=== PATIENT | male | born 1965 | race Caucasian/White ===

== ENCOUNTER → 2017-07-16 08:50 | Outpatient (CLI) | payer OTHER, MEDICAID, SELFPAY ==
--- NOTE | 2017-07-16 08:52 | DI.RAD.S_ITS ---
PROCEDURE: XR ANKLE LT MIN 3V INDICATIONS: 51 year-old male with left ankle pain after twisting injury. TECHNIQUE: 3 views of the ankle were acquired. COMPARISON: None. FINDINGS: Bones: There is mildly displaced spiral fracture of the distal fibula at the level of the mildly widened syndesmosis. Ankle mortise is normally aligned. No suspicious bony lesions. Soft tissues: There is lateral malleolar soft tissue swelling. No tibiotalar joint effusion. Achilles tendon appears normal. IMPRESSION: Fracture findings consistent with stage II supination-external rotation mechanism of injury. Dictated by: Arsen Cueva M.D. on 07/16/2017 at 9:38 Approved by: Arsen Cueva M.D. on 07/16/2017 at 9:39
== END ==
PROVIDERS: PCP Physician Assistant; Visit Provider Physician Assistant
DX: S82.442A Displaced spiral fracture of shaft of left fibula, initial encounter for closed fracture (principal); M25.572 Pain in left ankle and joints of left foot
CPT/HCPCS: 73610

== ENCOUNTER 2017-07-21 12:33 | Day surgery (SDC) | payer OTHER, MEDICAID, SELFPAY ==
[2017-07-21] VITALS (8 sets, daily range): BP systolic 130–157; BP diastolic 78–89; PULSE 88–111; RESP 12–18; TEMP 36.4–36.9; O2SAT 97–100; BMI 22.9
--- NOTE | 2017-07-21 13:18 | PM.HP.1 ---
History of Present Illness Date Patient Seen: 07/21/17 Time Patient Seen: 13:19 Chief complaint: [id number] Narrative: 51-year-old male with a left ankle fracture. He twisted his ankle 5 days ago. The next day he came in to the urgent care and was found to have a widened ankle fracture and was referred to my office was felt that he would benefit from surgical reduction. At this point the ankle is sore and still pounds and throbs when he lets it hang down. He has been walking in a fracture boot. 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 Patient History Medical History History of ETOH abuse (Acute) History of sinusitis (Acute) Left shoulder pain (Acute) Left wrist pain (Acute) Rotator cuff tear, left (Acute) Surgical History Hx of right inguinal hernia repair (Acute) Family & Social History Family History: Reviewed 07/21/17 by Guy Ceballos MD Tobacco & Substance use: Tobacco type cigarettes,pipe,cigars,smokeless tobacco Smoking Status Current every day smoker Smoking packs per day 0.5 alcohol intake current Meds Home Medications Medication Instructions Recorded Confirmed Type No Known Home Medications 07/16/17 07/16/17 History Allergies Allergy/AdvReac Type Severity Reaction Status Date / Time codeine AdvReac Severe Gastrointestinal Verified 07/21/17 07:56 Upset Review of Systems Cardiovascular Cardiovascular: Denies chest pain Respiratory Respiratory: Denies cough Musculoskeletal Musculoskeletal: Reports as per HPI Exam Const Orientation: alert and oriented x3 Resp Auscultation: clear to auscultation bilaterally Cardio Rate: regular rate Rhythm: regular rhythm Extrem Other: Left ankle with swelling. Easily moves his toes up and down. Intact sensation throughout ankle. 2+ DP. Intact integument Objective Imaging Left ankle: My impression: Lateral malleolus fracture of the left ankle with widening of the mortise Assessment & Plan (1) Closed left ankle fracture: Current visit: Yes Status: Acute Plan: Assessment/Plan Narrative: Plan is for ORIF of the left lateral malleolus fracture. I have discussed his limited weight-bearing status for the next 6 weeks, which will be quite complicated with his job. Hopefully we can get him a scooter and he may be able to use that in the kitchen. Risks and benefits of surgery were discussed and appropriate consents obtained. These risks include but are not limited to medical risk with heart attack, stroke, , DVT, PE, infection, bleeding, scarring, nerve or blood vessel injury, nonunion, malunion, stiffness, laxity, arthritis, need for further surgery.
--- NOTE | 2017-07-21 13:24 | P.HP_ITS ---
History of Present Illness Date Patient Seen: 07/21/17 Time Patient Seen: 13:19 Chief complaint: [id number] Narrative: 51-year-old male with a left ankle fracture. He twisted his ankle 5 days ago. The next day he came in to the urgent care and was found to have a widened ankle fracture and was referred to my office was felt that he would benefit from surgical reduction. At this point the ankle is sore and still pounds and throbs when he lets it hang down. He has been walking in a fracture boot. 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 Patient History Medical History History of ETOH abuse (Acute) History of sinusitis (Acute) Left shoulder pain (Acute) Left wrist pain (Acute) Rotator cuff tear, left (Acute) Surgical History Hx of right inguinal hernia repair (Acute) Family & Social History Family History: Reviewed 07/21/17 by Guy Ceballos MD Tobacco & Substance use: Tobacco type cigarettes,pipe,cigars,smokeless tobacco Smoking Status Current every day smoker Smoking packs per day 0.5 alcohol intake current Meds Home Medications Medication Instructions Recorded Confirmed Type No Known Home Medications 07/16/17 07/16/17 History Allergies Allergy/AdvReac Type Severity Reaction Status Date / Time codeine AdvReac Severe Gastrointestinal Verified 07/21/17 07:56 Upset Review of Systems Cardiovascular Cardiovascular: Denies chest pain Respiratory Respiratory: Denies cough Musculoskeletal Musculoskeletal: Reports as per HPI Exam Const Orientation: alert and oriented x3 Resp Auscultation: clear to auscultation bilaterally Cardio Rate: regular rate Rhythm: regular rhythm Extrem Other: Left ankle with swelling. Easily moves his toes up and down. Intact sensation throughout ankle. 2+ DP. Intact integument Objective Imaging Left ankle: My impression: Lateral malleolus fracture of the left ankle with widening of the mortise Assessment & Plan (1) Closed left ankle fracture: Current visit: Yes Status: Acute Plan: Assessment/Plan Narrative: Plan is for ORIF of the left lateral malleolus fracture. I have discussed his limited weight-bearing status for the next 6 weeks, which will be quite complicated with his job. Hopefully we can get him a scooter and he may be able to use that in the kitchen. Risks and benefits of surgery were discussed and appropriate consents obtained. These risks include but are not limited to medical risk with heart attack, stroke, , DVT, PE, infection, bleeding, scarring, nerve or blood vessel injury, nonunion, malunion, stiffness, laxity, arthritis, need for further surgery.
[2017-07-21] MEDS: LACTATED RINGERS 1,000 ML 42 ML IV (13:34)
--- NOTE | 2017-07-21 14:00 | DI.RAD.S_ITS ---
PROCEDURE: XR ANKLE LT MIN 3V INDICATIONS: LEFT ANKLE FX REPAIR TECHNIQUE: 3 views of the ankle were acquired. COMPARISON: [facility], CR, XR ANKLE LT MIN 3V, 07/16/2017, 8:53. FINDINGS: Bones: No previously undiagnosed fractures or dislocations. Ankle mortise is normally aligned. No suspicious bony lesions. Soft tissues: No tibiotalar joint effusion. Achilles tendon appears normal. Virtual anatomic alignment is established after ORIF of a lateral malleolar fracture IMPRESSION: Normal alignment established. Dictated by: Clement Mendes M.D. on 07/21/2017 at 16:03 Approved by: Clement Mendes M.D. on 07/21/2017 at 16:05
--- NOTE | 2017-07-21 14:07 | SUR.PREOP ---
Pt.currently with tremers bilateral hands, pt. states he does drink vodka on a regular bases.
[2017-07-21] MEDS: MIDAZOLAM 2 MG/2 ML VIAL IV (14:17)
[2017-07-21] MEDS: CEFAZOLIN 2 GM/100 ML FROZ.PIGGY IV (14:18)
--- NOTE | 2017-07-21 14:36 | SUR.OPER ---
Supine on padded OR bed, head on pillow, arms secured on padded arm boards at <90 degrees abduction, left leg draped free, safety belt at thigh, tape over blanket over right lower leg.
[2017-07-21] MEDS: BUPIVACAINE 0.5% W/ EPI (PF) 30 ML VIAL INJ (14:49)
[2017-07-21] MEDS: SODIUM CHLORIDE 0.9% 1,000 ML, GENTAMICIN 80 MG IRR (14:52)
--- NOTE | 2017-07-21 15:33 | PM.OP.1 ---
Operative Date/Time/Diagnoses - Date of procedure: 07/21/17 Time of procedure: 15:34 Pre-op diagnosis: Left ankle closed lateral malleolus fracture Post-op diagnosis: same Procedure & Clinicians Procedure: ORIF of left lateral malleolus fracture Same procedure as scheduled: Yes Indications: 51-year-old male with a lateral malleolus fracture. It was widened on the mortise. It was felt he would benefit from surgical reduction and stabilization. Risks and benefits of surgery were discussed and appropriate consent obtained. Surgeon: Guy Ceballos Click Yes if Unassisted: Yes Anesthesia Type: General Operative Notes Findings: none Closure Type: primary Specimen(s): none sent Implants & Drains: Synthes small frag plate Estimated Blood Loss (mL): 1 Tourniquet time (min): 44 Procedure in detail: Patient was brought to the operating room and intubated on the table. Time-out was performed. Preoperative antibiotics were given. Attention was turned towards the well-marked left side. A well-padded tourniquet was placed. The leg was prepped and draped in standard sterile fashion. An Esmarch was used to exsanguinate the limb and the tourniquet was inflated to 250 mmHg. An 8 cm longitudinal incision was made over the lateral malleolus. We bluntly spread split down through the soft tissue to the bone. The fracture site was exposed. The fracture was cleaned up with a curette and irrigated. We then used a alligator clamp to reduce the fracture and checked it under x-ray. A lag screw was placed using standard technique. We then placed a 6 hole Synthes small frag plate and conformed it to the posterior fibula. Cortical screws were placed at each hole. Final x-rays were taken. The wound was then irrigated. The deep tissues closed. The soft tissue was closed. The skin was closed. Marcaine was used for postoperative pain relief. Sterile dressing was placed. They were then placed in a well-padded posterior ankle splint with stirrups. There were extubated and brought to the recovery room with no complications. Complications: none Condition: stable Disposition: PACU Plan for aftercare: 25% weight-bearing x6 weeks. Outpatient surgery.
[2017-07-21] MEDS: LORazepam 2 MG/ML SYRINGE 0.5 MG IV (15:37)
[2017-07-21] MEDS: fentaNYL 100 MCG/2 ML INJ 50 MCG IV ×2 (15:37→15:49)
[2017-07-21] MEDS: HYDROCODONE/ACET 5/325 TABLET 1 TAB PO (15:59)
== END 2017-07-21 16:20 | disposition home or self-care (01) ==
PROVIDERS: PCP Physician Assistant; Visit Provider Orthopaedic Surgery
PROC: (CPT 27792; principal; 2017-07-21 14:15)
DX: S82.62XA Displaced fracture of lateral malleolus of left fibula, initial encounter for closed fracture (principal); F17.210 Nicotine dependence, cigarettes, uncomplicated
CPT/HCPCS: 27792; 73610; 76001; J0690; J1100; J1170; J2060; J2250; J2405; J2704; J3010

== ENCOUNTER 2018-02-12 15:11 | Emergency (ER) | payer OTHER, MEDICAID, SELFPAY ==
[2018-02-12 15:15] VITALS: BP 157/93; PULSE 103; RESP 18; TEMP 37.1; O2SAT 100
--- NOTE | 2018-02-12 16:18 | ED.PSYCH ---
HPI - Psych <Chelsea Suarez DO - Last Filed: 02/13/18 07:18> General Chief Complaint: Psychiatric Symptoms Stated Complaint: WITHDRAWALS SUICIDE Time Seen by Provider: 02/12/18 15:49 Source: patient and family Mode of arrival: ambulatory Limitations: no limitations History of Present Illness HPI Narrative: This is a 52-year-old gentleman who comes to the emergency department with complaint of alcohol withdrawal and suicidal ideation. Patient states that his father last night. He stopped drinking last night around 10:00 p.m.. Patient states he drinks about a 0.5 gal every other day. Patient states that he occasionally smokes marijuana but denies any other illicit. He states that he has never gone through withdrawals because he has never really tried to stop drinking. He is feeling very shaky. He has also having suicidal thoughts. He states he does not wish to kill himself but does have a plan. He states that he would try to hang himself but does not have the objects needed to be successful. Patient has not been having any chest pain, no shortness of breath, no nausea or vomiting. He is having headaches. Related Data Previous Rx's Medication Instructions Recorded lorazepam [Ativan] 1 mg PO SEEINSTR #11 tab 02/12/18 Allergies Allergy/AdvReac Type Severity Reaction Status Date / Time codeine AdvReac Severe Gastrointestinal Verified 02/12/18 15:24 Upset Review of Systems <Chelsea Suarez DO - Last Filed: 02/13/18 07:18> Review of Systems All systems reviewed & are unremarkable except as noted in HPI and below Constitutional Reports headache(s) ENT Ears, Nose, Mouth, and Throat: Reports headache(s) Cardiovascular Denies chest pain, Denies leg edema, Denies lightheadedness, Denies dyspnea and Denies dyspnea on exertion Respiratory Denies chest congestion, Denies cough, Denies excessive phlegm production, Denies dyspnea and Denies dyspnea on exertion Gastrointestinal Gastrointestinal: Denies abdominal pain, Denies change in bowel habits, Denies diarrhea, Reports nausea and Denies vomiting Genitourinary Denies hematuria, Denies flank pain, Denies urinary incontinence and Denies urinary urgency Neurologic Reports headache(s) and Reports tremor(s) Psychiatric Reports as per HPI, Reports depression, Denies visual hallucinations, Denies hallucinations, Denies tactile hallucinations, Reports suicidal ideation (denies intent) and Reports other (alcohol use) Exam <Chelsea Suarez DO - Last Filed: 02/13/18 07:18> Narrative Exam Narrative: GEN: well nourished, well appearing male, alert and oriented x 3, patient appears to be in moderate distress. HEENT: Atraumatic, pupils are equal round reactive to light, extraocular movements are intact, nares are clear, TMs are clear with no fluid, there is no conjunctival pallor. Throat is clear without any exudates, erythema, tonsillar enlargement or uvular deviation, normal speech. HEART: Regular rate and rhythm without murmur, clicks, rubs. Pulses are equal in upper and lower extremities LUNGS:Lungs clear to auscultation, no wheezes, rales, crackles, chest moves symmetrically ABD:bowel sounds normal, soft, non-tender, no guarding, rebound, rigidity, no masses noted, no hepatosplenomegaly :No CVA tenderness MSCL: Non-tender, no muscle atrophy, muscles strength 5/5 upper and lower extremities, full range of motion, normal gait NEURO:CN 2-12 intact, sensation normal, reflexes 2/4 upper and lower extremities. tremor generalized. PSYCH: Suicidal ideation, denies any intent. Patient denies any homicidal ideation or intent. Denies any hallucinations., no paranoia. In brief, patient's father yesterday. Initial Vital Signs Initial Vital Signs: Vital Signs Temperature 98.8 F 02/12/18 15:15 Pulse Rate 103 H 02/12/18 15:15 Respiratory Rate 18 02/12/18 15:15 Blood Pressure 157/93 H 02/12/18 15:15 Pulse Oximetry 100 02/12/18 15:15 <Bridger Jones, DO - Last Filed: 02/13/18 01:40> Initial Vital Signs Initial Vital Signs: Vital Signs Temperature 98.8 F 02/12/18 15:15 Pulse Rate 103 H 02/12/18 15:15 Respiratory Rate 18 02/12/18 15:15 Blood Pressure 157/93 H 02/12/18 15:15 Pulse Oximetry 100 02/12/18 15:15 Course <Chelsea Suarez DO - Last Filed: 02/13/18 07:18> Orders Ordered: Discontinued Medications Magnesium Sulfate 2 gm/ Folic Acid 1 mg/ Thiamine HCl 100 mg / Multivitamins 10 ml/ Sodium Chloride 1,015.2 mls @ 125 mls/hr IV NOW ONE Stop: 02/13/18 00:20 Last Infusion: 02/12/18 20:40 Dose: 125 mls/hr Admin: 02/12/18 17:50 Dose: 125 mls/hr Sodium Chloride (Normal Saline 0.9%) 1,000 mls @ 1,000 mls/hr IV BOLUS ONE Stop: 02/12/18 17:12 Last Infusion: 02/12/18 17:35 Dose: 1,000 mls/hr Admin: 02/12/18 16:37 Dose: 1,000 mls/hr Lorazepam (Ativan) 2 mg IV NOW ONE Stop: 02/12/18 16:14 Last Admin: 02/12/18 16:36 Dose: 2 mg Lorazepam (Ativan) 1 mg PO NOW ONE Stop: 02/12/18 17:48 Last Admin: 02/12/18 20:40 Dose: 1 mg Lorazepam (Ativan) 2 mg IV NOW ONE Stop: 02/12/18 20:34 Last Admin: 02/12/18 20:39 Dose: 2 mg Morphine Sulfate (Morphine) 4 mg IV NOW ONE Stop: 02/12/18 16:14 Last Admin: 02/12/18 16:36 Dose: 4 mg Vital Signs - 8 hr 02/12/18 18:58 02/12/18 20:00 Pulse Rate 85 80 Respiratory Rate 14 14 Blood Pressure [Right Arm] 140/89 132/91 H Pulse Oximetry 99 <Bridger Jones DO - Last Filed: 02/13/18 01:40> Orders Ordered: Discontinued Medications Magnesium Sulfate 2 gm/ Folic Acid 1 mg/ Thiamine HCl 100 mg / Multivitamins 10 ml/ Sodium Chloride 1,015.2 mls @ 125 mls/hr IV NOW ONE Stop: 02/13/18 00:20 Last Infusion: 02/12/18 20:40 Dose: 125 mls/hr Admin: 02/12/18 17:50 Dose: 125 mls/hr Sodium Chloride (Normal Saline 0.9%) 1,000 mls @ 1,000 mls/hr IV BOLUS ONE Stop: 02/12/18 17:12 Last Infusion: 02/12/18 17:35 Dose: 1,000 mls/hr Admin: 02/12/18 16:37 Dose: 1,000 mls/hr Lorazepam (Ativan) 2 mg IV NOW ONE Stop: 02/12/18 16:14 Last Admin: 02/12/18 16:36 Dose: 2 mg Lorazepam (Ativan) 1 mg PO NOW ONE Stop: 02/12/18 17:48 Last Admin: 02/12/18 20:40 Dose: 1 mg Lorazepam (Ativan) 2 mg IV NOW ONE Stop: 02/12/18 20:34 Last Admin: 02/12/18 20:39 Dose: 2 mg Morphine Sulfate (Morphine) 4 mg IV NOW ONE Stop: 02/12/18 16:14 Last Admin: 02/12/18 16:36 Dose: 4 mg Reevaluation(s) Reevaluation #1: Patient received in sign out from Dr. Suarez. I've provided an independent history and physical and have no significant additions to the documentationsocial work has detailed notes of encounter, but patient does not meet criteria for transfer to crisis center. She has arranged for close follow up by phone. Patient well aware of scenario. Sister is happy to take him home. He is given one more dose of ativan by IV and then 2mg PO for use once home. Vital Signs - 8 hr 02/12/18 18:58 02/12/18 20:00 Pulse Rate 85 80 Respiratory Rate 14 14 Blood Pressure [Right Arm] 140/89 132/91 H Pulse Oximetry 99 MDM - Psych <Chelsea Suarez, - Last Filed: 02/13/18 07:18> Lab Data Attestation: I reviewed the patient's lab results. Result diagrams: 02/12/18 15:35 02/12/18 15:35 Lab Results 02/12/18 02/12/18 02/12/18 Range/Units 15:35 15:35 15:35 WBC 8.1 (4.5-11.0) X10^3/uL RBC 4.27 L (4.5-5.9) X10^6/uL Hgb 14.1 (13.5-17.5) g/dL Hct 41.3 (41-53) % MCV 96.7 (80-100) fL MCH 33.0 (26-34) PG MCHC 34.1 (30-36) % RDW 14.1 (11.6-14.8) % Plt Count 339 (150-400) X10^3/uL Neut % (Auto) 69.9 (50-75) % Lymph % (Auto) 20.4 L (25-40) % [place] % (Auto) 8.3 (3-14) % Eos % (Auto) 0.4 L (2-4) % Baso % (Auto) 1.0 (0-2) % Neut # (Auto) 5700 (9803-0297) /uL PT 10.7 (10.1-12.7) SECONDS INR 0.9 (0.9-1.3) Sodium 140 (137-145) mmol/L Potassium 3.5 (3.4-5.1) mmol/L Chloride 98 (98-107) mmol/L Carbon Dioxide 28 (22-32) mmol/L BUN 14 (9-20) mg/dL Creatinine 0.70 (0.66-1.25) mg/dL Estimated GFR > 60.0 (>60) mL/min BUN/Creatinine Ratio 20.0 (6-22) Glucose 97 (70-100) mg/dL Calcium 9.8 (8.4-10.2) mg/dL Magnesium 1.3 L (1.6-2.3) mg/dL Total Bilirubin 0.6 (0.2-1.3) mg/dL Conjugated Bilirubin 0.0 (0.0-0.3) md/dL Unconjugated Bilirubin 0.3 (0.0-1.1) mg/dL AST 94 H (17-59) IU/L ALT 125 H (21-72) IU/L Alkaline Phosphatase 67 (38-126) U/L Total Protein 8.0 (6.3-8.2) g/dL Albumin 4.9 (3.5-5.0) g/dL Globulin 3.1 (1.7-4.1) g/dL Albumin/Globulin Ratio 1.6 (1.0-2.8) Lipase 96 (23-300) U/L Urine Opiates Screen (Negative) Ur Oxycodone Screen (Negative) Urine Methadone Screen (Negative) Ur Barbiturates Screen (Negative) U Tricyclic Antidepress (Negative) Ur Phencyclidine Scrn (Negative) Ur Amphetamines Screen (Negative) U Methamphetamines Scrn (Negative) Ur MDMA Scrn (Ecstasy) (Negative) U Benzodiazepines Scrn (Negative) Urine Cocaine Screen (Negative) U Marijuana (THC) Screen (Negative) Ethyl Alcohol < 10 mg/dL 02/12/18 Range/Units 15:35 WBC (4.5-11.0) X10^3/uL RBC (4.5-5.9) X10^6/uL Hgb (13.5-17.5) g/dL Hct (41-53) % MCV (80-100) fL MCH (26-34) PG MCHC (30-36) % RDW (11.6-14.8) % Plt Count (150-400) X10^3/uL Neut % (Auto) (50-75) % Lymph % (Auto) (25-40) % [place] % (Auto) (3-14) % Eos % (Auto) (2-4) % Baso % (Auto) (0-2) % Neut # (Auto) (5673-5548) /uL PT (10.1-12.7) SECONDS INR (0.9-1.3) Sodium (137-145) mmol/L Potassium (3.4-5.1) mmol/L Chloride (98-107) mmol/L Carbon Dioxide (22-32) mmol/L BUN (9-20) mg/dL Creatinine (0.66-1.25) mg/dL Estimated GFR (>60) mL/min BUN/Creatinine Ratio (6-22) Glucose (70-100) mg/dL Calcium (8.4-10.2) mg/dL Magnesium (1.6-2.3) mg/dL Total Bilirubin (0.2-1.3) mg/dL Conjugated Bilirubin (0.0-0.3) md/dL Unconjugated Bilirubin (0.0-1.1) mg/dL AST (17-59) IU/L ALT (21-72) IU/L Alkaline Phosphatase (38-126) U/L Total Protein (6.3-8.2) g/dL Albumin (3.5-5.0) g/dL Globulin (1.7-4.1) g/dL Albumin/Globulin Ratio (1.0-2.8) Lipase (23-300) U/L Urine Opiates Screen Negative (Negative) Ur Oxycodone Screen Negative (Negative) Urine Methadone Screen Negative (Negative) Ur Barbiturates Screen Negative (Negative) U Tricyclic Antidepress Negative (Negative) Ur Phencyclidine Scrn Negative (Negative) Ur Amphetamines Screen Negative (Negative) U Methamphetamines Scrn Negative (Negative) Ur MDMA Scrn (Ecstasy) Negative (Negative) U Benzodiazepines Scrn Negative (Negative) Urine Cocaine Screen Negative (Negative) U Marijuana (THC) Screen Positive H (Negative) Ethyl Alcohol mg/dL Imaging Data CT scan - head: Radiologist's impression: [address] [address] [address] Scan Report Signed Patient: Sean Li MR#: [id number] : 1965 Acct:[id number] Age/Sex: 52 / M Date of Service: 02/12/18 Loc: ED Accession Number: [id number] Procedure: CT head/brain wo con Ordering Provider: Chelsea Suarez D.O. PROCEDURE: CT HEAD/BRAIN WO CON INDICATIONS: headaches, hx of bone disease thickening of bone TECHNIQUE: Noncontrast 4.5 mm thick angled axial sections acquired from the foramen magnum to the vertex, with coronal and sagittal reformats. For radiation dose reduction, the following was used: automated exposure control, adjustment of mA and/or kV according to patient size. COMPARISON: None. FINDINGS: Image quality: Excellent. CSF spaces: Basal cisterns are patent. No extra-axial fluid collections. The ventricles are symmetric in size and shape. Brain: No intracranial bleeds or masses. There is cerebral volume loss for age, with resultant ventricular and sulcal prominence. There are periventricular and deep white matter chronic small vessel ischemic changes. There is intracranial left internal carotid artery atherosclerosis. Skull and face: Calvarium and visualized facial bones appear intact, without suspicious lesions. No calvarial thickening. Sinuses: Visualized sinuses and mastoids are clear. IMPRESSION: No acute intracranial disease process. Dictated by: Tegan Suárez MD, PhD on 02/12/2018 at 16:33 Approved by: Tegan Suárez MD, PhD on 02/12/2018 at 16:35 [facility] Narrative Medical decision making narrative: Patient's tremor Um improved after Ativan. He is receiving a banana bag here in the emergency department as well. He received some morphine for headache on he feels much more comfortable. He states he is feeling a much better place with his withdrawal symptoms as well as his mental health he states he does not feel suicidal at this point. He states that he feels safe to return home but would prefer to go to an alcohol detox program. His main problem to be in inpatient program. Patient and I discussed possible options. Social Work is here and they are investigating options. We did discuss that if there is not a bed available tonight we could potentially give him a prescription for prevention of withdrawal and have him call for a bed in morning. Patient is open to this plan. Awaiting call back from crisis center after sending patient info. Signed out to Dr. Jones while awaiting bed vs discharge home. Patient has not had any other issues with withdrawl, no longer having any suicidal ideation. Signed out to Dr. Jones while awaiting bed. <Bridger Jones, DO - Last Filed: 02/13/18 01:40> Lab Data Lab Results 02/12/18 02/12/18 02/12/18 Range/Units 15:35 15:35 15:35 WBC 8.1 (4.5-11.0) X10^3/uL RBC 4.27 L (4.5-5.9) X10^6/uL Hgb 14.1 (13.5-17.5) g/dL Hct 41.3 (41-53) % MCV 96.7 (80-100) fL MCH 33.0 (26-34) PG MCHC 34.1 (30-36) % RDW 14.1 (11.6-14.8) % Plt Count 339 (150-400) X10^3/uL Neut % (Auto) 69.9 (50-75) % Lymph % (Auto) 20.4 L (25-40) % [place] % (Auto) 8.3 (3-14) % Eos % (Auto) 0.4 L (2-4) % Baso % (Auto) 1.0 (0-2) % Neut # (Auto) 5700 (4332-9902) /uL PT 10.7 (10.1-12.7) SECONDS INR 0.9 (0.9-1.3) Sodium 140 (137-145) mmol/L Potassium 3.5 (3.4-5.1) mmol/L Chloride 98 (98-107) mmol/L Carbon Dioxide 28 (22-32) mmol/L BUN 14 (9-20) mg/dL Creatinine 0.70 (0.66-1.25) mg/dL Estimated GFR > 60.0 (>60) mL/min BUN/Creatinine Ratio 20.0 (6-22) Glucose 97 (70-100) mg/dL Calcium 9.8 (8.4-10.2) mg/dL Magnesium 1.3 L (1.6-2.3) mg/dL Total Bilirubin 0.6 (0.2-1.3) mg/dL Conjugated Bilirubin 0.0 (0.0-0.3) md/dL Unconjugated Bilirubin 0.3 (0.0-1.1) mg/dL AST 94 H (17-59) IU/L ALT 125 H (21-72) IU/L Alkaline Phosphatase 67 (38-126) U/L Total Protein 8.0 (6.3-8.2) g/dL Albumin 4.9 (3.5-5.0) g/dL Globulin 3.1 (1.7-4.1) g/dL Albumin/Globulin Ratio 1.6 (1.0-2.8) Lipase 96 (23-300) U/L Urine Opiates Screen (Negative) Ur Oxycodone Screen (Negative) Urine Methadone Screen (Negative) Ur Barbiturates Screen (Negative) U Tricyclic Antidepress (Negative) Ur Phencyclidine Scrn (Negative) Ur Amphetamines Screen (Negative) U Methamphetamines Scrn (Negative) Ur MDMA Scrn (Ecstasy) (Negative) U Benzodiazepines Scrn (Negative) Urine Cocaine Screen (Negative) U Marijuana (THC) Screen (Negative) Ethyl Alcohol < 10 mg/dL 02/12/18 Range/Units 15:35 WBC (4.5-11.0) X10^3/uL RBC (4.5-5.9) X10^6/uL Hgb (13.5-17.5) g/dL Hct (41-53) % MCV (80-100) fL MCH (26-34) PG MCHC (30-36) % RDW (11.6-14.8) % Plt Count (150-400) X10^3/uL Neut % (Auto) (50-75) % Lymph % (Auto) (25-40) % [place] % (Auto) (3-14) % Eos % (Auto) (2-4) % Baso % (Auto) (0-2) % Neut # (Auto) (3399-1889) /uL PT (10.1-12.7) SECONDS INR (0.9-1.3) Sodium (137-145) mmol/L Potassium (3.4-5.1) mmol/L Chloride (98-107) mmol/L Carbon Dioxide (22-32) mmol/L BUN (9-20) mg/dL Creatinine (0.66-1.25) mg/dL Estimated GFR (>60) mL/min BUN/Creatinine Ratio (6-22) Glucose (70-100) mg/dL Calcium (8.4-10.2) mg/dL Magnesium (1.6-2.3) mg/dL Total Bilirubin (0.2-1.3) mg/dL Conjugated Bilirubin (0.0-0.3) md/dL Unconjugated Bilirubin (0.0-1.1) mg/dL AST (17-59) IU/L ALT (21-72) IU/L Alkaline Phosphatase (38-126) U/L Total Protein (6.3-8.2) g/dL Albumin (3.5-5.0) g/dL Globulin (1.7-4.1) g/dL Albumin/Globulin Ratio (1.0-2.8) Lipase (23-300) U/L Urine Opiates Screen Negative (Negative) Ur Oxycodone Screen Negative (Negative) Urine Methadone Screen Negative (Negative) Ur Barbiturates Screen Negative (Negative) U Tricyclic Antidepress Negative (Negative) Ur Phencyclidine Scrn Negative (Negative) Ur Amphetamines Screen Negative (Negative) U Methamphetamines Scrn Negative (Negative) Ur MDMA Scrn (Ecstasy) Negative (Negative) U Benzodiazepines Scrn Negative (Negative) Urine Cocaine Screen Negative (Negative) U Marijuana (THC) Screen Positive H (Negative) Ethyl Alcohol mg/dL Discharge Plan Departure Patient Disposition: Home Clinical Impression: Alcohol withdrawal Discharge Date/Time: 02/12/18 20:56 Interventions: ED Discharge Assessment Last Done: 02/12/18 20:53 Instructions: DI for Drug or Alcohol Withdrawal Activity Restrictions/Additional Instructions: You should expect a call from the Crisis Team tonight at about 11pm You have been given an extra Ativan 1mg (x2) to take later tonight when you begin to feel shakey If you feel you need to go to [facility] Crisis[facility]Detox [facility]. Call had of time ([phone]) to inquire about an available bed. If there are no beds called daily and 9 AM and 9 PM to check on bed availability. If you're feeling suicidal or having suicidal thoughts, contact the suicide hotline: . Go directly to the crisis/detox center. Take the prescribed medications for your symptoms. Medications will be dispensed by the staff there. If you leave the Center you CANNOT take the extra medication home with you. Prescriptions: New lorazepam [Ativan] 1 mg tablet 1 mg PO SEEINSTR Qty: 11 RF: 0 Referrals: Allison Chris PA-C [Primary Care Provider] -
--- NOTE | 2018-02-12 16:23 | ED_ITS ---
HPI - Psych <Chelsea Suarez DO - Last Filed: 02/13/18 07:18> General Chief Complaint: Psychiatric Symptoms Stated Complaint: WITHDRAWALS SUICIDE Time Seen by Provider: 02/12/18 15:49 Source: patient and family Mode of arrival: ambulatory Limitations: no limitations History of Present Illness HPI Narrative: This is a 52-year-old gentleman who comes to the emergency department with complaint of alcohol withdrawal and suicidal ideation. Patient states that his father last night. He stopped drinking last night around 10:00 p.m.. Patient states he drinks about a 0.5 gal every other day. Patient states that he occasionally smokes marijuana but denies any other illicit. He states that he has never gone through withdrawals because he has never really tried to stop drinking. He is feeling very shaky. He has also having suicidal thoughts. He states he does not wish to kill himself but does have a plan. He states that he would try to hang himself but does not have the objects needed to be successful. Patient has not been having any chest pain, no shortness of breath, no nausea or vomiting. He is having headaches. Related Data Previous Rx's Medication Instructions Recorded lorazepam [Ativan] 1 mg PO SEEINSTR #11 tab 02/12/18 Allergies Allergy/AdvReac Type Severity Reaction Status Date / Time codeine AdvReac Severe Gastrointestinal Verified 02/12/18 15:24 Upset Review of Systems <Chelsea Suarez DO - Last Filed: 02/13/18 07:18> Review of Systems All systems reviewed & are unremarkable except as noted in HPI and below Constitutional Reports headache(s) ENT Ears, Nose, Mouth, and Throat: Reports headache(s) Cardiovascular Denies chest pain, Denies leg edema, Denies lightheadedness, Denies dyspnea and Denies dyspnea on exertion Respiratory Denies chest congestion, Denies cough, Denies excessive phlegm production, Denies dyspnea and Denies dyspnea on exertion Gastrointestinal Gastrointestinal: Denies abdominal pain, Denies change in bowel habits, Denies diarrhea, Reports nausea and Denies vomiting Genitourinary Denies hematuria, Denies flank pain, Denies urinary incontinence and Denies urinary urgency Neurologic Reports headache(s) and Reports tremor(s) Psychiatric Reports as per HPI, Reports depression, Denies visual hallucinations, Denies hallucinations, Denies tactile hallucinations, Reports suicidal ideation ( denies intent) and Reports other (alcohol use) Exam <Chelsea Suarez DO - Last Filed: 02/13/18 07:18> Narrative Exam Narrative: GEN: well nourished, well appearing male, alert and oriented x 3 , patient appears to be in moderate distress. HEENT: Atraumatic, pupils are equal round reactive to light, extraocular movements are intact, nares are clear, TMs are clear with no fluid, there is no conjunctival pallor. Throat is clear without any exudates, erythema, tonsillar enlargement or uvular deviation, normal speech. HEART: Regular rate and rhythm without murmur, clicks, rubs. Pulses are equal in upper and lower extremities LUNGS:Lungs clear to auscultation, no wheezes, rales, crackles, chest moves symmetrically ABD:bowel sounds normal, soft, non-tender, no guarding, rebound, rigidity, no masses noted, no hepatosplenomegaly :No CVA tenderness MSCL: Non-tender, no muscle atrophy, muscles strength 5/5 upper and lower extremities, full range of motion, normal gait NEURO:CN 2-12 intact, sensation normal, reflexes 2/4 upper and lower extremities. tremor generalized. PSYCH: Suicidal ideation, denies any intent. Patient denies any homicidal ideation or intent. Denies any hallucinations., no paranoia. In brief, patient 's father yesterday. Initial Vital Signs Initial Vital Signs: Vital Signs Temperature 98.8 F 02/12/18 15:15 Pulse Rate 103 H 02/12/18 15:15 Respiratory Rate 18 02/12/18 15:15 Blood Pressure 157/93 H 02/12/18 15:15 Pulse Oximetry 100 02/12/18 15:15 <Bridger Jones, DO - Last Filed: 02/13/18 01:40> Initial Vital Signs Initial Vital Signs: Vital Signs Temperature 98.8 F 02/12/18 15:15 Pulse Rate 103 H 02/12/18 15:15 Respiratory Rate 18 02/12/18 15:15 Blood Pressure 157/93 H 02/12/18 15:15 Pulse Oximetry 100 02/12/18 15:15 Course <Chelsea Suarez DO - Last Filed: 02/13/18 07:18> Orders Ordered: Discontinued Medications Magnesium Sulfate 2 gm/ Folic Acid 1 mg/ Thiamine HCl 100 mg / Multivitamins 10 ml/ Sodium Chloride 1,015.2 mls @ 125 mls/hr IV NOW ONE Stop: 02/13/18 00:20 Last Infusion: 02/12/18 20:40 Dose: 125 mls/hr Admin: 02/12/18 17:50 Dose: 125 mls/hr Sodium Chloride (Normal Saline 0.9%) 1,000 mls @ 1,000 mls/hr IV BOLUS ONE Stop: 02/12/18 17:12 Last Infusion: 02/12/18 17:35 Dose: 1,000 mls/hr Admin: 02/12/18 16:37 Dose: 1,000 mls/hr Lorazepam (Ativan) 2 mg IV NOW ONE Stop: 02/12/18 16:14 Last Admin: 02/12/18 16:36 Dose: 2 mg Lorazepam (Ativan) 1 mg PO NOW ONE Stop: 02/12/18 17:48 Last Admin: 02/12/18 20:40 Dose: 1 mg Lorazepam (Ativan) 2 mg IV NOW ONE Stop: 02/12/18 20:34 Last Admin: 02/12/18 20:39 Dose: 2 mg Morphine Sulfate (Morphine) 4 mg IV NOW ONE Stop: 02/12/18 16:14 Last Admin: 02/12/18 16:36 Dose: 4 mg Vital Signs - 8 hr 02/12/18 18:58 02/12/18 20:00 Pulse Rate 85 80 Respiratory Rate 14 14 Blood Pressure [Right Arm] 140/89 132/91 H Pulse Oximetry 99 <Bridger Jones DO - Last Filed: 02/13/18 01:40> Orders Ordered: Discontinued Medications Magnesium Sulfate 2 gm/ Folic Acid 1 mg/ Thiamine HCl 100 mg / Multivitamins 10 ml/ Sodium Chloride 1,015.2 mls @ 125 mls/hr IV NOW ONE Stop: 02/13/18 00:20 Last Infusion: 02/12/18 20:40 Dose: 125 mls/hr Admin: 02/12/18 17:50 Dose: 125 mls/hr Sodium Chloride (Normal Saline 0.9%) 1,000 mls @ 1,000 mls/hr IV BOLUS ONE Stop: 02/12/18 17:12 Last Infusion: 02/12/18 17:35 Dose: 1,000 mls/hr Admin: 02/12/18 16:37 Dose: 1,000 mls/hr Lorazepam (Ativan) 2 mg IV NOW ONE Stop: 02/12/18 16:14 Last Admin: 02/12/18 16:36 Dose: 2 mg Lorazepam (Ativan) 1 mg PO NOW ONE Stop: 02/12/18 17:48 Last Admin: 02/12/18 20:40 Dose: 1 mg Lorazepam (Ativan) 2 mg IV NOW ONE Stop: 02/12/18 20:34 Last Admin: 02/12/18 20:39 Dose: 2 mg Morphine Sulfate (Morphine) 4 mg IV NOW ONE Stop: 02/12/18 16:14 Last Admin: 02/12/18 16:36 Dose: 4 mg Reevaluation(s) Reevaluation #1: Patient received in sign out from Dr. Suarez. I've provided an independent history and physical and have no significant additions to the documentationsocial work has detailed notes of encounter, but patient does not meet criteria for transfer to crisis center. She has arranged for close follow up by phone. Patient well aware of scenario. Sister is happy to take him home. He is given one more dose of ativan by IV and then 2mg PO for use once home. Vital Signs - 8 hr 02/12/18 18:58 02/12/18 20:00 Pulse Rate 85 80 Respiratory Rate 14 14 Blood Pressure [Right Arm] 140/89 132/91 H Pulse Oximetry 99 MDM - Psych <Chelsea Suarez, - Last Filed: 02/13/18 07:18> Lab Data Attestation: I reviewed the patient's lab results. Result diagrams: 02/12/18 15:35 02/12/18 15:35 Lab Results 02/12/18 02/12/18 02/12/18 Range/Units 15:35 15:35 15:35 WBC 8.1 (4.5-11.0) X10^3/uL RBC 4.27 L (4.5-5.9) X10^6/uL Hgb 14.1 (13.5-17.5) g/dL Hct 41.3 (41-53) % MCV 96.7 (80-100) fL MCH 33.0 (26-34) PG MCHC 34.1 (30-36) % RDW 14.1 (11.6-14.8) % Plt Count 339 (150-400) X10^3/uL Neut % (Auto) 69.9 (50-75) % Lymph % (Auto) 20.4 L (25-40) % Carson % (Auto) 8.3 (3-14) % Eos % (Auto) 0.4 L (2-4) % Baso % (Auto) 1.0 (0-2) % Neut # (Auto) 5700 (4505-6903) /uL PT 10.7 (10.1-12.7) SECONDS INR 0.9 (0.9-1.3) Sodium 140 (137-145) mmol/L Potassium 3.5 (3.4-5.1) mmol/L Chloride 98 (98-107) mmol/L Carbon Dioxide 28 (22-32) mmol/L BUN 14 (9-20) mg/dL Creatinine 0.70 (0.66-1.25) mg/dL Estimated GFR > 60.0 (>60) mL/min BUN/Creatinine Ratio 20.0 (6-22) Glucose 97 (70-100) mg/dL Calcium 9.8 (8.4-10.2) mg/dL Magnesium 1.3 L (1.6-2.3) mg/dL Total Bilirubin 0.6 (0.2-1.3) mg/dL Conjugated Bilirubin 0.0 (0.0-0.3) md/dL Unconjugated Bilirubin 0.3 (0.0-1.1) mg/dL AST 94 H (17-59) IU/L ALT 125 H (21-72) IU/L Alkaline Phosphatase 67 (38-126) U/L Total Protein 8.0 (6.3-8.2) g/dL Albumin 4.9 (3.5-5.0) g/dL Globulin 3.1 (1.7-4.1) g/dL Albumin/Globulin Ratio 1.6 (1.0-2.8) Lipase 96 (23-300) U/L Urine Opiates Screen (Negative) Ur Oxycodone Screen (Negative) Urine Methadone Screen (Negative) Ur Barbiturates Screen (Negative) U Tricyclic Antidepress (Negative) Ur Phencyclidine Scrn (Negative) Ur Amphetamines Screen (Negative) U Methamphetamines Scrn (Negative) Ur MDMA Scrn (Ecstasy) (Negative) U Benzodiazepines Scrn (Negative) Urine Cocaine Screen (Negative) U Marijuana (THC) Screen (Negative) Ethyl Alcohol < 10 mg/dL 02/12/18 Range/Units 15:35 WBC (4.5-11.0) X10^3/uL RBC (4.5-5.9) X10^6/uL Hgb (13.5-17.5) g/dL Hct (41-53) % MCV (80-100) fL MCH (26-34) PG MCHC (30-36) % RDW (11.6-14.8) % Plt Count (150-400) X10^3/uL Neut % (Auto) (50-75) % Lymph % (Auto) (25-40) % Carson % (Auto) (3-14) % Eos % (Auto) (2-4) % Baso % (Auto) (0-2) % Neut # (Auto) (3728-9328) /uL PT (10.1-12.7) SECONDS INR (0.9-1.3) Sodium (137-145) mmol/L Potassium (3.4-5.1) mmol/L Chloride (98-107) mmol/L Carbon Dioxide (22-32) mmol/L BUN (9-20) mg/dL Creatinine (0.66-1.25) mg/dL Estimated GFR (>60) mL/min BUN/Creatinine Ratio (6-22) Glucose (70-100) mg/dL Calcium (8.4-10.2) mg/dL Magnesium (1.6-2.3) mg/dL Total Bilirubin (0.2-1.3) mg/dL Conjugated Bilirubin (0.0-0.3) md/dL Unconjugated Bilirubin (0.0-1.1) mg/dL AST (17-59) IU/L ALT (21-72) IU/L Alkaline Phosphatase (38-126) U/L Total Protein (6.3-8.2) g/dL Albumin (3.5-5.0) g/dL Globulin (1.7-4.1) g/dL Albumin/Globulin Ratio (1.0-2.8) Lipase (23-300) U/L Urine Opiates Screen Negative (Negative) Ur Oxycodone Screen Negative (Negative) Urine Methadone Screen Negative (Negative) Ur Barbiturates Screen Negative (Negative) U Tricyclic Antidepress Negative (Negative) Ur Phencyclidine Scrn Negative (Negative) Ur Amphetamines Screen Negative (Negative) U Methamphetamines Scrn Negative (Negative) Ur MDMA Scrn (Ecstasy) Negative (Negative) U Benzodiazepines Scrn Negative (Negative) Urine Cocaine Screen Negative (Negative) U Marijuana (THC) Screen Positive H (Negative) Ethyl Alcohol mg/dL Imaging Data CT scan - head: Radiologist's impression: [address] [address] [address] Scan Report Signed Patient: Sean Li MR#: [id number] : 1965 Acct:[id number] Age/Sex: 52 / M Date of Service: 02/12/18 Loc: ED Accession Number: [id number] Procedure: CT head/brain wo con Ordering Provider: Chelsea Suarez D.O. PROCEDURE: CT HEAD/BRAIN WO CON INDICATIONS: headaches, hx of bone disease thickening of bone TECHNIQUE: Noncontrast 4.5 mm thick angled axial sections acquired from the foramen magnum to the vertex, with coronal and sagittal reformats. For radiation dose reduction, the following was used: automated exposure control, adjustment of mA and/or kV according to patient size. COMPARISON: None. FINDINGS: Image quality: Excellent. CSF spaces: Basal cisterns are patent. No extra-axial fluid collections. The ventricles are symmetric in size and shape. Brain: No intracranial bleeds or masses. There is cerebral volume loss for age , with resultant ventricular and sulcal prominence. There are periventricular and deep white matter chronic small vessel ischemic changes. There is intracranial left internal carotid artery atherosclerosis. Skull and face: Calvarium and visualized facial bones appear intact, without suspicious lesions. No calvarial thickening. Sinuses: Visualized sinuses and mastoids are clear. IMPRESSION: No acute intracranial disease process. Dictated by: Tegan Suárez MD, PhD on 02/12/2018 at 16:33 Approved by: Tegan Suárez MD, PhD on 02/12/2018 at 16:35 [facility] Narrative Medical decision making narrative: Patient's tremor Um improved after Ativan. He is receiving a banana bag here in the emergency department as well. He received some morphine for headache on he feels much more comfortable. He states he is feeling a much better place with his withdrawal symptoms as well as his mental health he states he does not feel suicidal at this point. He states that he feels safe to return home but would prefer to go to an alcohol detox program. His main problem to be in inpatient program. Patient and I discussed possible options. Social Work is here and they are investigating options. We did discuss that if there is not a bed available tonight we could potentially give him a prescription for prevention of withdrawal and have him call for a bed in morning. Patient is open to this plan. Awaiting call back from crisis center after sending patient info. Signed out to Dr. Jones while awaiting bed vs discharge home. Patient has not had any other issues with withdrawl, no longer having any suicidal ideation. Signed out to Dr. Jones while awaiting bed. <Bridger Jones, DO - Last Filed: 02/13/18 01:40> Lab Data Lab Results 02/12/18 02/12/18 02/12/18 Range/Units 15:35 15:35 15:35 WBC 8.1 (4.5-11.0) X10^3/uL RBC 4.27 L (4.5-5.9) X10^6/uL Hgb 14.1 (13.5-17.5) g/dL Hct 41.3 (41-53) % MCV 96.7 (80-100) fL MCH 33.0 (26-34) PG MCHC 34.1 (30-36) % RDW 14.1 (11.6-14.8) % Plt Count 339 (150-400) X10^3/uL Neut % (Auto) 69.9 (50-75) % Lymph % (Auto) 20.4 L (25-40) % Carson % (Auto) 8.3 (3-14) % Eos % (Auto) 0.4 L (2-4) % Baso % (Auto) 1.0 (0-2) % Neut # (Auto) 5700 (4288-7777) /uL PT 10.7 (10.1-12.7) SECONDS INR 0.9 (0.9-1.3) Sodium 140 (137-145) mmol/L Potassium 3.5 (3.4-5.1) mmol/L Chloride 98 (98-107) mmol/L Carbon Dioxide 28 (22-32) mmol/L BUN 14 (9-20) mg/dL Creatinine 0.70 (0.66-1.25) mg/dL Estimated GFR > 60.0 (>60) mL/min BUN/Creatinine Ratio 20.0 (6-22) Glucose 97 (70-100) mg/dL Calcium 9.8 (8.4-10.2) mg/dL Magnesium 1.3 L (1.6-2.3) mg/dL Total Bilirubin 0.6 (0.2-1.3) mg/dL Conjugated Bilirubin 0.0 (0.0-0.3) md/dL Unconjugated Bilirubin 0.3 (0.0-1.1) mg/dL AST 94 H (17-59) IU/L ALT 125 H (21-72) IU/L Alkaline Phosphatase 67 (38-126) U/L Total Protein 8.0 (6.3-8.2) g/dL Albumin 4.9 (3.5-5.0) g/dL Globulin 3.1 (1.7-4.1) g/dL Albumin/Globulin Ratio 1.6 (1.0-2.8) Lipase 96 (23-300) U/L Urine Opiates Screen (Negative) Ur Oxycodone Screen (Negative) Urine Methadone Screen (Negative) Ur Barbiturates Screen (Negative) U Tricyclic Antidepress (Negative) Ur Phencyclidine Scrn (Negative) Ur Amphetamines Screen (Negative) U Methamphetamines Scrn (Negative) Ur MDMA Scrn (Ecstasy) (Negative) U Benzodiazepines Scrn (Negative) Urine Cocaine Screen (Negative) U Marijuana (THC) Screen (Negative) Ethyl Alcohol < 10 mg/dL 02/12/18 Range/Units 15:35 WBC (4.5-11.0) X10^3/uL RBC (4.5-5.9) X10^6/uL Hgb (13.5-17.5) g/dL Hct (41-53) % MCV (80-100) fL MCH (26-34) PG MCHC (30-36) % RDW (11.6-14.8) % Plt Count (150-400) X10^3/uL Neut % (Auto) (50-75) % Lymph % (Auto) (25-40) % Carson % (Auto) (3-14) % Eos % (Auto) (2-4) % Baso % (Auto) (0-2) % Neut # (Auto) (6066-3874) /uL PT (10.1-12.7) SECONDS INR (0.9-1.3) Sodium (137-145) mmol/L Potassium (3.4-5.1) mmol/L Chloride (98-107) mmol/L Carbon Dioxide (22-32) mmol/L BUN (9-20) mg/dL Creatinine (0.66-1.25) mg/dL Estimated GFR (>60) mL/min BUN/Creatinine Ratio (6-22) Glucose (70-100) mg/dL Calcium (8.4-10.2) mg/dL Magnesium (1.6-2.3) mg/dL Total Bilirubin (0.2-1.3) mg/dL Conjugated Bilirubin (0.0-0.3) md/dL Unconjugated Bilirubin (0.0-1.1) mg/dL AST (17-59) IU/L ALT (21-72) IU/L Alkaline Phosphatase (38-126) U/L Total Protein (6.3-8.2) g/dL Albumin (3.5-5.0) g/dL Globulin (1.7-4.1) g/dL Albumin/Globulin Ratio (1.0-2.8) Lipase (23-300) U/L Urine Opiates Screen Negative (Negative) Ur Oxycodone Screen Negative (Negative) Urine Methadone Screen Negative (Negative) Ur Barbiturates Screen Negative (Negative) U Tricyclic Antidepress Negative (Negative) Ur Phencyclidine Scrn Negative (Negative) Ur Amphetamines Screen Negative (Negative) U Methamphetamines Scrn Negative (Negative) Ur MDMA Scrn (Ecstasy) Negative (Negative) U Benzodiazepines Scrn Negative (Negative) Urine Cocaine Screen Negative (Negative) U Marijuana (THC) Screen Positive H (Negative) Ethyl Alcohol mg/dL Discharge Plan Departure Patient Disposition: Home Clinical Impression: Alcohol withdrawal Discharge Date/Time: 02/12/18 20:56 Interventions: ED Discharge Assessment Last Done: 02/12/18 20:53 Instructions: DI for Drug or Alcohol Withdrawal Activity Restrictions/Additional Instructions: You should expect a call from the Crisis Team tonight at about 11pm You have been given an extra Ativan 1mg (x2) to take later tonight when you begin to feel shakey If you feel you need to go to [facility] Crisis[facility]Detox Center. Call had of time ([phone]) to inquire about an available bed. If there are no beds called daily and 9 AM and 9 PM to check on bed availability. If you're feeling suicidal or having suicidal thoughts, contact the suicide hotline: . Go directly to the crisis/detox center. Take the prescribed medications for your symptoms. Medications will be dispensed by the staff there. If you leave the Center you CANNOT take the extra medication home with you. Prescriptions: New lorazepam [Ativan] 1 mg tablet 1 mg PO SEEINSTR Qty: 11 RF: 0 Referrals: Allison Chris PA-C [Primary Care Provider] -
[2018-02-12 16:25] LABS: Add Manual Diff / Slide Review NO; Eosinophils Percent Auto 0.4 % (2-4); Hematocrit 41.3 % (41-53); Hemoglobin 14.1 g/dL (13.5-17.5); Lymphocytes Percent Auto 20.4 % (25-40); Mean Corpuscular HGB Conc 34.1 % (30-36); Mean Corpuscular Volume 96.7 fL (80-100); Monocytes Percent Auto 8.3 % (3-14); Neutrophils Absolute Auto 5700 /uL (1500-7000); Neutrophils Percent Auto 69.9 % (50-75); Platelet Count 339 X10^3/uL (150-400); Red Blood Cell Count 4.27 X10^6/uL (4.5-5.9); Red Cell Distribution Width 14.1 % (11.6-14.8); White Blood Cell Count 8.1 X10^3/uL (4.5-11.0)
[2018-02-12 16:26] VITALS: BP 138/78; PULSE 95; RESP 20; O2SAT 95
[2018-02-12 16:27] LABS: INR 0.9 (0.9-1.3); Prothrombin Time 10.7 SECONDS (10.1-12.7)
[2018-02-12 16:30] LABS: Urine Amphetamines Negative (Negative); Urine Barbiturates Negative (Negative); Urine Benzodiazepines Negative (Negative); Urine Cocaine Negative (Negative); Urine MDMA Negative (Negative); Urine Methadone Negative (Negative); Urine Methamphetamines Negative (Negative); Urine Morphine/Opi cutoff 2000 Negative (Negative); Urine Oxycodone Negative (Negative); Urine Phencyclidine Negative (Negative); Urine Tetrahydrocannabinol Positive (Negative); Urine Tricyclic Antidepressant Negative (Negative)
[2018-02-12 16:32] LABS: Alanine Aminotransferase 125 IU/L (21-72); Albumin 4.9 g/dL (3.5-5.0); Albumin Globulin Ratio 1.6 (1.0-2.8); Alkaline Phosphatase 67 U/L (38-126); Aspartate Aminotransferase 94 IU/L (17-59); Bilirubin Total 0.6 mg/dL (0.2-1.3); Bilirubin Unconjugated 0.3 mg/dL (0.0-1.1); Blood Urea Nitrogen 14 mg/dL (9-20); Calcium 9.8 mg/dL (8.4-10.2); Carbon Dioxide 28 mmol/L (22-32); Chloride 98 mmol/L (98-107); Estimated Glomerular Filt Rate > 60.0 mL/min (>60); Globulin 3.1 g/dL (1.7-4.1); Glucose 97 mg/dL (70-100); HEMOLYSIS < 15 (0-50); Lipase 96 U/L (23-300); Magnesium 1.3 mg/dL (1.6-2.3); Potassium 3.5 mmol/L (3.4-5.1); Sodium 140 mmol/L (137-145)
[2018-02-12] MEDS: LORazepam 2 MG/ML SYRINGE IV ×2 (16:36→20:39)
[2018-02-12] MEDS: MORPHINE 4 MG/ML INJ IV (16:36)
[2018-02-12] MEDS: SODIUM CHLORIDE 0.9% 1,000 ML 1000 ML IV (16:37)
[2018-02-12 16:45] LABS: Ethanol (ETOH) < 10 mg/dL
[2018-02-12 17:09] VITALS: BP 144/76; PULSE 98; RESP 19; O2SAT 100
[2018-02-12] MEDS: MAGNESIUM SULFATE 2 GM, FOLIC ACID 1 MG, THIAMINE 100 MG, MULTIVITAMIN 10 ML in SODIUM ... IV (17:50)
--- NOTE | 2018-02-12 18:10 | PC.NURSE ---
SW arrives to talk to patient. Will hold Ativan PO until after their discussion as pt. is calm and without distress at present and SONI wants pt. lucid for discussion..
--- NOTE | 2018-02-12 18:55 | CM.SWNOTE ---
Addendum entered by SUSAN Puckett 02/12/18 20:30: Patient was not accepted at the Crisis Center. [facility] arranged for pt to receive a call at 11 PM this evening from [facility]. Pt is also aware that he can call them at [phone]. Crisis center encouraged pt to call the Crisis Center again tomorrow. Original Note: ED HAND ROUNDER NOTE Presenting Problem: Pt is a 52 yo single male who looks approximately his stated age. He came to the emergency dept. accompanied by his sister. He has been drinking since he was a child, currently drinks a fifth daily, and reported suicidal ideation. His plan as stated to the ED provider was to hang himself, but he no longer g=feels suicidal. Current Stressors: Pt reported that his father last night. He evidently had an estranged relationship with his father. Pt gave conflicting comments regarding his employment. He told several staff that he lost his job, but told [facility] that he basically quit and told his employer that he needed to get help and was wanting to go into detox as he is an alcoholic. According to pt's sister, he tends to isolate, and has not been honest with his family. Family/Relationship issues: According to pt's sister, pt has had issues with anger and there was a period of 4 years when the family had a restraining order against him. They no longer have the restraining order, but pt had a coupke of felonies related to his anger and alcohol. Substance Abuse Treatment: Pt reported that he has been in inpatient facilities for alcohol on four different occasions. He was able to remain sober for one year, but this was due to living in a fci house and attending many meetings. Pt reported that he found mentors who had good sobriety; when asked what caused him to start drinking again, pt was unsure, but said he thinks it may be related to depression. 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 Pt denied any hx of DTs, but evidently had tremors when he came to the Emergency Dept. No drug use other than periodic marijuana use. Family Hx of substance abuse and mental health issues: According to pt's sister, there is a significant history of alcoholism on both their maternal and paternal sides. Pt's maternal grandmother had 2 siblings who committed suicide. They also have a cousin who has a dx of schizophrenia. Pt's sister reported that she is 38 years sober, having begun drinking as a teenager. Pt's sister and her children have diagnoses of ADD and ADHD and it is reported that their father also had a dx of ADHD, Employment/schooling: Pt graduated from High School, but did poorly academically. He said had it not been for sports, he would have quit HS. 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 Although not is special classes, it seems as though he may have had a learning disability. Mental Status: Pt is a 52 yo male who appears his stated age. Speech was normal for rate and rhythm and was goal directed and logical. mood appeared depressed. affect appropriate, but somewhat blunted. Pt is oriented x 4. Memory appears intact although no formal memory testing was completed. SI/HI. Pt denies any current SI, but did state his reason for coming to the ED was a desire to stop drinking and thoughts of wanting to hang himself. Protective factors: Pt has a sister who is concerned about pt. He also has some church connection as he stated that he did not have SI as Jeovany was guiding him now. Pt has no hx of SI or suicide attempts. Discharge Planning/Care Management ED Crisis Response Assessment Start: 02/12/18 18:45 Freq: Status: Active Protocol: Document 02/12/18 18:46 BG (Rec: 02/12/18 18:54 BG [id number]) ED Crisis Response Assessment HAND ROUNDER Assessment Type Risk of Suicide Substance Abuse Reason for HAND ROUNDER Referral Pt was brought to the Emergency Dept, accompanied by his sister. He stated that he was withdrawing from ETOH and had thoughts of wanting to kill himself by hanging. He told the provider Dr Suarez that he did not have the necessary equipment and now, no longer felt suicidal. Referred by Dr Chelsea Suarez Presenting Problem Pt is a 52 yo male who presents with recent SI and stated that he drinks a 1/2 gallon of vodka every 2 days. Pt stated that he would like to stop drinking. He is requesting a detox facility, but [facility] has also spoke with him about other options should there not be beds available. Pt's father yesterday and he stated that he also lost his job. Upon further discussion, he said that he told his employer, [employer] , that he needed help and was told to contact them once he recieved the help he needs. Mental health diagnosis Pt has never been formally diagnosed, but stated that he has had periods of depression. Suicidal thoughts Yes: Pt came to the ED with SI , but said he no longer has those thoughts. Past Suicidal thoughts No Current Suicidal thoughts No Prior Suicide attempts No Number of suicide attempts 0 Current plan for self harm No Access to guns and weapons No Thoughts of harm to others No Past thoughts of harm to others Yes Current thoughts of harming others No Prior attempts to harm others Yes: Pt has had a couple of felonies due to the combination of anger and alcohol Current plan to harm others No Current Risk factors Recent job loss Substance abuse Aggressive tendencies Crisis Plan [facility] is exploring detox possibilities. If this is ot an option, and pt is safe, will set up crisis phone appt and CP[facility]. Resources Provided Will provide pt with [facility] information and [facility]ic prior to discharge.
[2018-02-12 18:58] VITALS: BP 140/89; PULSE 85; RESP 14; O2SAT 99
--- NOTE | 2018-02-12 19:19 | PC.NURSE ---
Report to Diana. Pt. remains calm and cooperative. Sister still at BS, Pt. continues to denie SI since initial ativan administration. No seizure or DT activity since arrival.
[2018-02-12 20:00] VITALS: BP 132/91; PULSE 80; RESP 14
--- NOTE | 2018-02-12 20:29 | CM.SWNOTE ---
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 He stated that he was withdrawing from ETOH and had thoughts of wanting to kill himself by hanging. He told the provider Dr Suarez that he did not have the necessary equipment and now, no longer felt suicidal. Referred by Dr Chelsea Suarez Presenting Problem Pt is a 52 yo male who presents with recent SI and stated that he drinks a 1/2 gallon of vodka every 2 days. Pt stated that he would like to stop drinking. He is requesting a detox facility, but [facility] has also spoke with him about other options should there not be beds available. Pt's father yesterday and he stated that he also lost his job. Upon further discussion, he said that he told his employer, [employer] , that he needed help and was told to contact them once he recieved the help he needs. Mental health diagnosis Pt has never been formally diagnosed, but stated that he has had periods of depression. Suicidal thoughts Yes: Pt came to the ED with SI , but said he no longer has those thoughts. Past Suicidal thoughts No Current Suicidal thoughts No Prior Suicide attempts No Number of suicide attempts 0 Current plan for self harm No Access to guns and weapons No Thoughts of harm to others No Past thoughts of harm to others Yes Current thoughts of harming others No Prior attempts to harm others Yes: Pt has had a couple of felonies due to the combination of anger and alcohol Current plan to harm others No Current Risk factors Recent job loss Substance abuse Aggressive tendencies Crisis Plan [facility] is exploring detox possibilities. If this is ot an option, and pt is safe, will set up crisis phone appt and CPIT. Resources Provided Will provide pt with [facility] information and [facility] prior to discharge.
[2018-02-12] MEDS: LORazepam 0.5 MG TABLET 1 MG PO (20:40)
== END 2018-02-12 20:56 | disposition home or self-care (01) ==
PROVIDERS: Emergency Medicine; Emergency Provider Emergency Medicine; PCP Physician Assistant
DX: F10.239 Alcohol dependence with withdrawal, unspecified (principal)
CPT/HCPCS: 36591; 70450; 80053; 80076; 80305; 80320; 83690; 83735; 85025; 85610; 96361; 96365; 96366; 96375; 96376; 99284; J2060; J2270; J3475

== ENCOUNTER 2018-04-10 00:41 | Emergency (ER) | payer OTHER, MEDICAID, SELFPAY ==
[2018-04-10 00:57] VITALS: BP 135/82; PULSE 98; RESP 16; O2SAT 99; BMI 23.1
--- NOTE | 2018-04-10 01:06 | ED_ITS ---
HPI - General Adult General Chief complaint: Toxicology Problem Stated complaint: needs medication for bipolar needs detox Time Seen by Provider: 04/10/18 00:56 Source: patient and family Mode of arrival: ambulatory Limitations: no limitations History of Present Illness HPI narrative: Patient is a 52-year-old male was seen here back the beginning of February for suicidal ideation and alcohol intoxication. He was discharged from the emergency department. He stated that the next day he went to detox. He states that he has started drinking again. He is here tonight with his sister. Patient states he was also recently been diagnosed with bipolar disorder. He did have an appointment with his mental health provider however missed it. He is not currently on any medications. He is brought into the department by his sister for evaluation. Related Data Home Medications Medication Instructions Recorded Confirmed doxepin 100 mg capsule 100 mg PO BEDTIME 03/25/18 03/25/18 loratadine 10 mg tablet 10 mg PO DAILY 03/25/18 03/25/18 mirtazapine 15 mg tablet 15 mg PO DAILY 03/25/18 03/25/18 naltrexone 50 mg tablet 50 mg PO DAILY 03/25/18 03/25/18 sumatriptan 50 mg tablet See Rx Instructions PO .COMPLEX PRN 03/25/18 03/25/18 Previous Rx's Medication Instructions Recorded lorazepam [Ativan] 1 mg PO SEEINSTR #11 tab 02/12/18 triamcinolone acetonide 0.1 % 0.1 % TOP BID PRN #80 gram 03/25/18 topical cream Allergies Allergy/AdvReac Type Severity Reaction Status Date / Time codeine AdvReac Severe Gastrointestinal Verified 03/25/18 16:05 Upset Review of Systems Constitutional Denies fever(s) and Reports headache(s) ENT Ears, Nose, Mouth, and Throat: Reports headache(s) Cardiovascular Denies chest pain and Denies dyspnea Respiratory Denies dyspnea Gastrointestinal Gastrointestinal: Denies abdominal pain Integumentary/Breasts Denies rash Neurologic Reports headache(s) Psychiatric Reports anxiety and Reports depression Comments: Alcohol intoxication PFSH Surgical History Hx of right inguinal hernia repair (Acute) Social History household members: none Smoking Status: Current every day smoker alcohol intake: former (quit 02/12/17 recovering alcohol ) substance use type: does not use Social History household members: none Smoking Status: Current every day smoker alcohol intake: former (quit 02/12/17 recovering alcohol ) substance use type: does not use Exam Initial Vital Signs Initial Vital Signs: Vital Signs Pulse Rate 98 H 04/10/18 00:57 Respiratory Rate 16 04/10/18 00:57 Blood Pressure 135/82 04/10/18 00:57 Pulse Oximetry 99 04/10/18 00:57 Const General: cooperative, well groomed and No acute distress Orientation: alert, awake and oriented x3 HENMT Head: normal to inspection and normocephalic Resp Effort & Inspection: normal respiratory effort Cardio Rate: regular rate GI Inspection: non-distended Skin Rashes: no rashes Neuro General: alert and awake Cognition: normal cognition Speech: speech normal Gait: normal gait Motor: muscle tone normal throughout Extrem General: normal to inspection Psych Appearance: grossly normal and well kempt Speech and Movement: speech and movement normal and restless Mood: congruent mood Affect: anxious affect Attitude: cooperative Thought Content: normal Course Orders Ordered: Discontinued Medications Lorazepam (Ativan) 1 mg PO NOW ONE Stop: 04/10/18 01:33 Vital Signs - 8 hr 04/10/18 00:57 Pulse Rate 98 H Respiratory Rate 16 Blood Pressure 135/82 Pulse Oximetry 99 Medical Decision Making [facility] Narrative Medical decision making narrative: Patient not suicidal homicidal. He states that his last drink was 45 min prior to arrival here in the ER. He is asking for detox. We contacted the crisis Center and they state that they have beds available however would not be able to take him until after 0800 hr in the morning. I discussed this with the patient and his sister who was at bedside. They stated that they are comfortable going home and calling the crisis Center in the morning. He was given 1 Ativan here in the emergency department and another Ativan to take at home. He was informed he can return to the emergency department at any point if needed. Discharge Plan Departure Patient Disposition: Home Clinical Impression: Alcoholic intoxication Qualifiers: Complication of substance-induced condition: with unspecified complication Qualified Code(s): F10.929 - Alcohol use, unspecified with intoxication, unspecified Instructions: DI for Alcohol Abuse Activity Restrictions/Additional Instructions: No driving for the next 24 hr or in the future if you decide to partake in intoxicating substances. You can call the [facility] at [phone]. They state that they would have beds available at approximately 0800 hr in the morning. You were given 1 Ativan here in the emergency department. The 2nd Ativan as for you to take at home 2 hr after discharge if needed. You can return to the emergency department at any point for new or worsening symptoms Prescriptions: No Action sumatriptan succinate 50 mg tablet See Patient Comments PO .COMPLEX PRNRF: 0 mirtazapine 15 mg tablet 15 mg PO DAILY RF: 0 naltrexone 50 mg tablet 50 mg PO DAILY RF: 0 doxepin 100 mg capsule 100 mg PO BEDTIME RF: 0 loratadine 10 mg tablet 10 mg PO DAILY RF: 0 triamcinolone acetonide 0.1 % cream 0.1 % TOP BID PRN (Reason: pruritis and dry skin) Qty: 80 RF: 3 lorazepam [Ativan] 1 mg tablet 1 mg PO SEEINSTR Qty: 11 RF: 0 Referrals: Allison Chris PA-C [Primary Care Provider] -
[2018-04-10] MEDS: LORazepam 1 MG TABLET PO ×2 (01:42)
[2018-04-10 01:48] VITALS: BP 114/77; PULSE 86; RESP 16; O2SAT 99
== END 2018-04-10 01:50 | disposition home or self-care (01) ==
PROVIDERS: Emergency Provider Emergency Medicine; PCP Physician Assistant
DX: F10.929 Alcohol use, unspecified with intoxication, unspecified (principal)
CPT/HCPCS: 99282; 99283

== ENCOUNTER 2019-03-29 08:50 | Emergency (ER) | payer OTHER, MEDICAID, SELFPAY ==
[2019-03-29 09:14] VITALS: BP 106/66; RESP 12; TEMP 36.1; O2SAT 99
--- NOTE | 2019-03-29 09:31 | ED.EXTPRO ---
HPI - Extremity Problem General Chief complaint: Extremity Problem,Nontraumatic Stated complaint: 'need a cortizone shot in sciatic' Time Seen by Provider: 03/29/19 09:29 Source: patient Mode of arrival: Ambulatory Limitations: no limitations History of Present Illness HPI Narrative: patient is a 53-year-old male with a longstanding history of lower back pain. Does see the spine surgeons. Has had surgery in the past. Has had a steroid injection 1 time in the past. He is here because he was told to come here by the walk-in clinic for a steroid injection in his lower back. He states that the pain he is having is not new. He has have it initially for what he said was 6 months and then he again stated that was years. No bladder symptoms. No bowel symptoms. Has not contacted his spine surgeon Related Data Home Medications Medication Instructions Recorded Confirmed loratadine 10 mg tablet 10 mg PO DAILY 03/25/18 10/08/18 mirtazapine 15 mg tablet 15 mg PO DAILY 03/25/18 10/08/18 naltrexone 50 mg tablet 50 mg PO DAILY 03/25/18 10/08/18 sumatriptan succinate 50 mg tablet See Rx Instructions PO .COMPLEX PRN 03/25/18 10/08/18 Previous Rx's Medication Instructions Recorded lorazepam [Ativan] 1 mg PO SEEINSTR #11 tab 02/12/18 triamcinolone acetonide 0.1 % 0.1 % TOP BID PRN #80 gram 03/25/18 topical cream mupirocin 2 % topical ointment 1 applictn TOP TID #22 gram 04/14/18 doxepin 10 mg capsule 10 mg PO DAILY #30 cap 04/15/18 prednisone 40 mg PO DAILY 5 Days #10 tab 03/29/19 Allergies Allergy/AdvReac Type Severity Reaction Status Date / Time codeine AdvReac Severe Gastrointestinal Verified 10/08/18 08:38 Upset Review of Systems Constitutional Constitutional: Denies fever(s) Musculoskeletal Musculoskeletal: Reports back pain Integumentary/Breasts Skin/Breast: Denies rash Neurologic Neurologic: Denies behavioral changes Psychiatric Psychiatric: Denies behavioral changes Hematologic/Lymphatic Hematologic/Lymphatic: Denies easy bleeding and Denies easy bruising Patient History Medical History History of ETOH abuse (Acute) History of sinusitis (Acute) Left shoulder pain (Acute) Left wrist pain (Acute) Prostate cancer (Acute Unknown) Rotator cuff tear, left (Acute) Surgical History (Updated 04/23/18 @ 14:00 by Allison Chris PA-C) Hx of right inguinal hernia repair (Acute) Social History household members: none Smoking Status: Current every day smoker alcohol intake: former (quit 02/12/17 recovering alcohol ) substance use type: does not use Smoking Status: Current every day smoker alcohol intake frequency: 3 or more drinks per day Substance Use Type: marijuana Exam Initial Vital Signs Initial Vital Signs: Vital Signs Temperature 96.9 F L 03/29/19 09:14 Respiratory Rate 12 03/29/19 09:14 Blood Pressure 106/66 03/29/19 09:14 Pulse Oximetry 99 03/29/19 09:14 Const General: cooperative and comfortable Limitations: mental status not altered Resp Effort & Inspection: normal respiratory effort Cardio Rate: regular rate Skin Lesions: no lesions Rashes: no rashes Neuro General: alert and awake Cognition: normal cognition Speech: speech normal Extrem General: normal to inspection Psych Appearance: grossly normal and well kempt Course Vital Signs Vital signs: Vital Signs - 8 hr 03/29/19 09:14 Temperature 96.9 F L Respiratory Rate 12 Blood Pressure [Left Arm] 106/66 Pulse Oximetry 99 MDM - Extremity (Nontraumatic) MDM Narrative Medical decision making narrative: Informed the patient that unfortunately we do not do spinal steroid injections at in the emergency department. His symptoms that brought him today are not new. I have low suspicion for cauda equina. I did inform him that we could start him on a very short course of oral steroids. Informed him that he did need to contact his spine surgeon for further evaluation treatment. He expressed understanding and agreement. Discharge Plan Departure Patient Disposition: Home Clinical Impression: Chronic lower back pain Qualifiers: Back pain laterality: unspecified Sciatica presence: unspecified whether sciatica present Qualified Code(s): M54.5 - Low back pain Instructions: Low Back Pain (Alternative Therapy), Activity May Be Better then Rest for Low Back Pain Recovery, Exercise May Reduce Risk of Low Back Pain Activity Restrictions/Additional Instructions: I recommend that you contact your spine surgeon to discuss further evaluation and treatment. Take the medication as directed. The prescription was electronically transmitted to the [facility] here in [place] Prescriptions: New prednisone 20 mg tablet 40 mg PO DAILY 5 Days Qty: 10 RF: 0 No Action sumatriptan succinate 50 mg tablet See Rx Instructions PO .COMPLEX PRNRF: 0 mirtazapine 15 mg tablet 15 mg PO DAILY RF: 0 naltrexone 50 mg tablet 50 mg PO DAILY RF: 0 loratadine 10 mg tablet 10 mg PO DAILY RF: 0 triamcinolone acetonide 0.1 % cream 0.1 % TOP BID PRN (Reason: pruritis and dry skin) Qty: 80 RF: 3 mupirocin 2 % ointment 1 applictn TOP TID Qty: 22 RF: 0 doxepin 10 mg capsule 10 mg PO DAILY Qty: 30 RF: 3 lorazepam [Ativan] 1 mg tablet 1 mg PO SEEINSTR Qty: 11 RF: 0
--- NOTE | 2019-03-29 09:41 | PC.NURSE ---
Pt sent to ED from walk in clinic after being told that the ED does cortisol shot for back pain. This is not normal practice in the ED. Pt was upset but understanding. Refused full evaluation by this nurse. Walking w/ limp he states is related to pain. Moving all extremities equally well. Denies new symptoms. States this is similar in nature to previous back problems. Has a back surgeon he follows with.
== END 2019-03-29 09:46 | disposition home or self-care (01) ==
PROVIDERS: Emergency Provider Emergency Medicine
DX: M54.5 Low back pain (principal)
CPT/HCPCS: 99281; 99283

== ENCOUNTER 2021-03-27 12:27 | Emergency (ER) | payer OTHER, MEDICAID, SELFPAY ==
[2021-03-27 12:38] VITALS: BP 101/78; PULSE 104; RESP 18; TEMP 36.2; O2SAT 97; BMI 23.0
--- NOTE | 2021-03-27 12:44 | DI.RAD.S_ITS ---
PROCEDURE: XR FINGER RT MIN 2V INDICATIONS: fall TECHNIQUE: AP hand, 2 views of the 3rd finger(s) acquired. COMPARISON: None. FINDINGS: Bones: No fractures or dislocations. No suspicious bony lesions. Soft tissues: Mild soft tissue swelling involving distal portion of 3rd digit is seen. No suspicious soft tissue calcifications. IMPRESSION: No gross acute 3rd finger fracture or dislocation. Very mild distal 3rd digit soft tissue swelling. Dictated by: Fernando Schmitt M.D. on 03/27/2021 at 13:13 Approved by: Fernando Schmitt M.D. on 03/27/2021 at 13:13
--- NOTE | 2021-03-27 12:44 | DI.RAD.S_ITS ---
PROCEDURE: XR SHOULDER RT MIN 2V INDICATIONS: fall TECHNIQUE: 3 views of the shoulder were acquired. COMPARISON: [facility], , SHOULDER MINIMUM 2 VIEW LEFT, 06/02/2017, 16:10. FINDINGS: Bones: No fractures or dislocations. No suspicious bony lesions. Visualized ribs appear intact. Soft tissues: No suspicious soft tissue calcifications. IMPRESSION: No evidence acute bony abnormality of the right shoulder. If clinical suspicion and/or symptoms persist, further assessment with repeat plain films, or advanced imaging (e.g., CT, MRI, or bone scan) may be helpful for further assessment. Dictated by: Shyam Castillo M.D. on 03/27/2021 at 13:36 Approved by: Shyam Castillo M.D. on 03/27/2021 at 13:37
== END 2021-03-27 15:35 | disposition left against medical advice (07) ==
PROVIDERS: Emergency Provider Emergency Medicine
DX: S49.91XA Unspecified injury of right shoulder and upper arm, initial encounter (principal); S69.91XA Unspecified injury of right wrist, hand and finger(s), initial encounter; W19.XXXA Unspecified fall, initial encounter
CPT/HCPCS: 73030; 73140; 99283

== ENCOUNTER 2022-02-07 06:00 | Emergency (ER) | payer MEDICARE, MEDICAID, SELFPAY ==
--- NOTE | 2022-02-07 06:06 | DI.CT.S_ITS ---
PROCEDURE: CT CERVICAL SPINE WO CON INDICATIONS: fall with ETOH and neck pain TECHNIQUE: Noncontrast 3 mm thick sections acquired from the skull base to the T4 level. Sagittal and coronal reformats were then constructed. For radiation dose reduction, the following was used: automated exposure control, adjustment of mA and/or kV according to patient size. COMPARISON: None. FINDINGS: Image quality: Excellent. Bones: No fractures or dislocations. Visualized superior ribs are intact. Multilevel degenerative changes. A well-defined lucency at the left anterior base of the C6 vertebral body is likely a prominent nutrient canal. Multilevel facet hypertrophy. Soft tissues: Prevertebral soft tissues are normal in thickness. No paravertebral hematomas. No apical pneumothoraces. No epidural hematoma. IMPRESSION: 1. No acute abnormality of the cervical spine. 2. Multilevel degenerative changes. Comment: Final report is concordant with preliminary interpretation by [facility] Dictated by: Joshua Cortez M.D. on 02/07/2022 at 8:13 Approved by: Joshua Cortez M.D. on 02/07/2022 at 8:16
--- NOTE | 2022-02-07 06:06 | DI.CT.S_ITS ---
PROCEDURE: CT HEAD/BRAIN WO CON INDICATIONS: fall hit head TECHNIQUE: Noncontrast 4.5 mm thick angled axial sections acquired from the foramen magnum to the vertex, with coronal and sagittal reformats. For radiation dose reduction, the following was used: automated exposure control, adjustment of mA and/or kV according to patient size. COMPARISON: [facility], CT, CT HEAD/BRAIN WO CON, 02/12/2018, 16:13. FINDINGS: Image quality: Excellent. CSF spaces: Basal cisterns are patent. No extra-axial fluid collections. Ventricles are normal in size and shape. Brain: No midline shift. No intracranial masses or hemorrhage. Mont[place]ayor-white matter interface is normal. Skull and face: Soft tissue injury over the left forehead. Calvarium and visualized facial bones are intact, without suspicious lesions. Sinuses: Visualized sinuses and mastoids are clear. IMPRESSION: No acute intracranial abnormality. Comment: Final report is concordant with preliminary interpretation by [facility] Dictated by: Joshua Cortez M.D. on 02/07/2022 at 8:11 Approved by: Joshua Cortez M.D. on 02/07/2022 at 8:13
--- NOTE | 2022-02-07 06:07 | ED.GENADULT ---
HPI - General Adult General Chief complaint: Trauma Stated complaint: Fall- hit head. Time Seen by Provider: 02/07/22 06:06 Source: patient and EMS Mode of arrival: EMS Limitations: other (Alcohol intoxication) History of Present Illness HPI narrative: Patient is a 56-year-old male. Does have a history of cancer. Also has a history of seizure disorder and also alcohol abuse. Does admit to drinking alcohol last evening. Was brought in by EMS. Was ambulatory. He contacted EMS after he woke up on the floor. Has a obvious cut to his forehead that was covered with a bandage by EMS. He met the paramedics out of the road. He has been ambulatory. He initially did not want to be brought in for evaluation however was agreeable if he did not have to be on the stretcher so the paramedics allowed him to sit in the ambulance. No IV was administered. He does have pain throughout his body but he states that none of this is new. He is unsure of what medications that he takes. He does not think that he is on any anticoagulation. Has not think that he is on any antiseizure medicines. Does appear that he has seizures frequently. Related Data Home Medications Medication Instructions Recorded Confirmed loratadine 10 mg tablet 10 mg PO DAILY 03/25/18 10/08/18 mirtazapine 15 mg tablet 15 mg PO DAILY 03/25/18 10/08/18 naltrexone 50 mg tablet 50 mg PO DAILY 03/25/18 10/08/18 sumatriptan succinate 50 mg tablet See Rx Instructions PO .COMPLEX PRN 03/25/18 10/08/18 Previous Rx's Medication Instructions Recorded lorazepam 1 mg tablet (Ativan) 1 mg PO SEEINSTR #11 tabs 02/12/18 triamcinolone acetonide 0.1 % 0.1 % topical BID PRN pruritis and 03/25/18 topical cream dry skin #80 grams mupirocin 2 % topical ointment 1 applictn topical TID #22 grams 04/14/18 doxepin 10 mg capsule 10 mg PO DAILY #30 caps 04/15/18 Allergies Allergy/AdvReac Type Severity Reaction Status Date / Time codeine AdvReac Severe Gastrointestinal Verified 10/08/18 08:38 Upset Review of Systems Constitutional Constitutional: Reports system reviewed and no additional complaints, except as documented Cardiovascular Cardiovascular: Reports system reviewed and no additional complaints, except as documented Respiratory Respiratory: Reports system reviewed and no additional complaints, except as documented Musculoskeletal Musculoskeletal: Reports system reviewed and no additional complaints, except as documented Integumentary/Breasts Skin/Breast: Reports system reviewed and no additional complaints, except as documented Neurologic Neurologic: Reports system reviewed and no additional complaints, except as documented Hematologic/Lymphatic On Anticoagulants: No Patient History Medical History (Updated 02/07/22 @ 07:22 by Naresh Carroll DO) History of ETOH abuse History of sinusitis Left shoulder pain Left wrist pain Prostate cancer (Unknown) Rotator cuff tear, left Surgical History (Updated 03/15/20 @ 08:47 by [address]) Hx of right inguinal hernia repair Social History household members: none Smoking Status: Current some day smoker alcohol intake: former (quit 02/12/17 recovering alcohol ) substance use type: does not use Smoking Status: Current some day smoker alcohol intake frequency: 0-2 drinks per day Substance Use Type: does not use Exam Initial Vital Signs Initial Vital Signs: Vital Signs Temperature 97.6 F 02/07/22 06:11 Pulse Rate 70 02/07/22 06:11 Respiratory Rate 20 02/07/22 06:11 Blood Pressure 119/66 02/07/22 06:11 Pulse Oximetry 96 02/07/22 06:11 Oxygen Delivery Method 02/07/22 06:11 Const General: cooperative, comfortable and No ill appearing HENMT Head: laceration (Left forehead) Chest Chest: normal inspection of the chest Resp Effort & Inspection: normal respiratory effort Auscultation: clear to auscultation bilaterally Cardio Rate: regular rate Rhythm: regular rhythm GI Inspection: normal to inspection Back/Spine/Pelvis Cervical Spine: cervical spinal tenderness Skin Other: Patient with an irregular laceration to the left forehead. Neuro General: patient alert, patient awake and moves all extremities Extrem General: capillary refill normal and No edema Psych Appearance: grossly normal and well kempt Procedures Laceration Repair Laceration 1: Site: face (Forehead) Side (If applicable): left Size (cm): 3 Description: stellate Depth: simple, single layer Local Anesthetic: lidocaine 2% and with epi Amount of anesthesia used (mL): 5 Pre-repair: wound explored Skin layer closed with: nylon Skin layer suture size: 4-0 Number of sutures: 5 Technique: simple, interrupted Scores Nexus Score for C-Spine Focal Neurologic deficit present: No Midline spinal tenderness present: Yes Altered level of conciousness present: No Intoxication present: Yes Distracting Injury Present: No Nexus Criteria for C-spine: 2 Course Orders Ordered: ED Orders 02/07/22 06:06 CT cervical spine wo con Stat CT head/brain wo con Stat Vital Signs Vital signs: Vital Signs - 8 hr 02/07/22 06:11 Temperature 97.6 F Pulse Rate 70 Respiratory Rate 20 Blood Pressure 119/66 Pulse Oximetry 96 Oxygen Delivery Method Room Air Medical Decision Making Imaging Data CT scan - head: Radiologist's Impression: No acute intracranial infarct or hemorrhage CT - cervical spine: Radiologist's Impression: No fractures or dislocations. MDM Narrative Medical decision making narrative: Patient does have a history of seizures. Is not on antiseizure medication. Most likely had a seizure this evening. He also smells of alcohol. The forehead laceration was closed described above. CT scans of the head neck showed no acute fractures. The cervical collar was removed. He is no other injuries from the event. He was given care instructions and return precautions. He expressed understanding and agreement. Discharge Plan Departure Patient Disposition: Home Clinical Impression: Forehead laceration, Fall Instructions: DI for Laceration Repair Activity Restrictions/Additional Instructions: The stitches can be removed in the next 7-10 days. This can be done by your primary doctor or the walk-in clinic. You can put topical antibiotic ointment over the area. You can shower like normal. Return to the emergency department for any new or worsening symptoms. Prescriptions: No Action sumatriptan succinate 50 mg tablet See Rx Instructions PO .COMPLEX PRN Label Comments: Take 1 as needed 1 time as needed, may repeat in 1 hour for additional dose in 24 hours PO PRN; Rx Instructions: Take 1 as needed 1 time as needed, may repeat in 1 hour for additional dose in 24 hours PO PRN; mirtazapine 15 mg tablet 15 mg PO DAILY naltrexone 50 mg tablet 50 mg PO DAILY loratadine 10 mg tablet 10 mg PO DAILY triamcinolone acetonide 0.1 % cream 0.1 % TOP BID PRN (Reason: pruritis and dry skin) Qty: 80 3RF Rx Instructions: apply sparingly to back at least once or twice daily as needed for itching mupirocin 2 % ointment 1 applictn TOP TID Qty: 22 0RF Rx Instructions: Apply to affected area sparingly three times a day for 7-10 days doxepin 10 mg capsule 10 mg PO DAILY Qty: 30 3RF lorazepam [Ativan] 1 mg tablet 1 mg PO SEEINSTR Qty: 11 0RF Rx Instructions: Take 1 tablet every 6 hours x 24 hours, then 1 tablet every 8 hours x 24 hours, then 1 tablet every 12 hours x 24 hours, then 1 tablet Q HS x 2 days. Stand Alone Forms: Patient Portal/API
[2022-02-07 06:11] VITALS: BP 119/66; PULSE 70; RESP 20; TEMP 36.4; O2SAT 96; BMI 19.8
[2022-02-07 06:31] VITALS: PULSE 90; O2SAT 96
[2022-02-07 07:00] VITALS: BP 111/62; PULSE 92; O2SAT 96
== END 2022-02-07 07:40 | disposition home or self-care (01) ==
PROVIDERS: Emergency Provider Emergency Medicine
DX: S01.81XA Laceration without foreign body of other part of head, initial encounter (principal); G40.909 Epilepsy, unspecified, not intractable, without status epilepticus; W18.30XA Fall on same level, unspecified, initial encounter
CPT/HCPCS: 70450; 72125; 99284

== ENCOUNTER 2022-09-16 21:36 | Emergency (ER) | payer MEDICARE, OTHER, MEDICAID, SELFPAY ==
[2022-09-16 21:38] VITALS: BP 131/66; PULSE 89; RESP 18; TEMP 36.6; O2SAT 100
--- NOTE | 2022-09-16 21:57 | DI.CT.S_ITS ---
PROCEDURE: CT ABDOMEN PELVIS W CON INDICATIONS: vomiting hx of rectal cancer TECHNIQUE: After the administration of IV contrast, axial sections were acquired from the lung bases to the pubic symphysis. Coronal and sagittal reformats were performed. For radiation dose reduction, the following was used: automated exposure control, adjustment of mA and/or kV according to patient size. COMPARISON: [facility], CT, CT CHEST ABDOMEN PELVIS WITH CONTRAST, 08/24/2020, 14:09. [facility], CT, CT CHEST ABDOMEN PELVIS WITH CONTRAST, 09/13/2021, 14:33. [facility], CT, CT ABDOMEN HEPATIC/ADRENAL PROTOCOL, 10/23/2021, 8:02. [facility], CT, CT ABDOMEN HEPATIC/ADRENAL PROTOCOL, 01/15/2022, 8:32. [facility], MR, MR ABDOMEN LIVER PROTOCOL, 02/14/2022, 8:31. FINDINGS: Image quality: Excellent. Lung bases: Unremarkable. Heart: Heart is normal in size. ABDOMEN: Liver: There is diffuse hypoattenuation of the liver consistent with fatty infiltration. The previously described hypoattenuating lesions within hepatic segments 6 and 8 are not discretely visualized on the current study. Gallbladder: Within normal limits without calcified gallstones. Biliary ducts: No biliary ductal dilatation. Pancreas: Unremarkable. Spleen: Normal in size. Adrenal Glands: No adrenal nodules. Kidneys and Ureters: No hydronephrosis. Stomach and Bowel: Stomach and small bowel loops are normal in caliber and wall thickness. Postsurgical changes are redemonstrated within the rectum and distal small bowel in the right lower quadrant. There is suggestion of mild wall thickening in the cecum posteromedially. Peritoneum: No abnormal intraperitoneal fluid. No free air. Ventral Wall: No hernia. Abdominal Nodes: No retroperitoneal or mesenteric adenopathy by size criteria. Vessels: Aorta and inferior vena cava are normal in size. PELVIS: Pelvic Organs: Unremarkable. Bladder: Unremarkable. Pelvic Nodes: No enlarged lymph nodes. Miscellaneous: No inguinal hernias are seen. Bones: Visualized osseous structures demonstrate no suspicious focal lesions. IMPRESSION: 1. No evidence of bowel obstruction. 2. Small hiatal hernia. 3. Postsurgical changes in the rectum and distal small bowel in the right hemipelvis. 4. Mild wall thickening of the cecum and terminal ileum posteromedially. The findings are nonspecific and may reflect a mild infectious or inflammatory process but metastatic or residual disease are not excluded. Consider further evaluation with colonoscopy or short-term follow-up. 5. Previously described lesions in segment 6 in the of the right hepatic lobe are not discretely well visualized on the current study. This may represent response to therapy or differences in technique due to the phase of contrast enhancement. Consider follow-up liver protocol MRI for further evaluation. Dictated by: Dilip Talamantes M.D. on 09/17/2022 at 0:16 Approved by: Dilip Talamantes M.D. on 09/17/2022 at 0:42
--- NOTE | 2022-09-16 21:57 | ED_ITS ---
HPI - Nausea/Vomiting/Diarrhea General Chief complaint: Nausea/Vomiting/Diarrhea Stated complaint: NV/ weakness Time Seen by Provider: 09/17/22 00:52 Source: patient Mode of arrival: EMS History of Present Illness HPI Narrative: Patient is a 56-year-old male history of TBI, cancer, seizures, alcohol abuse presenting today with nausea vomiting ongoing for about a day. He is kind of a poor historian but able to give me some history he has a caregiver he reports that his memory is really not very good after traumatic brain injury 10 years ago. He has been vomiting so many times he is not sure if he took his seizure medicine. He is previously blacked out. Complaining of all over abdominal pain. He also reports that he gets anxious as well. No fever or chills. He does not think he is doing this yesterday. He reports he is had multiple surgeries he has had chemoradiation he is not sure of the cancer. He is previously been into the ED for alcohol withdrawal and intoxication. Related Data Home Medications Medication Instructions Recorded Confirmed loratadine 10 mg tablet 10 mg PO DAILY 03/25/18 10/08/18 mirtazapine 15 mg tablet 15 mg PO DAILY 03/25/18 10/08/18 naltrexone 50 mg tablet 50 mg PO DAILY 03/25/18 10/08/18 sumatriptan succinate 50 mg tablet See Rx Instructions PO .COMPLEX PRN 03/25/18 10/08/18 Previous Rx's Medication Instructions Recorded lorazepam 1 mg tablet (Ativan) 1 mg PO SEEINSTR #11 tabs 02/12/18 triamcinolone acetonide 0.1 % 0.1 % topical BID PRN pruritis and 03/25/18 topical cream dry skin #80 grams mupirocin 2 % topical ointment 1 applictn topical TID #22 grams 04/14/18 doxepin 10 mg capsule 10 mg PO DAILY #30 caps 04/15/18 ondansetron 4 mg disintegrating 4 mg PO Q8H PRN nausea and 09/17/22 tablet vomiting #10 tabs Allergies Allergy/AdvReac Type Severity Reaction Status Date / Time codeine AdvReac Severe Gastrointestinal Verified 10/08/18 08:38 Upset Review of Systems Review of Systems ROS Unobtainable: All systems reviewed & are unremarkable except as noted in HPI and below Patient History Medical History (Updated 09/17/22 @ 05:07 by Angélica Mithcell DO) History of ETOH abuse History of sinusitis Left shoulder pain Left wrist pain Prostate cancer (Unknown) Rotator cuff tear, left Surgical History (Updated 03/15/20 @ 08:47 by [employer] [employer] Dc) Hx of right inguinal hernia repair Social History household members: none Smoking Status: Current some day smoker alcohol intake: former (quit 02/12/17 recovering alcohol ) substance use type: does not use Smoking Status: Current some day smoker alcohol intake frequency: 0-2 drinks per day Alcohol type: hard liquor Substance Use Type: does not use Exam Initial Vital Signs Initial Vital Signs: Vital Signs Temperature 97.9 F 09/16/22 21:38 Pulse Rate 89 09/16/22 21:38 Respiratory Rate 18 09/16/22 21:38 Blood Pressure 131/66 09/16/22 21:38 Pulse Oximetry 100 09/16/22 21:38 Oxygen Delivery Method Room Air 09/16/22 21:38 GENERAL: Alert shaking 56-year-old male actively dry heaving initially HEENT: Head atraumatic,EOMI, pupils reactive, face symmetric, moist mucous membranes CARDIOVASCULAR: Regular rate and rhythm without murmurs, rubs or gallops. RESPIRATORY: Breath sounds equal bilaterally, no wheezes rales or rhonchi. ABDOMEN: Soft, minimal distention guarding no rebound no localization of pain EXTREMITIES: Normal range of motion, no clubbing or edema. Neurovascularly intact NEUROLOGICAL: Alert and oriented x4.Normal gait and speech. Cranial nerves II through XII grossly intact. SKIN: Warm, dry, no laceration, no petechiae, no rashes or lesions. Course Orders Ordered: ED Orders 09/16/22 21:54 EKG-12 Lead Stat 09/16/22 21:57 CT abdomen pelvis w con Stat 09/16/22 22:40 Complete Blood Count AUTO DIFF Stat Comprehensive Metabolic Panel Stat ETOH [Ethanol (ETOH)] Stat Lactate (Lactic Acid) Stat Lipase Stat 09/17/22 01:13 Urine Drug Screen, Rapid Stat Urine Microscopic Stat 09/17/22 01:18 CMP [Comprehensive Metabolic Panel] Stat Discontinued Medications Hydromorphone HCl (Hydromorphone 1 Mg Inj) 1 mg IV NOW ONE Stop: 09/16/22 21:58 Last Admin: 09/16/22 22:19 Dose: 1 mg Documented By: HEATHER Sodium Chloride (Normal Saline 0.9%) 1,000 mls @ 1,000 mls/hr IV BOLUS ONE Stop: 09/16/22 22:54 Last Infusion: 09/16/22 23:04 Dose: 0 mls/hr Documented By: Admin: 09/16/22 22:19 Dose: 1,000 mls/hr Documented By: HEATHER Sodium Chloride (Normal Saline 0.9%) 1,000 mls @ 1,000 mls/hr IV BOLUS ONE Stop: 09/17/22 02:07 Last Infusion: 09/17/22 02:10 Dose: 0 mls/hr Documented By: Admin: 09/17/22 01:20 Dose: 1,000 mls/hr Documented By: HEATHER Ketorolac Tromethamine (Ketorolac 30 Mg/Ml Vial) 15 mg IV NOW ONE Stop: 09/16/22 21:56 Last Admin: 09/16/22 22:19 Dose: 15 mg Documented By: HEATHER Lorazepam (Lorazepam 2 Mg/Ml Inj) 1 mg IV NOW ONE Stop: 09/17/22 01:09 Last Admin: 09/17/22 01:18 Dose: 1 mg Documented By: HEATHER Ondansetron HCl (Ondansetron 4 Mg Odt) 4 mg PO NOW PRN PRN Reason: Nausea And Vomiting Ondansetron HCl (Ondansetron 4 Mg/2 Ml Inj) 4 mg IV NOW PRN PRN Reason: Nausea And Vomiting Last Admin: 09/16/22 22:19 Dose: 4 mg Documented By: HEATHER Vital Signs Vital signs: Vital Signs - 8 hr 09/16/22 22:30 09/16/22 22:30 09/16/22 23:00 Pulse Rate 69 Blood Pressure 131/65 139/80 Pulse Oximetry 100 09/16/22 23:00 09/16/22 23:30 09/17/22 00:00 Pulse Rate 69 60 60 Blood Pressure Pulse Oximetry 99 90 L 93 09/17/22 00:27 09/17/22 00:27 09/17/22 00:30 Pulse Rate 65 Blood Pressure 129/76 128/72 Pulse Oximetry 98 09/17/22 00:30 Pulse Rate 55 L Blood Pressure Pulse Oximetry 97 MDM - Nausea/Vomiting/Diarrhea Lab Data 09/16/22 22:40 09/17/22 01:18 Labs: Lab Results 09/16/22 09/16/22 09/16/22 Range/Units 22:40 22:40 22:40 WBC 7.2 (4.5-11.0) X10^3/uL RBC 4.51 (4.5-5.9) X10^6/uL Hgb 14.7 (13.5-17.5) g/dL Hct 42.7 (41-53) % MCV 94.7 (80-100) fL MCH 32.5 (26-34) PG MCHC 34.3 (30-36) % RDW 14.2 (11.6-14.8) % Plt Count 271 (150-400) X10^3/uL Neut % (Auto) 72.0 (50-75) % Lymph % (Auto) 18.5 L (25-40) % [place] % (Auto) 8.3 (3-14) % Eos % (Auto) 0.2 L (2-4) % Baso % (Auto) 1.0 (0-2) % Neut # (Auto) 5200 (8583-8082) /uL Lymph # (Auto) 1300 (5675-3236) /uL [place] # (Auto) 600 (0-900) /uL Eos # (Auto) 0 (0-450) /uL Baso # (Auto) 100 (0-100) /uL Sodium 136 L (137-145) mmol/L Potassium 3.4 (3.4-5.1) mmol/L Chloride 93 L (98-107) mmol/L Carbon Dioxide 18 L (22-32) mmol/L BUN 10 (9-20) mg/dL Creatinine 0.76 (0.66-1.25) mg/dL Estimated GFR > 60 (>60) mL/min BUN/Creatinine Ratio 13.2 (6-22) Glucose 84 (70-100) mg/dL Lactate 3.6 H (0.7-2.1) mmol/L Calcium 10.5 H (8.4-10.2) mg/dL Total Bilirubin 2.2 H (0.2-1.3) mg/dL AST 92 H (17-59) IU/L ALT 85 H (<50) IU/L Alkaline Phosphatase 73 (38-126) U/L Total Protein 8.2 (6.3-8.2) g/dL Albumin 4.9 (3.5-5.0) g/dL Globulin 3.3 (1.7-4.1) g/dL Albumin/Globulin Ratio 1.5 (1.0-2.8) Lipase 82 (23-300) U/L Urine RBC (0-5/HPF) Urine WBC (0-5/HPF) Ur Squamous Epith Cells (0-5/HPF) Urine Bacteria (None) Hyaline Casts (None) Ur Culture Indicated? U Opiates 300ng/mL cut (Negative) Ur Oxycodone Screen (Negative) Urine Methadone Screen (Negative) Ur Barbiturates Screen (Negative) U Tricyclic Antidepress (Negative) Ur Phencyclidine Scrn (Negative) Ur Amphetamines Screen (Negative) U Methamphetamines Scrn (Negative) Ur MDMA Scrn (Ecstasy) (Negative) U Benzodiazepines Scrn (Negative) Urine Cocaine Screen (Negative) U Marijuana (THC) Screen (Negative) Ethyl Alcohol ( - 10) mg/dL 09/16/22 09/17/22 09/17/22 Range/Units 22:40 01:13 01:13 WBC (4.5-11.0) X10^3/uL RBC (4.5-5.9) X10^6/uL Hgb (13.5-17.5) g/dL Hct (41-53) % MCV (80-100) fL MCH (26-34) PG MCHC (30-36) % RDW (11.6-14.8) % Plt Count (150-400) X10^3/uL Neut % (Auto) (50-75) % Lymph % (Auto) (25-40) % [place] % (Auto) (3-14) % Eos % (Auto) (2-4) % Baso % (Auto) (0-2) % Neut # (Auto) (1466-5989) /uL Lymph # (Auto) (2024-5974) /uL [place] # (Auto) (0-900) /uL Eos # (Auto) (0-450) /uL Baso # (Auto) (0-100) /uL Sodium (137-145) mmol/L Potassium (3.4-5.1) mmol/L Chloride (98-107) mmol/L Carbon Dioxide (22-32) mmol/L BUN (9-20) mg/dL Creatinine (0.66-1.25) mg/dL Estimated GFR (>60) mL/min BUN/Creatinine Ratio (6-22) Glucose (70-100) mg/dL Lactate (0.7-2.1) mmol/L Calcium (8.4-10.2) mg/dL Total Bilirubin (0.2-1.3) mg/dL AST (17-59) IU/L ALT (<50) IU/L Alkaline Phosphatase (38-126) U/L Total Protein (6.3-8.2) g/dL Albumin (3.5-5.0) g/dL Globulin (1.7-4.1) g/dL Albumin/Globulin Ratio (1.0-2.8) Lipase (23-300) U/L Urine RBC None seen (0-5/HPF) Urine WBC None seen (0-5/HPF) Ur Squamous Epith Cells None seen (0-5/HPF) Urine Bacteria None seen (None) Hyaline Casts 0-1/lpf (None) Ur Culture Indicated? Cult not indicated U Opiates 300ng/mL cut Negative (Negative) Ur Oxycodone Screen Negative (Negative) Urine Methadone Screen Negative (Negative) Ur Barbiturates Screen Negative (Negative) U Tricyclic Antidepress Negative (Negative) Ur Phencyclidine Scrn Negative (Negative) Ur Amphetamines Screen Negative (Negative) U Methamphetamines Scrn Negative (Negative) Ur MDMA Scrn (Ecstasy) Negative (Negative) U Benzodiazepines Scrn Positive H (Negative) Urine Cocaine Screen Negative (Negative) U Marijuana (THC) Screen Positive H (Negative) Ethyl Alcohol < 10 ( - 10) mg/dL 09/17/22 09/17/22 Range/Units 01:18 01:18 WBC (4.5-11.0) X10^3/uL RBC (4.5-5.9) X10^6/uL Hgb (13.5-17.5) g/dL Hct (41-53) % MCV (80-100) fL MCH (26-34) PG MCHC (30-36) % RDW (11.6-14.8) % Plt Count (150-400) X10^3/uL Neut % (Auto) (50-75) % Lymph % (Auto) (25-40) % [place] % (Auto) (3-14) % Eos % (Auto) (2-4) % Baso % (Auto) (0-2) % Neut # (Auto) (4157-4859) /uL Lymph # (Auto) (3192-7217) /uL [place] # (Auto) (0-900) /uL Eos # (Auto) (0-450) /uL Baso # (Auto) (0-100) /uL Sodium 135 L (137-145) mmol/L Potassium 3.9 (3.4-5.1) mmol/L Chloride 95 L (98-107) mmol/L Carbon Dioxide 23 (22-32) mmol/L BUN 9 (9-20) mg/dL Creatinine 0.71 (0.66-1.25) mg/dL Estimated GFR > 60 (>60) mL/min BUN/Creatinine Ratio 12.7 (6-22) Glucose 76 (70-100) mg/dL Lactate 2.1 (0.7-2.1) mmol/L Calcium 9.6 (8.4-10.2) mg/dL Total Bilirubin 2.0 H (0.2-1.3) mg/dL AST 85 H (17-59) IU/L ALT 77 H (<50) IU/L Alkaline Phosphatase 65 (38-126) U/L Total Protein 7.8 (6.3-8.2) g/dL Albumin 4.7 (3.5-5.0) g/dL Globulin 3.1 (1.7-4.1) g/dL Albumin/Globulin Ratio 1.5 (1.0-2.8) Lipase (23-300) U/L Urine RBC (0-5/HPF) Urine WBC (0-5/HPF) Ur Squamous Epith Cells (0-5/HPF) Urine Bacteria (None) Hyaline Casts (None) Ur Culture Indicated? U Opiates 300ng/mL cut (Negative) Ur Oxycodone Screen (Negative) Urine Methadone Screen (Negative) Ur Barbiturates Screen (Negative) U Tricyclic Antidepress (Negative) Ur Phencyclidine Scrn (Negative) Ur Amphetamines Screen (Negative) U Methamphetamines Scrn (Negative) Ur MDMA Scrn (Ecstasy) (Negative) U Benzodiazepines Scrn (Negative) Urine Cocaine Screen (Negative) U Marijuana (THC) Screen (Negative) Ethyl Alcohol ( - 10) mg/dL Urine Dip Bedside Urine Glucose Negative Bedside Urine Bilirubin - Negative Bedside Urine Ketone +++ 80 Urine Specific [place] 1.01 Bedside Urine Occult Blood - Negative Bedside Urine pH 7 Bedside Urine Protein +/- 15 Bedside Urine Urobilinogen - Negative Bedside Urine Nitrite - Negative Bedside Urine Leukocytes - Negative Esterase Imaging Data CT scan - abdomen/pelvis: Radiologist's Impression: PROCEDURE:? CT ABDOMEN PELVIS W CON ? INDICATIONS:? vomiting? hx of rectal cancer ? TECHNIQUE:? After the administration of IV contrast, axial sections were acquired from the lung bases to the pubic symphysis.? Coronal and sagittal reformats were performed.? For radiation dose reduction, the following was used:? automated exposure control, adjustment of mA and/or kV according to patient size. ? COMPARISON:? [facility], CT, CT CHEST ABDOMEN PELVIS WITH CONTRAST, 08/24/2020, 14:09.? [facility], CT, CT CHEST ABDOMEN PELVIS WITH CONTRAST, 09/13/2021, 14:33.? [facility], CT, CT ABDOMEN HEPATIC/ADRENAL PROTOCOL, 10/23/2021, 8:02.? [facility], CT, CT ABDOMEN HEPATIC/ADRENAL PROTOCOL, 01/15/2022, 8:32.? [facility], MR, MR ABDOMEN LIVER PROTOCOL, 02/14/2022, 8:31. ? FINDINGS:? Image quality:? Excellent.? ? Lung bases:? Unremarkable.? ? Heart:? Heart is normal in size. ? ? ABDOMEN: Liver:? There is diffuse hypoattenuation of the liver consistent with fatty infiltration. ?The previously described hypoattenuating lesions within hepatic segments 6 and 8 are not discretely visualized on the current study. Gallbladder:? Within normal limits without calcified gallstones.? ? Biliary ducts:? No biliary ductal dilatation.? ? Pancreas:? Unremarkable.? ? Spleen:? Normal in size.? ? Adrenal Glands:? No adrenal nodules.? ? Kidneys and Ureters:? No hydronephrosis.? ? ? Stomach and Bowel:? Stomach and small bowel loops are normal in caliber and wall thickness.? Postsurgical changes are redemonstrated within the rectum and distal small bowel in the right lower quadrant.? There is suggestion of mild wall thickening in the cecum posteromedially. Peritoneum:? No abnormal intraperitoneal fluid.? No free air.? ? Ventral Wall: ? No hernia.? Abdominal Nodes:? No retroperitoneal or mesenteric adenopathy by size criteria.? Vessels:? Aorta and inferior vena cava are normal in size.? ? PELVIS: Pelvic Organs:? Unremarkable.? ? Bladder:? Unremarkable.? ? Pelvic Nodes: No enlarged lymph nodes.? Miscellaneous: No inguinal hernias are seen. ? ? ? Bones:? Visualized osseous structures demonstrate no suspicious focal lesions. ? IMPRESSION:? ? 1. No evidence of bowel obstruction. ? 2. Small hiatal hernia. ? 3. Postsurgical changes in the rectum and distal small bowel in the right hemipelvis. ? 4. Mild wall thickening of the cecum and terminal ileum posteromedially.? The findings are nonspecific and may reflect a mild infectious or inflammatory process but metastatic or residual disease are not excluded.? Consider further evaluation with colonoscopy or short-term follow-up. ? 5.? Previously described lesions in segment 6 in the of the right hepatic lobe are not discretely well visualized on the current study.? This may represent response to therapy or differences in technique due to the phase of contrast enhancement.? Consider follow-up liver protocol MRI for further evaluation.? ? ? Dictated by: Dilip Talamantes M.D. on 09/17/2022 at 0:16 ? ? ECG Data Interpretation: Normal sinus rhythm rate 66 SD interval 136 QRS [address] changes similar to previous EKGs MDM Narrative Medical decision making narrative: Patient presenting with nausea vomiting ongoing. He actually is doing much better in the ED. initial lactate was 3.6 but it improved to 2.1 with IV fluids Ativan and pain meds. Initial bilirubin was 2.2 also went down to 2.0 continues to have stable but mildly elevated AST ALT but is stable from [address] today it 85 and ALT 77. Initial calcium was slightly elevated at 10.5 but improve with IV fluids 9.6. Difficult to get history from he does have a history of alcohol but denies reports that he does use marijuana but not daily still possible of hyperemesis. He is tolerating fluids. No evidence of infection cancer bowel obstruction or other etiology. He comes down over many hours in the ED no need for admission. He does have significant TBI but seems to be doing much better than he was few years ago he denies any alcohol use. Unclear exact cause today of nausea vomiting but no significant etiology. At this time supportive care Zofran only and return as he did. Discharge Plan Departure Patient Disposition: Home Clinical Impression: Gastroenteritis Instructions: DI for Viral Gastroenteritis -- Adult Activity Restrictions/Additional Instructions: *You have been diagnosed with gastroenteritis *What to do: At this time increase fluid intake as tolerated recommend Gatorade or Gatorade like product *Continue to take medications as directed Zofran 4 mg every 8 hours if needed for nausea vomiting--> [facility] *Follow up with your primary care provider in 2-3 days or call [phone] *Return to ER if you should have persistent vomiting increasing pain confusion or any new, worsening or concerning symptoms Prescriptions: New ondansetron 4 mg tablet,disintegrating 4 mg PO Q8H PRN (Reason: nausea and vomiting) Qty: 10 0RF No Action sumatriptan succinate 50 mg tablet See Rx Instructions PO .COMPLEX PRN Patient Comments: Take 1 as needed 1 time as needed, may repeat in 1 hour for additional dose in 24 hours PO PRN; Rx Instructions: Take 1 as needed 1 time as needed, may repeat in 1 hour for additional dose in 24 hours PO PRN; mirtazapine 15 mg tablet 15 mg PO DAILY naltrexone 50 mg tablet 50 mg PO DAILY loratadine 10 mg tablet 10 mg PO DAILY triamcinolone acetonide 0.1 % cream 0.1 % TOP BID PRN (Reason: pruritis and dry skin) Qty: 80 3RF Rx Instructions: apply sparingly to back at least once or twice daily as needed for itching mupirocin 2 % ointment 1 applictn TOP TID Qty: 22 0RF Rx Instructions: Apply to affected area sparingly three times a day for 7-10 days doxepin 10 mg capsule 10 mg PO DAILY Qty: 30 3RF lorazepam [Ativan] 1 mg tablet 1 mg PO SEEINSTR Qty: 11 0RF Rx Instructions: Take 1 tablet every 6 hours x 24 hours, then 1 tablet every 8 hours x 24 hours, then 1 tablet every 12 hours x 24 hours, then 1 tablet Q HS x 2 days. Stand Alone Forms: Patient Portal/API
[2022-09-16] MEDS: KETOROLAC 30 MG/ML VIAL 15 MG IV (22:19)
[2022-09-16] MEDS: SODIUM CHLORIDE 0.9% 1,000 ML 1000 ML IV (22:19)
[2022-09-16] MEDS: ONDANSETRON 4 MG/2 ML INJ IV (22:19)
[2022-09-16] MEDS: HYDROMORPHONE 1 MG INJ IV (22:19)
[2022-09-16 22:26] VITALS: PULSE 78; O2SAT 99
[2022-09-16 22:27] VITALS: BP 130/64; PULSE 80; O2SAT 99
[2022-09-16 22:30] VITALS: BP 131/65; PULSE 69; O2SAT 100
[2022-09-16 23:00] VITALS: BP 139/80; PULSE 69; O2SAT 99
[2022-09-16 23:09] LABS: Add Manual Diff / Slide Review NO; Basophils Absolute Auto 100 /uL (0-100); Eosinophils Absolute Auto 0 /uL (0-450); Eosinophils Percent Auto 0.2 % (2-4); Hematocrit 42.7 % (41-53); Hemoglobin 14.7 g/dL (13.5-17.5); Lymphocytes Absolute Auto 1300 /uL (1100-4500); Lymphocytes Percent Auto 18.5 % (25-40); Mean Corpuscular HGB Conc 34.3 % (30-36); Mean Corpuscular Hemoglobin 32.5 PG (26-34); Mean Corpuscular Volume 94.7 fL (80-100); Monocytes Absolute Auto 600 /uL (0-900); Monocytes Percent Auto 8.3 % (3-14); Neutrophils Absolute Auto 5200 /uL (1500-7000); Platelet Count 271 X10^3/uL (150-400); Red Blood Cell Count 4.51 X10^6/uL (4.5-5.9); Red Cell Distribution Width 14.2 % (11.6-14.8); White Blood Cell Count 7.2 X10^3/uL (4.5-11.0)
[2022-09-16 23:18] LABS: Alanine Aminotransferase 85 IU/L (<50); Albumin 4.9 g/dL (3.5-5.0); Albumin Globulin Ratio 1.5 (1.0-2.8); Alkaline Phosphatase 73 U/L (38-126); Aspartate Aminotransferase 92 IU/L (17-59); BUN Creatinine Ratio 13.2 (6-22); Bilirubin Total 2.2 mg/dL (0.2-1.3); Blood Urea Nitrogen 10 mg/dL (9-20); Calcium 10.5 mg/dL (8.4-10.2); Carbon Dioxide 18 mmol/L (22-32); Chloride 93 mmol/L (98-107); Estimated Glomerular Filt Rate > 60 mL/min (>60); Globulin 3.3 g/dL (1.7-4.1); Glucose 84 mg/dL (70-100); HEMOLYSIS < 15 (0-50); Lipase 82 U/L (23-300); Potassium 3.4 mmol/L (3.4-5.1); Sodium 136 mmol/L (137-145); Total Protein 8.2 g/dL (6.3-8.2)
[2022-09-16 23:19] LABS: Lactate (Lactic Acid) 3.6 mmol/L (0.7-2.1)
[2022-09-16 23:26] LABS: Ethanol (ETOH) < 10 mg/dL
[2022-09-16 23:30] VITALS: PULSE 60; O2SAT 90
[2022-09-17] VITALS: PULSE 60; O2SAT 93
[2022-09-17 00:27] VITALS: BP 129/76; PULSE 65; O2SAT 98
[2022-09-17 00:30] VITALS: BP 128/72; PULSE 55; O2SAT 97
[2022-09-17 01:04] LABS: Reflexed Lactate in 2 Hours Y
[2022-09-17] MEDS: LORazepam 2 MG/ML INJ 1 MG IV (01:18)
[2022-09-17] MEDS: SODIUM CHLORIDE 0.9% 1,000 ML 1000 ML IV (01:20)
[2022-09-17 01:26] LABS: UR Morphine/Opiate cutoff 300 Negative (Negative); Ur Creatinine Normal (Normal); Ur Specific Gravity Normal (Normal); Urine Amphetamines Negative (Negative); Urine Barbiturates Negative (Negative); Urine Benzodiazepines Positive (Negative); Urine Cocaine Negative (Negative); Urine MDMA Negative (Negative); Urine Methadone Negative (Negative); Urine Methamphetamines Negative (Negative); Urine Oxycodone Negative (Negative); Urine Phencyclidine Negative (Negative); Urine Tetrahydrocannabinol Positive (Negative); Urine Tricyclic Antidepressant Negative (Negative); Urine pH Normal (Normal)
[2022-09-17 01:31] LABS: Bacteria Urine None Seen; RBC Urine None Seen (0-5/HPF); Squamous Epithelial Cell Urine None Seen (0-5/HPF); WBC Urine None Seen (0-5/HPF)
[2022-09-17 01:32] LABS: Culture Indicated Urine Cult Not Indicated; Hyaline Casts Urine 0-1/LPF
[2022-09-17 01:43] LABS: Alanine Aminotransferase 77 IU/L (<50); Albumin 4.7 g/dL (3.5-5.0); Albumin Globulin Ratio 1.5 (1.0-2.8); Alkaline Phosphatase 65 U/L (38-126); Aspartate Aminotransferase 85 IU/L (17-59); BUN Creatinine Ratio 12.7 (6-22); Blood Urea Nitrogen 9 mg/dL (9-20); Calcium 9.6 mg/dL (8.4-10.2); Carbon Dioxide 23 mmol/L (22-32); Chloride 95 mmol/L (98-107); Estimated Glomerular Filt Rate > 60 mL/min (>60); Globulin 3.1 g/dL (1.7-4.1); Glucose 76 mg/dL (70-100); HEMOLYSIS < 15 (0-50); Lactate 2HR (Lactic Acid Rflx) 2.1 mmol/L (0.7-2.1); Potassium 3.9 mmol/L (3.4-5.1); Sodium 135 mmol/L (137-145); Total Protein 7.8 g/dL (6.3-8.2)
== END 2022-09-17 05:17 | disposition home or self-care (01) ==
PROVIDERS: Emergency Provider Emergency Medicine
DX: K52.9 Noninfective gastroenteritis and colitis, unspecified (principal); R10.9 Unspecified abdominal pain
CPT/HCPCS: 36415; 74177; 80053; 80305; 80320; 81003; 81015; 83605; 83690; 85025; 93005; 93010; 96361; 96374; 96375; 99284; J1170; J1885; J2060; J2405; Q9967

== ENCOUNTER 2022-10-16 07:57 | Emergency (ER) | payer MEDICARE, OTHER, MEDICAID, SELFPAY ==
[2022-10-16] VITALS (43 sets, daily range): BP systolic 92–128; BP diastolic 55–82; PULSE 74–115; RESP 12–24; TEMP 36.7; O2SAT 96–100; BMI 23.0
--- NOTE | 2022-10-16 08:07 | DI.RAD.S_ITS ---
PROCEDURE: XR CHEST 1V INDICATIONS: etoh TECHNIQUE: One view of the chest was acquired. COMPARISON: [facility], CR, XR CHEST 2 VIEWS, 09/25/2021, 9:14. FINDINGS: Surgical changes and devices: None. Lungs and pleura: Low lung volumes. No dense consolidation or pleural effusion. Mediastinum: Mediastinal contours appear normal. Heart size is normal. Bones and chest wall: Degenerative changes. Old rib fractures. IMPRESSION: Low lung volumes, limiting evaluation. No acute radiographic abnormality. Dictated by: Juan Keen M.D. on 10/16/2022 at 8:44 Approved by: Juan Keen M.D. on 10/16/2022 at 8:46
--- NOTE | 2022-10-16 08:08 | DI.US.S_ITS ---
PROCEDURE: US ABDOMEN COMPLETE INDICATIONS: ALCOHOL ABUSE AND DIARRHEA TECHNIQUE: Real-time scanning was performed of the abdominal and retroperitoneal organs, with image documentation. COMPARISON: [facility], CT, CT ABDOMEN PELVIS W CON, 09/16/2022, 22:12. FINDINGS: Liver: Liver measures 17 cm, echogenicity is increased. Main portal vein is patent. Adjacent distended stomach limits evaluation. Gallbladder: Contracted and not well seen Patient was not fasting. Biliary ducts: CBD measures 5 mm. Pancreas: Not well seen Spleen: Nonenlarged, measuring 10 cm. Kidneys: Kidneys are normal in size and echotexture. Right kidney measures 12 cm long; left kidney measures 11 cm long. No hydronephrosis or nephrolithiasis. No solid masses. Aorta: Visualized aorta is normal in caliber at less than 3 cm. Iliacs: Proximal common iliac arteries are normal in caliber at less than 2.5 cm. IVC: Intrahepatic inferior vena cava is patent. Miscellaneous: No free abdominal fluid. IMPRESSION: Limited examination due to bowel gas and patient tolerance. Increased hepatic echogenicity, nonspecific, likely steatosis and hepatocellular disease. No acute abnormality identified. Consider oncologic cross-sectional imaging follow-up for previously described liver lesion on CT. Distended stomach. Dictated by: Juan Keen M.D. on 10/16/2022 at 8:54 Approved by: Juan Keen M.D. on 10/16/2022 at 8:58
--- NOTE | 2022-10-16 08:08 | DI.CT.S_ITS ---
PROCEDURE: CT HEAD/BRAIN WO CON INDICATIONS: fall, syncope vs. other, recent rib fx. TECHNIQUE: Noncontrast 4.5 mm thick angled axial sections acquired from the foramen magnum to the vertex, with coronal and sagittal reformats. For radiation dose reduction, the following was used: automated exposure control, adjustment of mA and/or kV according to patient size. COMPARISON: [facility], CT, CT HEAD/BRAIN WO CON, 02/07/2022, 6:13. FINDINGS: Image quality: Excellent. CSF spaces: Basal cisterns are patent. No extra-axial fluid collections. Ventricles are normal in size and shape. Brain: No midline shift. No intracranial masses or hemorrhage. [place]-white matter interface is normal. Skull and face: Calvarium and visualized facial bones are intact, without suspicious lesions. Sinuses: Visualized sinuses and mastoids are clear. IMPRESSION: No acute intracranial abnormality. Dictated by: Dhaval Villasenor M.D. on 10/16/2022 at 8:29 Approved by: Dhaval Villasenor M.D. on 10/16/2022 at 8:31
--- NOTE | 2022-10-16 08:08 | DI.CT.S_ITS ---
PROCEDURE: CT CERVICAL SPINE WO CON INDICATIONS: fall, syncope vs. other, recent rib fx. TECHNIQUE: Noncontrast 3 mm thick sections acquired from the skull base to the T4 level. Sagittal and coronal reformats were then constructed. For radiation dose reduction, the following was used: automated exposure control, adjustment of mA and/or kV according to patient size. COMPARISON: [facility], CT, CT CERVICAL SPINE WO CON, 02/07/2022, 6:13. FINDINGS: Image quality: Excellent. Bones: No fractures or dislocations. Visualized superior ribs are intact. Soft tissues: Prevertebral soft tissues are normal in thickness. No paravertebral hematomas. No apical pneumothoraces. IMPRESSION: No fracture. Dictated by: Dhaval Villasenor M.D. on 10/16/2022 at 8:31 Approved by: Dhaval Villasenor M.D. on 10/16/2022 at 8:32
--- NOTE | 2022-10-16 08:09 | ED_ITS ---
HPI - Altered Mental Status General Chief Complaint: Fall Stated Complaint: Syncope Time Seen by Provider: 10/16/22 08:00 History of Present Illness HPI narrative: 56-year-old male with history of TBI, cancers, seizures and alcohol abuse presents with complaint of loss of consciousness and fall. Unclear if it was syncope versus fall versus seizure. Patient states he has been drinking today, he states he is an alcoholic. He notes he does have some rib fractures on his left side from prior episodes. Patient states he has pain on that left side. He denies headache or neck pain. He denies any nausea or vomiting. States he does feel little short of breath. He denies any urinary incontinence, no dysuria urgency or frequency. He states he did have an episode of diarrhea earlier today. No black or bloody stools. Patient is unsure he does not remember falling. He states he has been drinking a lot today. He has had multiple surgeries and states chemoradiation but has trouble getting out exactly what kind of cancer. He states he gets most of his care at [facility]. He indicates he had a chest tube on the left side after he broke his ribs, he states they took it out and use skin glue afterwards appears healed he has difficulty tell me if this was in the last couple weeks versus months. Patient was hypotensive in the field with EMS but improving with fluids. They state he was initially unresponsive but has since become conversant. Related Data Home Medications Medication Instructions Recorded Confirmed loratadine 10 mg tablet 10 mg PO DAILY 03/25/18 10/08/18 mirtazapine 15 mg tablet 15 mg PO DAILY 03/25/18 10/08/18 naltrexone 50 mg tablet 50 mg PO DAILY 03/25/18 10/08/18 sumatriptan succinate 50 mg tablet See Rx Instructions PO .COMPLEX PRN 03/25/18 10/08/18 Previous Rx's Medication Instructions Recorded lorazepam 1 mg tablet (Ativan) 1 mg PO SEEINSTR #11 tabs 02/12/18 triamcinolone acetonide 0.1 % 0.1 % topical BID PRN pruritis and 03/25/18 topical cream dry skin #80 grams mupirocin 2 % topical ointment 1 applictn topical TID #22 grams 04/14/18 doxepin 10 mg capsule 10 mg PO DAILY #30 caps 03/07/19 ondansetron 4 mg disintegrating 4 mg PO Q8H PRN nausea and 09/17/22 tablet vomiting #10 tabs Allergies Allergy/AdvReac Type Severity Reaction Status Date / Time codeine AdvReac Severe Gastrointestinal Verified 10/08/18 08:38 Upset Review of Systems Review of Systems ROS Unobtainable: All systems reviewed & are unremarkable except as noted in HPI and below Patient History Medical History (Updated 10/16/22 @ 09:28 by Chelsea Suarez DO) History of ETOH abuse History of sinusitis Left shoulder pain Left wrist pain Prostate cancer (Unknown) Rotator cuff tear, left Surgical History Hx of right inguinal hernia repair Social History household members: none Smoking Status: Current some day smoker alcohol intake: former (quit 02/12/17 recovering alcohol ) substance use type: does not use Smoking Status: Current some day smoker alcohol intake frequency: 0-2 drinks per day Alcohol type: hard liquor Substance Use Type: does not use Exam Narrative Exam Narrative: GEN:Patient appears in mild distress. HEAD: Patient has some small abrasions on posterior scalp no raccoon/Biswas sign. NECK: Nontender, painless range of motion, trachea midline Positive for Nexus criteria, there is no midline line tenderness, distracting injury, altered mental status, neuro deficit, positive for recent EtOH. EYES: PERRLA, EOMI ENT: External inspection normal, trachea is midline, TM's are normal no hemotypanum, Nares are clear, no septal hematoma, no dental or oral injury, airway is normal and with normal occlusion, No bony tenderness RESP: Chest is left chest is nontender. There appeared to be some incisions consistent with prior chest tube but they appear fully healed. And has symmetric movement, no ecchymosis, breath sounds are normal no crackles, wheezes or rales CVS: Heart sounds are normal, no murmur noted, No JVD. ABG/GI: Nontender, soft, normal bowel sounds, no distention, no organomegaly, pelvic rock is negative NEURO: Oriented AOx3, neuro is grossly intact, sensation and motor is normal all 4 extremities moving, cranial nerves II through XII are intact, GCS is 14, patient is conversant has some difficulty giving history. PSYCH: Normal mood and affect SKIN: Intact, warm and dry, no crepitus and without decubitus BACK: No CVA tenderness, no vertebral tenderness, no step-off's, no crepitus EXT: Atraumatic, hips are nontender, no pedal edema, normal color and temperature, normal range of motion of extremities with normal tendon exam, 2+ pulses in all four extremities Initial Vital Signs Initial Vital Signs: Vital Signs Temperature 98.1 F 10/16/22 08:00 Pulse Rate 83 10/16/22 08:00 Respiratory Rate 18 10/16/22 08:00 Blood Pressure 108/66 10/16/22 08:00 Pulse Oximetry 100 10/16/22 08:00 Oxygen Delivery Method Room Air 10/16/22 08:00 Scores GCS [place] coma scale eye opening: Spontaneous [place] coma scale verbal response: Confused [place] coma scale motor response: Obey commands [place] coma scale total score: 14 Nexus Score for C-Spine Focal Neurologic deficit present: No Midline spinal tenderness present: No Altered level of conciousness present: No Intoxication present: Yes Distracting Injury Present: No Nexus Criteria for C-spine: 1 Course Orders Ordered: ED Orders 10/16/22 11:30 Urine Drug Screen, Rapid Stat Discontinued Medications Diphtheria/Tetanus/Acell Pertussis (Tet,Diph,Pertuss(Acell),Vac/Pf 0.5 Ml Syringe) 0.5 ml IM .ONCE ONE Stop: 10/16/22 08:08 Last Admin: 10/16/22 09:28 Dose: 0.5 ml Documented By: HERMINIO Sodium Chloride (Normal Saline 0.9%) 1,000 mls @ 1,000 mls/hr IV BOLUS ONE Stop: 10/16/22 09:06 Last Infusion: 10/16/22 09:30 Dose: 0 mls/hr Documented By: Admin: 10/16/22 08:10 Dose: 1,000 mls/hr Documented By: HERMINIO Vital Signs Vital signs: Vital Signs - 8 hr 10/16/22 10:45 10/16/22 10:45 10/16/22 10:50 Pulse Rate 97 H Respiratory Rate 19 Blood Pressure 108/57 L 101/57 L Pulse Oximetry 10/16/22 10:50 10/16/22 10:55 10/16/22 10:55 Pulse Rate 93 H 94 H Respiratory Rate 18 17 Blood Pressure 112/65 Pulse Oximetry 96 99 10/16/22 11:00 10/16/22 11:00 10/16/22 11:05 Pulse Rate 93 H 92 H Respiratory Rate 13 17 Blood Pressure 114/67 Pulse Oximetry 98 99 10/16/22 11:10 10/16/22 11:10 10/16/22 11:15 Pulse Rate 94 H 93 H Respiratory Rate 12 17 Blood Pressure 108/60 Pulse Oximetry 98 99 10/16/22 11:20 10/16/22 11:24 10/16/22 11:24 Pulse Rate 93 H 97 H Respiratory Rate 14 20 Blood Pressure 114/67 Pulse Oximetry 98 98 10/16/22 11:30 Pulse Rate 90 Respiratory Rate 14 Blood Pressure Pulse Oximetry 97 MDM - Altered Mental Status Lab Data 10/16/22 08:08 10/16/22 08:08 Labs: Lab Results 10/16/22 10/16/22 10/16/22 Range/Units 08:08 08:08 08:08 WBC 9.1 (4.5-11.0) X10^3/uL RBC 3.95 L (4.5-5.9) X10^6/uL Hgb 13.1 L (13.5-17.5) g/dL Hct 38.4 L (41-53) % MCV 97.2 (80-100) fL MCH 33.2 (26-34) PG MCHC 34.2 (30-36) % RDW 14.6 (11.6-14.8) % Plt Count 315 (150-400) X10^3/uL Neut % (Auto) 39.4 L (50-75) % Lymph % (Auto) 47.1 H (25-40) % [place] % (Auto) 12.1 (3-14) % Eos % (Auto) 0.7 L (2-4) % Baso % (Auto) 0.7 (0-2) % Neut # (Auto) 3600 (2549-6122) /uL Lymph # (Auto) 4300 (1315-7929) /uL [place] # (Auto) 1100 H (0-900) /uL Eos # (Auto) 100 (0-450) /uL Baso # (Auto) 100 (0-100) /uL PT 10.4 (10.1-12.7) SECONDS INR 0.9 (0.9-1.3) APTT 26 (26-36) SECONDS Sodium 142 (137-145) mmol/L Potassium 3.6 (3.4-5.1) mmol/L Chloride 105 (98-107) mmol/L Carbon Dioxide 25 (22-32) mmol/L BUN 10 (9-20) mg/dL Creatinine 0.96 (0.66-1.25) mg/dL Estimated GFR > 60 (>60) mL/min BUN/Creatinine Ratio 10.4 (6-22) Glucose 126 H (70-100) mg/dL Lactate (0.7-2.1) mmol/L Calcium 8.7 (8.4-10.2) mg/dL Total Bilirubin 0.3 (0.2-1.3) mg/dL AST 109 H (17-59) IU/L ALT 62 H (<50) IU/L Alkaline Phosphatase 82 (38-126) U/L Total Creatine Kinase 107 (55-170) U/L Troponin I < 0.012 (0.01-0.034) ng/mL Total Protein 7.0 (6.3-8.2) g/dL Albumin 4.3 (3.5-5.0) g/dL Globulin 2.7 (1.7-4.1) g/dL Albumin/Globulin Ratio 1.6 (1.0-2.8) Lipase 277 (23-300) U/L U Opiates 300ng/mL cut (Negative) Ur Oxycodone Screen (Negative) Urine Methadone Screen (Negative) Ur Barbiturates Screen (Negative) U Tricyclic Antidepress (Negative) Ur Phencyclidine Scrn (Negative) Ur Amphetamines Screen (Negative) U Methamphetamines Scrn (Negative) Ur MDMA Scrn (Ecstasy) (Negative) U Benzodiazepines Scrn (Negative) Urine Cocaine Screen (Negative) U Marijuana (THC) Screen (Negative) Ethyl Alcohol 335 H ( - 10) mg/dL Blood Type Antibody Screen 10/16/22 10/16/22 10/16/22 Range/Units 08:08 08:37 10:40 WBC (4.5-11.0) X10^3/uL RBC (4.5-5.9) X10^6/uL Hgb (13.5-17.5) g/dL Hct (41-53) % MCV (80-100) fL MCH (26-34) PG MCHC (30-36) % RDW (11.6-14.8) % Plt Count (150-400) X10^3/uL Neut % (Auto) (50-75) % Lymph % (Auto) (25-40) % [place] % (Auto) (3-14) % Eos % (Auto) (2-4) % Baso % (Auto) (0-2) % Neut # (Auto) (3219-1234) /uL Lymph # (Auto) (9212-7874) /uL [place] # (Auto) (0-900) /uL Eos # (Auto) (0-450) /uL Baso # (Auto) (0-100) /uL PT (10.1-12.7) SECONDS INR (0.9-1.3) APTT (26-36) SECONDS Sodium (137-145) mmol/L Potassium (3.4-5.1) mmol/L Chloride (98-107) mmol/L Carbon Dioxide (22-32) mmol/L BUN (9-20) mg/dL Creatinine (0.66-1.25) mg/dL Estimated GFR (>60) mL/min BUN/Creatinine Ratio (6-22) Glucose (70-100) mg/dL Lactate 2.8 H 2.4 H (0.7-2.1) mmol/L Calcium (8.4-10.2) mg/dL Total Bilirubin (0.2-1.3) mg/dL AST (17-59) IU/L ALT (<50) IU/L Alkaline Phosphatase (38-126) U/L Total Creatine Kinase (55-170) U/L Troponin I (0.01-0.034) ng/mL Total Protein (6.3-8.2) g/dL Albumin (3.5-5.0) g/dL Globulin (1.7-4.1) g/dL Albumin/Globulin Ratio (1.0-2.8) Lipase (23-300) U/L U Opiates 300ng/mL cut (Negative) Ur Oxycodone Screen (Negative) Urine Methadone Screen (Negative) Ur Barbiturates Screen (Negative) U Tricyclic Antidepress (Negative) Ur Phencyclidine Scrn (Negative) Ur Amphetamines Screen (Negative) U Methamphetamines Scrn (Negative) Ur MDMA Scrn (Ecstasy) (Negative) U Benzodiazepines Scrn (Negative) Urine Cocaine Screen (Negative) U Marijuana (THC) Screen (Negative) Ethyl Alcohol ( - 10) mg/dL Blood Type O Positive Antibody Screen Negative 10/16/22 Range/Units 11:30 WBC (4.5-11.0) X10^3/uL RBC (4.5-5.9) X10^6/uL Hgb (13.5-17.5) g/dL Hct (41-53) % MCV (80-100) fL MCH (26-34) PG MCHC (30-36) % RDW (11.6-14.8) % Plt Count (150-400) X10^3/uL Neut % (Auto) (50-75) % Lymph % (Auto) (25-40) % [place] % (Auto) (3-14) % Eos % (Auto) (2-4) % Baso % (Auto) (0-2) % Neut # (Auto) (4979-1053) /uL Lymph # (Auto) (5871-3877) /uL [place] # (Auto) (0-900) /uL Eos # (Auto) (0-450) /uL Baso # (Auto) (0-100) /uL PT (10.1-12.7) SECONDS INR (0.9-1.3) APTT (26-36) SECONDS Sodium (137-145) mmol/L Potassium (3.4-5.1) mmol/L Chloride (98-107) mmol/L Carbon Dioxide (22-32) mmol/L BUN (9-20) mg/dL Creatinine (0.66-1.25) mg/dL Estimated GFR (>60) mL/min BUN/Creatinine Ratio (6-22) Glucose (70-100) mg/dL Lactate (0.7-2.1) mmol/L Calcium (8.4-10.2) mg/dL Total Bilirubin (0.2-1.3) mg/dL AST (17-59) IU/L ALT (<50) IU/L Alkaline Phosphatase (38-126) U/L Total Creatine Kinase (55-170) U/L Troponin I (0.01-0.034) ng/mL Total Protein (6.3-8.2) g/dL Albumin (3.5-5.0) g/dL Globulin (1.7-4.1) g/dL Albumin/Globulin Ratio (1.0-2.8) Lipase (23-300) U/L U Opiates 300ng/mL cut Negative (Negative) Ur Oxycodone Screen Negative (Negative) Urine Methadone Screen Negative (Negative) Ur Barbiturates Screen Negative (Negative) U Tricyclic Antidepress Negative (Negative) Ur Phencyclidine Scrn Negative (Negative) Ur Amphetamines Screen Negative (Negative) U Methamphetamines Scrn Negative (Negative) Ur MDMA Scrn (Ecstasy) Negative (Negative) U Benzodiazepines Scrn Negative (Negative) Urine Cocaine Screen Negative (Negative) U Marijuana (THC) Screen Positive H (Negative) Ethyl Alcohol ( - 10) mg/dL Blood Type Antibody Screen Imaging Data CT scan - head: Radiologist's Impression: Sean Li??56??M??1965 ? Allergy/Adv: codeine Close Head CT (Signed) Dhaval Villasenor - 10/16/[address] (Signed) Dhaval Villasenor - 10/16/22 Abdomen Ultrasound (Signed) Juan Keen - 10/16/22 Chest X-Ray (Signed) Juan Keen - 10/16/22 Abdomen/Pelvis CT (Signed) Dilip Talamantes - 09/16/[address] (Signed) Joshua Cortez - 02/07/[address] (Signed) Joshua Cortez - 02/07/22 Shoulder X-Ray (Signed) Shyam Castillo - 03/27/21 Finger X-Ray (Signed) Fernando Schmitt - 03/27/[address] (Signed) Tegan Suárez - 02/12/18 Ankle X-Ray (Signed) Clement Mendes - 07/21/17 Ankle X-Ray (Signed) Arsen Cueva - 07/16/[address] [address] [address] Scan Report Signed Patient: Sean Li MR#: [id number] : 1965 Acct:[id number] Age/Sex: 56 / M Date of Service: 10/16/22 Loc: ED Accession Number: [id number] ?? Procedure: CT head/brain wo con Ordering Provider: Chelsea Suarez D.O. PROCEDURE:? CT HEAD/BRAIN WO CON ? INDICATIONS:? fall, syncope vs. other, recent rib fx. ? TECHNIQUE:? Noncontrast 4.5 mm thick angled axial sections acquired from the foramen magnum to the vertex, with coronal and sagittal reformats.? For radiation dose reduction, the following was used:? automated exposure control, adjustment of mA and/or kV according to patient size.? ? COMPARISON:? [facility], CT, CT HEAD/BRAIN WO CON, 02/07/2022, 6:13. ? FINDINGS:? Image quality:? Excellent.? ? CSF spaces:? Basal cisterns are patent.? No extra-axial fluid collections.? Ventricles are normal in size and shape.? ? Brain:? No midline shift.? No intracranial masses or hemorrhage.? [place]-white matter interface is normal.? ? Skull and face:? Calvarium and visualized facial bones are intact, without susp icious lesions.? ? Sinuses:? Visualized sinuses and mastoids are clear.? ? IMPRESSION:? No acute intracranial abnormality. ? ? Dictated by: Dhaval Villasenor M.D. on 10/16/2022 at 8:29 ? ? Approved by: Dhaval Villasenor M.D. on 10/16/2022 at 8:31?? CT - cervical spine: Radiologist's Impression: [place] [address] CT Scan Report Signed Patient: Sean Li MR#: [id number] : 1965 Acct:[id number] Age/Sex: 56 / M Date of Service: 10/16/22 Loc: ED Accession Number: [id number] ?? Procedure: CT cervical spine wo con Ordering Provider: Chelsea Suarez D.O. PROCEDURE:? CT CERVICAL SPINE WO CON ? INDICATIONS:? fall, syncope vs. other, recent rib fx. ? TECHNIQUE:? Noncontrast 3 mm thick sections acquired from the skull base to the T4 level.? Sagittal and coronal reformats were then constructed.? For radiation dose reduction, the following was used:? automated exposure control, adjustment of mA and/or kV according to patient size.? ? COMPARISON:? [facility], CT, CT CERVICAL SPINE WO CON, 02/07/2022, 6:13. ? FINDINGS:? Image quality:? Excellent.? ? Bones:? No fractures or dislocations.? Visualized superior ribs are intact.? ? Soft tissues:? Prevertebral soft tissues are normal in thickness.? No paravertebral hematomas.? No apical pneumothoraces.? ? ? IMPRESSION:? No fracture. ? ? ? Dictated by: Dhaval Villasenor M.D. on 10/16/2022 at 8:31 ? ? Approved by: Dhaval Villasenor M.D. on 10/16/2022 at 8:32? US - abdomen: Radiologist's Impression: [place] [address] Ultrasound Report Signed Patient: Sean Li MR#: [id number] : 1965 Acct:[id number] Age/Sex: 56 / M Date of Service: 10/16/22 Loc: ED Accession Number: [id number] ?? Procedure: US abdomen complete Ordering Provider: Chelsea Suarez D.O. PROCEDURE:? US ABDOMEN COMPLETE ? INDICATIONS:? ALCOHOL ABUSE AND DIARRHEA ? TECHNIQUE:? Real-time scanning was performed of the abdominal and retroperitoneal organs, with image documentation.? ? COMPARISON:? [facility], CT, CT ABDOMEN PELVIS W CON, 09/16/2022, 22:12. ? FINDINGS:? ? Liver:? Liver measures 17 cm, echogenicity is increased.? Main portal vein is p atent.? Adjacent distended stomach limits evaluation. ? Gallbladder:? Contracted and not well seen Patient was not fasting. ? Biliary ducts:? CBD measures 5 mm. ? Pancreas:? Not well seen ? Spleen:? Nonenlarged, measuring 10 cm. ? Kidneys:? Kidneys are normal in size and echotexture.? Right kidney measures 12 cm long; left kidney measures 11 cm long.? No hydronephrosis or nephrolithiasis.? No dane d masses. ? ? Aorta:? Visualized aorta is normal in caliber at less than 3 cm.? ? Iliacs:? Proximal common iliac arteries are normal in caliber at less than 2.5 cm.? ? IVC:? Intrahepatic inferior vena cava is patent.? ? Miscellaneous:? No free abdominal fluid.? ? ? IMPRESSION:? Limited examination due to bowel gas and patient tolerance. ? Increased hepatic echogenicity, nonspecific, likely steatosis and hepatocellular disease. ? No acute abnormality identified. ? Consider oncologic cross-sectional imaging follow-up for previously described liver lesion on CT. ? Distended stomach. ? Dictated by: Juan Keen M.D. on 10/16/2022 at 8:54 ? ? Approved by: Juan Keen M.D. on 10/16/2022 at 8:58?? Chest x-ray: Radiologist's Impression: [address] [address] XRay Report Signed Patient: Sean Li MR#: [id number] : 1965 Acct:[id number] Age/Sex: 56 / M Date of Service: 10/16/22 Loc: ED Accession Number: [id number] ?? Procedure: XR chest 1V Ordering Provider: Chelsea Suarez D.O. PROCEDURE:? XR CHEST 1V ? INDICATIONS:? etoh ? TECHNIQUE:? One view of the chest was acquired.? ? COMPARISON:? [facility], CR, XR CHEST 2 VIEWS, 09/25/2021, 9:14. ? FINDINGS:? ? Surgical changes and devices:? None.? ? Lungs and pleura:? Low lung volumes.? No dense consolidation or pleural effusion. ? Mediastinum:? Mediastinal contours appear normal.? Heart size is normal.? ? Bones and chest wall:? Degenerative changes.? Old rib fractures. ? ? IMPRESSION:? Low lung volumes, limiting evaluation.? No acute radiographic abnormality. ? ? Dictated by: Juan Keen M.D. on 10/16/2022 at 8:44 ? ? Approved by: Juan Keen M.D. on 10/16/2022 at 8:46?? ECG Data Attestation: I personally reviewed and interpreted this ECG as follows: Interpretation: Sinus rhythm rate of 77 OR 158 QRS of 108 QTC of 466. No acute ST elevation depression you will. MDM Narrative Medical decision making narrative: 56-year-old male with chronic alcohol use who states he is had a lot to drink this morning. Unsure if he had syncopal episode versus seizure versus fall with loss of consciousness. Alcohol is elevated patient is somewhat intoxicated but conversant and overall appropriate. He has no pain but because of his alcohol obvious abrasions on the back of his head C-spine head CT, C-spine are negative, chest x-ray is negative, abdominal ultrasound was obtained patient has some left upper quadrant pain. He does note he is had left rib pain since. Patient has hemoglobin of 13.1 was 14.7 on 10/01, platelets are appropriate, coags are negative, electrolytes renal function are negative, glucose 126 lactate was 2.8 trending down words on repeat with AST ALT slightly elevated at 109 and 62 but normal bilirubin at 0.3, lipase was negative, troponin was negative. UDS is positive for THC, alcohol is 335. Patient walks with a steady gait. He has a ride that is willing to be responsible for him today. Patient is alert, appropriate and felt appropriate for discharge at this time. Discharge Plan Departure Patient Disposition: Home Clinical Impression: Head injury, Alcohol intoxication Activity Restrictions/Additional Instructions: Please follow up with your physician. I would recommend avoiding alcohol and pursuing detox. Please continue your home medications as prescribed. Please return for new or worsening symptoms, fevers, recurrent falls or loss of consciousness, chest pain, shortness of breath, persistent vomiting, black or bloody stools or other new or concerning changes. Prescriptions: No Action sumatriptan succinate 50 mg tablet See Rx Instructions PO .COMPLEX PRN Patient Comments: Take 1 as needed 1 time as needed, may repeat in 1 hour for additional dose in 24 hours PO PRN; Rx Instructions: Take 1 as needed 1 time as needed, may repeat in 1 hour for additional dose in 24 hours PO PRN; mirtazapine 15 mg tablet 15 mg PO DAILY naltrexone 50 mg tablet 50 mg PO DAILY loratadine 10 mg tablet 10 mg PO DAILY triamcinolone acetonide 0.1 % cream 0.1 % TOP BID PRN (Reason: pruritis and dry skin) Qty: 80 3RF Rx Instructions: apply sparingly to back at least once or twice daily as needed for itching mupirocin 2 % ointment 1 applictn TOP TID Qty: 22 0RF Rx Instructions: Apply to affected area sparingly three times a day for 7-10 days doxepin 10 mg capsule 10 mg PO DAILY Qty: 30 3RF ondansetron 4 mg tablet,disintegrating 4 mg PO Q8H PRN (Reason: nausea and vomiting) Qty: 10 0RF lorazepam [Ativan] 1 mg tablet 1 mg PO SEEINSTR Qty: 11 0RF Rx Instructions: Take 1 tablet every 6 hours x 24 hours, then 1 tablet every 8 hours x 24 hours, then 1 tablet every 12 hours x 24 hours, then 1 tablet Q HS x 2 days. Stand Alone Forms: Patient Portal/API
[2022-10-16] MEDS: SODIUM CHLORIDE 0.9% 1,000 ML 1000 ML IV (08:10)
[2022-10-16 08:18] LABS: Add Manual Diff / Slide Review NO; Basophils Absolute Auto 100 /uL (0-100); Basophils Percent Auto 0.7 % (0-2); Eosinophils Absolute Auto 100 /uL (0-450); Eosinophils Percent Auto 0.7 % (2-4); Hematocrit 38.4 % (41-53); Hemoglobin 13.1 g/dL (13.5-17.5); Lymphocytes Absolute Auto 4300 /uL (1100-4500); Lymphocytes Percent Auto 47.1 % (25-40); Mean Corpuscular HGB Conc 34.2 % (30-36); Mean Corpuscular Hemoglobin 33.2 PG (26-34); Mean Corpuscular Volume 97.2 fL (80-100); Monocytes Absolute Auto 1100 /uL (0-900); Monocytes Percent Auto 12.1 % (3-14); Neutrophils Absolute Auto 3600 /uL (1500-7000); Neutrophils Percent Auto 39.4 % (50-75); Platelet Count 315 X10^3/uL (150-400); Red Blood Cell Count 3.95 X10^6/uL (4.5-5.9); Red Cell Distribution Width 14.6 % (11.6-14.8); White Blood Cell Count 9.1 X10^3/uL (4.5-11.0)
[2022-10-16 08:29] LABS: INR 0.9 (0.9-1.3); Prothrombin Time 10.4 SECONDS (10.1-12.7)
[2022-10-16 08:30] LABS: PTT Partial Thromboplastin Tim 26 SECONDS (26-36)
[2022-10-16 08:37] LABS: Lactate (Lactic Acid) 2.8 mmol/L (0.7-2.1)
[2022-10-16 08:39] LABS: Alanine Aminotransferase 62 IU/L (<50); Albumin 4.3 g/dL (3.5-5.0); Albumin Globulin Ratio 1.6 (1.0-2.8); Alkaline Phosphatase 82 U/L (38-126); Aspartate Aminotransferase 109 IU/L (17-59); BUN Creatinine Ratio 10.4 (6-22); Bilirubin Total 0.3 mg/dL (0.2-1.3); Blood Urea Nitrogen 10 mg/dL (9-20); Calcium 8.7 mg/dL (8.4-10.2); Carbon Dioxide 25 mmol/L (22-32); Chloride 105 mmol/L (98-107); Creatine Kinase 107 U/L (55-170); Estimated Glomerular Filt Rate > 60 mL/min (>60); Globulin 2.7 g/dL (1.7-4.1); Glucose 126 mg/dL (70-100); Lipase 277 U/L (23-300); Potassium 3.6 mmol/L (3.4-5.1); Sodium 142 mmol/L (137-145)
[2022-10-16 08:47] LABS: HEMOLYSIS 17 (0-50)
[2022-10-16 08:49] LABS: Ethanol (ETOH) 335 mg/dL
[2022-10-16 08:50] LABS: Troponin I < 0.012 ng/mL (0.01-0.034)
--- NOTE | 2022-10-16 09:23 | PC.NURSE ---
Unable to insert urinary catheter. 1 attempt made,pt delinced another attempt
[2022-10-16] MEDS: TET,DIPH,PERTUSS(ACELL),VAC/PF 0.5 ML SYRINGE IM (09:28)
--- NOTE | 2022-10-16 09:36 | PC.NURSE ---
Pt requested I call Marlene from his cell phone. ED physician states pt ETOH 300+ and pt will need to have a family/friend pick him up from ED once pt able to walk with steady gait. Marlene states she will come to ED in approx 2 hrs to check on pt and wait for discharge.
[2022-10-16 10:11] LABS: Reflexed Lactate in 2 Hours Y
[2022-10-16 10:59] LABS: Lactate 2HR (Lactic Acid Rflx) 2.4 mmol/L (0.7-2.1)
[2022-10-16 11:44] LABS: UR Morphine/Opiate cutoff 300 Negative (Negative); Ur Creatinine Normal (Normal); Ur Specific Gravity Normal (Normal); Urine Amphetamines Negative (Negative); Urine Barbiturates Negative (Negative); Urine Benzodiazepines Negative (Negative); Urine Cocaine Negative (Negative); Urine MDMA Negative (Negative); Urine Methadone Negative (Negative); Urine Methamphetamines Negative (Negative); Urine Oxycodone Negative (Negative); Urine Phencyclidine Negative (Negative); Urine Tetrahydrocannabinol Positive (Negative); Urine Tricyclic Antidepressant Negative (Negative); Urine pH Normal (Normal)
--- NOTE | 2022-10-16 11:54 | PC.NURSE ---
Pt requested this RN communicate with Marlene on his cell phone this morning, shortly after arriving EMS. Marlene was advised that pt is in the ED, physician states pt will need a ride home once he is able to walk with steady gait. Marlene arrives ED 1145. lead quality technician asks pt if he wants Marlene to come to his treatment room. Pt says yes. Pt ambulates with steady gait and is ready for d/c. During discharge process pt becomes angry that Marlene has come to drive him home. Pt attempts to pull out his IV, pt advised to allow RN to remove IV. Pt becomes verbally aggressive with RN, states Marlene is not my . Patient states he does not know why he bothers to pay rent because he spends almost every night drunk in some hospital. Discharge instructions read to patient, patient storms off into lobby and says I'll be back drunk tonight. Charge aware.
== END 2022-10-16 11:55 | disposition home or self-care (01) ==
PROVIDERS: Emergency Provider Emergency Medicine
DX: S09.90XA Unspecified injury of head, initial encounter (principal); F10.129 Alcohol abuse with intoxication, unspecified; Y90.8 Blood alcohol level of 240 mg/100 ml or more; R10.12 Left upper quadrant pain; W19.XXXA Unspecified fall, initial encounter; Z23 Encounter for immunization; R29.6 Repeated falls
CPT/HCPCS: 36415; 70450; 71045; 72125; 76700; 80053; 80305; 80320; 82550; 83605; 83690; 84484; 85025; 85610; 85730; 86850; 86900; 86901; 90471; 93005; 93010; 96360; 99284; 90715

== ENCOUNTER 2022-11-10 15:37 | Emergency (ER) | payer MEDICARE, OTHER, MEDICAID, SELFPAY ==
[2022-11-10 15:39] VITALS: BP 125/90; PULSE 89; RESP 20; TEMP 37.2; O2SAT 99; BMI 22.4
[2022-11-10 15:55] VITALS: BP 140/106; PULSE 79; O2SAT 99
--- NOTE | 2022-11-10 15:55 | DI.US.S_ITS ---
PROCEDURE: US PERIPH VENOUS LOW EXTREM RT INDICATIONS: BLACK SPOTS ON MEDIAL ASPECT OF THIGH TECHNIQUE: Real-time imaging, as well as color and pulse Doppler interrogation, were performed of the lower extremity deep veins from the inguinal ligament to the popliteal fossa, with documentation of the visualized calf veins. COMPARISON: None. FINDINGS: The common femoral, femoral, popliteal, and the visualized calf veins are normally compressible, and free of intraluminal thrombus. Color and pulse Doppler demonstrate normal phasic intraluminal flow. There is normal augmentation response to distal compression maneuver. IMPRESSION: No findings of lower extremity deep venous thrombosis. Dictated by: Pratik Morris M.D. on 11/10/2022 at 15:25 Approved by: Pratik Morris M.D. on 11/10/2022 at 15:26
[2022-11-10 16:00] VITALS: BP 132/71; PULSE 76; O2SAT 97
--- NOTE | 2022-11-10 16:06 | PC.NURSE ---
Pt states he has had some SOB intermittently over the last few days, but is currently denying SOB
[2022-11-10 16:30] VITALS: BP 118/71; PULSE 71; O2SAT 97
[2022-11-10 17:00] VITALS: PULSE 74; O2SAT 97
--- NOTE | 2022-11-17 12:24 | ED.EXTPRO ---
HPI - Extremity Problem <Dottie Hugo PA-C - Last Filed: 11/17/22 12:33> General Chief complaint: Extremity Problem,Nontraumatic Stated complaint: Blood clot R lower extrem. Time Seen by Provider: 11/10/22 16:06 Source: patient Mode of arrival: Ambulatory History of Present Illness HPI Narrative: 57-year-old male with past medical history TBI, cancers, seizures and alcohol abuse presents to the ED with 2 lumps on the inner aspect of his right thigh. Patient states that it has been going on for several months, that it is appearing to look petty and are more painful. Patient called his oncologist Dr. Garcia, was sent by his oncologist to the ED to rule out a DVT. Patient recently had surgery 2 weeks ago to remove some masses from his hip and stomach. Patient does not take any blood thinners. Patient denies chest pain, shortness of breath, lightheadedness, dizziness, syncope. No history of DVTs/PEs. Related Data Home Medications Medication Instructions Recorded Confirmed loratadine 10 mg tablet 10 mg PO DAILY 03/25/18 10/08/18 mirtazapine 15 mg tablet 15 mg PO DAILY 03/25/18 10/08/18 naltrexone 50 mg tablet 50 mg PO DAILY 03/25/18 10/08/18 sumatriptan succinate 50 mg tablet See Rx Instructions PO .COMPLEX PRN 03/25/18 10/08/18 Previous Rx's Medication Instructions Recorded lorazepam 1 mg tablet (Ativan) 1 mg PO SEEINSTR #11 tabs 02/12/18 triamcinolone acetonide 0.1 % 0.1 % topical BID PRN pruritis and 03/25/18 topical cream dry skin #80 grams mupirocin 2 % topical ointment 1 applictn topical TID #22 grams 04/14/18 doxepin 10 mg capsule 10 mg PO DAILY #30 caps 04/15/18 ondansetron 4 mg disintegrating 4 mg PO Q8H PRN nausea and 09/17/22 tablet vomiting #10 tabs Allergies Allergy/AdvReac Type Severity Reaction Status Date / Time codeine AdvReac Severe Gastrointestinal Verified 11/10/22 15:48 Upset Review of Systems <Dottie Hugo PA-C - Last Filed: 11/17/22 12:33> Constitutional Constitutional: Denies chills, Denies fatigue, Denies fever(s), Denies frequent falls, Denies lethargy and Denies weakness Eyes Eyes: Denies change in vision, Denies eye discharge, Denies irritation and Denies loss of vision ENT Ears, Nose, Mouth, and Throat: Denies change in voice, Denies dizziness, Denies neck pain, Denies sore throat and Denies throat swelling Cardiovascular Cardiovascular: Denies chest pain, Denies irregular heart rhythm, Denies lightheadedness, Denies palpitations, Denies dyspnea, Denies dyspnea on exertion and Denies orthopnea Respiratory Respiratory: Denies cough, Denies dyspnea, Denies dyspnea on exertion and Denies wheezing Gastrointestinal Gastrointestinal: Denies abdominal pain, Denies change in bowel habits, Denies diarrhea, Denies nausea and Denies vomiting Musculoskeletal Musculoskeletal: Denies neck pain and Denies numbness Integumentary/Breasts Skin/Breast: Denies pruritus, Denies erythema, Denies rash and Denies wounds Comments: Painful lumps on right inner lower thigh Neurologic Neurologic: Denies behavioral changes, Denies confusion, Denies dizziness, Denies frequent falls, Denies loss of vision, Denies numbness and Denies weakness Psychiatric Psychiatric: Denies anxiety, Denies behavioral changes, Denies confusion, Denies depression, Denies homicidal ideation and Denies suicidal ideation Endocrine Endocrine: Denies fatigue, Denies flushing and Denies palpitations Hematologic/Lymphatic Hematologic/Lymphatic: Denies easy bruising Allergic/Immunologic Allergic/Immunologic: Denies urticaria, Denies throat swelling and Denies wheezing Patient History <Dottie Hugo PA-C - Last Filed: 11/17/22 12:33> Medical History Prostate cancer (Unknown) History of sinusitis Rotator cuff tear, left Left wrist pain Left shoulder pain History of ETOH abuse Surgical History Hx of right inguinal hernia repair Social History household members: none Smoking Status: Current some day smoker alcohol intake: former (quit 02/12/17 recovering alcohol ) substance use type: does not use Smoking Status: Current some day smoker tobacco type: cigarettes alcohol intake frequency: 0-2 drinks per day Alcohol type: hard liquor Substance Use Type: marijuana Exam <Dottie Hugo PA-C - Last Filed: 11/17/22 12:33> Narrative Exam Narrative: Const General:?cooperative, healthy appearing and comfortable HENND Head:?normal to inspection Ears:?hearing grossly normal bilaterally Nose:?external nose normal Face and sinus:?normal facial exam and sinuses nontender Mouth:?oral mucosae normal Throat:?posterior oropharynx normal Eyes General:?appearance normal, both eyes and all related structures Neck Neck:?normal visual inspection and no lymphadenopathy noted Resp Effort & Inspection:?normal respiratory effort Auscultation:?clear to auscultation bilaterally Cardio Rate:?regular rate Rhythm:?regular rhythm Integumentary There are 2 darkened, discrete lumps on the right lower inner thigh. No signs of infection. Mildly tender to palpation. Lesion appears to be chronic. Patient is neurovascularly intact. Compartments are soft. Neuro General:?patient alert, patient awake and patient oriented x3 Initial Vital Signs Initial Vital Signs: Vital Signs Temperature 99.0 F 11/10/22 15:39 Pulse Rate 89 11/10/22 15:39 Respiratory Rate 20 11/10/22 15:39 Blood Pressure 125/90 11/10/22 15:39 Pulse Oximetry 99 11/10/22 15:39 Oxygen Delivery Method Room Air 11/10/22 15:39 <Naresh Carroll DO - Last Filed: 11/17/22 14:50> Initial Vital Signs Initial Vital Signs: Vital Signs Temperature 99.0 F 11/10/22 15:39 Pulse Rate 89 11/10/22 15:39 Respiratory Rate 20 11/10/22 15:39 Blood Pressure 125/90 11/10/22 15:39 Pulse Oximetry 99 11/10/22 15:39 Oxygen Delivery Method Room Air 11/10/22 15:39 MDM - Extremity (Nontraumatic) <Dottie Hugo PA-C - Last Filed: 11/17/22 12:33> [facility] Narrative Medical decision making narrative: 57-year-old male with past medical history TBI, cancers, seizures and alcohol abuse presents to the ED with 2 lumps on the inner aspect of his right thigh. Clinically, patient is lesions do not correlate well with a DVT. Lesions do not appear to be infected. Unclear etiology of the lesions, considered bruises/contusions. Obtained ultrasound which showed no DVTs. Recommend follow-up with Dr. Garcia and PCP. ED return precautions discussed with patient. Patient verbalized understanding. Medical records reviewed: Yes Discharge Plan Departure Patient Disposition: Home Clinical Impression: Bruise Instructions: DI for Contusion Activity Restrictions/Additional Instructions: You were evaluated in the ED today to rule out a blood clot or DVT. The ultrasound did not show any blood clots. It appears that you have some contusion/bruises on your leg. Please follow-up with your PCP as soon as possible for further evaluation and monitoring. Return to the ED if you have worsening symptoms, numbness, tingling, weakness. Prescriptions: No Action sumatriptan succinate 50 mg tablet See Rx Instructions PO .COMPLEX PRN Patient Comments: Take 1 as needed 1 time as needed, may repeat in 1 hour for additional dose in 24 hours PO PRN; Rx Instructions: Take 1 as needed 1 time as needed, may repeat in 1 hour for additional dose in 24 hours PO PRN; mirtazapine 15 mg tablet 15 mg PO DAILY naltrexone 50 mg tablet 50 mg PO DAILY loratadine 10 mg tablet 10 mg PO DAILY triamcinolone acetonide 0.1 % cream 0.1 % TOP BID PRN (Reason: pruritis and dry skin) Qty: 80 3RF Rx Instructions: apply sparingly to back at least once or twice daily as needed for itching mupirocin 2 % ointment 1 applictn TOP TID Qty: 22 0RF Rx Instructions: Apply to affected area sparingly three times a day for 7-10 days doxepin 10 mg capsule 10 mg PO DAILY Qty: 30 3RF ondansetron 4 mg tablet,disintegrating 4 mg PO Q8H PRN (Reason: nausea and vomiting) Qty: 10 0RF lorazepam [Ativan] 1 mg tablet 1 mg PO SEEINSTR Qty: 11 0RF Rx Instructions: Take 1 tablet every 6 hours x 24 hours, then 1 tablet every 8 hours x 24 hours, then 1 tablet every 12 hours x 24 hours, then 1 tablet Q HS x 2 days. Stand Alone Forms: Patient Portal/API ED Sign-out <Naresh Carroll, DO - Last Filed: 11/17/22 14:50> Cosign ED Attending Cosignature Attestation: Dr Carroll Co-Sign Statement: I was available for consultation during this patient's emergency department visit. This chart is signed by myself for administrative purposes only. I did not have direct contact with this patient during this visit. They were seen independently by the APC.
== END 2022-11-10 17:15 | disposition home or self-care (01) ==
PROVIDERS: Emergency Provider Student in an Organized Health Care Education/Training Program
DX: S70.11XA Contusion of right thigh, initial encounter (principal)
CPT/HCPCS: 93971; 99283

== ENCOUNTER 2023-05-11 22:40 | Emergency (ER) | payer MEDICARE, OTHER, MEDICAID, SELFPAY ==
[2023-05-11 22:42] VITALS: PULSE 97; O2SAT 95
[2023-05-11 22:44] VITALS: BP 131/87; PULSE 97; O2SAT 94
--- NOTE | 2023-05-11 22:44 | DI.CT.S_ITS ---
PROCEDURE: CT HEAD/BRAIN WO CON INDICATIONS: GLF/ETOH TECHNIQUE: Noncontrast 4.5 mm thick angled axial sections acquired from the foramen magnum to the vertex, with coronal and sagittal reformats. For radiation dose reduction, the following was used: automated exposure control, adjustment of mA and/or kV according to patient size. COMPARISON: [facility], CT, CT HEAD/BRAIN WO CON, 10/16/2022, 8:18. FINDINGS: Image quality: Diagnostic. CSF spaces: Basal cisterns are patent. No extra-axial fluid collections. The ventricles are symmetric in size and shape. Brain: No intracranial bleeds or masses. There is cerebral volume loss for age, with resultant ventricular and sulcal prominence. There are periventricular and deep white matter chronic small vessel ischemic changes. There is intracranial internal carotid artery atherosclerosis. Skull and face: Calvarium and visualized facial bones appear intact, without suspicious lesions. Sinuses: Visualized sinuses and mastoids are clear. IMPRESSION: No acute intracranial pathology. Approved by: Amirah Teague M.D.,Ph.D. on 05/11/2023 at 23:30
[2023-05-11 22:46] VITALS: BP 131/87; PULSE 96; RESP 20; TEMP 36.7; O2SAT 94; BMI 21.4
--- NOTE | 2023-05-11 22:46 | ED.FALL ---
HPI - Fall General Chief Complaint: Fall Stated Complaint: GLF Time Seen by Provider: 05/11/23 22:40 History of Present Illness HPI Narrative: 57-year-old male presents by EMS from home for right hip pain and evaluation after a ground level fall. Patient has chronic right hip issues and states that while he was walking his right hip gave out and he fell, hitting the back of his head. Denies loss of consciousness. Denies use of blood thinners. States he had 2 vodka and john beer cocktails prior to arrival. Last tetanus shot in 2022 Patient initially refused vitals stating ?I do not need that crap, I know exactly what I need when asked what the patient believed he needed, he states a cortisone shot in my hip Related Data Home Medications Medication Instructions Recorded Confirmed loratadine 10 mg tablet 10 mg PO DAILY 03/25/18 10/08/18 mirtazapine 15 mg tablet 15 mg PO DAILY 03/25/18 10/08/18 naltrexone 50 mg tablet 50 mg PO DAILY 03/25/18 10/08/18 sumatriptan succinate 50 mg tablet See Rx Instructions PO .COMPLEX PRN 03/25/18 10/08/18 Previous Rx's Medication Instructions Recorded lorazepam 1 mg tablet (Ativan) 1 mg PO SEEINSTR #11 tabs 02/12/18 triamcinolone acetonide 0.1 % 0.1 % topical BID PRN pruritis and 03/25/18 topical cream dry skin #80 grams mupirocin 2 % topical ointment 1 applictn topical TID #22 grams 04/14/18 doxepin 10 mg capsule 10 mg PO DAILY #30 caps 04/15/18 ondansetron 4 mg disintegrating 4 mg PO Q8H PRN nausea and 09/17/22 tablet vomiting #10 tabs Allergies Allergy/AdvReac Type Severity Reaction Status Date / Time codeine AdvReac Severe Gastrointestinal Verified 11/10/22 15:48 Upset Review of Systems Review of Systems Narrative: Negative except as noted above Patient History Medical History (Updated 05/11/23 @ 23:59 by Chelsea Hutchison MD) Prostate cancer (Unknown) History of sinusitis Rotator cuff tear, left Left wrist pain Left shoulder pain History of ETOH abuse Surgical History Hx of right inguinal hernia repair Social History household members: none Smoking Status: Current some day smoker alcohol intake: former (quit 02/12/17 recovering alcohol ) substance use type: does not use Smoking Status: Current some day smoker tobacco type: cigarettes alcohol intake frequency: 0-2 drinks per day Alcohol type: hard liquor Substance Use Type: marijuana Exam Initial Vital Signs Initial Vital Signs: Vital Signs Pulse Rate 97 H 05/11/23 22:42 Pulse Oximetry 95 05/11/23 22:42 Const: Awake, alert, no acute distress Cardiac: regular rate, regular rhythm RESP: unlabored, clear bilaterally, no wheezing MSK: Atraumatic, full range of motion, pulses equal Skin: Warm, Dry, superficial abrasion posterior scalp Neuro: AO x3, CN II-XII grossly intact, moves all extremities Course Orders Ordered: ED Orders 05/11/23 22:44 CT head/brain wo con Stat 05/11/23 23:06 XR hip w pel if done RT 2V Stat XR wrist RT min 3V Stat Discontinued Medications Dexamethasone (Dexamethasone 10 Mg/Ml Vial) 10 mg IM NOW ONE Stop: 05/11/23 22:45 Last Admin: 05/11/23 23:09 Dose: 10 mg Documented By: LES Folic Acid (Folic Acid 1 Mg Tablet) 1 mg PO NOW ONE Stop: 05/11/23 22:47 Last Admin: 05/11/23 23:09 Dose: 1 mg Documented By: LES Thiamine HCl (Thiamine 100 Mg Tablet) 100 mg PO NOW ONE Stop: 05/11/23 22:47 Last Admin: 05/11/23 23:09 Dose: 100 mg Documented By: LES Vital Signs Vital signs: Vital Signs - 8 hr 05/11/23 22:42 05/11/23 22:44 05/11/23 22:44 Temperature Pulse Rate 97 H 97 H Respiratory Rate Blood Pressure 131/87 Pulse Oximetry 95 94 Oxygen Delivery Method Room Air 05/11/23 22:46 05/11/23 23:04 05/11/23 23:05 Temperature 98.0 F Pulse Rate 96 H 96 H Respiratory Rate 20 Blood Pressure 131/87 125/65 Pulse Oximetry 94 96 Oxygen Delivery Method Room Air Room Air 05/11/23 23:05 05/12/23 00:05 04/02/24 00:05 Temperature Pulse Rate 92 H 91 H Respiratory Rate 20 Blood Pressure 122/77 Pulse Oximetry 92 96 Oxygen Delivery Method Room Air Room Air MDM - Fall MDM Narrative Medical decision making narrative: Hip pain after ground level fall. Patient reports chronic hip issues and states that that is why he fell today. Patient initially refused to take vitals stating that he only needed a cortisone shot. I explained that I do not provide joint injections in the emergency department, but offered the patient an IM injection of Decadron. CT imaging of head normal. Patient was up-to-date on his tetanus shot. X-rays of wrist and hip normal. Patient ambulatory in the emergency department without any difficulty. Discharge Plan Departure Patient Disposition: Home Clinical Impression: Hip pain, right Instructions: How to Prevent Falls Activity Restrictions/Additional Instructions: Be careful walking to prevent recurrent falls. Your CT and X ray imaging today was normal. Follow up with your primary care physician Prescriptions: No Action sumatriptan succinate 50 mg tablet See Rx Instructions PO .COMPLEX PRN Patient Comments: Take 1 as needed 1 time as needed, may repeat in 1 hour for additional dose in 24 hours PO PRN; Rx Instructions: Take 1 as needed 1 time as needed, may repeat in 1 hour for additional dose in 24 hours PO PRN; mirtazapine 15 mg tablet 15 mg PO DAILY naltrexone 50 mg tablet 50 mg PO DAILY loratadine 10 mg tablet 10 mg PO DAILY triamcinolone acetonide 0.1 % cream 0.1 % TOP BID PRN (Reason: pruritis and dry skin) Qty: 80 3RF Rx Instructions: apply sparingly to back at least once or twice daily as needed for itching mupirocin 2 % ointment 1 applictn TOP TID Qty: 22 0RF Rx Instructions: Apply to affected area sparingly three times a day for 7-10 days doxepin 10 mg capsule 10 mg PO DAILY Qty: 30 3RF ondansetron 4 mg tablet,disintegrating 4 mg PO Q8H PRN (Reason: nausea and vomiting) Qty: 10 0RF lorazepam [Ativan] 1 mg tablet 1 mg PO SEEINSTR Qty: 11 0RF Rx Instructions: Take 1 tablet every 6 hours x 24 hours, then 1 tablet every 8 hours x 24 hours, then 1 tablet every 12 hours x 24 hours, then 1 tablet Q HS x 2 days. Stand Alone Forms: Patient Portal/API
[2023-05-11 23:04] VITALS: PULSE 96; O2SAT 96
[2023-05-11 23:05] VITALS: BP 125/65; PULSE 92; O2SAT 92
--- NOTE | 2023-05-11 23:06 | DI.RAD.S_ITS ---
PROCEDURE: XR WRIST RT MIN 3V INDICATIONS: GLF ETOH TECHNIQUE: 3 views of the wrist were acquired. COMPARISON: None. FINDINGS: Bones: No fractures or dislocations. No suspicious bony lesions. Soft tissues: No suspicious soft tissue calcifications. IMPRESSION: No acute bony abnormality. If symptoms persist with conservative management, consider repeat radiograph in 7-10 days or cross-sectional imaging such as CT or MRI. Approved by: Amirah Teague M.D.,Ph.D. on 05/11/2023 at 23:34
--- NOTE | 2023-05-11 23:06 | DI.RAD.S_ITS ---
PROCEDURE: XR HIP W PEL IF DONE RT 2V INDICATIONS: GLF ETOH TECHNIQUE: AP pelvis with lateral view(s) of the right hip(s). COMPARISON: None. FINDINGS: Bones: No fractures or dislocations. Pelvic ring appears intact. No suspicious bony lesions. Soft tissues: The visualized bowel gas pattern is normal. No suspicious soft tissue calcifications. IMPRESSION: No acute bony abnormality. If symptoms persist with conservative management, consider cross-sectional imaging such as CT or MRI. Approved by: Amirah Teague M.D.,Ph.D. on 05/11/2023 at 23:31
[2023-05-11] MEDS: THIAMINE 100 MG TABLET PO (23:09)
[2023-05-11] MEDS: DEXAMETHASONE 10 MG/ML VIAL IM (23:09)
[2023-05-11] MEDS: FOLIC ACID 1 MG TABLET PO (23:09)
[2023-05-12 00:05] VITALS: BP 122/77; PULSE 91; RESP 20; O2SAT 96
== END 2023-05-12 00:10 | disposition home or self-care (01) ==
PROVIDERS: Emergency Provider Emergency Medicine
DX: M25.551 Pain in right hip (principal); W18.30XA Fall on same level, unspecified, initial encounter; S00.01XA Abrasion of scalp, initial encounter
CPT/HCPCS: 70450; 73110; 73502; 96372; 99283; 99284; J1100

== ENCOUNTER 2023-10-18 21:00 | Observation (INO) | payer MEDICARE, MEDICAID, SELFPAY ==
[2023-10-18] VITALS (9 sets, daily range): BP systolic 109–147; BP diastolic 62–94; PULSE 77–97; RESP 16–33; TEMP 36.6; O2SAT 92–98; BMI 23.6
--- NOTE | 2023-10-18 21:09 | DI.CT.S_ITS ---
PROCEDURE: CT ANGIO ABDOMEN PELVIS INDICATIONS: BRIGHT RED BLOOD PER RECTUM TECHNIQUE: After the administration of intravenous contrast, 2.5 mm thick sections acquired from the diaphragm to the symphysis. 10 mm maximum-intensity projection (MIP) reformats were then acquired. For radiation dose reduction, the following was used: automated exposure control. COMPARISON: [facility], CT, CT CHEST ABDOMEN PELVIS WITH CONTRAST, 12/26/2022, 9:28. [facility], CT, CT CHEST ABDOMEN PELVIS WITH CONTRAST, 09/04/2023, 11:12. FINDINGS: Image Quality: Diagnostic. Motion artifact. Abdominal aorta: No aortic aneurysm or evidence of acute aortic syndrome. No aortic dissection. Moderate calcified plaque. Mesenteric arteries: Patent without hemodynamically significant stenosis. Renal arteries: Patent without hemodynamically significant stenosis. OTHER: Lower Chest: No significant findings. Liver: Small dense lesion in the right lobe of the liver, (4/30). Background hepatic steatosis. Gallbladder: No radiopaque gallstones or wall thickening. Biliary ducts: No biliary dilation. Pancreas: No ductal dilation. Spleen: Size is within normal limits. Adrenal Glands: No adrenal nodules. Kidneys and Ureters: No hydronephrosis. No kidney stones. No solid mass. No complex renal cystic lesion which requires follow up. Stomach and Bowel: Small bowel anastomosis in the right abdomen. No small bowel obstruction. Small hiatal hernia. Stomach is within normal limits. Suture material at the rectum. Focus of intraluminal contrast at the lower rectum, (12/117). This slightly increases on the delayed sequence. Peritoneum: No abnormal intraperitoneal fluid. No free air. Ventral Wall: No hernia. Abdominal Nodes: No retroperitoneal or mesenteric adenopathy by size criteria. Vessels: Aorta and inferior vena cava are normal in size. PELVIS: Pelvic Organs: Prostate calcifications. Bladder: Distended. No stone. Pelvic Nodes: No enlarged lymph nodes. Miscellaneous: Small fat containing right inguinal hernia. Bones: No aggressive osseous abnormality. Bilateral L5 pars defect. Prior left-sided rib fractures. IMPRESSION: 1. Intraluminal bleeding at the lower rectum. 2. No bowel obstruction. No pneumoperitoneum. 3. Small lesion in the right liver appears unchanged. Hepatic steatosis. Comment: Findings were discussed with Chelsea Hutchison at 11:18 p.m. Dictated by: Trevon Jaime M.D. on 10/18/2023 at 23:02 Approved by: Trevon Jaime M.D. on 10/18/2023 at 23:19
--- NOTE | 2023-10-18 21:11 | ED.ABDPAIN ---
HPI - Abdominal Pain General Chief Complaint: GI Bleed Stated Complaint: rectal bleed Time Seen by Provider: 10/18/23 21:04 History of Present Illness HPI narrative: 57-year-old male with history of alcohol use disorder, colon cancer status post resection presents by EMS for bright red blood per rectum. Patient reports losing a pint of blood at home, subsequently callingl 911. Blood noted on EMS stretcher on arrival. Patient denies use of blood thinners. Reports hernia repair and EGD 1 month ago at outside hospital. Related Data Home Medications Medication Instructions Recorded Confirmed loratadine 10 mg tablet 10 mg PO DAILY 03/25/18 10/08/18 mirtazapine 15 mg tablet 15 mg PO DAILY 03/25/18 10/08/18 naltrexone 50 mg tablet 50 mg PO DAILY 03/25/18 10/08/18 sumatriptan succinate 50 mg tablet See Rx Instructions PO .COMPLEX PRN 03/25/18 10/08/18 Previous Rx's Medication Instructions Recorded lorazepam 1 mg tablet (Ativan) 1 mg PO SEEINSTR #11 tabs 02/12/18 triamcinolone acetonide 0.1 % 0.1 % topical BID PRN pruritis and 03/25/18 topical cream dry skin #80 grams mupirocin 2 % topical ointment 1 applictn topical TID #22 grams 04/14/18 doxepin 10 mg capsule 10 mg PO DAILY #30 caps 04/15/18 ondansetron 4 mg disintegrating 4 mg PO Q8H PRN nausea and 09/17/22 tablet vomiting #10 tabs Allergies Allergy/AdvReac Type Severity Reaction Status Date / Time codeine AdvReac Severe Gastrointestinal Verified 11/10/22 15:48 Upset Patient History Medical History (Updated 10/19/23 @ 00:00 by Chelsea Hutchison MD) Prostate cancer (Unknown) History of sinusitis Rotator cuff tear, left Left wrist pain Left shoulder pain History of ETOH abuse Surgical History Hx of right inguinal hernia repair Social History (Updated 10/18/23 @ 23:23 by Chelsea Hutchison MD) household members: none Smoking Status: Current some day smoker alcohol intake: current substance use type: does not use Smoking Status: Current some day smoker tobacco type: cigarettes alcohol intake frequency: 0-2 drinks per day Alcohol type: hard liquor Substance Use Type: marijuana Exam Initial Vital Signs Initial Vital Signs: Vital Signs Pulse Rate 85 10/18/23 21:13 Respiratory Rate 19 10/18/23 21:13 Pulse Oximetry 95 10/18/23 21:13 Const: Awake, alert, appears chronically unwell, older than stated age Cardiac: regular rate, regular rhythm RESP: unlabored, clear bilaterally, no wheezing GI: Soft, generalized tenderness to deep palpation without rebound or guarding Rectum: Cashier General present, dried blood around rectum. Tone intact. No gross blood Skin: Warm, Dry, intact, no rashes Neuro: AO x3, CN II-XII grossly intact, moves all extremities Course Orders Ordered: ED Orders 10/18/23 21:09 CT angio abdomen pelvis Stat 10/18/23 21:15 CBC Auto Diff [Complete Blood Count AUTO DIFF] Stat CMP [Comprehensive Metabolic Panel] Stat Lactate (Lactic Acid) Stat Lipase Stat MAG [Magnesium] Stat PT [Prothrombin Time INR] Stat Type and Screen Stat 10/18/23 21:24 [place] [facility] [place] Stat 10/18/23 21:29 Ammonia (NH3) Stat Sodium Chloride (Normal Saline 0.9%) 1,000 mls @ 1,000 mls/hr IV BOLUS ONE Stop: 10/19/23 00:44 Last Admin: 10/18/23 23:46 Dose: 1,000 mls/hr Discontinued Medications Folic Acid (Folic Acid 1 Mg Tablet) 1 mg PO NOW ONE Stop: 10/18/23 21:05 Last Admin: 10/18/23 21:20 Dose: 1 mg Documented By: Thiamine HCl 200 mg/ Sodium (Chloride) 102 mls @ 408 mls/hr IV NOW ONE Stop: 10/18/23 21:05 Last Infusion: 10/18/23 21:49 Dose: Infused Documented By: Admin: 10/18/23 21:20 Dose: 408 mls/hr Documented By: Morphine Sulfate (Morphine 4 Mg/Ml Inj) 4 mg IV NOW ONE Stop: 10/18/23 21:05 Last Admin: 10/18/23 21:20 Dose: 4 mg Documented By: Vital Signs Vital signs: Vital Signs - 8 hr 10/18/23 21:13 10/18/23 21:17 10/18/23 21:30 Temperature 97.8 F Pulse Rate 85 85 Respiratory Rate 19 16 Blood Pressure 128/70 129/94 H Pulse Oximetry 95 98 Oxygen Delivery Method Room Air 10/18/23 21:30 10/18/23 22:00 10/18/23 22:00 Temperature Pulse Rate 97 H 85 Respiratory Rate 32 H 25 H Blood Pressure 147/81 H Pulse Oximetry 95 94 Oxygen Delivery Method Room Air 10/18/23 22:19 10/18/23 22:19 Temperature Pulse Rate 97 H Respiratory Rate 30 H Blood Pressure 133/76 Pulse Oximetry 97 Oxygen Delivery Method Room Air MDM - Abdominal Pain Differential Diagnosis Differential diagnosis: Likely abdominal pain, gastroenteritis and pancreatitis Lab Data 10/18/23 21:15 10/18/23 21:15 Labs: Lab Results 10/18/23 10/18/23 Range/Units 21:15 21:29 WBC 7.7 (4.5-11.0) X10^3/uL RBC 4.01 L (4.5-5.9) X10^6/uL Hgb 13.1 L (13.5-17.5) g/dL Hct 39.0 L (41-53) % MCV 97.2 (80-100) fL MCH 32.7 (26-34) PG MCHC 33.6 (30-36) % RDW 15.6 H (11.6-14.8) % Plt Count 265 (150-400) X10^3/uL Neut % (Auto) 54.6 (50-75) % Lymph % (Auto) 34.2 (25-40) % [place] % (Auto) 8.3 (3-14) % Eos % (Auto) 0.3 L (2-4) % Baso % (Auto) 2.6 H (0-2) % Neut # (Auto) 4200 (5351-4086) /uL Lymph # (Auto) 2600 (0580-0753) /uL [place] # (Auto) 600 (0-900) /uL Eos # (Auto) 0 (0-450) /uL Baso # (Auto) 200 H (0-100) /uL PT 10.9 (9.4-12.5) SECONDS INR 1.0 (0.9-1.3) Sodium 141 (137-145) mmol/L Potassium 3.6 (3.4-5.1) mmol/L Chloride 102 (98-107) mmol/L Carbon Dioxide 18 L (22-32) mmol/L BUN 9 (9-20) mg/dL Creatinine 0.69 (0.66-1.25) mg/dL Estimated GFR > 60 (>60) mL/min BUN/Creatinine Ratio 13.0 (6-22) Glucose 71 (70-100) mg/dL Lactate 3.7 H (0.7-2.1) mmol/L Calcium 8.9 (8.4-10.2) mg/dL Magnesium 1.6 (1.6-2.3) mg/dL Total Bilirubin 0.9 (0.2-1.3) mg/dL AST 81 H (17-59) IU/L ALT 53 H (<50) IU/L Alkaline Phosphatase 78 (38-126) U/L Ammonia < 9 L (9-30) umol/L Total Protein 7.5 (6.3-8.2) g/dL Albumin 4.8 (3.5-5.0) g/dL Globulin 2.7 (1.7-4.1) g/dL Albumin/Globulin Ratio 1.8 (1.0-2.8) Lipase 72 (23-300) U/L Blood Type O Positive Antibody Screen Negative Imaging Data CT scan - abdomen/pelvis: Radiologist's Impression: PROCEDURE: CT ANGIO ABDOMEN PELVIS INDICATIONS: BRIGHT RED BLOOD PER RECTUM TECHNIQUE: After the administration of intravenous contrast, 2.5 mm thick sections acquired from the diaphragm to the symphysis. 10 mm maximum-intensity projection (MIP) reformats were then acquired. For radiation dose reduction, the following was used: automated exposure control. COMPARISON: [facility], CT, CT CHEST ABDOMEN PELVIS WITH CONTRAST, 12/26/2022, 9:28. [facility], CT, CT CHEST ABDOMEN PELVIS WITH CONTRAST, 09/04/2023, 11:12. FINDINGS: Image Quality: Diagnostic. Motion artifact. Abdominal aorta: No aortic aneurysm or evidence of acute aortic syndrome. No aortic dissection. Moderate calcified plaque. Mesenteric arteries: Patent without hemodynamically significant stenosis. Renal arteries: Patent without hemodynamically significant stenosis. OTHER: Lower Chest: No significant findings. Liver: Small dense lesion in the right lobe of the liver, (06/08). Background hepatic steatosis. Gallbladder: No radiopaque gallstones or wall thickening. Biliary ducts: No biliary dilation. Pancreas: No ductal dilation. Spleen: Size is within normal limits. Adrenal Glands: No adrenal nodules. Kidneys and Ureters: No hydronephrosis. No kidney stones. No solid mass. No complex renal cystic lesion which requires follow up. Stomach and Bowel: Small bowel anastomosis in the right abdomen. No small bowel obstruction. Small hiatal hernia. Stomach is within normal limits. Suture material at the rectum. Focus of intraluminal contrast at the lower rectum, (12/117). This slightly increases on the delayed sequence. Peritoneum: No abnormal intraperitoneal fluid. No free air. Ventral Wall: No hernia. Abdominal Nodes: No retroperitoneal or mesenteric adenopathy by size criteria. Vessels: Aorta and inferior vena cava are normal in size. PELVIS: Pelvic Organs: Prostate calcifications. Bladder: Distended. No stone. Pelvic Nodes: No enlarged lymph nodes. Miscellaneous: Small fat containing right inguinal hernia. Bones: No aggressive osseous abnormality. Bilateral L5 pars defect. Prior left-sided rib fractures. IMPRESSION: 1. Intraluminal bleeding at the lower rectum. 2. No bowel obstruction. No pneumoperitoneum. 3. Small lesion in the right liver appears unchanged. Hepatic steatosis. Comment: Findings were discussed with Chelsea Hutchison at 11:18 p.m. Dictated by: Trevon Jaime M.D. on 10/18/2023 at 23:02 Approved by: Trevon Jaime M.D. on 10/18/2023 at 23:19 MDM Narrative Medical decision making narrative: Bright red blood per rectum, significantly worse today. There is blood noted on EMS stretcher and on back of patient's pants. No active bleeding on rectal exam, however large amount of drying blood present on visual inspection. Hemodynamically stable. Laboratory work, thiamine, folic acid, CT angio imaging of the abdomen and pelvis ordered. Laboratory work shows WBC count 7.7, hemoglobin 13.1, platelets 265, sodium 141, potassium 3.6, creatinine 0.69, T bili 0.9, AST 81, ALT 53, alk phos 78, ammonia less than 9. CT of the abdomen and pelvis shows blush your rectum concerning for active bleeding. Patient has had no bloody bowel movements since his arrival to the emergency department. Case discussed with Dr. Quintana of general surgery, who stated that general surgical services could evaluate the patient at [facility]. Patient informed of lab and imaging findings, strongly recommended that he be admitted to the hospital for observation and management. Patient reluctant to stay in the hospital, however I discussed he serious possibility of worsening hemorrhage and patient agreed to stay. At the time of admission patient not exhibiting any signs or symptoms of alcohol withdrawal. Critical Care Time Critical Care Time Critical Care Time: Yes Total Critical Care Time: 32 Attestation: Lower GI bleed requiring admission to hospital for serial exams and monitoring. Discharge Plan Departure Patient Disposition: Admitted as Observation Clinical Impression: Rectal hemorrhage, Alcohol use disorder, moderate, dependence Admit Date/Time: 10/18/23 23:53 Admit Provider: Alvin Gibbs
[2023-10-18] MEDS: FOLIC ACID 1 MG TABLET PO (21:20)
[2023-10-18] MEDS: MORPHINE 4 MG/ML INJ IV (21:20)
[2023-10-18] MEDS: THIAMINE 200 MG in SODIUM CHLORIDE 0.9% 100 ML 408 MG IV (21:20)
[2023-10-18 21:24] LABS: Add Manual Diff / Slide Review NO; Basophils Absolute Auto 200 /uL (0-100); Basophils Percent Auto 2.6 % (0-2); Eosinophils Absolute Auto 0 /uL (0-450); Eosinophils Percent Auto 0.3 % (2-4); Hemoglobin 13.1 g/dL (13.5-17.5); Lymphocytes Absolute Auto 2600 /uL (1100-4500); Lymphocytes Percent Auto 34.2 % (25-40); Mean Corpuscular HGB Conc 33.6 % (30-36); Mean Corpuscular Hemoglobin 32.7 PG (26-34); Mean Corpuscular Volume 97.2 fL (80-100); Monocytes Absolute Auto 600 /uL (0-900); Monocytes Percent Auto 8.3 % (3-14); Neutrophils Absolute Auto 4200 /uL (1500-7000); Neutrophils Percent Auto 54.6 % (50-75); Platelet Count 265 X10^3/uL (150-400); Red Blood Cell Count 4.01 X10^6/uL (4.5-5.9); Red Cell Distribution Width 15.6 % (11.6-14.8); White Blood Cell Count 7.7 X10^3/uL (4.5-11.0)
[2023-10-18 21:29] LABS: Prothrombin Time 10.9 SECONDS (9.4-12.5)
[2023-10-18 21:33] LABS: Lactate (Lactic Acid) 3.7 mmol/L (0.7-2.1)
[2023-10-18 21:34] LABS: Alanine Aminotransferase 53 IU/L (<50); Albumin 4.8 g/dL (3.5-5.0); Albumin Globulin Ratio 1.8 (1.0-2.8); Alkaline Phosphatase 78 U/L (38-126); Aspartate Aminotransferase 81 IU/L (17-59); Bilirubin Total 0.9 mg/dL (0.2-1.3); Blood Urea Nitrogen 9 mg/dL (9-20); Calcium 8.9 mg/dL (8.4-10.2); Carbon Dioxide 18 mmol/L (22-32); Chloride 102 mmol/L (98-107); Estimated Glomerular Filt Rate > 60 mL/min (>60); Globulin 2.7 g/dL (1.7-4.1); Glucose 71 mg/dL (70-100); HEMOLYSIS < 15 (0-50); Lipase 72 U/L (23-300); Magnesium 1.6 mg/dL (1.6-2.3); Potassium 3.6 mmol/L (3.4-5.1); Sodium 141 mmol/L (137-145); Total Protein 7.5 g/dL (6.3-8.2)
[2023-10-18 21:59] LABS: Ammonia (NH3) < 9 umol/L (9-30)
[2023-10-18 22:53] LABS: Reflexed Lactate in 2 Hours Y
[2023-10-18] MEDS: SODIUM CHLORIDE 0.9% 1,000 ML 1000 ML IV (23:46)
[2023-10-19] VITALS (17 sets, daily range): BP systolic 101–137; BP diastolic 53–83; PULSE 48–150; RESP 15–36; TEMP 36.7–37.4; O2SAT 93–98; BMI 23.6
[2023-10-19] MEDS: MORPHINE 4 MG/ML INJ IV (00:09)
[2023-10-19 00:15] LABS: Lactate 2HR (Lactic Acid Rflx) 2.8 mmol/L (0.7-2.1)
[2023-10-19] MEDS: LACTATED RINGERS 1,000 ML 100 ML IV ×2 (01:07→11:34)
[2023-10-19] MEDS: ACETAMINOPHEN 325 MG TABLET 650 MG PO ×2 (01:24→11:18)
[2023-10-19] MEDS: ONDANSETRON 4 MG/2 ML INJ IV ×2 (01:43→14:12)
--- NOTE | 2023-10-19 02:11 | EKG_ITS ---
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
--- NOTE | 2023-10-19 02:18 | DI.ECHO.S_ITS ---
[facility]+ [facility] : : [address] : : [place] : : [id number] : : Phone: [phone] Echocardiogram Report + :Name: JUANY ALDRICH Study Date: 10/19/2023 Height: 69 in : :Hospital ReadingLocation: Weight: 160 lb : : Gender: Male BSA: 1.9 m2 : :: 1965 Age: 57 yrs BP: 124/69 mmHg: :Reason For Study: ATRIAL FIBRILLATION : :Ordering Physician: ELVIA : :JM SORIANO Performed By: Da Mattson : :Referring: JM PACKER : + Interpretation Summary Normal left ventricle size with ejection fraction 65-70%. Both atria are normal in size. No valvular abnormality. Procedure: A two-dimensional transthoracic echocardiogram with color flow and Doppler was performed. The study quality was technically adequate. There is no prior echocardiogram noted for this patient. The patient was in sinus rhythm with heart rates between 76-90 bpm during the exam. Left Ventricle: The left ventricle is normal in size and wall thickness. The ejection fraction is estimated to be 65-70%. There are no focal wall motion abnormalities. Diastolic parameters suggest probable normal left ventricular diastolic function and normal filling pressures. Right Ventricle: The right ventricle is borderline dilated. The right ventricular systolic function is normal. Atria: Both atria are normal in size. The interatrial septum grossly appears intact with no obvious evidence for an atrial septal defect. Mitral Valve: The mitral valve is normal. There is no mitral valve stenosis. There is no mitral regurgitation noted. Aortic Valve: The aortic valve is trileaflet. The aortic valve opens well. There is no aortic valve stenosis. No aortic regurgitation is present. Tricuspid Valve: The tricuspid valve is normal. There is no tricuspid stenosis. No tricuspid regurgitation. Pulmonic Valve: The pulmonic valve is not well visualized. There is no pulmonic valvular stenosis. There is no pulmonic valvular regurgitation. Great Vessels: The aortic root is normal size. The dimensions of the ascending aorta are normal. The IVC is of normal diameter and collapses greater than 50% with a sniff. This suggests a low right atrial pressure of 3 mm Hg. Pericardium/ Pleura There is no pericardial effusion. There is no pleural effusion. MMode/2D Measurements & Calculations LVIDd: 4.4 cm LVOT diam: 2.4 cm LVIDs: 2.4 cm Ao root diam: 3.6 cm FS: 46.3 % asc Aorta Diam: 3.1 cm IVSd: 1.1 cm LVPWd: 0.96 cm LV gomez. diameter/BSA (cm/m^2): 2.4 LV sys. diameter/BSA (cm/m^2): 1.3 LA A2 area: 17.7 cm2 RA long axis: 4.2 cm LA A4 area: 17.1 cm2 RA area: 13.2 cm2 LA length (vol): 5.3 cm RA vol: 35.4 ml LA vol: 48.8 ml RA : 18.8 ml/m2 LA vol index: 26.0 ml/m2 IVC diam: 1.9 cm RVD1 (basal): 4.0 cm RVD2 (mid): 2.9 cm TAPSE: 3.3 cm Doppler Measurements & Calculations Ao V2 max: 122.1 cm/sec LVOT Max Mick: 117.7 cm/sec Ao V2 mean: 81.3 cm/sec LV V1 max P.5 mmHg Ao max P.0 mmHg LV V1 VTI: 22.8 cm Ao mean P.0 mmHg XIMENA(I,D): 4.7 cm2 Ao V2 VTI: 21.4 cm XIMENA(V,D): 4.2 cm2 sev ratio: 1.1 XIMENA indexed to BSA (cm^2/m^2): 2.5 MV E max mick: 63.1 cm/sec PA V2 max: 99.1 cm/sec MV A max mick: 43.3 cm/sec PA V2 mean: 61.8 cm/sec MV E/A: 1.5 PA mean P.8 mmHg Med Peak E' Mick: 10.0 cm/sec PA pr(Accel): 24.2 mmHg E/E' med: 6.3 Lat Peak E' Mick: 11.5 cm/sec E/E' lat: 5.5 E/e' average: 5.9 MV dec time: 0.23 sec SV(LVOT): 100.1 ml Electronically signed by: Emir Abreu on Reading Physician:10/19/2023 11:49 AM
[2023-10-19] MEDS: dilTIAZem 25 MG/5 ML SDV 10 MG IV ×2 (02:21→02:34)
[2023-10-19 02:30] LABS: Creatine Kinase 157 U/L (55-170)
[2023-10-19 02:42] LABS: Troponin I < 0.012 ng/mL (0.01-0.034)
--- NOTE | 2023-10-19 02:55 | P.HP_ITS ---
History of Present Illness History of Present Illness Date Patient Seen: 10/19/23 Chief complaint: rectal bleed Narrative: 57 y/o with PMH of colon cancer and partial resection 2-3 years ago, anxiety and depression and alcoholism, presented with rectal bleed. On admission intoxicated with difficulty recalling PMH. He mentioned colonoscopy 2 weeks ago with apparent excision of few polyps and continuous bleed afterwards. On admission to floor in [facility] A-fib complaining on hiccups, left chest wall pain from healing previously broken ribs, w/o abdominal pain. Without active rectal bleed on admission. Not anemic. [facility] Medical History (Updated 10/19/23 @ 03:08 by Alvin Ramires MD) Prostate cancer (Unknown) History of sinusitis Rotator cuff tear, left Left wrist pain Left shoulder pain History of ETOH abuse Surgical History Hx of right inguinal hernia repair Social History household members: none Smoking Status: Current some day smoker alcohol intake: current substance use type: does not use Meds Home Medications and Allergies Home Medications Medication Instructions Recorded Confirmed Type lorazepam 1 mg tablet (Ativan) 1 mg PO SEEINSTR #11 tabs 02/12/18 10/19/23 Rx loratadine 10 mg tablet 10 mg PO DAILY 03/25/18 10/08/18 History mirtazapine 15 mg tablet 15 mg PO DAILY 03/25/18 10/08/18 History naltrexone 50 mg tablet 50 mg PO DAILY 03/25/18 10/08/18 History sumatriptan succinate 50 mg tablet See Rx Instructions PO .COMPLEX PRN 03/25/18 10/08/18 History triamcinolone acetonide 0.1 % 0.1 % topical BID PRN pruritis and 03/25/18 10/08/18 Rx topical cream dry skin #80 grams mupirocin 2 % topical ointment 1 applictn topical TID #22 grams 04/14/18 10/08/18 Rx doxepin 10 mg capsule 10 mg PO DAILY #30 caps 04/15/18 10/19/23 Rx ondansetron 4 mg disintegrating 4 mg PO Q8H PRN nausea and 09/17/22 Rx tablet vomiting #10 tabs Allergies Allergy/AdvReac Type Severity Reaction Status Date / Time codeine AdvReac Severe Gastrointestinal Verified 11/10/22 15:48 Upset Review of Systems Review of Systems Narrative: intoxicated with alcohol - see HPI, unreliable historian Cardiovascular Comments: w/o palpitations Respiratory Comments: w/o cough or shortness of breath Gastrointestinal Comments: hiccups, w/o abdominal pain Exam Vital Signs (past 8 hours): - 10/18/23 21:13 10/18/23 21:17 10/18/23 21:30 Temperature 97.8 F Pulse Rate 85 85 Respiratory Rate 19 16 Blood Pressure 128/70 129/94 H Pulse Oximetry 95 98 Oxygen Delivery Method Room Air Oxygen Flow Rate 10/18/23 21:30 10/18/23 22:00 10/18/23 22:00 Temperature Pulse Rate 97 H 85 Respiratory Rate 32 H 25 H Blood Pressure 147/81 H Pulse Oximetry 95 94 Oxygen Delivery Method Room Air Oxygen Flow Rate 10/18/23 22:19 10/18/23 22:19 10/18/23 22:30 Temperature Pulse Rate 97 H 93 H Respiratory Rate 30 H 33 H Blood Pressure 133/76 Pulse Oximetry 97 95 Oxygen Delivery Method Room Air Oxygen Flow Rate 10/18/23 22:31 10/18/23 22:31 10/18/23 23:00 Temperature Pulse Rate 95 H Respiratory Rate 28 H Blood Pressure 144/69 H 118/67 Pulse Oximetry 97 Oxygen Delivery Method Oxygen Flow Rate 10/18/23 23:00 10/18/23 23:30 10/18/23 23:30 Temperature Pulse Rate 91 H 77 Respiratory Rate 33 H 17 Blood Pressure 109/62 Pulse Oximetry 95 92 Oxygen Delivery Method Oxygen Flow Rate 10/19/23 00:00 10/19/23 00:24 10/19/23 00:24 Temperature Pulse Rate 112 H 92 H Respiratory Rate 36 H Blood Pressure 134/69 Pulse Oximetry 97 97 Oxygen Delivery Method Room Air Oxygen Flow Rate 10/19/23 00:30 10/19/23 00:30 10/19/23 00:58 Temperature 98.1 F Pulse Rate 84 96 H Respiratory Rate 20 Blood Pressure 125/66 106/72 Pulse Oximetry 95 98 Oxygen Delivery Method Room Air Oxygen Flow Rate 10/19/23 01:37 10/19/23 02:06 10/19/23 02:21 Temperature Pulse Rate 94 H 129 H Respiratory Rate Blood Pressure 102/69 126/73 Pulse Oximetry 97 Oxygen Delivery Method Room Air Oxygen Flow Rate 0 10/19/23 02:34 10/19/23 02:46 Temperature Pulse Rate 140 H Respiratory Rate Blood Pressure 137/83 127/75 Pulse Oximetry Oxygen Delivery Method Oxygen Flow Rate Oxygen Delivery Method Room Air Oxygen Flow Rate 0 Const Other: siitng in bed in mild distress related to chest wall pain and hiccups HENMT Other: normocephalic Neck Other: w/o JVD Resp Other: normal respiratory effort Cardio Other: a-fib with RVR GI Other: soft, non-tender abdomen Skin Other: w/o jaundice Neuro Other: w/o motor deficits Extrem Other: w/o swelling Psych Other: intoxicated with alcohol Objective ECG Impression: Atrial fibrilation with RVR Labs 10/18/23 21:15 10/18/23 21:15 Labs: Laboratory Results - last 24 hr 10/18/23 10/18/23 10/18/23 21:15 21:29 23:50 WBC 7.7 RBC 4.01 L Hgb 13.1 L Hct 39.0 L MCV 97.2 MCH 32.7 MCHC 33.6 RDW 15.6 H Plt Count 265 Neut % (Auto) 54.6 Lymph % (Auto) 34.2 [place] % (Auto) 8.3 Eos % (Auto) 0.3 L Baso % (Auto) 2.6 H Neut # (Auto) 4200 Lymph # (Auto) 2600 [place] # (Auto) 600 Eos # (Auto) 0 Baso # (Auto) 200 H PT 10.9 INR 1.0 Sodium 141 Potassium 3.6 Chloride 102 Carbon Dioxide 18 L BUN 9 Creatinine 0.69 Estimated GFR > 60 BUN/Creatinine Ratio 13.0 Glucose 71 Lactate 3.7 H 2.8 H Calcium 8.9 Magnesium 1.6 Total Bilirubin 0.9 AST 81 H ALT 53 H Alkaline Phosphatase 78 Ammonia < 9 L Total Creatine Kinase Troponin I Total Protein 7.5 Albumin 4.8 Globulin 2.7 Albumin/Globulin Ratio 1.8 Lipase 72 Blood Type O Positive Antibody Screen Negative 10/19/23 02:05 WBC RBC Hgb Hct MCV MCH MCHC RDW Plt Count Neut % (Auto) Lymph % (Auto) [place] % (Auto) Eos % (Auto) Baso % (Auto) Neut # (Auto) Lymph # (Auto) [place] # (Auto) Eos # (Auto) Baso # (Auto) PT INR Sodium Potassium Chloride Carbon Dioxide BUN Creatinine Estimated GFR BUN/Creatinine Ratio Glucose Lactate 3.0 H Calcium Magnesium Total Bilirubin AST ALT Alkaline Phosphatase Ammonia Total Creatine Kinase 157 Troponin I < 0.012 Total Protein Albumin Globulin Albumin/Globulin Ratio Lipase Blood Type Antibody Screen Assessment & Plan Assessment and plan (1) Lower GI bleed: Status: Acute (2) Rapid atrial fibrillation: Status: Acute (3) Alcoholism: Status: Acute (4) Anxiety and depression: Status: Acute Assessment & Plan narrative: Lower GI Bleed - he apparently had colonoscopy 2 weeks ago - apparently had excision of several polyps - details unknown, intoxicated. - he could be bleeding from that or internal hemorrhoids - Hb > 13, monitored counts - clear liquid diet, likely colonoscopy by Sx PAF - given few doses of cardizem - both K and Mg borderline low - supplemented - echocardiogram - telemetry monitoring - not a candidate for anticoagulation at this point in time Alcohol Intoxication / Alcoholism - he came drunk with alcohol level of ~ 300 - not clear if he will start withdrawal by noon - prn ativan - B1, FA Anxiety and Depression - mirtazapine and doxepine at home - on hold, intoxicated DVT prophylaxis - SCDs GI prophylaxis - PPI Time-Based Coding :: [TOTAL MINUTES] spent with patient and on the chart (including review of chart, obtaining history, exam, reviewing outside data, placing orders, documenting exam and treatment plan, and counseling patient) on [DATE].
[2023-10-19] MEDS: POTASSIUM CHLORIDE 20 MEQ TAB 40 MEQ PO (02:59)
[2023-10-19] MEDS: MAGNESIUM SULFATE 2 GM/50 ML PIGGYBACK IV ×2 (02:59→19:32)
[2023-10-19] MEDS: LORazepam 2 MG/ML INJ 1 MG IV ×2 (03:10→11:18)
[2023-10-19 03:45] LABS: Reflexed Lactate in 2 Hours Y
--- NOTE | 2023-10-19 04:05 | PM.HP.1 ---
History of Present Illness History of Present Illness Chief complaint: rectal bleed Narrative: 57 y/o with PMH of rectal adenocarcinoma and resection 2-3 years ago, anxiety, depression and alcoholism, presented with rectal bleed. On admission intoxicated with difficulty recalling PMH. He mentioned colonoscopy 2 weeks ago with apparent excision of few polyps and continuous bleed afterwards. On admission to floor in [facility] complaining on hiccups, left chest wall pain from healing previously broken ribs, w/o abdominal pain. Without active rectal bleed on admission. Not anemic. [facility] Medical History (Updated 10/19/23 @ 03:08 by Alvin Ramires MD) Prostate cancer (Unknown) History of sinusitis Rotator cuff tear, left Left wrist pain Left shoulder pain History of ETOH abuse Surgical History Hx of right inguinal hernia repair Social History household members: none Smoking Status: Current some day smoker alcohol intake: current substance use type: does not use Meds Home Medications and Allergies Home Medications Medication Instructions Recorded Confirmed Type lorazepam 1 mg tablet (Ativan) 1 mg PO SEEINSTR #11 tabs 02/12/18 10/19/23 Rx loratadine 10 mg tablet 10 mg PO DAILY 03/25/18 10/08/18 History mirtazapine 15 mg tablet 15 mg PO DAILY 03/25/18 10/08/18 History naltrexone 50 mg tablet 50 mg PO DAILY 03/25/18 10/08/18 History sumatriptan succinate 50 mg tablet See Rx Instructions PO .COMPLEX PRN 03/25/18 10/08/18 History triamcinolone acetonide 0.1 % 0.1 % topical BID PRN pruritis and 03/25/18 10/08/18 Rx topical cream dry skin #80 grams mupirocin 2 % topical ointment 1 applictn topical TID #22 grams 04/14/18 10/08/18 Rx doxepin 10 mg capsule 10 mg PO DAILY #30 caps 04/15/18 10/19/23 Rx ondansetron 4 mg disintegrating 4 mg PO Q8H PRN nausea and 09/17/22 Rx tablet vomiting #10 tabs Allergies Allergy/AdvReac Type Severity Reaction Status Date / Time codeine AdvReac Severe Gastrointestinal Verified 11/10/22 15:48 Upset Exam Vital Signs (past 8 hours): - 10/18/23 21:13 10/18/23 21:17 10/18/23 21:30 Temperature 97.8 F Pulse Rate 85 85 Respiratory Rate 19 16 Blood Pressure 128/70 129/94 H Pulse Oximetry 95 98 Oxygen Delivery Method Room Air Oxygen Flow Rate 10/18/23 21:30 10/18/23 22:00 10/18/23 22:00 Temperature Pulse Rate 97 H 85 Respiratory Rate 32 H 25 H Blood Pressure 147/81 H Pulse Oximetry 95 94 Oxygen Delivery Method Room Air Oxygen Flow Rate 10/18/23 22:19 10/18/23 22:19 10/18/23 22:30 Temperature Pulse Rate 97 H 93 H Respiratory Rate 30 H 33 H Blood Pressure 133/76 Pulse Oximetry 97 95 Oxygen Delivery Method Room Air Oxygen Flow Rate 10/18/23 22:31 10/18/23 22:31 10/18/23 23:00 Temperature Pulse Rate 95 H Respiratory Rate 28 H Blood Pressure 144/69 H 118/67 Pulse Oximetry 97 Oxygen Delivery Method Oxygen Flow Rate 10/18/23 23:00 10/18/23 23:30 10/18/23 23:30 Temperature Pulse Rate 91 H 77 Respiratory Rate 33 H 17 Blood Pressure 109/62 Pulse Oximetry 95 92 Oxygen Delivery Method Oxygen Flow Rate 10/19/23 00:00 10/19/23 00:24 10/19/23 00:24 Temperature Pulse Rate 112 H 92 H Respiratory Rate 36 H Blood Pressure 134/69 Pulse Oximetry 97 97 Oxygen Delivery Method Room Air Oxygen Flow Rate 10/19/23 00:30 10/19/23 00:30 10/19/23 00:58 Temperature 98.1 F Pulse Rate 84 96 H Respiratory Rate 20 Blood Pressure 125/66 106/72 Pulse Oximetry 95 98 Oxygen Delivery Method Room Air Oxygen Flow Rate 10/19/23 01:37 10/19/23 02:06 10/19/23 02:21 Temperature Pulse Rate 94 H 129 H Respiratory Rate Blood Pressure 102/69 126/73 Pulse Oximetry 97 Oxygen Delivery Method Room Air Oxygen Flow Rate 0 10/19/23 02:34 10/19/23 02:46 10/19/23 03:30 Temperature Pulse Rate 140 H 150 H Respiratory Rate Blood Pressure 137/83 127/75 118/63 Pulse Oximetry 95 Oxygen Delivery Method Oxygen Flow Rate 1 10/19/23 03:49 Temperature Pulse Rate Respiratory Rate Blood Pressure 124/74 Pulse Oximetry Oxygen Delivery Method Oxygen Flow Rate Oxygen Delivery Method Room Air Oxygen Flow Rate 1 Objective Labs 10/19/23 04:00 10/19/23 04:00 Labs: Laboratory Results - last 24 hr 10/18/23 10/18/23 10/18/23 21:15 21:29 23:50 WBC 7.7 RBC 4.01 L Hgb 13.1 L Hct 39.0 L MCV 97.2 MCH 32.7 MCHC 33.6 RDW 15.6 H Plt Count 265 Neut % (Auto) 54.6 Lymph % (Auto) 34.2 [place] % (Auto) 8.3 Eos % (Auto) 0.3 L Baso % (Auto) 2.6 H Neut # (Auto) 4200 Lymph # (Auto) 2600 [place] # (Auto) 600 Eos # (Auto) 0 Baso # (Auto) 200 H PT 10.9 INR 1.0 Sodium 141 Potassium 3.6 Chloride 102 Carbon Dioxide 18 L BUN 9 Creatinine 0.69 Estimated GFR > 60 BUN/Creatinine Ratio 13.0 Glucose 71 Lactate 3.7 H 2.8 H Calcium 8.9 Magnesium 1.6 Total Bilirubin 0.9 AST 81 H ALT 53 H Alkaline Phosphatase 78 Ammonia < 9 L Total Creatine Kinase Troponin I Total Protein 7.5 Albumin 4.8 Globulin 2.7 Albumin/Globulin Ratio 1.8 Lipase 72 Blood Type O Positive Antibody Screen Negative 10/19/23 02:05 WBC RBC Hgb Hct MCV MCH MCHC RDW Plt Count Neut % (Auto) Lymph % (Auto) [place] % (Auto) Eos % (Auto) Baso % (Auto) Neut # (Auto) Lymph # (Auto) [place] # (Auto) Eos # (Auto) Baso # (Auto) PT INR Sodium Potassium Chloride Carbon Dioxide BUN Creatinine Estimated GFR BUN/Creatinine Ratio Glucose Lactate 3.0 H Calcium Magnesium Total Bilirubin AST ALT Alkaline Phosphatase Ammonia Total Creatine Kinase 157 Troponin I < 0.012 Total Protein Albumin Globulin Albumin/Globulin Ratio Lipase Blood Type Antibody Screen Assessment & Plan Time-Based Coding :: [TOTAL MINUTES] spent with patient and on the chart (including review of chart, obtaining history, exam, reviewing outside data, placing orders, documenting exam and treatment plan, and counseling patient) on [DATE].
[2023-10-19 04:14] LABS: Add Manual Diff / Slide Review NO; Basophils Absolute Auto 200 /uL (0-100); Basophils Percent Auto 2.6 % (0-2); Eosinophils Absolute Auto 0 /uL (0-450); Eosinophils Percent Auto 0.3 % (2-4); Hematocrit 37.5 % (41-53); Hemoglobin 12.9 g/dL (13.5-17.5); Lymphocytes Absolute Auto 1500 /uL (1100-4500); Lymphocytes Percent Auto 19.1 % (25-40); Mean Corpuscular HGB Conc 34.4 % (30-36); Mean Corpuscular Hemoglobin 33.6 PG (26-34); Mean Corpuscular Volume 97.7 fL (80-100); Monocytes Absolute Auto 600 /uL (0-900); Monocytes Percent Auto 7.5 % (3-14); Neutrophils Absolute Auto 5500 /uL (1500-7000); Neutrophils Percent Auto 70.5 % (50-75); Platelet Count 218 X10^3/uL (150-400); Red Blood Cell Count 3.83 X10^6/uL (4.5-5.9); Red Cell Distribution Width 15.4 % (11.6-14.8); White Blood Cell Count 7.8 X10^3/uL (4.5-11.0)
[2023-10-19] MEDS: DIGOXIN 500 MCG/2 ML AMPUL IV (04:16)
[2023-10-19 04:21] LABS: Blood Urea Nitrogen 7 mg/dL (9-20); Calcium 8.3 mg/dL (8.4-10.2); Carbon Dioxide 19 mmol/L (22-32); Chloride 103 mmol/L (98-107); Estimated Glomerular Filt Rate > 60 mL/min (>60); Glucose 70 mg/dL (70-100); HEMOLYSIS 43 (0-50); Lactate 2HR (Lactic Acid Rflx) 2.1 mmol/L (0.7-2.1); Potassium 3.7 mmol/L (3.4-5.1); Sodium 140 mmol/L (137-145)
--- NOTE | 2023-10-19 07:36 | PC.NURSE ---
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 Patient arrived intoxicated, AxOx3, forgetful. Reported left-sided chest pain, stated that he had some broken ribs that were still healing. Patient was SOB, nauseous, and hiccuping. Once tele was placed, patient's HR noted to be in 140's-150's. Notified MD Ramires of findings; 12-lead EKG & troponin ordered, MD notified of findings. IV medications given (see MAR) for rapid afib; HR converted to sinus rhythm @ approximately 0500. Cont tele in place, LR infusing @ 100. IV Ativan given for anxiety. Oriented patient to call-light, fall/seizure precautions in place, plan of care ongoing.
--- NOTE | 2023-10-19 10:31 | DIET.CONS ---
Dietary Consultation Note Admission Date: 10/18/2023 23:53 Assessment: 57 y M admitted for lower GI bleed. Nutrition screened for low MNA. PMH of colon cancer. Per healthcare rounds, pt still intoxicated and reports he drinks a fifth a day. CIWA score in early AM was 17. EMR reviewed. No recent weight loss. On clear liquids for possible scope. Ht: 175.26 cm Wt: 72.575 kg BMI: 23.6 UBW: 71.668 kg on 05/11/23 Last BM: () MNA: 10 Zachary Score: 20 Diet: 10/19/23 Breakfast Clear Liquid Diet Diet Modifications: Labs: RBC 3.83 X10^6/uL (4.5-5.9) L 10/19/23 04:00 Hgb 12.9 g/dL (13.5-17.5) L 10/19/23 04:00 Hct 37.5 % (41-53) L 10/19/23 04:00 Creatinine 0.54 mg/dL (0.66-1.25) L 10/19/23 04:00 Lactate 2.1 mmol/L (0.7-2.1) 10/19/23 04:00 Nutrition Diagnosis: Excessive alcohol intake r/t alcohol misuse aeb reported pt drinks a fifth a day Interventions: -Monitor for diet advancement -Full assessment w/ pt as able Monitoring/Evaluations: diet, intakes Electronically Signed by: Mary Gabriel 10/19/23 10:31 Clinical Dietitian [address] [address]
[2023-10-19] MEDS: chlordiazePOXIDE 25 MG CAPSULE 50 MG PO (11:18)
[2023-10-19] MEDS: FAMOTIDINE 20 MG TABLET PO ×2 (11:18→20:03)
--- NOTE | 2023-10-19 13:39 | P.HP_ITS ---
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 On admission intoxicated with difficulty recalling PMH. He mentioned colonoscopy 2 weeks ago with apparent excision of few polyps and continuous bleed afterwards. On admission to floor in rapid A-fib complaining on hiccups, left chest wall pain from healing previously broken ribs, w/o abdominal pain. Without active rectal bleed on admission. Not anemic. since admission no signs of rectal bleed. a.fib w/RVR has resolved PFSH Medical History Prostate cancer (Unknown) History of sinusitis Rotator cuff tear, left Left wrist pain Left shoulder pain History of ETOH abuse Surgical History Hx of right inguinal hernia repair Social History household members: none Smoking Status: Current some day smoker alcohol intake: current substance use type: does not use Meds Home Medications and Allergies Home Medications Medication Instructions Recorded Confirmed Type lorazepam 1 mg tablet (Ativan) 1 mg PO SEEINSTR #11 tabs 02/12/18 10/19/23 Rx mirtazapine 15 mg tablet 15 mg PO DAILY 03/25/18 10/19/23 History sumatriptan succinate 50 mg tablet See Rx Instructions PO .COMPLEX 03/25/18 10/19/23 History PRN Migraine Headache doxepin 10 mg capsule 10 mg PO DAILY #30 caps 04/15/18 10/19/23 Rx ondansetron 4 mg disintegrating 4 mg PO Q8H PRN nausea and 09/17/22 10/19/23 Rx tablet vomiting #10 tabs alprazolam 1 tab PO BID 10/19/23 10/19/23 History baclofen 10 mg tablet 10 mg PO 3XD 10/19/23 10/19/23 History cetirizine 10 mg tablet 10 mg PO DAILY 10/19/23 10/19/23 History duloxetine 30 mg capsule,delayed 30 mg PO BID 10/19/23 10/19/23 History release fluticasone propionate 50 2 spray intranasal DAILY 10/19/23 10/19/23 History mcg/actuation nasal spray,suspension pantoprazole 40 mg tablet,delayed 40 mg PO DAILY 10/19/23 10/19/23 History release quetiapine 50 mg tablet 50 mg PO ONCE PM 10/19/23 10/19/23 History trazodone 100 mg tablet 100 mg PO ONCE PM 10/19/23 10/19/23 History Allergies Allergy/AdvReac Type Severity Reaction Status Date / Time codeine AdvReac Severe Gastrointestinal Verified 11/10/22 15:48 Upset Review of Systems Review of Systems Narrative: all systems reviewed, negative unless mentioned in hpi Exam Vital Signs (past 8 hours): - 10/19/23 07:17 10/19/23 08:15 10/19/23 11:17 Temperature 98.3 F 99.0 F Pulse Rate 82 88 Respiratory Rate 15 16 Blood Pressure 124/69 115/74 Pulse Oximetry 95 96 97 Oxygen Delivery Method Room Air Oxygen Flow Rate 0 0 0 Fraction of Inspired Oxygen 21 Fraction of Inspired Oxygen 21 SaO2/FiO2 Ratio 452 Oxygen Delivery Method Room Air Oxygen Flow Rate 0 Objective Labs 10/19/23 04:00 10/19/23 04:00 Labs: Laboratory Results - last 24 hr 10/18/23 10/18/23 10/18/23 21:15 21:29 23:50 WBC 7.7 RBC 4.01 L Hgb 13.1 L Hct 39.0 L MCV 97.2 MCH 32.7 MCHC 33.6 RDW 15.6 H Plt Count 265 Neut % (Auto) 54.6 Lymph % (Auto) 34.2 [place] % (Auto) 8.3 Eos % (Auto) 0.3 L Baso % (Auto) 2.6 H Neut # (Auto) 4200 Lymph # (Auto) 2600 [place] # (Auto) 600 Eos # (Auto) 0 Baso # (Auto) 200 H PT 10.9 INR 1.0 Sodium 141 Potassium 3.6 Chloride 102 Carbon Dioxide 18 L BUN 9 Creatinine 0.69 Estimated GFR > 60 BUN/Creatinine Ratio 13.0 Glucose 71 Lactate 3.7 H 2.8 H Calcium 8.9 Magnesium 1.6 Total Bilirubin 0.9 AST 81 H ALT 53 H Alkaline Phosphatase 78 Ammonia < 9 L Total Creatine Kinase Troponin I Total Protein 7.5 Albumin 4.8 Globulin 2.7 Albumin/Globulin Ratio 1.8 Lipase 72 Blood Type O Positive Antibody Screen Negative 10/19/23 10/19/23 02:05 04:00 WBC 7.8 RBC 3.83 L Hgb 12.9 L Hct 37.5 L MCV 97.7 MCH 33.6 MCHC 34.4 RDW 15.4 H Plt Count 218 Neut % (Auto) 70.5 Lymph % (Auto) 19.1 L [place] % (Auto) 7.5 Eos % (Auto) 0.3 L Baso % (Auto) 2.6 H Neut # (Auto) 5500 Lymph # (Auto) 1500 [place] # (Auto) 600 Eos # (Auto) 0 Baso # (Auto) 200 H PT INR Sodium 140 Potassium 3.7 Chloride 103 Carbon Dioxide 19 L BUN 7 L Creatinine 0.54 L Estimated GFR > 60 BUN/Creatinine Ratio 13.0 Glucose 70 Lactate 3.0 H 2.1 Calcium 8.3 L Magnesium Total Bilirubin AST ALT Alkaline Phosphatase Ammonia Total Creatine Kinase 157 Troponin I < 0.012 Total Protein Albumin Globulin Albumin/Globulin Ratio Lipase Blood Type Antibody Screen Assessment & Plan Assessment & Plan narrative: Lower GI Bleed - he apparently had colonoscopy 2 weeks ago - apparently had excision of several polyps - details unknown, intoxicated. - he could be bleeding from that or internal hemorrhoids - Hb > 13, monitored counts - clear liquid diet, likely colonoscopy by Sx PAF - given few doses of cardizem - both K and Mg borderline low - supplemented - echocardiogram - telemetry monitoring - not a candidate for anticoagulation at this point in time Alcohol Intoxication / Alcoholism - he came drunk with alcohol level of ~ 300 - not clear if he will start withdrawal by noon - prn ativan - B1, FA Anxiety and Depression - mirtazapine and doxepine at home - on hold, intoxicated DVT prophylaxis - SCDs GI prophylaxis - PPI Time-Based Coding :: [TOTAL MINUTES] spent with patient and on the chart (including review of chart, obtaining history, exam, reviewing outside data, placing orders, documenting exam and treatment plan, and counseling patient) on [DATE]. Quality MIPS - Admit I confirm the patient?s Advance Care Plan is present, Code status is documented, Surrogate decision maker is in patient?s record [If Yes, STOP here]: Yes MIPS - Meds 'Current medications' to include all prescriptions, adps-ota-ebudqbr products, herbals, cannabis/cannabidiol products, and vitamin/mineral/dietary (nutritional) supplements. I have utilized all available resources to obtain, update, or review the patient?s current medications. [If Yes, STOP here]: Yes
[2023-10-19] MEDS: chlordiazePOXIDE 25 MG CAPSULE 100 MG PO ×3 (14:11→21:17)
--- NOTE | 2023-10-19 15:33 | CM.DANOTE ---
Patient is a 57 yo male who was admitted INPT Status on 10/18/23 for GI Bleed. Pt has [facility] and [facility] for insurance and his PCP is Dr. Karin Amaral at [facility]. EMR was reviewed. Per MD, pt with hx of colon CA and resection about 2-3 years ago and ongoing GI issues and currently ETOH abuse and admitted with MAGGIE 300 and GI Bleed and AFIB. Likely will consult Surgeon to determine if further scope needed. Pt has many ED visits and fall in May with multiple rib fxs that are healing but no recent admissions to [facility]. SW met bedside with pt and explained role and pt confirms he lives in [place] in a subsidized apt alone for the past few years and is frustrated with his need for a FWW for longer distances and doing laundry. 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 Pt's sister Gracia is his POA ([phone]) and lives in [place] near his mom. Pt takes the bus to visit them sometimes. Pt is agreeable with SW calling his sister with updates and d/c coordination. Both are supportive but sometimes they disagree. Pt confirms that his TBI makes him easily agitated, tearful, has difficulty remembering things, and pt has difficulty with patience. Pt's assigned [facility] CM is May Rese [phone] and SW called and left her a msg and faxed H&P to review. Pt states he has a DEVON CG but that the CG has not showed up the past two times. SW left msg with CM May to confirm if pt still has a CG in place. Pt confirms that he is an active alcoholic and has many home meds that he tries to manage but that he does not take his meds when he drinks so they do not interact with the alcohol but then he is in a cycle of not being on his meds consistently. Pt admits to multiple detox stays and ETOH tx and states they work for a while, but eventually I always end up drinking again. Pt currently not interested in staying sober at this time. SONI called pt's sister/POA Gracia and left msg regarding pt's admission to the hospital and for likely d/c planning coordination. Plan: SW to follow for pt's progress and likely eventual PT eval and Surgeon Consult to determine POC and discharge planning needs. SUSAN Holly Discharge Planning/Care Management CM Discharge Assessment Start: 10/19/23 15:20 Freq: Status: Active Protocol: Document 10/19/23 15:20 BF (Rec: 10/19/23 15:33 BF [id number]) Discharge Planning Assessment Assigned [employer] SUSAN Senior DPOA/Assigned Designee Name sister Gracia Contact Information [phone] Advance Directives? No Advance Directives on File No History Provided By Patient,Medical Record Has Patient been admitted in last 30 No days? Prior Living Arrangements Apartment/Condo Household Members none Type of transporation used prior to Medicaid Transport admit Independent with ADL's No Is patient alert and oriented? Yes: has TBI and some memory issues Needs Assistance With Managing Medications,Home Chores / Shopping Caregiver for Another No DME Already Rented / Owned FWW / Walker Name of Agency [facility] CM Apr Contact Phone [phone] Clinicals Faxed Yes Comment ETOH at baseline, has TBI, has [facility]ON CG Discharge Plan Home Transportation Arrangement Likely Medicaid taxi if sister cannot transport Additional Comment Pending pt progress and medical POC Whiteboard Updated in Patient Room with Yes name and ext. 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
[2023-10-19] MEDS: LACTATED RINGERS 1,000 ML 1000 ML IV (18:42)
[2023-10-19] MEDS: POTASSIUM CHLORIDE 20 MEQ TAB PO (18:43)
[2023-10-19] MEDS: THIAMINE 500 MG in SODIUM CHLORIDE 0.9% 100 ML 420 MG IV (19:02)
--- NOTE | 2023-10-20 00:17 | EKG_ITS ---
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
--- NOTE | 2023-10-20 00:19 | DI.RAD.S_ITS ---
PROCEDURE: XR CHEST 1V INDICATIONS: Negative chest TECHNIQUE: One view of the chest was acquired. COMPARISON: [facility], CR, XR CHEST 1V, 10/16/2022, 8:17. FINDINGS: Surgical changes and devices: None. Lungs and pleura: Lungs are clear. No pleural effusions or pneumothorax. Mediastinum: Mediastinal contours appear normal. Heart size is normal. Bones and chest wall: No suspicious bony lesions. Overlying soft tissues appear unremarkable. IMPRESSION: No acute cardiopulmonary abnormality is seen. Dictated by: Jesus Wilson M.D. on 10/21/2023 at 14:43 Approved by: Jesus Wilson M.D. on 10/21/2023 at 14:44
[2023-10-20] MEDS: LACTATED RINGERS 1,000 ML 1000 ML IV (00:40)
[2023-10-20 01:06] LABS: Add Manual Diff / Slide Review NO; Basophils Absolute Auto 100 /uL (0-100); Basophils Percent Auto 0.8 % (0-2); Eosinophils Absolute Auto 100 /uL (0-450); Eosinophils Percent Auto 0.8 % (2-4); Hemoglobin 10.6 g/dL (13.5-17.5); Lymphocytes Absolute Auto 1700 /uL (1100-4500); Lymphocytes Percent Auto 24.3 % (25-40); Mean Corpuscular HGB Conc 34.1 % (30-36); Mean Corpuscular Hemoglobin 33.6 PG (26-34); Mean Corpuscular Volume 98.5 fL (80-100); Monocytes Absolute Auto 700 /uL (0-900); Monocytes Percent Auto 9.5 % (3-14); Neutrophils Absolute Auto 4600 /uL (1500-7000); Neutrophils Percent Auto 64.6 % (50-75); Platelet Count 144 X10^3/uL (150-400); Red Blood Cell Count 3.15 X10^6/uL (4.5-5.9); Red Cell Distribution Width 14.8 % (11.6-14.8); White Blood Cell Count 7.2 X10^3/uL (4.5-11.0)
[2023-10-20 01:43] LABS: Troponin I < 0.012 ng/mL (0.01-0.034)
[2023-10-20] MEDS: LACTATED RINGERS 1,000 ML 100 ML IV (01:49)
[2023-10-20 04:00] VITALS: BP 121/76; PULSE 51; RESP 20; TEMP 37.1; O2SAT 95
[2023-10-20] MEDS: ONDANSETRON 4 MG/2 ML INJ IV (05:27)
[2023-10-20] MEDS: ACETAMINOPHEN 325 MG TABLET 650 MG PO (05:27)
[2023-10-20 06:14] LABS: Add Manual Diff / Slide Review NO; Basophils Absolute Auto 100 /uL (0-100); Basophils Percent Auto 0.9 % (0-2); Eosinophils Absolute Auto 100 /uL (0-450); Hematocrit 32.8 % (41-53); Hemoglobin 11.3 g/dL (13.5-17.5); Lymphocytes Absolute Auto 1600 /uL (1100-4500); Mean Corpuscular HGB Conc 34.3 % (30-36); Mean Corpuscular Hemoglobin 33.5 PG (26-34); Mean Corpuscular Volume 97.7 fL (80-100); Monocytes Absolute Auto 700 /uL (0-900); Monocytes Percent Auto 9.9 % (3-14); Neutrophils Absolute Auto 4900 /uL (1500-7000); Neutrophils Percent Auto 66.2 % (50-75); Platelet Count 148 X10^3/uL (150-400); Red Blood Cell Count 3.36 X10^6/uL (4.5-5.9); Red Cell Distribution Width 15.2 % (11.6-14.8); White Blood Cell Count 7.4 X10^3/uL (4.5-11.0)
[2023-10-20] MEDS: MAG HYDROX/ALUMINUM/SIMETH SUS 20 ML, LIDOCAINE VISCOUS 2% 15 ML PO (06:41)
[2023-10-20 06:46] LABS: BUN Creatinine Ratio 13.7 (6-22); Blood Urea Nitrogen 7 mg/dL (9-20); Calcium 8.8 mg/dL (8.4-10.2); Carbon Dioxide 26 mmol/L (22-32); Chloride 99 mmol/L (98-107); Estimated Glomerular Filt Rate > 60 mL/min (>60); Glucose 86 mg/dL (70-100); HEMOLYSIS 41 (0-50); Potassium 4.1 mmol/L (3.4-5.1); Sodium 132 mmol/L (137-145)
[2023-10-20 07:57] VITALS: BP 142/60; PULSE 50; RESP 16; TEMP 36.8; O2SAT 97
--- NOTE | 2023-10-20 09:03 | PC.NURSE ---
Addendum entered by Martin Shields R.N. 10/20/23 15:03: additional: At 1155 Dr. Kimball notified that patient had pulled out two IV's and was not following fall safety precautions, request for CIWA protocol made. Addendum entered by Martin Shields R.N. 10/20/23 14:13: Update: Patient became increasingly agitated and restless. Dr. Kimball notified. Patient continues to not follow safety instructions and attempting to get up and walk in halls, wanting to leave. Dr. Kimball came down to see patient several times, and Multiple RN's and FISH EGG PACKER's attempted to assist patient back to bed. PRN ativan for anxiety was given for anxiety as ordered. Order for IV phenobarbital 260mg received (reviewed with Jailene in pharmacy and OK to give on acute care floor via IVP over 5 minutes), and given once we were able to get patient to lay down in bed. VSS and o2 97% on RA. Patient again up and getting out of bed, putting his clothes on, unstable on feet, although able to walk himself out of the room and to elevator. Patient pulled out his IV while in hallway, gauze applied. Patient signed AMA paperwork. Patient called a friend from his cell phone to try to get a ride but they did not answer. Patient walked of hospital, would not take help or wait for a ride, police were called and notified for patient safety. Original Note: Notified by FISH EGG PACKER and charge nurse Polly that bed alarm was going off in patient's room and they found him standing at the side of the bed. Patient reports he had fallen before this and landed on his right wrist and his right hip. Charge nurse RN assisted patient back to bed, bed alarm activated and she notified MD Dr. Shaw. This RN in to see patient, he denies pain, sitting in bed. VSS. Patient moving his right wrist and able to lift up his right leg from the bed without pain. States he got excited to go home and got up by himself he now states I truly understand now I can't get up by myself, I'm ok, it's my fault. Mild tremors noted, denies hallucinations. Seizure pads in place, urinal within reach, call light within reach, bed alarm on.
[2023-10-20] MEDS: FAMOTIDINE 20 MG TABLET PO (09:36)
[2023-10-20] MEDS: chlordiazePOXIDE 25 MG CAPSULE 100 MG PO (09:36)
[2023-10-20 12:00] VITALS: BP 133/80; PULSE 60; RESP 20; TEMP 37.2; O2SAT 97
[2023-10-20] MEDS: LORazepam 2 MG/ML INJ 1 MG IV (12:04)
--- NOTE | 2023-10-20 12:33 | PM.PN.1 ---
Subjective Subjective Interval history: Patient is a little more impulsive today, no bleeding present. Exam Vital Signs (past 8 hours): - 10/20/23 07:57 10/20/23 08:00 10/20/23 12:00 Temperature 98.3 F 98.9 F Pulse Rate 50 L 60 Respiratory Rate 16 20 Blood Pressure 142/60 H 133/80 Pulse Oximetry 97 97 Oxygen Delivery Method Room Air Oxygen Flow Rate 0 0 Fraction of Inspired Oxygen 21 SaO2/FiO2 Ratio 452 Oxygen Delivery Method Room Air Oxygen Flow Rate 0 Narrative Exam Narrative: general: age appropriate, not in distress resp: normal effort cardiac: RRR, no murmur abd: soft, non-tender neuro: no focal deficits, mild tremor psych: alert and oriented, answering questions appropriately Objective Labs 10/20/23 05:19 10/20/23 05:19 Labs: Laboratory Results - last 24 hr 10/20/23 10/20/23 00:55 05:19 WBC 7.2 7.4 RBC 3.15 L 3.36 L Hgb 10.6 L 11.3 L Hct 31.0 L 32.8 L MCV 98.5 97.7 MCH 33.6 33.5 MCHC 34.1 34.3 RDW 14.8 15.2 H Plt Count 144 L 148 L Neut % (Auto) 64.6 66.2 Lymph % (Auto) 24.3 L 22.0 L [place] % (Auto) 9.5 9.9 Eos % (Auto) 0.8 L 1.0 L Baso % (Auto) 0.8 0.9 Neut # (Auto) 4600 4900 Lymph # (Auto) 1700 1600 [place] # (Auto) 700 700 Eos # (Auto) 100 100 Baso # (Auto) 100 100 Sodium 132 L Potassium 4.1 Chloride 99 Carbon Dioxide 26 BUN 7 L Creatinine 0.51 L Estimated GFR > 60 BUN/Creatinine Ratio 13.7 Glucose 86 Calcium 8.8 Troponin I < 0.012 [facility] Medical History Prostate cancer (Unknown) History of sinusitis Rotator cuff tear, left Left wrist pain Left shoulder pain History of ETOH abuse Surgical History Hx of right inguinal hernia repair Social History household members: none Smoking Status: Current some day smoker alcohol intake: current substance use type: does not use Assessment & Plan Assessment & Plan narrative: Relevant Past Medical History: Alcohol use disorder, history of colon cancer status post resection 3-4 years ago, anxiety, depression Hospital Course: Patient is a 57-year-old male who presents to the ED intoxicated complaining of several days of bright red blood per rectum. Of note patient had a colonoscopy with multiple polypectomies approximately 10 days prior to admission at [facility]. Patient had apparently reached out to GI provider as scheduled and was told to go to our ED for further evaluation. No bleeding has been noted since admission and patient's hemoglobin has remained stable he had a slight decrease in it but this is most likely due to aggressive IV hydration. Patient did have a CTA on admission which showed small amount of bleeding in the rectum. #Alcohol Intoxication with concern for severe withdrawal #Lower GI Bleed s/p recent colonscopy w/polypectomy - resolved #New Onset Paroxysmal A.fib w/RVR CHadS-Vasc 0 -resolved Patient experienced a small drop in his hemoglobin since admission likely due fluid resuscitation. He is also starting to experience some impulsively and signs of mild alcohol withdrawal. He has received multiple doses of librium his stay. -Consult surgery to see if scope for bleed is indicated -Anticoagulation for A.fib no indicated due to multiple falls and low chads vasc -Will plan to start phenobarbital with 10mg/kg/IBW increments of 260mg IV for alcohol withdrawal DVT PPx: CODE: seat scooper machine-Based Coding :: [TOTAL MINUTES] spent with patient and on the chart (including review of chart, obtaining history, exam, reviewing outside data, placing orders, documenting exam and treatment plan, and counseling patient) on [DATE].
[2023-10-20] MEDS: PHENobarbital 65 MG/ML VIAL 260 MG IV (13:00)
--- NOTE | 2023-10-20 13:20 | P.CONS_ITS ---
History of Present Illness Consult details Date Patient Seen: 10/20/23 Time Patient Seen: 13:21 Chief complaint: rectal bleed Reason for consult: Rectal bleeding Requesting provider: Tracy Mi Narrative: Had colonoscopy 10 days ago with multiple polypectomy including a Mass 5cm in the rectum that was piecemealed out. States he has been bleeding since the proceedure. Here with ETOH withdrawal and know liver disease as well as esophagitis. No bloody BMs over the last 48 hours and hgb is stable. CT angio done that demonstrates blush of bleeding in rectal area. Meds Home Medications and Allergies Home Medications Medication Instructions Recorded Confirmed Type lorazepam 1 mg tablet (Ativan) 1 mg PO SEEINSTR #11 tabs 02/12/18 10/19/23 Rx mirtazapine 15 mg tablet 15 mg PO DAILY 03/25/18 10/19/23 History sumatriptan succinate 50 mg tablet See Rx Instructions PO .COMPLEX 03/25/18 10/19/23 History PRN Migraine Headache doxepin 10 mg capsule 10 mg PO DAILY #30 caps 04/15/18 10/19/23 Rx ondansetron 4 mg disintegrating 4 mg PO Q8H PRN nausea and 09/17/22 10/19/23 Rx tablet vomiting #10 tabs alprazolam 1 tab PO BID 10/19/23 10/19/23 History baclofen 10 mg tablet 10 mg PO 3XD 10/19/23 10/19/23 History cetirizine 10 mg tablet 10 mg PO DAILY 10/19/23 10/19/23 History duloxetine 30 mg capsule,delayed 30 mg PO BID 10/19/23 10/19/23 History release fluticasone propionate 50 2 spray intranasal DAILY 10/19/23 10/19/23 History mcg/actuation nasal spray,suspension pantoprazole 40 mg tablet,delayed 40 mg PO DAILY 10/19/23 10/19/23 History release quetiapine 50 mg tablet 50 mg PO BEDTIME 10/19/23 10/19/23 History trazodone 100 mg tablet 100 mg PO BEDTIME 10/19/23 10/19/23 History Allergies Allergy/AdvReac Type Severity Reaction Status Date / Time codeine AdvReac Severe Gastrointestinal Verified 11/10/22 15:48 Upset Review of Systems Review of Systems ROS: Yes All systems reviewed with the patient and are negative except as otherwise documented Exam Vital Signs (past 8 hours): - 10/20/23 07:57 10/20/23 08:00 10/20/23 12:00 Temperature 98.3 F 98.9 F Pulse Rate 50 L 60 Respiratory Rate 16 20 Blood Pressure 142/60 H 133/80 Pulse Oximetry 97 97 Oxygen Delivery Method Room Air Oxygen Flow Rate 0 0 Fraction of Inspired Oxygen 21 SaO2/FiO2 Ratio 452 Oxygen Delivery Method Room Air Oxygen Flow Rate 0 Const General: cooperative, anxious and ill appearing Orientation: alert, awake and oriented x3 [facility] Head: normocephalic and atraumatic Eyes Periorbital: periorbital findings normal Sclera: sclerae normal Neck Neck: trachea midline and No JVD Chest Chest: normal inspection of the chest Resp Effort & Inspection: normal respiratory effort and able to speak in complete sentences Cardio Rate: regular rate Rhythm: regular rhythm GI Inspection: normal to inspection Palpation: soft and No tender Skin General: No atrophy, dry skin and No pallor Neuro General: patient alert, patient awake and patient oriented x3 Cognition: normal cognition Psych Appearance: disheveled Speech and Movement: agitated, speech clear and restless Mood: anxious mood Judgment: fair Objective Labs 10/20/23 05:19 10/20/23 05:19 Labs: Laboratory Results - last 24 hr 10/20/23 10/20/23 00:55 05:19 WBC 7.2 7.4 RBC 3.15 L 3.36 L Hgb 10.6 L 11.3 L Hct 31.0 L 32.8 L MCV 98.5 97.7 MCH 33.6 33.5 MCHC 34.1 34.3 RDW 14.8 15.2 H Plt Count 144 L 148 L Neut % (Auto) 64.6 66.2 Lymph % (Auto) 24.3 L 22.0 L [place] % (Auto) 9.5 9.9 Eos % (Auto) 0.8 L 1.0 L Baso % (Auto) 0.8 0.9 Neut # (Auto) 4600 4900 Lymph # (Auto) 1700 1600 [place] # (Auto) 700 700 Eos # (Auto) 100 100 Baso # (Auto) 100 100 Sodium 132 L Potassium 4.1 Chloride 99 Carbon Dioxide 26 BUN 7 L Creatinine 0.51 L Estimated GFR > 60 BUN/Creatinine Ratio 13.7 Glucose 86 Calcium 8.8 Troponin I < 0.012 [facility] Medical History Prostate cancer (Unknown) History of sinusitis Rotator cuff tear, left Left wrist pain Left shoulder pain History of ETOH abuse Surgical History Hx of right inguinal hernia repair Social History household members: none Tobacco & Substance Use Smoking Status: Current some day smoker alcohol intake: current substance use type: does not use Assessment & Plan Assessment & Plan narrative: Rectal oozing from a biopsy site in rectum. Hgb 11.3 in a resuscitated state. No active bleeding now. No coag abnormalities Plan: conservative management with outpatient follow up Dr. Ebenezer Solis. Avoid constipation. Time-Based Coding :: [TOTAL MINUTES] spent with patient and on the chart (including review of chart, obtaining history, exam, reviewing outside data, placing orders, documenting exam and treatment plan, and counseling patient) on [DATE].
--- NOTE | 2023-10-20 14:29 | CM.DPC ---
DCP Cont. Reviewed EMR and team rounds for status updates. Pt became combative with staff and was demanding to leave the hospital. He is unable to walk very far, and has already fallen several times since last evening. He insisted that a friend was picking him up, however that person never returned his call. This PPA TEACHER had called his sister right before this all happened, and she knew he was trying to leave AMA, she states that this is very typical for him, and that he does this as a pattern, drinks, gets hospitalized for withdrawals, then tries to leave AMA, often resulting in the police needing to intervene. Staff were able to persuade him to get in the wheelchair, and they would wheel him down to the door, he became combative again at the door, so staff did not stop him from leaving. [employer] [place] Police were notified, as was our ED, that he would likely be found on the ground closeby. Called his sister, Gracia (Guardian) and relayed what had happened. She stated that she understood how difficult it is to stop him, and was very grateful and appreciative of all of the good care that he did receive. PPA TEACHER shared that if he is found and brought back to the ED, that staff will call and notify her.
--- NOTE | 2023-10-20 14:48 | P.DS_ITS ---
History of Present Illness History of Present Illness Chief complaint: rectal bleed Narrative: Relevant Past Medical History: Alcohol use disorder, history of colon cancer status post resection 3-4 years ago, anxiety, depression Hospital Course: Patient is a 57-year-old male who presents to the ED intoxicated complaining of several days of bright red blood per rectum. Of note patient had a colonoscopy with multiple polypectomies approximately 10 days prior to admission at [facility]. Patient had apparently reached out to GI provider as scheduled and was told to go to our ED for further evaluation. No bleeding has been noted since admission and patient's hemoglobin has remained stable he had a slight decrease in it but this is most likely due to aggressive IV hydration. Patient did have a CTA on admission which showed small amount of bleeding in the rectum. Discharge Providers Provider Date of admission: 10/18/23 23:53 Discharge Date: 10/20/23 Consults: 10/18/23 21:24 Consult to [facility] [place] - Dental Laboratory Worker Stat Comment: Dental Laboratory Worker Consult needed for:: Has no money Substance abuse Discharge provider: Carlos Kimball MD Summary Hospital Course Discharge Diagnosis: #Alcohol Intoxication with concern for severe withdrawal #Lower GI Bleed s/p recent colonscopy w/polypectomy - resolved #New Onset Paroxysmal A.fib w/RVR CHadS-Vasc 0 -resolved Hospital Course: Patient is a 57-year-old male who presents to the ED intoxicated complaining of several days of bright red blood per rectum. Of note patient had a colonoscopy with multiple polypectomies approximately 10 days prior to admission at [facility]. Patient had apparently reached out to GI provider as scheduled and was told to go to our ED for further evaluation. No bleeding has been noted since admission and patient's hemoglobin has remained stable he had a slight decrease in it but this is most likely due to aggressive IV hydration. Patient did have a CTA on admission which showed small amount of bleeding in the rectum. Time Spent with Patient Time spent: Greater than 30 minutes Exam Vital Signs (past 8 hours): - 10/20/23 07:57 10/20/23 08:00 10/20/23 12:00 Temperature 98.3 F 98.9 F Pulse Rate 50 L 60 Respiratory Rate 16 20 Blood Pressure 142/60 H 133/80 Pulse Oximetry 97 97 Oxygen Delivery Method Room Air Oxygen Flow Rate 0 0 Fraction of Inspired Oxygen 21 SaO2/FiO2 Ratio 452 Oxygen Delivery Method Room Air Oxygen Flow Rate 0 Narrative Exam Narrative: ambulating without assistance impulsive and no cooperative Objective Labs 10/20/23 05:19 10/20/23 05:19 Labs: Laboratory Results - last 24 hr 10/20/23 10/20/23 00:55 05:19 WBC 7.2 7.4 RBC 3.15 L 3.36 L Hgb 10.6 L 11.3 L Hct 31.0 L 32.8 L MCV 98.5 97.7 MCH 33.6 33.5 MCHC 34.1 34.3 RDW 14.8 15.2 H Plt Count 144 L 148 L Neut % (Auto) 64.6 66.2 Lymph % (Auto) 24.3 L 22.0 L [place] % (Auto) 9.5 9.9 Eos % (Auto) 0.8 L 1.0 L Baso % (Auto) 0.8 0.9 Neut # (Auto) 4600 4900 Lymph # (Auto) 1700 1600 [place] # (Auto) 700 700 Eos # (Auto) 100 100 Baso # (Auto) 100 100 Sodium 132 L Potassium 4.1 Chloride 99 Carbon Dioxide 26 BUN 7 L Creatinine 0.51 L Estimated GFR > 60 BUN/Creatinine Ratio 13.7 Glucose 86 Calcium 8.8 Troponin I < 0.012 PFSH Medical History Prostate cancer (Unknown) History of sinusitis Rotator cuff tear, left Left wrist pain Left shoulder pain History of ETOH abuse Surgical History Hx of right inguinal hernia repair Social History household members: none Smoking Status: Current some day smoker alcohol intake: current substance use type: does not use Discharge Assessment & Plan Assessment and Plan Assessment: Left AMA #Alcohol Intoxication with concern for severe withdrawal #Lower GI Bleed s/p recent colonscopy w/polypectomy - resolved #New Onset Paroxysmal A.fib w/RVR CHadS-Vasc 0 -resolved Discharge Plan Discharge Plan Patient Disposition: Left Against Medical Advice Provider Discharge Comment: Patient left AMA Discharge orders & Medications Prescriptions: Continued sumatriptan succinate 50 mg tablet See Rx Instructions PO .COMPLEX PRN (Reason: Migraine Headache) Patient Comments: Take 1 as needed 1 time as needed, may repeat in 1 hour for additional dose in 24 hours PO PRN; Rx Instructions: Take 1 as needed 1 time as needed, may repeat in 1 hour for additional dose in 24 hours PO PRN; mirtazapine 15 mg tablet 15 mg PO DAILY doxepin 10 mg capsule 10 mg PO DAILY Qty: 30 3RF ondansetron 4 mg tablet,disintegrating 4 mg PO Q8H PRN (Reason: nausea and vomiting) Qty: 10 0RF lorazepam [Ativan] 1 mg tablet 1 mg PO SEEINSTR Qty: 11 0RF Rx Instructions: Take 1 tablet every 6 hours x 24 hours, then 1 tablet every 8 hours x 24 hours, then 1 tablet every 12 hours x 24 hours, then 1 tablet Q HS x 2 days. cetirizine 10 mg tablet 10 mg PO DAILY trazodone 100 mg tablet 100 mg PO BEDTIME baclofen 10 mg tablet 10 mg PO 3XD pantoprazole 40 mg tablet,delayed release (DR/EC) 40 mg PO DAILY fluticasone propionate 50 mcg/actuation spray,suspension 2 spray intranasal DAILY duloxetine 30 mg capsule,delayed release(DR/EC) 30 mg PO BID quetiapine 50 mg tablet 50 mg PO BEDTIME alprazolam 0.5 mg tablet 1 tab PO BID Visit Report/Discharge Packet Stand Alone Forms: Patient Portal/API, Stroke Signs & Symptoms
--- NOTE | 2023-10-23 06:53 | PC.NURSE ---
Late Entry: Magnesium infusion initiated 10/18 at 0259 complete at 0500.
--- NOTE | 2023-11-04 07:14 | PC.NURSE ---
Late Entry: Magnesium infusion initiated 10/18 at 0259 complete at 0500.
== END 2023-10-20 13:52 | disposition left against medical advice (07) | DRG 920 ==
LOC: ED 22:30 → AC 10-19
PROVIDERS: Admitting Provider Internal Medicine; Emergency Provider Emergency Medicine; Referring Provider Emergency Medicine; Visit Provider Internal Medicine
DX: K91.840 Postprocedural hemorrhage of a digestive system organ or structure following a digestive system procedure (principal); F10.239 Alcohol dependence with withdrawal, unspecified; F41.9 Anxiety disorder, unspecified; F32.A Depression, unspecified; Z53.29 Procedure and treatment not carried out because of patient's decision for other reasons; F10.229 Alcohol dependence with intoxication, unspecified; F17.210 Nicotine dependence, cigarettes, uncomplicated; Y90.8 Blood alcohol level of 240 mg/100 ml or more; I48.0 Paroxysmal atrial fibrillation; Z85.038 Personal history of other malignant neoplasm of large intestine; Z90.49 Acquired absence of other specified parts of digestive tract
CPT/HCPCS: 36415; 71045; 74174; 80048; 80053; 82140; 82550; 83605; 83690; 83735; 84484; 85025; 85610; 86850; 86900; 86901; 93005; 93306; 94762; 96361; 96365; 96366; 96375; 96376; 99284; 99291; G0378; A9270; J1160; J2060; J2270; J2405; J2560; J3475

== ENCOUNTER 2023-10-23 18:55 | Inpatient (IN) | payer MEDICARE, MEDICAID, SELFPAY ==
[2023-10-19 01:03] VITALS: BMI 23.6
[2023-10-23] VITALS (15 sets, daily range): BP systolic 106–139; BP diastolic 61–88; PULSE 80–93; RESP 15–24; TEMP 35.1–35.9; O2SAT 93–100; BMI 23.6
--- NOTE | 2023-10-23 19:00 | EKG_ITS ---
[address] [address] [place] [address] Test Date: 2023-10-23 Pat Name: Sean Li Department: [facility] Room: Gender: Male Shank Skinner: JARRED : 1965 Requested By: Order Number: [id number] Reading MD: Sumanth Fountain Measurements Intervals [place] Rate: 85 P: 84 WI: 152 QRS: 69 QRSD: 88 T: -1 QT: 430 QTc: 511 Interpretive Statements Normal sinus rhythm ST & T wave abnormality, consider inferior ischemia Prolonged QT Electronically Signed On 10-25-2023 7:16:10 PDT by Sumanth Fountain
--- NOTE | 2023-10-23 19:13 | DI.RAD.S_ITS ---
PROCEDURE: XR ELBOW LT MIN 3V INDICATIONS: syncope vs fall, elbow pain TECHNIQUE: 3 views of the elbow were acquired. COMPARISON: None. FINDINGS: Bones: No fractures or dislocations. No suspicious bony lesions. Soft tissues: No elbow joint effusion. No suspicious soft tissue calcifications. IMPRESSION: No acute elbow fracture or dislocation. No significant joint effusion. Dictated by: Fernando Schmitt M.D. on 10/23/2023 at 20:42 Approved by: Fernando Schmitt M.D. on 10/23/2023 at 20:43
--- NOTE | 2023-10-23 19:13 | DI.CT.S_ITS ---
PROCEDURE: CT CHEST ABD PEL W CON INDICATIONS: fall vs other, melena, hx colon ca, found on floor TECHNIQUE: After the administration of intravenous contrast, 5 mm thick sections acquired from the lung apices to the symphysis. 5 mm coronal and sagittal reformats were performed, with additional 7 mm MIP reformats through the lungs. For radiation dose reduction, the following was used: automated exposure control, adjustment of mA and/or kV according to patient size. COMPARISON: [facility], CT, CT ANGIO ABDOMEN PELVIS, 10/18/2023, 21:41. [facility], CT, CT CHEST ABDOMEN PELVIS WITH CONTRAST, 09/04/2023, 11:12. FINDINGS: Image quality: Excellent. CHEST: Lower Neck: No enlarged lymph nodes. Thyroid: No thyroid nodules which require sonographic follow up, per consensus guidelines. Axillae: No enlarged lymph nodes. Chest Wall: Unremarkable. Lungs and Pleura: Small right pleural effusion and trace left pleural effusion with adjacent atelectasis in posterior aspect of bilateral lung agosto. No pneumothorax. Previously described tiny nodule adjacent to anterior pleura of right middle lobe is unchanged series 6 image 205. No suspicious pulmonary nodule is seen. . Heart: Heart size is normal. No pericardial effusion. Thoracic Vessels: The aorta and pulmonary arteries demonstrate normal size. Mediastinum and Coni: No enlarged lymph nodes. Esophagus: Fluid distended esophageal lumen is seen extending to the level of GE junction with small hiatal hernia. No significant esophageal wall thickening is noted. ABDOMEN: Liver: Patient's known metastatic hepatic lesions are better evaluated on previous study due to timing of contrast. No evidence of hepatic laceration. Gallbladder: No radiopaque gallstones or wall thickening. Biliary ducts: No biliary dilation. Pancreas: No ductal dilation. Spleen: Size is within normal limits. Adrenal Glands: No adrenal nodules. Kidneys and Ureters: No hydronephrosis. No solid mass. No complex renal cystic lesion which requires follow up. Stomach and Bowel: Markedly distended stomach lumen with air-fluid level. There is no evidence of bowel obstruction. No gastric or small bowel wall thickening. No gross colonic wall thickening. Postsurgical changes are again seen in right lower quadrant and at the rectum. No abscess collection. Peritoneum: No abnormal intraperitoneal fluid. No free air. Ventral Wall: No significant ventral hernia. Abdominal Nodes: No retroperitoneal or mesenteric adenopathy by size criteria. Vessels: Aorta and inferior vena cava are normal in size. PELVIS: Pelvic Organs: Unremarkable. Bladder: No bladder wall thickening, accounting for underdistention. Pelvic Nodes: No enlarged lymph nodes. Miscellaneous: No inguinal hernias are seen. Bones: No aggressive osseous abnormality. Chronic appearing deformity involving left posterior lower ribs are again seen and unchanged from prior study. No acute displaced rib fractures. No acute vertebral body compression fracture. IMPRESSION: 1. Small right pleural effusion and trace left pleural effusion with adjacent compressive atelectasis in posterior aspect of bilateral lung agosto. No large airspace opacities or pneumothorax. Stable tiny right middle lobe nodule. No suspicious pulmonary nodule is seen. 2. No pericardial effusion. No mediastinal or hilar lymphadenopathy by size criteria. No mediastinal or hilar lymphadenopathy. 3. Distended esophageal lumen with air-fluid level. Markedly distended stomach lumen with air-fluid level. No significant esophageal wall thickening or gastric wall thickening. Finding could represent gastroparesis suggest clinical correlation. 4. No evidence of bowel obstruction. Stable postsurgical changes in right lower quadrant and rectal region. No abscess collection. No free fluid or free air. 5. Patient's known liver metastatic lesions are not well seen on the current study due to timing of contrast. No evidence of solid organ injury is seen in abdomen or pelvis. 6. Chronic appearing deformity involving left posterior lower ribs. No acute fracture or dislocation is seen in chest, abdomen or pelvis. Dictated by: Fernando Schmitt M.D. on 10/23/2023 at 20:46 Approved by: Fernando Schmitt M.D. on 10/23/2023 at 20:59
--- NOTE | 2023-10-23 19:13 | DI.RAD.S_ITS ---
PROCEDURE: XR KNEE LT 3V INDICATIONS: syncope vs fall, elbow pain TECHNIQUE: 3 views of the knee were acquired. COMPARISON: None. FINDINGS: Bones: No fractures or dislocations. No patellar subluxation. No suspicious bony lesions. Soft tissues: No joint effusion. No suspicious soft tissue calcifications. IMPRESSION: No acute left knee fracture or dislocation. No significant joint effusion. Dictated by: Fernando Schmitt M.D. on 10/23/2023 at 20:43 Approved by: Fernando Schmitt M.D. on 10/23/2023 at 20:44
--- NOTE | 2023-10-23 19:14 | DI.CT.S_ITS ---
PROCEDURE: CT CERVICAL SPINE WO CON INDICATIONS: Trauma TECHNIQUE: Noncontrast 3 mm thick sections acquired from the skull base to the T4 level. Sagittal and coronal reformats were then constructed. For radiation dose reduction, the following was used: automated exposure control, adjustment of mA and/or kV according to patient size. COMPARISON: [facility], CT, CT CERVICAL SPINE WO CON, 10/16/2022, 8:18. FINDINGS: Image quality: Excellent. Bones: No fractures or dislocations. Moderate to severe degenerative changes. Visualized superior ribs are intact. Soft tissues: Prevertebral soft tissues are normal in thickness. No paravertebral hematomas. No apical pneumothoraces. IMPRESSION: No displaced fracture or traumatic subluxation. Dictated by: Trevon Jaime M.D. on 10/23/2023 at 21:01 Approved by: Trevon Jaime M.D. on 10/23/2023 at 21:05
--- NOTE | 2023-10-23 19:14 | DI.CT.S_ITS ---
PROCEDURE: CT HEAD/BRAIN WO CON INDICATIONS: Trauma TECHNIQUE: Noncontrast 4.5 mm thick angled axial sections acquired from the foramen magnum to the vertex, with coronal and sagittal reformats. For radiation dose reduction, the following was used: automated exposure control, adjustment of mA and/or kV according to patient size. COMPARISON: [facility], CT, CT HEAD/BRAIN WO CON, 05/11/2023, 22:49. FINDINGS: Image quality: Diagnostic. CSF spaces: Basal cisterns are patent. No extra-axial fluid collections. The ventricles are symmetric in size and shape. Brain: No intracranial bleeds or masses. There is cerebral volume loss for age, with resultant ventricular and sulcal prominence. There are periventricular and deep white matter chronic small vessel ischemic changes. There is intracranial internal carotid artery atherosclerosis. Skull and face: Calvarium and visualized facial bones appear intact, without suspicious lesions. Sinuses: Visualized sinuses and mastoids are clear. IMPRESSION: No acute intracranial pathology. No significant changes from previous study. Dictated by: Fernando Schmitt M.D. on 10/23/2023 at 20:44 Approved by: Fernando Schmitt M.D. on 10/23/2023 at 20:45
--- NOTE | 2023-10-23 19:16 | ED_ITS ---
HPI - Trauma General Chief Complaint: Trauma Stated Complaint: Found down Time Seen by Provider: 10/23/23 19:03 Source: patient and EMS Mode of arrival: EMS Limitations: no limitations History of Present Illness HPI narrative: 57-year-old male history of alcohol use disorder, colon cancer treated with resection presents with complaint of being found by a friend in his bathroom. Unclear exact down time. Patient does not recall if he fell or passed out. EMS notes there was a lot of melanotic stool on the floor but appeared dried per EMS. Patient is appears altered but is able to answer questions. He did admit to EtOH with EMS. They noted that appeared to be artifact of narcotic usage in the house as well. Patient has pain and bruising of his left ribs, elbow and forearm on the left, left knee. He mumbles but answers questions. Can tell me his name the year can tell me where he is. He can tell me they has a history of colon cancer that he does drink alcohol. He denies any narcotic usage. He reports a history of hernia repair and EGD in the past. Related Data Home Medications Medication Instructions Recorded Confirmed mirtazapine 15 mg tablet 15 mg PO DAILY 03/25/18 10/19/23 sumatriptan succinate 50 mg tablet See Rx Instructions PO .COMPLEX 03/25/18 10/19/23 PRN Migraine Headache alprazolam 1 tab PO BID 10/19/23 10/19/23 baclofen 10 mg tablet 10 mg PO 3XD 10/19/23 10/19/23 cetirizine 10 mg tablet 10 mg PO DAILY 10/19/23 10/19/23 duloxetine 30 mg capsule,delayed 30 mg PO BID 10/19/23 10/19/23 release fluticasone propionate 50 2 spray intranasal DAILY 10/19/23 10/19/23 mcg/actuation nasal spray,suspension pantoprazole 40 mg tablet,delayed 40 mg PO DAILY 10/19/23 10/19/23 release quetiapine 50 mg tablet 50 mg PO BEDTIME 10/19/23 10/19/23 trazodone 100 mg tablet 100 mg PO BEDTIME 10/19/23 10/19/23 Previous Rx's Medication Instructions Recorded lorazepam 1 mg tablet (Ativan) 1 mg PO SEEINSTR #11 tabs 02/12/18 doxepin 10 mg capsule 10 mg PO DAILY #30 caps 04/15/18 ondansetron 4 mg disintegrating 4 mg PO Q8H PRN nausea and 09/17/22 tablet vomiting #10 tabs Allergies Allergy/AdvReac Type Severity Reaction Status Date / Time codeine AdvReac Severe Gastrointestinal Verified 10/23/23 19:08 Upset Review of Systems Review of Systems ROS Unobtainable: All systems reviewed & are unremarkable except as noted in HPI and below Patient History Medical History (Updated 10/24/23 @ 01:42 by Alvin Ramires MD) GERD (gastroesophageal reflux disease) Prostate cancer (Unknown) History of sinusitis Rotator cuff tear, left Left wrist pain Left shoulder pain History of ETOH abuse Surgical History Hx of right inguinal hernia repair Social History household members: none Smoking Status: Current some day smoker alcohol intake: current substance use type: does not use Smoking Status: Current some day smoker tobacco type: cigarettes alcohol intake frequency: 0-2 drinks per day Alcohol type: hard liquor Substance Use Type: marijuana Exam Narrative Exam Narrative: GEN: C-collar prior to arrival. Patient appears in moderate distress. HEAD: No evidence of trauma, no raccoon/Biswas sign. NECK: Nontender, painless range of motion, trachea midline Positive Nexus criteria, no line tenderness, distracting injury, altered mental status, neuro deficit, positive for recent EtOH. EYES: PERRLA, EOMI ENT: External inspection normal, trachea is midline, TM's are normal no hemotypanum, Nares are clear, no septal hematoma, no dental or oral injury, airway is normal and with normal occlusion, No bony tenderness RESP: Chest is left chest is tender with ecchymosis which appears darkish to greenish in the left lateral chest long from the axilla down words. And has symmetric movement, breath sounds are normal no crackles, wheezes or rales, no tachypnea or accessory muscle use CVS: Heart sounds are normal, no murmur noted, No JVD. ABG/GI: Nontender, soft, normal bowel sounds, no distention, no organomegaly, pelvic rock is negative NEURO: Oriented AOx3, neuro is grossly intact, sensation and motor is normal all 4 extremities moving, cranial nerves II through XII are intact, GCS is 14, answers questions appropriately does appear little confused. PSYCH: Normal mood and affect SKIN: Has multiple abrasions on hands and knees, warm and dry, no crepitus and without decubitus BACK: No CVA tenderness, no vertebral tenderness, no step-off's, no crepitus EXT: Left elbow is tender on examination with movement. Patient has with movement of his wrist but nontender. No deformities appreciated. Patient does have bruising or ecchymosis over the left elbow but no significant deformity or effusion, patient also has some abrasions and tenderness over the left knee although he is able to flex it but is uncomfortable to do so, hips are nontender, no pedal edema, normal color and temperature, normal range of motion of extremities with normal tendon exam, 2+ pulses in all four extremities Initial Vital Signs Initial Vital Signs: Vital Signs Temperature 95.1 F L 10/23/23 19:00 Pulse Rate 85 10/23/23 19:00 Respiratory Rate 19 10/23/23 19:00 Blood Pressure 108/78 10/23/23 19:00 Pulse Oximetry 100 10/23/23 19:00 Oxygen Delivery Method Room Air 10/23/23 19:00 Course Orders Ordered: ED Orders 10/23/23 19:00 EKG-12 Lead Stat 10/23/23 19:13 CT chest abd pel w con Stat XR elbow LT min 3V Stat XR knee LT 3V Stat Ethanol (ETOH) Stat 10/23/23 19:14 CT cervical spine wo con Stat CT head/brain wo con Stat 10/23/23 19:45 Complete Blood Count AUTO DIFF Stat Comprehensive Metabolic Panel Stat Lactate (Lactic Acid) Stat Lipase Stat Magnesium Stat NT-proBNP (BNP-Adult 18+) Stat PTT Partial Thromboplastin Abdullahi Stat Procalcitonin Stat Prothrombin Time INR Stat Troponin & CK Cardiac Panel Stat 10/23/23 19:50 Urine Drug Screen, Rapid Stat 10/23/23 20:48 ABG [Arterial Blood Gas] STAT 10/23/23 21:35 Acetaminophen Stat Ammonia (NH3) Stat Salicylate Stat Type and Screen Stat 10/23/23 22:01 Blood Culture Stat Acetaminophen (Acetaminophen 325 Mg Tablet) 975 mg PO Q8H PRN PRN Reason: Pain, Mild (1-3) Hydrocodone Bitart/Acetaminophen (Hydrocodone/Acet 10/325 Tablet) 1 tab PO Q6HR PRN PRN Reason: Pain, Moderate (4-6) Last Admin: 10/24/23 02:52 Dose: 1 tab Documented By: MD Brambila Hydrox/Mg Hydrox/Simethicone (Mag Hydrox/Alum/Simeth 30 Ml Udc) 30 ml PO Q6HR PRN PRN Reason: Dyspepsia Alprazolam (Alprazolam 0.25 Mg Tablet) 0.5 mg PO BID [facility] Baclofen (Baclofen 10 Mg Tablet) 10 mg PO TID [facility] Last Admin: 10/24/23 01:01 Dose: 10 mg Documented By: Piperacillin Sod/Tazobactam (Sod 3.375 gm/ Sodium Chloride) 100 mls @ 25 mls/hr IV Q8H [facility] Last Admin: 10/24/23 02:04 Dose: 25 mls/hr Documented By: Sodium Chloride (Normal Saline 0.9%) 1,000 mls @ 100 mls/hr IV CONT [facility] Last Admin: 10/24/23 01:07 Dose: Not Given Documented By: Loratadine (Loratadine 10 Mg Tablet) 10 mg PO DAILY [facility] Naloxone HCl (Naloxone 0.4 Mg/Ml Vial) 0.2 mg IV Q2MIN PRN PRN Reason: Opiate Reversal (Doxepin 10 Mg (Capsule)) 10 mg PO DAILY [facility] Ondansetron HCl (Ondansetron 4 Mg/2 Ml Inj) 4 mg IV Q8HR PRN PRN Reason: Nausea And Vomiting Pantoprazole Sodium (Pantoprazole Dr 40 Mg Tablet) 40 mg PO DAILY [facility] Sodium Chloride (Sodium Chloride 0.9% Flush) 10 ml IV PRN PRN PRN Reason: Flush Sodium Chloride (Sodium Chloride 0.9% Flush) 10 ml IV BID [facility] Trazodone HCl (Trazodone 50 Mg Tablet) 100 mg PO BEDTIME [facility] Discontinued Medications Diphtheria/Tetanus/Acell Pertussis (Tet,Diph,Pertuss(Acell),Vac/Pf 0.5 Ml Syringe) 0.5 ml IM .ONCE ONE Stop: 10/23/23 19:14 Last Admin: 10/23/23 21:28 Dose: 0.5 ml Documented By: OENYDA Sodium Chloride (Normal Saline 0.9%) 1,000 mls @ 1,000 mls/hr IV BOLUS ONE Stop: 10/23/23 20:12 Last Infusion: 10/23/23 22:40 Dose: Infused Documented By: Admin: 10/23/23 20:22 Dose: 1,000 mls/hr Documented By: Sodium Chloride (Normal Saline 0.9%) 1,000 mls @ 200 mls/hr IV CONT CHEIKH Last Infusion: 10/24/23 01:03 Dose: 100 mls/hr Documented By: Admin: 10/23/23 21:30 Dose: 200 mls/hr Documented By: ONEYDA Piperacillin Sod/Tazobactam (Sod 4.5 gm/ Sodium Chloride) 100 mls @ 200 mls/hr IV NOW ONE Stop: 10/23/23 21:31 Last Infusion: 10/23/23 22:40 Dose: Infused Documented By: Admin: 10/23/23 21:59 Dose: 200 mls/hr Documented By: Pantoprazole Sodium (Pantoprazole 40 Mg Vial) 80 mg IV NOW ONE Stop: 10/23/23 21:31 Last Admin: 10/23/23 21:59 Dose: 80 mg Documented By: Vital Signs Vital signs: Vital Signs - 8 hr 10/23/23 20:13 10/23/23 20:30 10/23/23 20:37 Pulse Rate 81 83 Respiratory Rate 19 Blood Pressure 114/74 Pulse Oximetry 93 98 10/23/23 20:37 10/23/23 21:00 10/23/23 21:00 Pulse Rate 85 84 Respiratory Rate 24 17 Blood Pressure 118/71 Pulse Oximetry 98 98 10/23/23 21:30 10/23/23 21:30 10/23/23 21:45 Pulse Rate 90 93 H Respiratory Rate 20 Blood Pressure 122/88 Pulse Oximetry 97 100 10/23/23 21:45 Pulse Rate Respiratory Rate Blood Pressure 136/68 Pulse Oximetry MDM - Trauma Lab Data 10/23/23 19:45 10/23/23 19:45 Labs: Lab Results 10/23/23 10/23/23 10/23/23 Range/Units 19:13 19:45 19:45 WBC 19.4 H (4.5-11.0) X10^3/uL RBC 4.60 (4.5-5.9) X10^6/uL Hgb 15.2 (13.5-17.5) g/dL Hct 46.6 (41-53) % MCV 101.3 H D (80-100) fL MCH 33.0 (26-34) PG MCHC 32.5 (30-36) % RDW 14.6 (11.6-14.8) % Plt Count 297 (150-400) X10^3/uL Neut % (Auto) 89.5 H (50-75) % Lymph % (Auto) 4.1 L (25-40) % [place] % (Auto) 6.0 (3-14) % Eos % (Auto) 0.0 L (2-4) % Baso % (Auto) 0.4 (0-2) % Neut # (Auto) 66279 H (6059-7429) /uL Lymph # (Auto) 800 L (5740-4637) /uL [place] # (Auto) 1200 H (0-900) /uL Eos # (Auto) 0 (0-450) /uL Baso # (Auto) 100 (0-100) /uL PT 10.5 Cancelled (9.4-12.5) SECONDS INR 0.9 (0.9-1.3) APTT (25.1-36.5) SECONDS Sodium (137-145) mmol/L Potassium (3.4-5.1) mmol/L Chloride (98-107) mmol/L Carbon Dioxide (22-32) mmol/L BUN (9-20) mg/dL Creatinine (0.66-1.25) mg/dL Estimated GFR (>60) mL/min BUN/Creatinine Ratio (6-22) Glucose (70-100) mg/dL Lactate (0.7-2.1) mmol/L Calcium (8.4-10.2) mg/dL Magnesium (1.6-2.3) mg/dL Total Bilirubin (0.2-1.3) mg/dL AST (17-59) IU/L ALT (<50) IU/L Alkaline Phosphatase (38-126) U/L Ammonia (9-30) umol/L Total Creatine Kinase (55-170) U/L Troponin I (0.01-0.034) ng/mL NT-Pro-B Natriuret Pep (<125) pg/mL Total Protein (6.3-8.2) g/dL Albumin (3.5-5.0) g/dL Globulin (1.7-4.1) g/dL Albumin/Globulin Ratio (1.0-2.8) Lipase (23-300) U/L Procalcitonin (<0.5) ng/mL Salicylates (<20) mg/dL U Opiates 300ng/mL cut (Negative) Ur Oxycodone Screen (Negative) Urine Methadone Screen (Negative) Acetaminophen (10-30) ug/mL Ur Barbiturates Screen (Negative) U Tricyclic Antidepress (Negative) Ur Phencyclidine Scrn (Negative) Ur Amphetamines Screen (Negative) U Methamphetamines Scrn (Negative) Ur MDMA Scrn (Ecstasy) (Negative) U Benzodiazepines Scrn (Negative) Urine Cocaine Screen (Negative) U Marijuana (THC) Screen (Negative) Urine pH (Normal) Urine Specific [place] (Normal) Ethyl Alcohol < 10 ( - 10) mg/dL Ur Creatinine (Normal) Blood Type Antibody Screen 10/23/23 10/23/23 10/23/23 Range/Units 19:45 19:50 21:35 WBC (4.5-11.0) X10^3/uL RBC (4.5-5.9) X10^6/uL Hgb (13.5-17.5) g/dL Hct (41-53) % MCV (80-100) fL MCH (26-34) PG MCHC (30-36) % RDW (11.6-14.8) % Plt Count (150-400) X10^3/uL Neut % (Auto) (50-75) % Lymph % (Auto) (25-40) % [place] % (Auto) (3-14) % Eos % (Auto) (2-4) % Baso % (Auto) (0-2) % Neut # (Auto) (6262-6533) /uL Lymph # (Auto) (8021-5816) /uL [place] # (Auto) (0-900) /uL Eos # (Auto) (0-450) /uL Baso # (Auto) (0-100) /uL PT (9.4-12.5) SECONDS INR Cancelled (0.9-1.3) APTT 39 H (25.1-36.5) SECONDS Sodium 139 (137-145) mmol/L Potassium 3.2 L (3.4-5.1) mmol/L Chloride 97 L (98-107) mmol/L Carbon Dioxide 8 L* (22-32) mmol/L BUN 14 (9-20) mg/dL Creatinine 0.86 (0.66-1.25) mg/dL Estimated GFR > 60 (>60) mL/min BUN/Creatinine Ratio 16.3 (6-22) Glucose 139 H (70-100) mg/dL Lactate 2.2 H 1.5 (0.7-2.1) mmol/L Calcium 9.6 (8.4-10.2) mg/dL Magnesium 1.9 (1.6-2.3) mg/dL Total Bilirubin 1.2 (0.2-1.3) mg/dL AST 196 H (17-59) IU/L ALT 98 H (<50) IU/L Alkaline Phosphatase 81 (38-126) U/L Ammonia 14 (9-30) umol/L Total Creatine Kinase 7969 H D (55-170) U/L Troponin I < 0.012 (0.01-0.034) ng/mL NT-Pro-B Natriuret Pep 292 H (<125) pg/mL Total Protein 8.5 H (6.3-8.2) g/dL Albumin 5.2 H (3.5-5.0) g/dL Globulin 3.3 (1.7-4.1) g/dL Albumin/Globulin Ratio 1.6 (1.0-2.8) Lipase 92 (23-300) U/L Procalcitonin 0.179 (<0.5) ng/mL Salicylates < 1.0 (<20) mg/dL U Opiates 300ng/mL cut Negative (Negative) Ur Oxycodone Screen Negative (Negative) Urine Methadone Screen Negative (Negative) Acetaminophen < 10 (10-30) ug/mL Ur Barbiturates Screen Positive H (Negative) U Tricyclic Antidepress Negative (Negative) Ur Phencyclidine Scrn Negative (Negative) Ur Amphetamines Screen Negative (Negative) U Methamphetamines Scrn Negative (Negative) Ur MDMA Scrn (Ecstasy) Negative (Negative) U Benzodiazepines Scrn Positive H (Negative) Urine Cocaine Screen Negative (Negative) U Marijuana (THC) Screen Positive H (Negative) Urine pH Normal (Normal) Urine Specific [place] Normal (Normal) Ethyl Alcohol ( - 10) mg/dL Ur Creatinine Normal (Normal) Blood Type O Positive Antibody Screen Negative Point of Care Testing Stool Occult Blood Positive ECG Data Attestation: I personally reviewed and interpreted this ECG as follows: Interpretation: Sinus rhythm rate 85 SD 152 QRS 88 QTC 511, patient has some motion artifact in some leads. Lateral T-waves are more peaked. Two 3 and AVF appears similar to prior. MDM Narrative Medical decision making narrative: 57-year-old male presents after being found down in his bathroom floor with melanotic stools surrounding, reports of recent alcohol use from patient and EMS history of colon CA patient who was last here on 10/18/2023 for potential GI bleed and was admitted for GI bleeding at that time. Unable to get a good temperature orally, patient was placed on Anna Hugger given a L of warm fluids as he is slightly hypotensive had normal vital signs in the field per EMS glucose was 171 with EMS. Type and screen was ordered. Labs, show white count of 19 hemoglobin of 15 MCV is elevated at 101 platelets are 297. Predominance of neutrophils. PTT is 39, 1 sodium is 139 potassium is 3.2 chloride 97 CO2 is 8, BUN 14 creatinine 0.86, glucose is 139, lactate 2.2. AST is 196 ALT is 98 total bili is 1.2 CK is 7969 troponins less than 0.012 with a BNP of 292. Lipase is 92. ETOH is negative. Procalcitonin Ammonia level added on ABG shows a pH of 3.47 pCO2 of 15 PO2 of 119 with a bicarb of 8.6. Appears more metabolic with some respiratory compensation. RT states this maybe more venous. Imaging including Head CT is negative for acute change CT C-spine shows no acute change CT chest abdomen pelvis, small right pleural effusion trace left no large space opacities or pneumothorax tiny stable right middle nodule no pericardial effusion. Distended esophagus lumen with air-fluid level markedly distended stomach with air-fluid level no significant esophageal wall thickening or gastric wall thickening could be gastroparesis suggest clinical correlation no evidence of bowel obstruction no abscess free fluid there are postsurgical changes consistent of the right lower quadrant. Known liver metastatic lesions not well seen on current study, no evidence of solid organ injury chronic appearing deformity left posterior lower ribs. No acute fracture or dislocation. Left elbow x-ray no fracture or dislocation no significant joint effusion. Left knee x-ray no acute fracture or dislocation no significant joint effusion. Patient had some black melanotic stool is positive on guaiac. Patient received warmth fluids, Anna Hugger, temperature has been improving blood pressure has been improving. Patient was started on Protonix. Patient has continued fluids. I did speak with Dr. Mi on-call for General surgery she was happy to consult as needed. Ask that we put in a consult order rather than call. Spoke with Dr. Ramires, tele hospitalist who accepts for observation for rhabdo, possible infection although white count maybe reactive. Procalcitonin still pending. Did cover with a dose antibiotic he is having little bit of melanotic stool had recent GI bleed several days ago hemoglobin is maybe hemoconcentrated. Patient's vitals have overall been appropriate he has not had any vomiting he is confused but conversant and answers most questions appropriately. Does not appear to be in acute alcohol withdrawal. Discharge Plan Departure Patient Disposition: Admitted as Observation Clinical Impression: Rhabdomyolysis, Confusion, GI bleed Admit Date/Time: 10/23/23 21:50 Admit Provider: Alvin Gibbs
[2023-10-23 19:59] LABS: Add Manual Diff / Slide Review NO; Basophils Absolute Auto 100 /uL (0-100); Basophils Percent Auto 0.4 % (0-2); Eosinophils Absolute Auto 0 /uL (0-450); Hematocrit 46.6 % (41-53); Hemoglobin 15.2 g/dL (13.5-17.5); Lymphocytes Absolute Auto 800 /uL (1100-4500); Lymphocytes Percent Auto 4.1 % (25-40); Mean Corpuscular HGB Conc 32.5 % (30-36); Mean Corpuscular Volume 101.3 fL (80-100); Monocytes Absolute Auto 1200 /uL (0-900); Neutrophils Absolute Auto 17400 /uL (1500-7000); Neutrophils Percent Auto 89.5 % (50-75); Platelet Count 297 X10^3/uL (150-400); Red Cell Distribution Width 14.6 % (11.6-14.8); White Blood Cell Count 19.4 X10^3/uL (4.5-11.0)
[2023-10-23 20:09] LABS: INR 0.9 (0.9-1.3); Prothrombin Time 10.5 SECONDS (9.4-12.5)
[2023-10-23 20:11] LABS: PTT Partial Thromboplastin Tim 39 SECONDS (25.1-36.5)
[2023-10-23 20:16] LABS: Lactate (Lactic Acid) 2.2 mmol/L (0.7-2.1)
[2023-10-23 20:17] LABS: Alanine Aminotransferase 98 IU/L (<50); Albumin 5.2 g/dL (3.5-5.0); Albumin Globulin Ratio 1.6 (1.0-2.8); Alkaline Phosphatase 81 U/L (38-126); Aspartate Aminotransferase 196 IU/L (17-59); BUN Creatinine Ratio 16.3 (6-22); Bilirubin Total 1.2 mg/dL (0.2-1.3); Blood Urea Nitrogen 14 mg/dL (9-20); Calcium 9.6 mg/dL (8.4-10.2); Chloride 97 mmol/L (98-107); Estimated Glomerular Filt Rate > 60 mL/min (>60); Globulin 3.3 g/dL (1.7-4.1); Glucose 139 mg/dL (70-100); Lipase 92 U/L (23-300); Magnesium 1.9 mg/dL (1.6-2.3); Potassium 3.2 mmol/L (3.4-5.1); Sodium 139 mmol/L (137-145); Total Protein 8.5 g/dL (6.3-8.2)
[2023-10-23] MEDS: SODIUM CHLORIDE 0.9% 1,000 ML 1000 ML IV (20:22)
[2023-10-23 20:28] LABS: NT-proBNP (BNP-Adult 18+) 292 pg/mL (<125); Troponin I < 0.012 ng/mL (0.01-0.034)
[2023-10-23 20:30] LABS: Carbon Dioxide 8 mmol/L (22-32)
[2023-10-23 20:31] LABS: Ur Creatinine Normal (Normal); Ur Specific Gravity Normal (Normal); Urine THC Positive (Negative); Urine pH Normal (Normal)
[2023-10-23 20:32] LABS: Urine Amphetamines Negative (Negative); Urine Barbiturates Positive (Negative); Urine Benzodiazepines Positive (Negative); Urine Cocaine Negative (Negative); Urine MDMA Negative (Negative); Urine Methadone Negative (Negative); Urine Methamphetamines Negative (Negative); Urine Opiates Negative (Negative); Urine Oxycodone Negative (Negative); Urine Phencyclidine Negative (Negative); Urine Tricyclic Antidepressant Negative (Negative)
[2023-10-23 20:34] LABS: Creatine Kinase 7969 U/L (55-170); HEMOLYSIS 19 (0-50)
[2023-10-23 20:51] LABS: Ethanol (ETOH) < 10 mg/dL
[2023-10-23] MEDS: TET,DIPH,PERTUSS(ACELL),VAC/PF 0.5 ML SYRINGE IM (21:28)
[2023-10-23 21:30] LABS: Reflexed Lactate in 2 Hours Y
[2023-10-23] MEDS: SODIUM CHLORIDE 0.9% 1,000 ML 200 ML IV (21:30)
[2023-10-23 21:34] LABS: Procalcitonin 0.179 ng/mL (<0.5)
[2023-10-23] MEDS: PIPERACILLIN/TAZO 4.5 GM in SODIUM CHLORIDE 0.9% 100 ML IV (21:59)
[2023-10-23] MEDS: PANTOPRAZOLE 40 MG VIAL 80 MG IV (21:59)
[2023-10-23 22:15] LABS: Lactate 2HR (Lactic Acid Rflx) 1.5 mmol/L (0.7-2.1)
[2023-10-23 22:16] LABS: Acetaminophen < 10 ug/mL (10-30); Salicylate < 1.0 mg/dL (<20)
--- NOTE | 2023-10-23 22:56 | PM.HP.1 ---
History of Present Illness History of Present Illness Date Patient Seen: 10/23/23 Chief complaint: Found down Narrative: 57 y/o with PMH of colon cancer, s/p resection, alcoholism. GERD, anxiety, depression, presented to ED confused, weak, after he was found in a bathtub. He had melena as per EMS. On admission encephalopathic, with leukocytosis, hypotension, elevated LA, distended abdomen, rhabdomyolysis, suspected for underlying infection and sepsis, started on IVFs and empiric abx. [facility] Medical History (Updated 10/24/23 @ 01:42 by Alvin Ramires MD) GERD (gastroesophageal reflux disease) Prostate cancer (Unknown) History of sinusitis Rotator cuff tear, left Left wrist pain Left shoulder pain History of ETOH abuse Surgical History Hx of right inguinal hernia repair Social History household members: none Smoking Status: Current some day smoker alcohol intake: current substance use type: does not use Meds Home Medications and Allergies Home Medications Medication Instructions Recorded Confirmed Type lorazepam 1 mg tablet (Ativan) 1 mg PO SEEINSTR #11 tabs 02/12/18 10/19/23 Rx mirtazapine 15 mg tablet 15 mg PO DAILY 03/25/18 10/19/23 History sumatriptan succinate 50 mg tablet See Rx Instructions PO .COMPLEX 03/25/18 10/19/23 History PRN Migraine Headache doxepin 10 mg capsule 10 mg PO DAILY #30 caps 04/15/18 10/19/23 Rx ondansetron 4 mg disintegrating 4 mg PO Q8H PRN nausea and 09/17/22 10/19/23 Rx tablet vomiting #10 tabs alprazolam 1 tab PO BID 10/19/23 10/19/23 History baclofen 10 mg tablet 10 mg PO 3XD 10/19/23 10/19/23 History cetirizine 10 mg tablet 10 mg PO DAILY 10/19/23 10/19/23 History duloxetine 30 mg capsule,delayed 30 mg PO BID 10/19/23 10/19/23 History release fluticasone propionate 50 2 spray intranasal DAILY 10/19/23 10/19/23 History mcg/actuation nasal spray,suspension pantoprazole 40 mg tablet,delayed 40 mg PO DAILY 10/19/23 10/19/23 History release quetiapine 50 mg tablet 50 mg PO BEDTIME 10/19/23 10/19/23 History trazodone 100 mg tablet 100 mg PO BEDTIME 10/19/23 10/19/23 History Allergies Allergy/AdvReac Type Severity Reaction Status Date / Time codeine AdvReac Severe Gastrointestinal Verified 10/23/23 19:08 Upset Review of Systems Review of Systems Narrative: Confused, unobtainable Exam Vital Signs (past 8 hours): - 10/23/23 19:00 10/23/23 19:00 10/23/23 19:01 Temperature 95.1 F L Pulse Rate 85 84 Respiratory Rate 19 Blood Pressure 108/78 108/78 Pulse Oximetry 100 100 Oxygen Delivery Method Room Air 10/23/23 19:19 10/23/23 19:19 10/23/23 19:20 Temperature Pulse Rate 80 80 Respiratory Rate 16 16 Blood Pressure 118/72 Pulse Oximetry 100 100 Oxygen Delivery Method Room Air 10/23/23 19:20 10/23/23 19:30 10/23/23 20:13 Temperature Pulse Rate 80 81 Respiratory Rate 20 Blood Pressure 118/70 Pulse Oximetry 99 93 Oxygen Delivery Method Room Air 10/23/23 20:30 10/23/23 20:37 10/23/23 20:37 Temperature Pulse Rate 83 85 Respiratory Rate 19 24 Blood Pressure 114/74 Pulse Oximetry 98 98 Oxygen Delivery Method 10/23/23 21:00 10/23/23 21:00 10/23/23 21:30 Temperature Pulse Rate 84 90 Respiratory Rate 17 20 Blood Pressure 118/71 Pulse Oximetry 98 97 Oxygen Delivery Method 10/23/23 21:30 10/23/23 21:45 10/23/23 21:45 Temperature Pulse Rate 93 H Respiratory Rate Blood Pressure 122/88 136/68 Pulse Oximetry 100 Oxygen Delivery Method 10/23/23 22:00 10/23/23 22:00 10/23/23 22:15 Temperature 96.1 F L Pulse Rate 87 84 Respiratory Rate 20 15 Blood Pressure 132/64 Pulse Oximetry 99 99 Oxygen Delivery Method 10/23/23 22:15 10/23/23 22:30 10/23/23 22:30 Temperature Pulse Rate 83 Respiratory Rate 18 Blood Pressure 130/61 139/62 Pulse Oximetry 99 Oxygen Delivery Method Room Air Oxygen Delivery Method Room Air Const Other: in no distress HENMT Other: atraumatic Chest Other: left chest wall bruising Resp Other: normal respiratory effort Cardio Other: RRR GI Other: distended abdomen, not tender Skin Other: bruises over left leg, left chest wall, left elbow Neuro Other: w/o focal motor deficits Psych Other: disoriented in time, impaired memory, confused Objective ECG Impression: NSR 85, QTc 511 Labs 10/23/23 19:45 10/23/23 19:45 Labs: Laboratory Results - last 24 hr 10/23/23 10/23/23 10/23/23 19:13 19:45 19:45 WBC 19.4 H RBC 4.60 Hgb 15.2 Hct 46.6 MCV 101.3 H D MCH 33.0 MCHC 32.5 RDW 14.6 Plt Count 297 Neut % (Auto) 89.5 H Lymph % (Auto) 4.1 L [place] % (Auto) 6.0 Eos % (Auto) 0.0 L Baso % (Auto) 0.4 Neut # (Auto) 46802 H Lymph # (Auto) 800 L [place] # (Auto) 1200 H Eos # (Auto) 0 Baso # (Auto) 100 PT 10.5 Cancelled INR 0.9 APTT Sodium Potassium Chloride Carbon Dioxide BUN Creatinine Estimated GFR BUN/Creatinine Ratio Glucose Lactate Calcium Magnesium Total Bilirubin AST ALT Alkaline Phosphatase Total Creatine Kinase Troponin I NT-Pro-B Natriuret Pep Total Protein Albumin Globulin Albumin/Globulin Ratio Lipase Procalcitonin Salicylates U Opiates 300ng/mL cut Ur Oxycodone Screen Urine Methadone Screen Acetaminophen Ur Barbiturates Screen U Tricyclic Antidepress Ur Phencyclidine Scrn Ur Amphetamines Screen U Methamphetamines Scrn Ur MDMA Scrn (Ecstasy) U Benzodiazepines Scrn Urine Cocaine Screen U Marijuana (THC) Screen Urine pH Urine Specific [place] Ethyl Alcohol < 10 Ur Creatinine Blood Type Antibody Screen 10/23/23 10/23/23 10/23/23 19:45 19:50 21:35 WBC RBC Hgb Hct MCV MCH MCHC RDW Plt Count Neut % (Auto) Lymph % (Auto) [place] % (Auto) Eos % (Auto) Baso % (Auto) Neut # (Auto) Lymph # (Auto) [place] # (Auto) Eos # (Auto) Baso # (Auto) PT INR Cancelled APTT 39 H Sodium 139 Potassium 3.2 L Chloride 97 L Carbon Dioxide 8 L* BUN 14 Creatinine 0.86 Estimated GFR > 60 BUN/Creatinine Ratio 16.3 Glucose 139 H Lactate 2.2 H 1.5 Calcium 9.6 Magnesium 1.9 Total Bilirubin 1.2 AST 196 H ALT 98 H Alkaline Phosphatase 81 Total Creatine Kinase 7969 H D Troponin I < 0.012 NT-Pro-B Natriuret Pep 292 H Total Protein 8.5 H Albumin 5.2 H Globulin 3.3 Albumin/Globulin Ratio 1.6 Lipase 92 Procalcitonin 0.179 Salicylates < 1.0 U Opiates 300ng/mL cut Negative Ur Oxycodone Screen Negative Urine Methadone Screen Negative Acetaminophen < 10 Ur Barbiturates Screen Positive H U Tricyclic Antidepress Negative Ur Phencyclidine Scrn Negative Ur Amphetamines Screen Negative U Methamphetamines Scrn Negative Ur MDMA Scrn (Ecstasy) Negative U Benzodiazepines Scrn Positive H Urine Cocaine Screen Negative U Marijuana (THC) Screen Positive H Urine pH Normal Urine Specific [place] Normal Ethyl Alcohol Ur Creatinine Normal Blood Type O Positive Antibody Screen Negative Assessment & Plan Assessment and plan (1) Rhabdomyolysis: Status: Acute (2) Anxiety and depression: Status: Acute (3) Alcoholism: Status: Acute (4) History of colon cancer: Status: Acute (5) GERD (gastroesophageal reflux disease): Status: Acute Assessment & Plan narrative: Rhabdomyolysis - IVFs, CPK in AM - preserved renal function Suspected Infection / Sepsis - source not apparent on admission, likely PNA or abdominal source - cultures pending Suspected GI bleed /Hx of colon resection for metastatic carcinoma / GERD / HH - reported melena - monitored CBC, not anemic on presentation - distended stomach, distal esophagus with fluid, will be seen by surgery - PPI Anxiety / Depression / Insomnia - on multiple psychotropics - encephalopathic on admission, continue with Xanax, Doxepin and Trazodone i AM, additional medications held - DVT prophylaxis - SCDs Time-Based Coding :: [TOTAL MINUTES] spent with patient and on the chart (including review of chart, obtaining history, exam, reviewing outside data, placing orders, documenting exam and treatment plan, and counseling patient) on [DATE].
--- NOTE | 2023-10-23 23:06 | PC.NURSE ---
C spine cleared by provider at 2130. C collar removed pt cleaned up. See chart notes for further information
--- NOTE | 2023-10-23 23:09 | PC.NURSE ---
Pt states that he does not want any medications he does not use recreational drugs, but report drinking heavy. See last by this nurse on 10/20/23 when he jokingly reported drinking 3 gallons of vodka daily. Today he tested negative for ETOH. Pt not able to describe reason for being here in the ER. Explained reasoning for anthony catheter and pt agreed for placement. Measured 2500 output prior to admission.
[2023-10-23 23:11] LABS: Ammonia (NH3) 14 umol/L (9-30)
[2023-10-24] VITALS (7 sets, daily range): BP systolic 93–106; BP diastolic 48–63; PULSE 75–96; RESP 12–22; TEMP 36.1–36.9; O2SAT 93–99
[2023-10-24] MEDS: BACLOFEN 10 MG TABLET PO ×2 (01:01→08:49)
[2023-10-24] MEDS: PIPERACILLIN/TAZO 3.375 GM in SODIUM CHLORIDE 0.9% 100 ML IV ×3 (02:04→17:56)
[2023-10-24] MEDS: HYDROCODONE/ACET 10/325 TABLET 1 TAB PO ×2 (02:52→08:48)
[2023-10-24 05:14] LABS: Add Manual Diff / Slide Review NO; Basophils Absolute Auto 0 /uL (0-100); Basophils Percent Auto 0.1 % (0-2); Eosinophils Absolute Auto 0 /uL (0-450); Eosinophils Percent Auto 0.1 % (2-4); Hematocrit 46.2 % (41-53); Lymphocytes Absolute Auto 700 /uL (1100-4500); Lymphocytes Percent Auto 4.4 % (25-40); Mean Corpuscular HGB Conc 32.5 % (30-36); Mean Corpuscular Hemoglobin 32.4 PG (26-34); Mean Corpuscular Volume 99.7 fL (80-100); Monocytes Absolute Auto 1500 /uL (0-900); Monocytes Percent Auto 8.9 % (3-14); Neutrophils Absolute Auto 14700 /uL (1500-7000); Neutrophils Percent Auto 86.5 % (50-75); Platelet Count 169 X10^3/uL (150-400); Red Blood Cell Count 4.63 X10^6/uL (4.5-5.9); Red Cell Distribution Width 14.8 % (11.6-14.8)
[2023-10-24 05:21] LABS: Alanine Aminotransferase 71 IU/L (<50); Albumin 3.8 g/dL (3.5-5.0); Albumin Globulin Ratio 1.4 (1.0-2.8); Alkaline Phosphatase 63 U/L (38-126); Aspartate Aminotransferase 128 IU/L (17-59); BUN Creatinine Ratio 23.1 (6-22); Bilirubin Total 0.9 mg/dL (0.2-1.3); Blood Urea Nitrogen 15 mg/dL (9-20); Calcium 8.4 mg/dL (8.4-10.2); Carbon Dioxide 12 mmol/L (22-32); Chloride 107 mmol/L (98-107); Estimated Glomerular Filt Rate > 60 mL/min (>60); Globulin 2.7 g/dL (1.7-4.1); Glucose 82 mg/dL (70-100); HEMOLYSIS 19 (0-50); Sodium 137 mmol/L (137-145); Total Protein 6.5 g/dL (6.3-8.2)
[2023-10-24] MEDS: SODIUM CHLORIDE 0.9% 1,000 ML 100 ML IV ×3 (05:22→20:23)
[2023-10-24 05:50] LABS: Creatine Kinase 4215 U/L (55-170)
--- NOTE | 2023-10-24 06:31 | P.CALLCOV_ITS ---
Call Coverage Note Note Date of Patient Contact: 10/24/23 Narrative of Care Provided: Patient left AMA last week. Admitted for ETOH and rectal bleeding. Had EGD and colonoscopy 10/01 at [facility]. Found to have esophagitis and gastric erosions, duodenum was normal. Colon had multiple polyps and a 5cm mass resected with snare in the rectum. No cancer or high grade displasia. In fact the rectal mass was hyperplastic from prolapsing mucosa. Hgb 7-8 on last admission. Now hgb 15 in a concentrated state. Found down in bathtub with lab findings of rhabdomyolysis, melena per the EMT. CT conserning for dilated stomach down to duodenum and fluid filled esophagus. No transition in duodenum, but findings suggest partial GOO. NGT may be needed still. Active problems: ETOHism Rhabdomyolysis GI bleed?? on last admit it was coming from rectal biopsy site Metastatic colon cancer with active liver mets Partial GOO Severe esophagitis and gastric erosions on EGD 10/01 colon pathology from 10/01 shows no cancer Plan: I changed orders to NPO, PPI changed to BID IV. Coates in place. Monitory rhabdo Continue hydration and serial labs No current plans for endoscopy and this time due to his recent procedures Watch for active GI bleeding KUB to see if NGT needed
--- NOTE | 2023-10-24 06:47 | DI.RAD.S_ITS ---
PROCEDURE: XR ABDOMEN 1V INDICATIONS: gastric dilation TECHNIQUE: One view of the abdomen acquired. COMPARISON: [facility], CT, CT ANGIO ABDOMEN PELVIS, 10/18/2023, 21:41. FINDINGS: Surgical changes and devices: Surgical anastomosis in the right lower pelvis as before. Bowel: Bowel gas pattern is nonobstructive. Soft tissues: No suspicious abdominal calcifications. Visualized solid organ contours appear normal in size. Bones: No suspicious bony lesions. IMPRESSION: Abdomen without acute radiographic abnormalities. Nonobstructive bowel gas pattern. Dictated by: Kaden Blevins M.D. on 10/24/2023 at 8:14 Approved by: Kaden Blevins M.D. on 10/24/2023 at 8:16
--- NOTE | 2023-10-24 07:21 | PM.PN.1 ---
Subjective Subjective Interval history: Summary: 57 y/o with PMH of colon cancer, s/p resection, alcoholism. GERD, anxiety, depression, presented to ED confused, weak, after he was found in a bathtub. He had melena as per EMS. On admission he was encephalopathic, with leukocytosis, hypotension, elevated LA, distended abdomen, rhabdomyolysis, suspected for underlying infection and sepsis, started on IVFs and empiric abx. S: He has epigastric abdomen pain and some nausea. No CP or dyspnea. No alcohol for 1 week. Exam Vital Signs (past 8 hours): - 10/24/23 03:00 Temperature 97 F L Pulse Rate 86 Respiratory Rate 17 Blood Pressure 106/63 Pulse Oximetry 98 Oxygen Flow Rate 0 Oxygen Delivery Method Room Air Oxygen Flow Rate 0 Narrative Exam Narrative: NAD, alert and oriented. Fluent speech. Lungs are clear, normal rate and effort. Heart is regular, no murmur gallop or rub. Abdomen is soft, non distended. Epigastric tenderness. Extremities are free of edema. Objective ECG Impression: NSR 85, QTc 511 Imaging Multiple studies:: Radiologist's impression: Head CT: No acute intracranial pathology. No significant changes from previous study. C-spine CT: No displaced fracture or traumatic subluxation. Knee x-ray: No acute left knee fracture or dislocation. No significant joint effusion Elbow x-ray: No acute elbow fracture or dislocation. No significant joint effusion. Chest, abdomen, pelvis CT: 1. Small right pleural effusion and trace left pleural effusion with adjacent compressive atelectasis in posterior aspect of bilateral lung agosto. No large airspace opacities or pneumothorax. Stable tiny right middle lobe nodule. No suspicious pulmonary nodule is seen. 2. No pericardial effusion. No mediastinal or hilar lymphadenopathy by size criteria. No mediastinal or hilar lymphadenopathy. 3. Distended esophageal lumen with air-fluid level. Markedly distended stomach lumen with air-fluid level. No significant esophageal wall thickening or gastric wall thickening. Finding could represent gastroparesis suggest clinical correlation. 4. No evidence of bowel obstruction. Stable postsurgical changes in right lower quadrant and rectal region. No abscess collection. No free fluid or free air. 5. Patient's known liver metastatic lesions are not well seen on the current study due to timing of contrast. No evidence of solid organ injury is seen in abdomen or pelvis. 6. Chronic appearing deformity involving left posterior lower ribs. No acute fracture or dislocation is seen in chest, abdomen or pelvis. Labs 10/24/23 07:11 10/24/23 04:40 Labs: Laboratory Results - last 24 hr 10/23/23 10/23/23 10/23/23 19:13 19:45 19:45 WBC 19.4 H RBC 4.60 Hgb 15.2 Hct 46.6 MCV 101.3 H D MCH 33.0 MCHC 32.5 RDW 14.6 Plt Count 297 Neut % (Auto) 89.5 H Lymph % (Auto) 4.1 L [place] % (Auto) 6.0 Eos % (Auto) 0.0 L Baso % (Auto) 0.4 Neut # (Auto) 02974 H Lymph # (Auto) 800 L [place] # (Auto) 1200 H Eos # (Auto) 0 Baso # (Auto) 100 PT 10.5 Cancelled INR 0.9 APTT Sodium Potassium Chloride Carbon Dioxide BUN Creatinine Estimated GFR BUN/Creatinine Ratio Glucose Lactate Calcium Magnesium Total Bilirubin AST ALT Alkaline Phosphatase Ammonia Total Creatine Kinase Troponin I NT-Pro-B Natriuret Pep Total Protein Albumin Globulin Albumin/Globulin Ratio Lipase Procalcitonin Salicylates U Opiates 300ng/mL cut Ur Oxycodone Screen Urine Methadone Screen Acetaminophen Ur Barbiturates Screen U Tricyclic Antidepress Ur Phencyclidine Scrn Ur Amphetamines Screen U Methamphetamines Scrn Ur MDMA Scrn (Ecstasy) U Benzodiazepines Scrn Urine Cocaine Screen U Marijuana (THC) Screen Urine pH Urine Specific [place] Ethyl Alcohol < 10 Ur Creatinine Blood Type Antibody Screen 10/23/23 10/23/23 10/23/23 19:45 19:50 21:35 WBC RBC Hgb Hct MCV MCH MCHC RDW Plt Count Neut % (Auto) Lymph % (Auto) [place] % (Auto) Eos % (Auto) Baso % (Auto) Neut # (Auto) Lymph # (Auto) [place] # (Auto) Eos # (Auto) Baso # (Auto) PT INR Cancelled APTT 39 H Sodium 139 Potassium 3.2 L Chloride 97 L Carbon Dioxide 8 L* BUN 14 Creatinine 0.86 Estimated GFR > 60 BUN/Creatinine Ratio 16.3 Glucose 139 H Lactate 2.2 H 1.5 Calcium 9.6 Magnesium 1.9 Total Bilirubin 1.2 AST 196 H ALT 98 H Alkaline Phosphatase 81 Ammonia 14 Total Creatine Kinase 7969 H D Troponin I < 0.012 NT-Pro-B Natriuret Pep 292 H Total Protein 8.5 H Albumin 5.2 H Globulin 3.3 Albumin/Globulin Ratio 1.6 Lipase 92 Procalcitonin 0.179 Salicylates < 1.0 U Opiates 300ng/mL cut Negative Ur Oxycodone Screen Negative Urine Methadone Screen Negative Acetaminophen < 10 Ur Barbiturates Screen Positive H U Tricyclic Antidepress Negative Ur Phencyclidine Scrn Negative Ur Amphetamines Screen Negative U Methamphetamines Scrn Negative Ur MDMA Scrn (Ecstasy) Negative U Benzodiazepines Scrn Positive H Urine Cocaine Screen Negative U Marijuana (THC) Screen Positive H Urine pH Normal Urine Specific [place] Normal Ethyl Alcohol Ur Creatinine Normal Blood Type O Positive Antibody Screen Negative 10/24/23 04:40 WBC 17.0 H RBC 4.63 Hgb 15.0 Hct 46.2 MCV 99.7 MCH 32.4 MCHC 32.5 RDW 14.8 Plt Count 169 Neut % (Auto) 86.5 H Lymph % (Auto) 4.4 L [place] % (Auto) 8.9 Eos % (Auto) 0.1 L Baso % (Auto) 0.1 Neut # (Auto) 86561 H Lymph # (Auto) 700 L [place] # (Auto) 1500 H Eos # (Auto) 0 Baso # (Auto) 0 PT INR APTT Sodium 137 Potassium 3.0 L Chloride 107 Carbon Dioxide 12 L BUN 15 Creatinine 0.65 L Estimated GFR > 60 BUN/Creatinine Ratio 23.1 H Glucose 82 Lactate Calcium 8.4 Magnesium Total Bilirubin 0.9 AST 128 H ALT 71 H Alkaline Phosphatase 63 Ammonia Total Creatine Kinase 4215 H D Troponin I NT-Pro-B Natriuret Pep Total Protein 6.5 Albumin 3.8 Globulin 2.7 Albumin/Globulin Ratio 1.4 Lipase Procalcitonin Salicylates U Opiates 300ng/mL cut Ur Oxycodone Screen Urine Methadone Screen Acetaminophen Ur Barbiturates Screen U Tricyclic Antidepress Ur Phencyclidine Scrn Ur Amphetamines Screen U Methamphetamines Scrn Ur MDMA Scrn (Ecstasy) U Benzodiazepines Scrn Urine Cocaine Screen U Marijuana (THC) Screen Urine pH Urine Specific [place] Ethyl Alcohol Ur Creatinine Blood Type Antibody Screen [facility] Medical History GERD (gastroesophageal reflux disease) Prostate cancer (Unknown) History of sinusitis Rotator cuff tear, left Left wrist pain Left shoulder pain History of ETOH abuse Surgical History Hx of right inguinal hernia repair Social History household members: none Smoking Status: Current some day smoker alcohol intake: current substance use type: does not use Assessment & Plan Assessment & Plan narrative: 1. Rhabdomyolysis, present on admission and active. - IVFs, CPK in AM 2. Sepsis with unclear source, present on admission and active. - source not apparent on admission, likely PNA or abdominal source - cultures pending 3. Suspected GI bleed (GERD and HH), present on admission and active - reported melena From surgery note: Had EGD and colonoscopy 10/01 at [facility]. Found to have esophagitis and gastric erosions, duodenum was normal. Colon had multiple polyps and a 5cm mass resected with snare in the rectum. No cancer or high grade displasia. Found down in bathtub with lab findings of rhabdomyolysis, melena per the EMT. CT conserning for dilated stomach down to duodenum and fluid filled esophagus. No transition in duodenum, but findings suggest partial GOO. 4. Previous partial colon resection for metastatic carcinoma, stable. 5. Anxiety / Depression / Insomnia. Stable. - on multiple psychotropics - encephalopathic on admission, continue with Xanax, Doxepin and Trazodone i AM, additional medications held 6. Alcohol use disorder PLAN: -surgical consult (recommend NGT decompression) -NPO, IV PPI b.i.d. -monitor CK and renal function. -observe for evidence of bleeding clinically. -NG tube decompression. - DVT prophylaxis - SCDs Time-Based Coding :: [TOTAL MINUTES] spent with patient and on the chart (including review of chart, obtaining history, exam, reviewing outside data, placing orders, documenting exam and treatment plan, and counseling patient) on [DATE].
[2023-10-24 07:47] LABS: Add Manual Diff / Slide Review NO; Basophils Absolute Auto 100 /uL (0-100); Basophils Percent Auto 0.4 % (0-2); Eosinophils Absolute Auto 0 /uL (0-450); Eosinophils Percent Auto 0.2 % (2-4); Hematocrit 37.8 % (41-53); Hemoglobin 12.4 g/dL (13.5-17.5); Lymphocytes Absolute Auto 900 /uL (1100-4500); Lymphocytes Percent Auto 6.3 % (25-40); Mean Corpuscular HGB Conc 32.9 % (30-36); Mean Corpuscular Hemoglobin 32.8 PG (26-34); Mean Corpuscular Volume 99.7 fL (80-100); Monocytes Absolute Auto 1500 /uL (0-900); Monocytes Percent Auto 9.9 % (3-14); Neutrophils Absolute Auto 12300 /uL (1500-7000); Neutrophils Percent Auto 83.2 % (50-75); Platelet Count 193 X10^3/uL (150-400); Red Blood Cell Count 3.79 X10^6/uL (4.5-5.9); Red Cell Distribution Width 14.8 % (11.6-14.8); White Blood Cell Count 14.8 X10^3/uL (4.5-11.0)
[2023-10-24] MEDS: LORATADINE 10 MG TABLET PO (08:48)
[2023-10-24] MEDS: PANTOPRAZOLE 40 MG VIAL IV ×2 (08:48→20:32)
[2023-10-24] MEDS: ALPRAZolam 0.25 MG TABLET 0.5 MG PO (08:49)
[2023-10-24] MEDS: SODIUM CHLORIDE 0.9% FLUSH 10 ML IV (08:50)
[2023-10-24] MEDS: ONDANSETRON 4 MG/2 ML INJ IV ×2 (08:51→20:23)
[2023-10-24] MEDS: POTASSIUM CHLORIDE IN WATER 10 MEQ/100 ML PIGGYBACK 100 MEQ IV ×4 (09:06→12:04)
--- NOTE | 2023-10-24 12:33 | CM.DANOTE ---
Initial DCP Assessment Note Pt is a 57 yo male, lives at [facility] in [place]. Patient arrives via EMS after being found down in his apt. Patient admitted for management of rhabdo, sepsis, suspected GI bleed, surgery consulted and NG tube being placed today PMH includes colon cancer with liver mets, hx of resection, anxiety, depression, TBI and alcohol use disorder. PCP: Unknown Payer: [employer] MCR/NEFTALI Reviewed chart, met with patient to introduce self and role. Patient's speech is slowed and quiet, takes time to answer questions. 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 Patient has been living at the [facility], sister Gracia checks on him. Patient has DEVON, [facility] is May [phone]. Patient reports difficulty sustaining a cg as one shows up and does not return. Patient reports hx of polysubstance abuse, current drinks and occasionally smokes marijuana. Patient reports that he is an alcoholic, drank about a fifth a few days ago, patient feels his drinking is a problem for him. Patient says he walks to where he needs to go; for groceries, doc appts etc. Patient further states he has needed to use a walker recently due to his numerous health issues. Patient has friends that are helping with errands and transportation. Plan: Discharge home w/family is anticipated. A call to [facility] May would be helpful to understand when patient will next have a cg. CM team following clinical course closely. 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 No Advance Directives on File No History Provided By Patient,Medical Record Has Patient been admitted in last 30 Yes days? Comment Here 9.8-9.10 Prior Living Arrangements Apartment/Condo Comment [facility] Household Members none Comment Patient says he walks everywhere he needs to go. Independent with ADL's No Is patient alert and oriented? No: Hx TBI, memory loss, difficulty retaining information Needs Assistance With Meal Prep,Managing Medications ,Home Chores / Shopping Barriers to Discharge No Comment ETOH at baseline, has TBI, has DEVON CG Discharge Plan Home Transportation Arrangement Likely Medicaid taxi if sister cannot transport Additional Comment Pending pt progress and medical POC
--- NOTE | 2023-10-24 12:52 | DI.RAD.S_ITS ---
PROCEDURE: XR CHEST 1V INDICATIONS: NG tube placement TECHNIQUE: One view of the chest was acquired. COMPARISON: [facility], CR, XR CHEST 1V, 10/20/2023, 0:38. FINDINGS: Surgical changes and devices: Nasogastric tube has been placed. Distal tip projects in the left upper abdomen. Distal side port projects near the level of the gastroesophageal junction. Lungs and pleura: Lungs are clear. No pleural effusions or pneumothorax. Mediastinum: Mediastinal contours appear normal. Heart size is normal. Bones and chest wall: No suspicious bony lesions. Overlying soft tissues appear unremarkable. IMPRESSION: Nasogastric tube has been placed with distal tip projecting over the left upper abdomen and distal side port near the gastroesophageal junction. Consider advancing approximately 5-7 cm. Dictated by: Kaden Blevins M.D. on 10/24/2023 at 13:10 Approved by: Kaden Blevins M.D. on 10/24/2023 at 13:12
[2023-10-24 15:38] LABS: Add Manual Diff / Slide Review NO; Basophils Absolute Auto 0 /uL (0-100); Basophils Percent Auto 0.3 % (0-2); Eosinophils Absolute Auto 100 /uL (0-450); Eosinophils Percent Auto 0.7 % (2-4); Hematocrit 34.9 % (41-53); Hemoglobin 11.8 g/dL (13.5-17.5); Lymphocytes Absolute Auto 500 /uL (1100-4500); Lymphocytes Percent Auto 6.2 % (25-40); Mean Corpuscular HGB Conc 33.8 % (30-36); Mean Corpuscular Hemoglobin 33.8 PG (26-34); Monocytes Absolute Auto 900 /uL (0-900); Monocytes Percent Auto 11.5 % (3-14); Neutrophils Absolute Auto 6700 /uL (1500-7000); Neutrophils Percent Auto 81.3 % (50-75); Platelet Count 208 X10^3/uL (150-400); Red Blood Cell Count 3.49 X10^6/uL (4.5-5.9); White Blood Cell Count 8.2 X10^3/uL (4.5-11.0)
[2023-10-24 15:57] LABS: Alanine Aminotransferase 58 IU/L (<50); Albumin 3.2 g/dL (3.5-5.0); Albumin Globulin Ratio 1.4 (1.0-2.8); Alkaline Phosphatase 54 U/L (38-126); Aspartate Aminotransferase 87 IU/L (17-59); BUN Creatinine Ratio 19.7 (6-22); Bilirubin Total 0.8 mg/dL (0.2-1.3); Blood Urea Nitrogen 12 mg/dL (9-20); Calcium 8.2 mg/dL (8.4-10.2); Carbon Dioxide 17 mmol/L (22-32); Chloride 110 mmol/L (98-107); Estimated Glomerular Filt Rate > 60 mL/min (>60); Globulin 2.3 g/dL (1.7-4.1); Glucose 80 mg/dL (70-100); Potassium 3.7 mmol/L (3.4-5.1); Sodium 137 mmol/L (137-145); Total Protein 5.5 g/dL (6.3-8.2)
[2023-10-24 16:04] LABS: Creatine Kinase 2263 U/L (55-170)
[2023-10-24 16:14] LABS: HEMOLYSIS 17 (0-50)
--- NOTE | 2023-10-24 19:16 | PC.WOUNDPHOT ---
Late Entry: Photos taken by Brielle Mejia RN 10/23
[2023-10-24] MEDS: LORazepam 2 MG/ML INJ IV (20:23)
[2023-10-24] MEDS: MORPHINE 2 MG/ML INJ 1 MG IV (21:12)
[2023-10-24 23:22] LABS: Hematocrit 36.5 % (41-53); Hemoglobin 12.3 g/dL (13.5-17.5); Mean Corpuscular HGB Conc 33.7 % (30-36); Mean Corpuscular Hemoglobin 33.7 PG (26-34); Platelet Count 195 X10^3/uL (150-400); Red Blood Cell Count 3.64 X10^6/uL (4.5-5.9); White Blood Cell Count 6.4 X10^3/uL (4.5-11.0)
[2023-10-24 23:26] LABS: Add Manual Diff / Slide Review YES
[2023-10-25 00:28] LABS: Neutrophils Absolute Manual 4800 /uL (3000-5900); RBC Morphology Norm; Total Cells Counted 100
[2023-10-25] MEDS: PIPERACILLIN/TAZO 3.375 GM in SODIUM CHLORIDE 0.9% 100 ML IV ×2 (01:58→10:38)
[2023-10-25] MEDS: MORPHINE 2 MG/ML INJ 1 MG IV ×3 (01:58→10:40)
[2023-10-25] MEDS: SODIUM CHLORIDE 0.9% 1,000 ML 150 ML IV (03:10)
[2023-10-25 04:30] VITALS: BP 112/57; PULSE 99; RESP 18; TEMP 37; O2SAT 95
[2023-10-25] MEDS: DEXTROSE 5%-0.9% NS 1,000 ML 150 ML IV ×2 (07:04→14:10)
--- NOTE | 2023-10-25 07:37 | PM.PN.1 ---
Subjective Subjective Interval history: 57-year-old male with alcohol use disorder admitted with rhabdomyolysis and possible bowel obstruction versus gastric outlet obstruction and melena. He has had no bowel movements since arrival. He felt better today, Dr. Mi of surgery removed his NG tube and started a diet.He had a light lunch. S: He has had a little bit to eat over the last 2 hours and feels better. He has no abdominal pain. He denies any bowel movements since arrival. He also denies any symptom all withdrawal. Exam Vital Signs (past 8 hours): - 10/25/23 04:30 Temperature 98.6 F Pulse Rate 99 H Respiratory Rate 18 Blood Pressure 112/57 L Pulse Oximetry 95 Oxygen Flow Rate 0 Oxygen Delivery Method Room Air Oxygen Flow Rate 0 Narrative Exam Narrative: NAD, alert and oriented. Fluent speech. He was cooperative and appreciative. Lungs are clear, normal rate and effort. Heart is regular, no murmur gallop or rub. Abdomen is soft, non distended. Extremities are free of edema. Objective ECG Impression: NSR 85, QTc 511 Imaging Multiple studies:: Radiologist's impression: Head CT: No acute intracranial pathology. No significant changes from previous study. C-spine CT: No displaced fracture or traumatic subluxation. Knee x-ray: No acute left knee fracture or dislocation. No significant joint effusion Elbow x-ray: No acute elbow fracture or dislocation. No significant joint effusion. Chest, abdomen, pelvis CT: 1. Small right pleural effusion and trace left pleural effusion with adjacent compressive atelectasis in posterior aspect of bilateral lung agosto. No large airspace opacities or pneumothorax. Stable tiny right middle lobe nodule. No suspicious pulmonary nodule is seen. 2. No pericardial effusion. No mediastinal or hilar lymphadenopathy by size criteria. No mediastinal or hilar lymphadenopathy. 3. Distended esophageal lumen with air-fluid level. Markedly distended stomach lumen with air-fluid level. No significant esophageal wall thickening or gastric wall thickening. Finding could represent gastroparesis suggest clinical correlation. 4. No evidence of bowel obstruction. Stable postsurgical changes in right lower quadrant and rectal region. No abscess collection. No free fluid or free air. 5. Patient's known liver metastatic lesions are not well seen on the current study due to timing of contrast. No evidence of solid organ injury is seen in abdomen or pelvis. 6. Chronic appearing deformity involving left posterior lower ribs. No acute fracture or dislocation is seen in chest, abdomen or pelvis. Labs 10/24/23 23:00 10/24/23 15:30 Labs: Laboratory Results - last 24 hr 10/24/23 10/24/23 10/24/23 07:11 15:30 23:00 WBC 14.8 H 8.2 6.4 RBC 3.79 L 3.49 L 3.64 L Hgb 12.4 L 11.8 L 12.3 L Hct 37.8 L 34.9 L 36.5 L MCV 99.7 100.0 100.0 MCH 32.8 33.8 33.7 MCHC 32.9 33.8 33.7 RDW 14.8 15.0 H 15.0 H Plt Count 193 208 195 Neut % (Auto) 83.2 H 81.3 H Not Reportable Lymph % (Auto) 6.3 L 6.2 L Not Reportable [place] % (Auto) 9.9 11.5 Not Reportable Eos % (Auto) 0.2 L 0.7 L Not Reportable Baso % (Auto) 0.4 0.3 Not Reportable Neut # (Auto) 38319 H 6700 Lymph # (Auto) 900 L 500 L Not Reportable [place] # (Auto) 1500 H 900 Not Reportable Eos # (Auto) 0 100 Baso # (Auto) 100 0 Not Reportable Total Counted 100 Seg Neutrophils % 64.0 Band Neutrophils % 11.0 H Lymphocytes % (Manual) 5.0 L Atypical Lymphs % 1.0 H Monocytes % (Manual) 15.0 H Eosinophils % (Manual) 1.0 L Metamyelocytes % 3.0 H Neutrophils # (Manual) 4800 RBC Morphology Norm Sodium 137 Potassium 3.7 Chloride 110 H Carbon Dioxide 17 L BUN 12 Creatinine 0.61 L Estimated GFR > 60 BUN/Creatinine Ratio 19.7 Glucose 80 Calcium 8.2 L Total Bilirubin 0.8 AST 87 H ALT 58 H Alkaline Phosphatase 54 Total Creatine Kinase 2263 H D Total Protein 5.5 L Albumin 3.2 L Globulin 2.3 Albumin/Globulin Ratio 1.4 PFSH Medical History GERD (gastroesophageal reflux disease) Prostate cancer (Unknown) History of sinusitis Rotator cuff tear, left Left wrist pain Left shoulder pain History of ETOH abuse Surgical History Hx of right inguinal hernia repair Social History household members: none Smoking Status: Current some day smoker alcohol intake: current substance use type: does not use Assessment & Plan Assessment & Plan narrative: 1. Rhabdomyolysis, present on admission and improved. 2. Sepsis with unclear source, present on admission and active. - source not apparent on admission, likely PNA or abdominal source - blood cultures negative 3. Suspected GI bleed (GERD and HH), present on admission and active - reported melena, not since admission. From surgery note: Had EGD and colonoscopy 10/01 at [facility]. Found to have esophagitis and gastric erosions, duodenum was normal. Colon had multiple polyps and a 5cm mass resected with snare in the rectum. No cancer or high grade displasia. Found down in bathtub with lab findings of rhabdomyolysis, melena per the EMT. CT conserning for dilated stomach down to duodenum and fluid filled esophagus. No transition in duodenum, but findings suggest partial GOO. 4. Previous partial colon resection for metastatic carcinoma, stable. 5. Anxiety / Depression / Insomnia. Stable. - on multiple psychotropics 6. Alcohol use disorder, present on admission and stable. PLAN: -remove NG tube -continue PPI b.i.d. -advance diet and see how he tolerates. -no evidence of infection, stop antibiotics. -stop IV fluids later today if he improves with his intake. -monitor for evidence of alcohol withdrawal, none seen and he states his last drink is been at least 4-5 days before today. -monitor bowel movements for any evidence of melena. - DVT prophylaxis - SCDs Anticipated 2 midnight need for hospital services, support inpatient status. Full resuscitation MOSES is October 26. Time-Based Coding :: [TOTAL MINUTES] spent with patient and on the chart (including review of chart, obtaining history, exam, reviewing outside data, placing orders, documenting exam and treatment plan, and counseling patient) on [DATE].
--- NOTE | 2023-10-25 07:41 | PC.NURSE ---
BG 75, Dr goodwin notified, patient asymptomatic, IVF changed to D5NS @150ml/hr as ordered.
[2023-10-25 08:00] VITALS: BP 112/64; PULSE 87; RESP 16; TEMP 36.6; O2SAT 97
[2023-10-25] MEDS: PANTOPRAZOLE 40 MG VIAL IV (08:11)
[2023-10-25] MEDS: LORazepam 2 MG/ML INJ IV (08:14)
[2023-10-25 09:01] LABS: Base Excess ABG -14.1 mmol/L (-2-3); HCO3 ABG 9 mmol/L (23-27); Oxygen Saturation ABG 99 % (95-100); PCO2 ABG 15.7 mmHg (35-45); PO2 ABG 119 mmHg (80-100); TCO2 ABG 7 mmol/L (23-27); pH ABG 7.35 (7.35-7.45)
[2023-10-25 09:36] VITALS: PULSE 87; RESP 16
[2023-10-25] MEDS: SODIUM CHLORIDE 0.9% FLUSH 10 ML IV ×2 (10:38→20:49)
[2023-10-25 12:00] VITALS: BP 114/61; PULSE 85; RESP 16; TEMP 36.8; O2SAT 90
--- NOTE | 2023-10-25 12:16 | PM.CN ---
History of Present Illness Consult details Date Patient Seen: 10/25/23 Time Patient Seen: 12:16 Chief complaint: Found down Reason for consult: GI bleed Narrative: hospital day 2. Admitted for Rhabdomyolysis, ETOHish with mental status change, partial GOO on CT. Left AMA while being treated for rectal biopsy GI bleed, esophagitis, and gastric erosions. C/o abdominal pain which is likely the gastritis as it has not seen a full course of treatment. No further evidence of gross blood. NGT has put out minimal Meds Home Medications and Allergies Home Medications Medication Instructions Recorded Confirmed Type lorazepam 1 mg tablet (Ativan) 1 mg PO SEEINSTR #11 tabs 02/12/18 10/19/23 Rx mirtazapine 15 mg tablet 15 mg PO DAILY 03/25/18 10/19/23 History sumatriptan succinate 50 mg tablet See Rx Instructions PO .COMPLEX 03/25/18 10/19/23 History PRN Migraine Headache doxepin 10 mg capsule 10 mg PO DAILY #30 caps 04/15/18 10/19/23 Rx ondansetron 4 mg disintegrating 4 mg PO Q8H PRN nausea and 09/17/22 10/19/23 Rx tablet vomiting #10 tabs alprazolam 1 tab PO BID 10/19/23 10/19/23 History baclofen 10 mg tablet 10 mg PO 3XD 10/19/23 10/19/23 History cetirizine 10 mg tablet 10 mg PO DAILY 10/19/23 10/19/23 History duloxetine 30 mg capsule,delayed 30 mg PO BID 10/19/23 10/19/23 History release fluticasone propionate 50 2 spray intranasal DAILY 10/19/23 10/19/23 History mcg/actuation nasal spray,suspension pantoprazole 40 mg tablet,delayed 40 mg PO DAILY 10/19/23 10/19/23 History release quetiapine 50 mg tablet 50 mg PO BEDTIME 10/19/23 10/19/23 History trazodone 100 mg tablet 100 mg PO BEDTIME 10/19/23 10/19/23 History Allergies Allergy/AdvReac Type Severity Reaction Status Date / Time codeine AdvReac Severe Gastrointestinal Verified 10/23/23 19:08 Upset Review of Systems Review of Systems ROS: Yes All systems reviewed with the patient and are negative except as otherwise documented Exam Vital Signs (past 8 hours): - 10/25/23 04:30 10/25/23 08:00 10/25/23 09:36 Temperature 98.6 F 98 F Pulse Rate 99 H 87 87 Respiratory Rate 18 16 16 Blood Pressure 112/57 L 112/64 Pulse Oximetry 95 97 Oxygen Flow Rate 0 0 Oxygen Delivery Method Room Air Oxygen Flow Rate 0 Const General: comfortable Nutritional Appearance: average body habitus Other: playing Mediastay Head: normocephalic and atraumatic Ears: hearing grossly normal bilaterally Eyes Periorbital: periorbital findings normal Neck Neck: trachea midline Chest Chest: normal inspection of the chest Resp Effort & Inspection: normal respiratory effort and able to speak in complete sentences (career guidance counselor engaged him in conversation while i was present) Cardio Rate: regular rate Rhythm: regular rhythm GI Inspection: normal to inspection and non-distended Palpation: soft Skin General: atrophy and crusts Neuro General: no focal motor deficits Psych Mental Status: mental status grossly normal Judgment: fair Objective Labs 10/24/23 23:00 10/24/23 15:30 Labs: Laboratory Results - last 24 hr 10/23/23 10/24/23 10/24/23 21:09 15:30 23:00 WBC 8.2 6.4 RBC 3.49 L 3.64 L Hgb 11.8 L 12.3 L Hct 34.9 L 36.5 L MCV 100.0 100.0 MCH 33.8 33.7 MCHC 33.8 33.7 RDW 15.0 H 15.0 H Plt Count 208 195 Neut % (Auto) 81.3 H Not Reportable Lymph % (Auto) 6.2 L Not Reportable [place] % (Auto) 11.5 Not Reportable Eos % (Auto) 0.7 L Not Reportable Baso % (Auto) 0.3 Not Reportable Neut # (Auto) 6700 Lymph # (Auto) 500 L Not Reportable [place] # (Auto) 900 Not Reportable Eos # (Auto) 100 Baso # (Auto) 0 Not Reportable Total Counted 100 Seg Neutrophils % 64.0 Band Neutrophils % 11.0 H Lymphocytes % (Manual) 5.0 L Atypical Lymphs % 1.0 H Monocytes % (Manual) 15.0 H Eosinophils % (Manual) 1.0 L Metamyelocytes % 3.0 H Neutrophils # (Manual) 4800 RBC Morphology Norm ABG pH 7.35 ABG pCO2 15.7 L* ABG pO2 119 H ABG HCO3 9 L ABG Total CO2 7 L ABG O2 Saturation 99 ABG Base Excess -14.1 L Sodium 137 Potassium 3.7 Chloride 110 H Carbon Dioxide 17 L BUN 12 Creatinine 0.61 L Estimated GFR > 60 BUN/Creatinine Ratio 19.7 Glucose 80 Calcium 8.2 L Total Bilirubin 0.8 AST 87 H ALT 58 H Alkaline Phosphatase 54 Total Creatine Kinase 2263 H D Total Protein 5.5 L Albumin 3.2 L Globulin 2.3 Albumin/Globulin Ratio 1.4 PFSH Medical History GERD (gastroesophageal reflux disease) Prostate cancer (Unknown) History of sinusitis Rotator cuff tear, left Left wrist pain Left shoulder pain History of ETOH abuse Surgical History Hx of right inguinal hernia repair Social History household members: none Tobacco & Substance Use Smoking Status: Current some day smoker alcohol intake: current substance use type: does not use Assessment & Plan Assessment & Plan narrative: With regards to partial GOO and GI bleed. These have resolved and or stable. Abdominal pain is dispepsia Pathology from his EGD and colonoscopy on 10/01 were 1) gastritis, 2) adenomatous polyps, 3) rectal mass with hypertrophic and likely represents prolapse irritation. Plan: stop antibiotics Remove NGT and start general diet switch PPI to 40mg po BID. General surgery to sign off, please call for any new signs of GI bleed Time-Based Coding :: [TOTAL MINUTES] spent with patient and on the chart (including review of chart, obtaining history, exam, reviewing outside data, placing orders, documenting exam and treatment plan, and counseling patient) on [DATE].
[2023-10-25] MEDS: BACLOFEN 10 MG TABLET PO ×2 (14:09→20:48)
--- NOTE | 2023-10-25 14:59 | CM.DPNOTE ---
DCP Note DISTRIBUTION SUPERVISOR reviewed EMR. Per hospitalist in morning rounds, likely here another few days. Per PN, NG tube removed. MOSES:10/26 pending advancing diet. Plan: Discharge home w/family is anticipated. A call to [facility] ([phone]) on Thursday would be helpful to understand when patient will next have a cg. CM team following clinical course closely. SUSAN Chavez
[2023-10-25 16:00] VITALS: BP 105/65; PULSE 69; RESP 16; TEMP 36.8; O2SAT 94
[2023-10-25 20:00] VITALS: BP 122/68; PULSE 88; RESP 17; TEMP 37.1; O2SAT 96
[2023-10-25] MEDS: HYDROCODONE/ACET 10/325 TABLET 1 TAB PO (20:48)
[2023-10-25] MEDS: PANTOPRAZOLE DR 40 MG TABLET PO (20:48)
[2023-10-25] MEDS: TRAZODONE 50 MG TABLET 100 MG PO (20:48)
[2023-10-25] MEDS: ALPRAZolam 0.25 MG TABLET 0.5 MG PO (20:48)
[2023-10-26] VITALS: BP 108/63; PULSE 83; RESP 18; TEMP 36.3; O2SAT 97
[2023-10-26] MEDS: MAG HYDROX/ALUM/SIMETH 30 ML UDC PO (00:09)
[2023-10-26 05:15] VITALS: BP 106/61; PULSE 83; RESP 18; TEMP 36.6; O2SAT 94
[2023-10-26] MEDS: PANTOPRAZOLE DR 40 MG TABLET PO (06:28)
[2023-10-26] MEDS: MULTIVITAMIN 1 TABLET 1 TAB PO (08:06)
[2023-10-26] MEDS: BACLOFEN 10 MG TABLET PO (08:06)
[2023-10-26] MEDS: LORATADINE 10 MG TABLET PO (08:06)
[2023-10-26] MEDS: FOLIC ACID 1 MG TABLET PO (08:06)
[2023-10-26] MEDS: ALPRAZolam 0.25 MG TABLET 0.5 MG PO (08:06)
[2023-10-26] MEDS: SODIUM CHLORIDE 0.9% FLUSH 10 ML IV (08:07)
[2023-10-26] MEDS: THIAMINE 100 MG TABLET PO (08:07)
[2023-10-26 09:00] VITALS: BP 121/66; PULSE 94; RESP 15; TEMP 36.9; O2SAT 96
--- NOTE | 2023-10-26 10:44 | PM.DS.1 ---
History of Present Illness History of Present Illness Date Patient Seen: 10/26/23 Time Patient Seen: 10:44 Chief complaint: Found down Narrative: Per admitting provider, 57 y/o with PMH of colon cancer, s/p resection, alcoholism. GERD, anxiety, depression, presented to ED confused, weak, after he was found in a bathtub. He had melena as per EMS. On admission encephalopathic, with leukocytosis, hypotension, elevated LA, distended abdomen, rhabdomyolysis, suspected for underlying infection and sepsis, started on IVFs and empiric abx. Discharge Providers Provider Date of admission: 10/23/23 21:50 Discharge Date: 10/26/23 Primary care physician: Doctor Zach MD Consults: 10/23/23 21:56 Consult to General Surgery Routine Comment: Consulting Provider: Tracy Mi Reason for consultation: gi bleed Has provider been notified: Yes Discharge provider: Quique Astorga DO Summary Hospital Course Discharge Diagnosis: 1. Rhabdomyolysis, present on admission and improved. 2. Sepsis ruled out, possible pneumonia, present on admission and active. 3. Suspected GI bleed (GERD and HH), present on admission and active 4. Previous partial colon resection for metastatic carcinoma, stable. 5. Anxiety / Depression / Insomnia. Stable. 6. Alcohol use disorder, present on admission and stable. Hospital Course: 57 y/o with PMH of colon cancer and partial resection 2-3 years ago, anxiety and depression and alcoholism, chronic abdominal pain and headache (he reports from a TBI in [place] in the past). He was given IV fluids with improvement in his CK level. He was treated for presumed pneumonia based on leukocytosis on presentation, but this is likely due to his rhabdomyolysis and dehydration. He was not continued on antibiotics on discharge. He was seen by surgery, with stable h/h and no evidence of bleeding. He was recommended to continue on PPI for possible gastritis, likely due to alcohol use. On the day of discharge patient was alert, tolerating a regular diet, with stable h/h and improving CK levels and was discharged home. No changes to home medications were recommended other than to obtain OTC PPI. Time Spent with Patient Time spent: Greater than 30 minutes Exam Vital Signs (past 8 hours): - 10/26/23 05:15 10/26/23 09:00 Temperature 97.9 F 98.5 F Pulse Rate 83 94 H Respiratory Rate 18 15 Blood Pressure 106/61 121/66 Pulse Oximetry 94 96 Oxygen Flow Rate 0 0 Oxygen Delivery Method Room Air Oxygen Flow Rate 0 Narrative Exam Narrative: NAD, alert and oriented. Fluent speech. He was cooperative and appreciative. Lungs are clear, normal rate and effort. Heart is regular, no murmur gallop or rub. Abdomen is soft, non distended. Extremities are free of edema. Objective Labs 10/24/23 23:00 10/24/23 15:30 [facility] Medical History GERD (gastroesophageal reflux disease) Prostate cancer (Unknown) History of sinusitis Rotator cuff tear, left Left wrist pain Left shoulder pain History of ETOH abuse Surgical History Hx of right inguinal hernia repair Social History household members: none Smoking Status: Current some day smoker alcohol intake: current substance use type: does not use Discharge Plan Discharge Plan Patient Disposition: Home Health Service Discharge orders & Medications Prescriptions: New oxycodone 5 mg tablet 5 mg PO Q6H PRN (Reason: pain) 7 Days Qty: 20 0RF ondansetron HCl 4 mg tablet 4 mg PO Q8H PRN (Reason: nausea and vomiting) 30 Days Qty: 30 0RF Continued sumatriptan succinate 50 mg tablet See Rx Instructions PO .COMPLEX PRN (Reason: Migraine Headache) Patient Comments: Take 1 as needed 1 time as needed, may repeat in 1 hour for additional dose in 24 hours PO PRN; Rx Instructions: Take 1 as needed 1 time as needed, may repeat in 1 hour for additional dose in 24 hours PO PRN; mirtazapine 15 mg tablet 15 mg PO DAILY doxepin 10 mg capsule 10 mg PO DAILY Qty: 30 3RF ondansetron 4 mg tablet,disintegrating 4 mg PO Q8H PRN (Reason: nausea and vomiting) Qty: 10 0RF lorazepam [Ativan] 1 mg tablet 1 mg PO SEEINSTR Qty: 11 0RF Rx Instructions: Take 1 tablet every 6 hours x 24 hours, then 1 tablet every 8 hours x 24 hours, then 1 tablet every 12 hours x 24 hours, then 1 tablet Q HS x 2 days. cetirizine 10 mg tablet 10 mg PO DAILY trazodone 100 mg tablet 100 mg PO BEDTIME baclofen 10 mg tablet 10 mg PO 3XD pantoprazole 40 mg tablet,delayed release (DR/EC) 40 mg PO DAILY fluticasone propionate 50 mcg/actuation spray,suspension 2 spray intranasal DAILY duloxetine 30 mg capsule,delayed release(DR/EC) 30 mg PO BID quetiapine 50 mg tablet 50 mg PO BEDTIME alprazolam 0.5 mg tablet 1 tab PO BID No Action amoxicillin-pot clavulanate 875-125 mg tablet 1 tab PO BID Qty: 20 0RF Medication counseling provided by Pharmacist: Yes Follow up/Referrals: Doctor Zach, [Primary Care Provider] - Diet/Activity/Treatments Diet: Diet as Tolerated and Regular Activity: As tolerated Visit Report/Discharge Packet Stand Alone Forms: Patient Portal/API, Stroke Signs & Symptoms Discharge Data Primary Care Provider: Doctor Zach
[2023-10-26 13:00] VITALS: BP 109/60; PULSE 88; RESP 15; TEMP 36.8; O2SAT 95
--- NOTE | 2023-10-26 14:24 | CM.DPC ---
Addendum entered by SUSAN Holly 10/26/23 15:24: ADD: [facility] confirms they are willing to accept pt's referral and have obtained the scanned F2F and HH orders. BF Original Note: DCP Discharge Home with HH Per MD, pt is medically stable to discharge home today with prescriptions sent to [facility]. SONI met bedside with pt and explained role and he confirms that he is ready for discharge but does not have his cell phone or keys to his apt on him and he and BEEF SPECIALIST left [facility] for his sister already alerting her to his discharge today. Pt resides at the [facility] apts and SW called [facility] and spoke to staff and they confirm they have on-site a copy of his keys to his apt if he can get to their office right around the corner from his apt complex by 1500 when their office closes for the day. SW completed the Medicaid Transportation form and faxed in and confirmed they received and discussed the need to d/c to the [facility] office to get his keys and they confirm they can transport [facility] and currently have a residential recycle driver coming from [facility] and should arrive around 1440. Updated RN and BEEF SPECIALIST who got pt some pants to wear and will get him to the ED entrance by 1440. SW updated pt who is very appreciative and he confirms he has had increased balance issues and is agreeable with HH at d/c. SW made [facility] referral based on pt's insurance and complex social situation and they are reviewing to confirm if they can accept. F2F and HH orders completed and scanned. SONI provided the [facility] brochure. SONI called [facility] and alerted them that pt should arrive there right before 1500 to get his keys. Called Rosa Rees at [facility] and updated her on pt's re-admission after leaving [facility] and now discharge from the hospital. She confirms that pt has an assigned [facility] CG that has been working with him and has not heard that pt's CG has stopped working with him. She will check in with the caregiver and aware that sometime pt impulsively declines services but POA sister assists with keeping supportive services in place. Plan: Patient to discharge back to his apt today via Medicaid Transport to [facility] to get his keys and [facility] reviewing to confirm they can accept. SUSAN Holly
--- NOTE | 2023-10-26 18:04 | PC.NURSE ---
Discharge Note Patient A&O, VSS, RA, no complaints of pain/discomfort. CIWA score 2. Patient agreeable to discharge plan. PIV/TELE discontinued. Patient able to dress self and pack all belongings. 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
== END 2023-10-26 14:45 | disposition home health service (06) | DRG 558 ==
LOC: ED 19:17 → AC 21:52
PROVIDERS: Surgery; Admitting Provider Internal Medicine; Emergency Provider Emergency Medicine; Referring Provider Emergency Medicine; Visit Provider Internal Medicine
DX: M62.82 Rhabdomyolysis (principal); C78.7 Secondary malignant neoplasm of liver and intrahepatic bile duct; K92.1 Melena; F41.9 Anxiety disorder, unspecified; F32.A Depression, unspecified; K21.9 Gastro-esophageal reflux disease without esophagitis; G47.00 Insomnia, unspecified; F10.90 Alcohol use, unspecified, uncomplicated; K44.9 Diaphragmatic hernia without obstruction or gangrene; F17.210 Nicotine dependence, cigarettes, uncomplicated; G43.909 Migraine, unspecified, not intractable, without status migrainosus; Y90.0 Blood alcohol level of less than 20 mg/100 ml; Z85.038 Personal history of other malignant neoplasm of large intestine; Z90.49 Acquired absence of other specified parts of digestive tract; Z23 Encounter for immunization
CPT/HCPCS: 36415; 36600; 70450; 71045; 71260; 72125; 73080; 73562; 74018; 74177; 80053; 80305; 80320; 80329; 82140; 82272; 82550; 82805; 82962; 83605; 83690; 83735; 83880; 84145; 84484; 85007; 85025; 85610; 85730; 86850; 86900; 86901; 87040; 93005; 96361; 96365; 96375; 99232; 99285; 90715; G0480; J2060; J2270; J2405; J2470; J2543

== ENCOUNTER 2023-10-27 15:17 | Emergency (ER) | payer MEDICARE, MEDICAID, SELFPAY ==
[2023-10-23 23:49] VITALS: BMI 23.6
[2023-10-27 15:17] VITALS: PULSE 92; RESP 18; O2SAT 100; BMI 23.6
[2023-10-27 15:29] VITALS: BP 112/61; PULSE 87; O2SAT 100
[2023-10-27 15:30] VITALS: BP 114/63; PULSE 87; O2SAT 100
--- NOTE | 2023-10-27 15:30 | ED_ITS ---
HPI - Altered Mental Status <Chelsea Suarez, DO - Last Filed: 10/28/23 07:29> General Chief Complaint: Altered Mental Status Stated Complaint: seizure/hallucinating Time Seen by Provider: 10/27/23 15:27 Source: patient, EMS, RN notes reviewed and old records reviewed Mode of arrival: EMS Limitations: no limitations History of Present Illness HPI narrative: 57-year-old male history of colon cancer status post resection, alcoholism, GERD, anxiety, depression presents with complaint of confusion patient states he thinks he may have a seizure. EMS states that law enforcement has been called twice to his house he seems confused, states he has a caregiver but also states that it was someone with a mask he also states that they were smoking marijuana with his cat. And that he has not sure if they were truly a caregiver. EMS states that there was also report that he has been aggressive and throwing things around but the house was completely spot list with no signs or if things thrown around. Patient states he was just discharged from the hospital yesterday states he would some kind of infection, states he was not able to filler picker his antibiotics yet to start them. Related Data Home Medications Medication Instructions Recorded Confirmed mirtazapine 15 mg tablet 15 mg PO DAILY 03/25/18 10/19/23 sumatriptan succinate 50 mg tablet See Rx Instructions PO .COMPLEX 03/25/18 10/19/23 PRN Migraine Headache alprazolam 1 tab PO BID 10/19/23 10/19/23 baclofen 10 mg tablet 10 mg PO 3XD 10/19/23 10/19/23 cetirizine 10 mg tablet 10 mg PO DAILY 10/19/23 10/19/23 duloxetine 30 mg capsule,delayed 30 mg PO BID 10/19/23 10/19/23 release fluticasone propionate 50 2 spray intranasal DAILY 10/19/23 10/19/23 mcg/actuation nasal spray,suspension pantoprazole 40 mg tablet,delayed 40 mg PO DAILY 10/19/23 10/19/23 release quetiapine 50 mg tablet 50 mg PO BEDTIME 10/19/23 10/19/23 trazodone 100 mg tablet 100 mg PO BEDTIME 10/19/23 10/19/23 Previous Rx's Medication Instructions Recorded lorazepam 1 mg tablet (Ativan) 1 mg PO SEEINSTR #11 tabs 02/12/18 doxepin 10 mg capsule 10 mg PO DAILY #30 caps 04/15/18 ondansetron 4 mg disintegrating 4 mg PO Q8H PRN nausea and 09/17/22 tablet vomiting #10 tabs ondansetron HCl 4 mg tablet 4 mg PO Q8H PRN nausea and 10/26/23 vomiting 30 days #30 tabs oxycodone 5 mg tablet 5 mg PO Q6H PRN pain 7 days #20 10/26/23 tabs amoxicillin 875 mg-potassium 1 tab PO BID #20 tabs 10/27/23 clavulanate 125 mg tablet Allergies Allergy/AdvReac Type Severity Reaction Status Date / Time codeine AdvReac Severe Gastrointestinal Verified 10/27/23 15:26 Upset Review of Systems <Chelsea Suarez DO - Last Filed: 10/28/23 07:29> Review of Systems ROS Unobtainable: All systems reviewed & are unremarkable except as noted in HPI and below Patient History <Chelsea Suarez DO - Last Filed: 10/28/23 07:29> Medical History GERD (gastroesophageal reflux disease) Prostate cancer (Unknown) History of sinusitis Rotator cuff tear, left Left wrist pain Left shoulder pain History of ETOH abuse Surgical History Hx of right inguinal hernia repair Social History household members: none Smoking Status: Current some day smoker alcohol intake: current substance use type: does not use Smoking Status: Current some day smoker tobacco type: cigarettes alcohol intake frequency: 0-2 drinks per day Alcohol type: hard liquor Substance Use Type: marijuana Exam <Chelsea Suarez DO - Last Filed: 10/28/23 07:29> Narrative Exam Narrative: GEN: well nourished, well appearing male, alert and oriented x 3, patient appears to be in mild distress. Patient has slow speech but able to answer questions. He does seem somewhat confused. I saw him several days ago in his admission on 10/23/2023 and he is improved from his baseline. HEENT: Atraumatic, pupils are equal round reactive to light, extraocular movements are intact, nares are clear, TMs are clear with no fluid, there is no conjunctival pallor. Throat is clear without any exudates, erythema, tonsillar enlargement or uvular deviation, HEART: Regular rate and rhythm without murmur, clicks, rubs. Pulses are equal in upper and lower extremities LUNGS:Lungs clear to auscultation, no wheezes, rales, crackles, chest moves symmetrically ABD:bowel sounds normal, soft, non-tender, no guarding, rebound, rigidity, no masses noted, no hepatosplenomegaly :No CVA tenderness MSCL: Non-tender, no muscle atrophy, muscles strength 5/5 upper and lower extremities, full range of motion, normal gait NEURO:CN 2-12 intact, sensation normal, reflexes 2/4 upper and lower extremities. SKIN: Patient has multiple abrasions on bilateral knees Initial Vital Signs Initial Vital Signs: Vital Signs Pulse Rate 92 H 10/27/23 15:17 Respiratory Rate 18 10/27/23 15:17 Pulse Oximetry 100 10/27/23 15:17 Oxygen Delivery Method Room Air 10/27/23 15:17 <Chelsea Hutchison MD - Last Filed: 10/28/23 00:06> Initial Vital Signs Initial Vital Signs: Vital Signs Pulse Rate 92 H 10/27/23 15:17 Respiratory Rate 18 10/27/23 15:17 Pulse Oximetry 100 10/27/23 15:17 Oxygen Delivery Method Room Air 10/27/23 15:17 Course <Chelsea Suarez DO - Last Filed: 10/28/23 07:29> Orders Ordered: Discontinued Medications Sodium Chloride (Normal Saline 0.9%) 1,000 mls @ 1,000 mls/hr IV BOLUS ONE Stop: 10/27/23 16:26 Last Infusion: 10/27/23 18:34 Dose: Infused Documented By: Admin: 10/27/23 16:21 Dose: 1,000 mls/hr Documented By: LACY POTASSIUM CHLORIDE IN WATER (Potassium Cl 10 Meq/100 Ml Agatha) 10 meq in 100 mls @ 100 mls/hr IV Q1H CHEIKH Stop: 10/27/23 20:14 Last Infusion: 10/27/23 20:47 Dose: Infused Documented By: Admin: 10/27/23 19:43 Dose: 100 mls/hr Documented By: Infusion: 10/27/23 19:43 Dose: Infused Documented By: Admin: 10/27/23 18:47 Dose: 100 mls/hr Documented By: Infusion: 10/27/23 18:32 Dose: Infused Documented By: Admin: 10/27/23 17:32 Dose: 100 mls/hr Documented By: Infusion: 10/27/23 17:21 Dose: Infused Documented By: Admin: 10/27/23 16:21 Dose: 100 mls/hr Documented By: MPO Lorazepam (Lorazepam 2 Mg/Ml Inj) 1 mg IV NOW ONE Stop: 10/27/23 17:29 Last Admin: 10/27/23 17:36 Dose: 1 mg Documented By: LACY Potassium Chloride (Potassium Chloride 20 Meq Tab) 40 meq PO NOW ONE Stop: 10/27/23 18:45 Last Admin: 10/27/23 18:52 Dose: 40 meq Documented By: MPO Vital Signs Vital signs: Vital Signs - 8 hr 10/27/23 18:09 10/27/23 21:03 Pulse Rate 84 99 H Respiratory Rate 18 18 Blood Pressure 147/71 H 131/72 Pulse Oximetry 98 100 Oxygen Delivery Method Room Air Room Air <Chelsea Hutchison MD - Last Filed: 10/28/23 00:06> Orders Ordered: Discontinued Medications Sodium Chloride (Normal Saline 0.9%) 1,000 mls @ 1,000 mls/hr IV BOLUS ONE Stop: 10/27/23 16:26 Last Infusion: 10/27/23 18:34 Dose: Infused Documented By: Admin: 10/27/23 16:21 Dose: 1,000 mls/hr Documented By: MPO POTASSIUM CHLORIDE IN WATER (Potassium Cl 10 Meq/100 Ml Agatha) 10 meq in 100 mls @ 100 mls/hr IV Q1H CHEIKH Stop: 10/27/23 20:14 Last Infusion: 10/27/23 20:47 Dose: Infused Documented By: Admin: 10/27/23 19:43 Dose: 100 mls/hr Documented By: Infusion: 10/27/23 19:43 Dose: Infused Documented By: Admin: 10/27/23 18:47 Dose: 100 mls/hr Documented By: Infusion: 10/27/23 18:32 Dose: Infused Documented By: Admin: 10/27/23 17:32 Dose: 100 mls/hr Documented By: Infusion: 10/27/23 17:21 Dose: Infused Documented By: Admin: 10/27/23 16:21 Dose: 100 mls/hr Documented By: LACY Lorazepam (Lorazepam 2 Mg/Ml Inj) 1 mg IV NOW ONE Stop: 10/27/23 17:29 Last Admin: 10/27/23 17:36 Dose: 1 mg Documented By: LACY Potassium Chloride (Potassium Chloride 20 Meq Tab) 40 meq PO NOW ONE Stop: 10/27/23 18:45 Last Admin: 10/27/23 18:52 Dose: 40 meq Documented By: LACY Vital Signs Vital signs: Vital Signs - 8 hr 10/27/23 18:09 10/27/23 21:03 Pulse Rate 84 99 H Respiratory Rate 18 18 Blood Pressure 147/71 H 131/72 Pulse Oximetry 98 100 Oxygen Delivery Method Room Air Room Air MDM - Altered Mental Status <Chelsea Suarez DO - Last Filed: 10/28/23 07:29> Lab Data 10/27/23 15:10 10/27/23 15:10 Labs: Lab Results 10/27/23 10/27/23 Range/Units 15:10 16:52 WBC 7.7 (4.5-11.0) X10^3/uL RBC 3.66 L (4.5-5.9) X10^6/uL Hgb 12.3 L (13.5-17.5) g/dL Hct 35.0 L (41-53) % MCV 95.5 D (80-100) fL MCH 33.5 (26-34) PG MCHC 35.1 (30-36) % RDW 14.4 (11.6-14.8) % Plt Count 422 H (150-400) X10^3/uL Neut % (Auto) 66.0 (50-75) % Lymph % (Auto) 14.2 L (25-40) % Early % (Auto) 19.0 H (3-14) % Eos % (Auto) 0.2 L (2-4) % Baso % (Auto) 0.6 (0-2) % Neut # (Auto) 5100 (7566-4680) /uL Lymph # (Auto) 1100 (0549-4641) /uL Early # (Auto) 1500 H (0-900) /uL Eos # (Auto) 0 (0-450) /uL Baso # (Auto) 0 (0-100) /uL PT 11.7 (9.4-12.5) SECONDS INR 1.0 (0.9-1.3) APTT 28 (25.1-36.5) SECONDS Sodium 137 (137-145) mmol/L Potassium 2.6 L* (3.4-5.1) mmol/L Chloride 96 L (98-107) mmol/L Carbon Dioxide 33 H (22-32) mmol/L BUN 4 L (9-20) mg/dL Creatinine 0.54 L (0.66-1.25) mg/dL Estimated GFR > 60 (>60) mL/min BUN/Creatinine Ratio 7.4 (6-22) Glucose 93 (70-100) mg/dL Lactate 4.1 H* 1.2 (0.7-2.1) mmol/L Calcium 10.0 (8.4-10.2) mg/dL Total Bilirubin 1.1 (0.2-1.3) mg/dL AST 109 H (17-59) IU/L ALT 65 H (<50) IU/L Alkaline Phosphatase 61 (38-126) U/L Ammonia < 9 L (9-30) umol/L Total Creatine Kinase 1298 H D (55-170) U/L Troponin I < 0.012 (0.01-0.034) ng/mL Total Protein 6.9 (6.3-8.2) g/dL Albumin 3.9 (3.5-5.0) g/dL Globulin 3.0 (1.7-4.1) g/dL Albumin/Globulin Ratio 1.3 (1.0-2.8) Procalcitonin 0.087 (<0.5) ng/mL TSH 1.12 (0.47-4.68) uIU/mL Prolactin 10.5 (3.7-17.9) ng/mL Salicylates < 1.0 (<20) mg/dL Acetaminophen < 10 (10-30) ug/mL Ethyl Alcohol < 10 ( - 10) mg/dL Point of Care Testing Glucose POC [address] scan - head: Radiologist's Impression: [address] [address] [address] Scan Report Signed Patient: Sean Li MR#: [id number] : 1965 Acct:[id number] Age/Sex: 57 / M Date of Service: 10/27/23 Loc: ED Accession Number: [id number] Procedure: CT head/brain wo con Ordering Provider: Chelsea Suarez D.O. PROCEDURE: CT HEAD/BRAIN WO CON INDICATIONS: confusion, altered, recent hospital stay for rhabdo TECHNIQUE: Noncontrast 4.5 mm thick angled axial sections acquired from the foramen magnum to the vertex, with coronal and sagittal reformats. For radiation dose reduction, the following was used: automated exposure control, adjustment of mA and/or kV according to patient size. COMPARISON: [facility], CT, CT HEAD/BRAIN WO CON, 10/23/2023, 19:50. FINDINGS: Image quality: Diagnostic. CSF spaces: Basal cisterns are patent. No extra-axial fluid collections. The ventricles are symmetric in size and shape. Brain: No intracranial bleeds or masses. There is cerebral volume loss for age, with resultant ventricular and sulcal prominence. There are periventricular and deep white matter chronic small vessel ischemic changes. There is intracranial internal carotid artery atherosclerosis. Skull and face: Calvarium and visualized facial bones appear intact, without suspicious lesions. Sinuses: Visualized sinuses and mastoids are clear. IMPRESSION: No acute intracranial pathology. No significant changes from previous study. Dictated by: Fernando Schmitt M.D. on 10/27/2023 at 16:11 Approved by: Fernando cShmitt M.D. on 10/27/2023 at 16:12 Chest x-ray: Radiologist's Impression: [address] [address] XRay Report Signed Patient: Sean Li MR#: [id number] : 1965 Acct:[id number] Age/Sex: 57 / M Date of Service: 10/27/23 Loc: ED Accession Number: [id number] Procedure: XR chest 1V Ordering Provider: Chelsea Suarez D.O. PROCEDURE: XR CHEST 1V INDICATIONS: confusion, altered, recent hospital stay for rhabdo TECHNIQUE: One view of the chest was acquired. COMPARISON: [facility], CR, XR CHEST 1V, 10/24/2023, 12:53. FINDINGS: Surgical changes and devices: None. Lungs and pleura: Ill-defined airspace opacity in right perihilar and infrahilar region are seen. Left lung is clear. No pleural effusions or pneumothorax. Mediastinum: Mediastinal contours appear normal. Heart size is normal. Bones and chest wall: No suspicious bony lesions. Overlying soft tissues appear unremarkable. IMPRESSION: Finding is concerning for ill-defined small right perihilar and infrahilar infiltrates. No pleural effusion or pneumothorax. Dictated by: Fernando Schmitt M.D. on 10/27/2023 at 16:12 Approved by: Fernando Schmitt M.D. on 10/27/2023 at 16:12 ECG Data Attestation: I personally reviewed and interpreted this ECG as follows: Interpretation: Normal sinus rhythm rate 81 SC 148 QRS of 104 QTC of 476, no acute ST changes appreciated. MDM Narrative Medical decision making narrative: Labs show white count of 7.7 improved from prior, hemoglobin is 12.3 platelets are 422 patient has a 19% monocytes. Has a 11% bands elevated atypical lymphs and monocytes as well. Coags are negative. Patient's potassium is 2.6 glucose is 93 sodium is 137 chloride 96 with a bicarb of 33 and a BUN of 4 with a creatinine of 0.41, lactate 4.1 and improved to 1.2 today with a total bili of 1.1 AST of 109 ALT of 65 alk-phos is 61, patient's total CK is 1298 which is significantly improved from his initial hospitalization 7000 wrapped appears to be improving troponins less than 0.12 with a procalcitonin of 0.087. Ammonia is negative. Blood cultures pending. Tylenol, salicylate and ETOH are all negative. EKG shows normal sinus rhythm Head CT shows no acute change Chest x-ray shows findings concerning for ill-defined small right perihilar and infrahilar infiltrates. No pleural effusion or pneumothorax. Patient mentation actually improved from when I saw him with a his admission in the last week. Had concern for sepsis initially in his prior admission but suspect his white count was reactive that is improved, he was afebrile, vitals are overall very appropriate. Lactate was elevated but improved to 1.2 does have a bandemia but also atypical lymphocytes. Patient's CK is also improved since his hospitalization. Head CT shows no acute change chest x-ray shows possible pneumonia. Patient treated with oral antibiotic. Spoke with Dr. Astorga, he sought evaluated patient states he seems much improved from when he was here last. He did ask for patient to receive a dose of IV Ativan prior to evaluation which he did this does seem to improve patient's mentation he was concerned about possible alcohol withdrawal versus benzo withdrawal. Patient is much more alert, he is appropriate overall. Patient was open to observation versus discharge home. After discussion with Dr. Astorga plan for discharge. Patient is still completing his potassium. Signed out to Dr. Hutchison while completing this and ambulation trial afterwards. Dr. Hutchison -patient finishes potassium, ambulatory through the hallways without assistance. Patient appears to be at his neurologic baseline. Discharged home in stable condition <Chelsea Hutchison MD - Last Filed: 10/28/23 00:06> Lab Data Labs: Lab Results 10/27/23 10/27/23 Range/Units 15:10 16:52 WBC 7.7 (4.5-11.0) X10^3/uL RBC 3.66 L (4.5-5.9) X10^6/uL Hgb 12.3 L (13.5-17.5) g/dL Hct 35.0 L (41-53) % MCV 95.5 D (80-100) fL MCH 33.5 (26-34) PG MCHC 35.1 (30-36) % RDW 14.4 (11.6-14.8) % Plt Count 422 H (150-400) X10^3/uL Neut % (Auto) 66.0 (50-75) % Lymph % (Auto) 14.2 L (25-40) % Early % (Auto) 19.0 H (3-14) % Eos % (Auto) 0.2 L (2-4) % Baso % (Auto) 0.6 (0-2) % Neut # (Auto) 5100 (4355-5569) /uL Lymph # (Auto) 1100 (3750-1953) /uL Early # (Auto) 1500 H (0-900) /uL Eos # (Auto) 0 (0-450) /uL Baso # (Auto) 0 (0-100) /uL PT 11.7 (9.4-12.5) SECONDS INR 1.0 (0.9-1.3) APTT 28 (25.1-36.5) SECONDS Sodium 137 (137-145) mmol/L Potassium 2.6 L* (3.4-5.1) mmol/L Chloride 96 L (98-107) mmol/L Carbon Dioxide 33 H (22-32) mmol/L BUN 4 L (9-20) mg/dL Creatinine 0.54 L (0.66-1.25) mg/dL Estimated GFR > 60 (>60) mL/min BUN/Creatinine Ratio 7.4 (6-22) Glucose 93 (70-100) mg/dL Lactate 4.1 H* 1.2 (0.7-2.1) mmol/L Calcium 10.0 (8.4-10.2) mg/dL Total Bilirubin 1.1 (0.2-1.3) mg/dL AST 109 H (17-59) IU/L ALT 65 H (<50) IU/L Alkaline Phosphatase 61 (38-126) U/L Ammonia < 9 L (9-30) umol/L Total Creatine Kinase 1298 H D (55-170) U/L Troponin I < 0.012 (0.01-0.034) ng/mL Total Protein 6.9 (6.3-8.2) g/dL Albumin 3.9 (3.5-5.0) g/dL Globulin 3.0 (1.7-4.1) g/dL Albumin/Globulin Ratio 1.3 (1.0-2.8) Procalcitonin 0.087 (<0.5) ng/mL TSH 1.12 (0.47-4.68) uIU/mL Prolactin 10.5 (3.7-17.9) ng/mL Salicylates < 1.0 (<20) mg/dL Acetaminophen < 10 (10-30) ug/mL Ethyl Alcohol < 10 ( - 10) mg/dL Point of Care Testing Glucose POC 94 MDM Narrative Medical decision making narrative: Labs show white count of 7.7 improved from prior, hemoglobin is 12.3 platelets are 422 patient has a 19% monocytes. Has a 11% bands elevated atypical lymphs and monocytes as well. Coags are negative. Patient's potassium is 2.6 glucose is 93 sodium is 137 chloride 96 with a bicarb of 33 and a BUN of 4 with a creatinine of 0.41, lactate 4.1 and improved to 1.2 today with a total bili of 1.1 AST of 109 ALT of 65 alk-phos is 61, patient's total CK is 1298 which is significantly improved from his initial hospitalization 7000 wrapped appears to be improving troponins less than 0.12 with a procalcitonin of 0.087. Ammonia is negative. Blood cultures pending. Tylenol, salicylate and ETOH are all negative. EKG shows normal sinus rhythm Head CT shows no acute change Chest x-ray shows findings concerning for ill-defined small right perihilar and infrahilar infiltrates. No pleural effusion or pneumothorax. Rapid drug screen Spoke with Dr. Astorga, he sought evaluated patient states he seems much improved from when he was here last. He did ask for patient to receive a dose of IV Ativan prior to evaluation which he did this does seem to improve patient's mentation he was concerned about possible alcohol withdrawal versus benzo withdrawal. Patient is much more alert, he is appropriate overall. Patient was open to observation versus discharge home. After discussion with Dr. Lockwood plan for discharge. Patient is still completing his potassium. Signed out to Dr. Hutchison while completing this and ambulation trial afterwards. Dr. Hutchison -patient finishes potassium, ambulatory through the hallways without assistance. Patient appears to be at his neurologic baseline. Discharged home in stable condition Discharge Plan Departure Patient Disposition: Home Clinical Impression: Hypokalemia, Confusion Activity Restrictions/Additional Instructions: Please follow-up in the next 24 hours for rechecked. Your workup today does show low potassium, your lactate was elevated but is improving. A prescription for antibiotics was sent to [facility] in [place]. You are also seen and evaluated by the hospitalist today. It was recommend they continue to avoid alcohol, you can continue your home medications as prescribed. Please return for new or worsening symptoms, recurrent alterations in mental status, chest pain or shortness of breath, vomiting, black or bloody stools, lightheadedness or passing out or other new or concerning changes. Prescriptions: New amoxicillin-pot clavulanate 875-125 mg tablet 1 tab PO BID Qty: 20 0RF No Action sumatriptan succinate 50 mg tablet See Rx Instructions PO .COMPLEX PRN (Reason: Migraine Headache) Patient Comments: Take 1 as needed 1 time as needed, may repeat in 1 hour for additional dose in 24 hours PO PRN; Rx Instructions: Take 1 as needed 1 time as needed, may repeat in 1 hour for additional dose in 24 hours PO PRN; mirtazapine 15 mg tablet 15 mg PO DAILY doxepin 10 mg capsule 10 mg PO DAILY Qty: 30 3RF ondansetron 4 mg tablet,disintegrating 4 mg PO Q8H PRN (Reason: nausea and vomiting) Qty: 10 0RF lorazepam [Ativan] 1 mg tablet 1 mg PO SEEINSTR Qty: 11 0RF Rx Instructions: Take 1 tablet every 6 hours x 24 hours, then 1 tablet every 8 hours x 24 hours, then 1 tablet every 12 hours x 24 hours, then 1 tablet Q HS x 2 days. cetirizine 10 mg tablet 10 mg PO DAILY trazodone 100 mg tablet 100 mg PO BEDTIME baclofen 10 mg tablet 10 mg PO 3XD pantoprazole 40 mg tablet,delayed release (DR/EC) 40 mg PO DAILY fluticasone propionate 50 mcg/actuation spray,suspension 2 spray intranasal DAILY duloxetine 30 mg capsule,delayed release(DR/EC) 30 mg PO BID quetiapine 50 mg tablet 50 mg PO BEDTIME alprazolam 0.5 mg tablet 1 tab PO BID oxycodone 5 mg tablet 5 mg PO Q6H PRN (Reason: pain) 7 Days Qty: 20 0RF ondansetron HCl 4 mg tablet 4 mg PO Q8H PRN (Reason: nausea and vomiting) 30 Days Qty: 30 0RF Referrals: Miscellaneous,Doctor, MD [Primary Care Provider] - Stand Alone Forms: Patient Portal/API
--- NOTE | 2023-10-27 15:32 | EKG_ITS ---
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
[2023-10-27 15:45] LABS: Add Manual Diff / Slide Review NO; Basophils Absolute Auto 0 /uL (0-100); Basophils Percent Auto 0.6 % (0-2); Eosinophils Absolute Auto 0 /uL (0-450); Eosinophils Percent Auto 0.2 % (2-4); Hemoglobin 12.3 g/dL (13.5-17.5); Lymphocytes Absolute Auto 1100 /uL (1100-4500); Lymphocytes Percent Auto 14.2 % (25-40); Mean Corpuscular HGB Conc 35.1 % (30-36); Mean Corpuscular Hemoglobin 33.5 PG (26-34); Mean Corpuscular Volume 95.5 fL (80-100); Monocytes Absolute Auto 1500 /uL (0-900); Neutrophils Absolute Auto 5100 /uL (1500-7000); Platelet Count 422 X10^3/uL (150-400); Red Blood Cell Count 3.66 X10^6/uL (4.5-5.9); Red Cell Distribution Width 14.4 % (11.6-14.8); White Blood Cell Count 7.7 X10^3/uL (4.5-11.0)
[2023-10-27 15:47] LABS: Prothrombin Time 11.7 SECONDS (9.4-12.5)
[2023-10-27 15:49] LABS: PTT Partial Thromboplastin Tim 28 SECONDS (25.1-36.5)
[2023-10-27 15:52] LABS: Acetaminophen < 10 ug/mL (10-30); Alanine Aminotransferase 65 IU/L (<50); Albumin 3.9 g/dL (3.5-5.0); Albumin Globulin Ratio 1.3 (1.0-2.8); Alkaline Phosphatase 61 U/L (38-126); Aspartate Aminotransferase 109 IU/L (17-59); BUN Creatinine Ratio 7.4 (6-22); Bilirubin Total 1.1 mg/dL (0.2-1.3); Blood Urea Nitrogen 4 mg/dL (9-20); Carbon Dioxide 33 mmol/L (22-32); Chloride 96 mmol/L (98-107); Creatine Kinase 1298 U/L (55-170); Estimated Glomerular Filt Rate > 60 mL/min (>60); Ethanol (ETOH) < 10 mg/dL; Glucose 93 mg/dL (70-100); HEMOLYSIS < 15 (0-50); Salicylate < 1.0 mg/dL (<20); Sodium 137 mmol/L (137-145); Total Protein 6.9 g/dL (6.3-8.2)
[2023-10-27 15:56] LABS: Lactate (Lactic Acid) 4.1 mmol/L (0.7-2.1); Potassium 2.6 mmol/L (3.4-5.1)
[2023-10-27 16:00] VITALS: PULSE 84; O2SAT 100
[2023-10-27 16:04] LABS: Troponin I < 0.012 ng/mL (0.01-0.034)
[2023-10-27 16:09] LABS: Procalcitonin 0.087 ng/mL (<0.5); Prolactin 10.5 ng/mL (3.7-17.9)
[2023-10-27] MEDS: SODIUM CHLORIDE 0.9% 1,000 ML 1000 ML IV (16:21)
[2023-10-27] MEDS: POTASSIUM CHLORIDE IN WATER 10 MEQ/100 ML PIGGYBACK 100 MEQ IV ×4 (16:21→19:43)
[2023-10-27 16:22] LABS: Thyroid Stimulating Hormone 1.12 uIU/mL (0.47-4.68)
[2023-10-27 17:11] LABS: Ammonia (NH3) < 9 umol/L (9-30)
[2023-10-27 17:15] LABS: Reflexed Lactate in 2 Hours Y
[2023-10-27 17:23] LABS: Lactate 2HR (Lactic Acid Rflx) 1.2 mmol/L (0.7-2.1)
[2023-10-27] MEDS: LORazepam 2 MG/ML INJ 1 MG IV (17:36)
[2023-10-27 18:09] VITALS: BP 147/71; PULSE 84; RESP 18; O2SAT 98
[2023-10-27] MEDS: POTASSIUM CHLORIDE 20 MEQ TAB 40 MEQ PO (18:52)
--- NOTE | 2023-10-27 19:03 | P.CONS_ITS ---
History of Present Illness Consult details Date Patient Seen: 10/27/23 Time Patient Seen: 18:20 Chief complaint: seizure/hallucinating Reason for consult: seizure Requesting provider: Chlesea Suarez Narrative: 57 y/o with PMH of colon cancer and partial resection 2-3 years ago, anxiety and depression and alcoholism, chronic abdominal pain and headache (he reports from a TBI in [place] in the past). He was recently discharged after gastritis where he was tolerating a diet. Shortly after discharge yesterday, one of our staff members spotted the patient at a bar locally. The patient states he is here for headache and stomach ache and that he may have had a seizure. He currently feels well. He states his last drink was multiple months ago to me (of note EtOH level was 300 on 10/18 admission). He is ambulating, does not feel shaky or withdrawaling. He denied any hallucinations to me. He did get a dose of ativan shortly before I saw him in the ER. I discharged the patient yesterday and he currently appears actually improved compared to discharge yesterday in retrospect. Labs were notable for low potassium without corresponding EKG abnormalities. CK improved from previous admission. Mild elevations in AST/ALT and a normal prolactin. Lactate was elevated but improved to normal on repeat after fluids. Given patients overall improvement, resolution of lactate, I recommend patient discharge home at this time with previous home health plan. Meds Home Medications and Allergies Home Medications Medication Instructions Recorded Confirmed Type lorazepam 1 mg tablet (Ativan) 1 mg PO SEEINSTR #11 tabs 02/12/18 10/19/23 Rx mirtazapine 15 mg tablet 15 mg PO DAILY 03/25/18 10/19/23 History sumatriptan succinate 50 mg tablet See Rx Instructions PO .COMPLEX 03/25/18 10/19/23 History PRN Migraine Headache doxepin 10 mg capsule 10 mg PO DAILY #30 caps 04/15/18 10/19/23 Rx ondansetron 4 mg disintegrating 4 mg PO Q8H PRN nausea and 09/17/22 10/19/23 Rx tablet vomiting #10 tabs alprazolam 1 tab PO BID 10/19/23 10/19/23 History baclofen 10 mg tablet 10 mg PO 3XD 10/19/23 10/19/23 History cetirizine 10 mg tablet 10 mg PO DAILY 10/19/23 10/19/23 History duloxetine 30 mg capsule,delayed 30 mg PO BID 10/19/23 10/19/23 History release fluticasone propionate 50 2 spray intranasal DAILY 10/19/23 10/19/23 History mcg/actuation nasal spray,suspension pantoprazole 40 mg tablet,delayed 40 mg PO DAILY 10/19/23 10/19/23 History release quetiapine 50 mg tablet 50 mg PO BEDTIME 10/19/23 10/19/23 History trazodone 100 mg tablet 100 mg PO BEDTIME 10/19/23 10/19/23 History ondansetron HCl 4 mg tablet 4 mg PO Q8H PRN nausea and 10/26/23 Rx vomiting 30 days #30 tabs oxycodone 5 mg tablet 5 mg PO Q6H PRN pain 7 days #20 10/26/23 Rx tabs amoxicillin 875 mg-potassium 1 tab PO BID #20 tabs 10/27/23 Rx clavulanate 125 mg tablet Allergies Allergy/AdvReac Type Severity Reaction Status Date / Time codeine AdvReac Severe Gastrointestinal Verified 10/27/23 15:26 Upset Review of Systems Review of Systems Narrative: All other systems reviewed with the patient and are negative unless otherwise stated. Exam Vital Signs (past 8 hours): - 10/27/23 15:17 10/27/23 15:29 10/27/23 15:29 Pulse Rate 92 H 87 Respiratory Rate 18 Blood Pressure 112/61 Pulse Oximetry 100 100 Oxygen Delivery Method Room Air 10/27/23 15:30 10/27/23 15:30 10/27/23 16:00 Pulse Rate 87 84 Respiratory Rate Blood Pressure 114/63 Pulse Oximetry 100 100 Oxygen Delivery Method 10/27/23 18:09 Pulse Rate 84 Respiratory Rate 18 Blood Pressure 147/71 H Pulse Oximetry 98 Oxygen Delivery Method Room Air Oxygen Delivery Method Room Air Narrative Exam Narrative: NAD, alert and oriented. Fluent speech. He was cooperative and appreciative. Lungs are clear, normal rate and effort. Heart is regular, no murmur gallop or rub. Abdomen is soft, non distended. Extremities are free of edema. Objective ECG Impression: Normal sinus rhythm, no acute ischemia Labs 10/27/23 15:10 10/27/23 15:10 Labs: Laboratory Results - last 24 hr 10/27/23 10/27/23 15:10 16:52 WBC 7.7 RBC 3.66 L Hgb 12.3 L Hct 35.0 L MCV 95.5 D MCH 33.5 MCHC 35.1 RDW 14.4 Plt Count 422 H Neut % (Auto) 66.0 Lymph % (Auto) 14.2 L [place] % (Auto) 19.0 H Eos % (Auto) 0.2 L Baso % (Auto) 0.6 Neut # (Auto) 5100 Lymph # (Auto) 1100 [place] # (Auto) 1500 H Eos # (Auto) 0 Baso # (Auto) 0 PT 11.7 INR 1.0 APTT 28 Sodium 137 Potassium 2.6 L* Chloride 96 L Carbon Dioxide 33 H BUN 4 L Creatinine 0.54 L Estimated GFR > 60 BUN/Creatinine Ratio 7.4 Glucose 93 Lactate 4.1 H* 1.2 Calcium 10.0 Total Bilirubin 1.1 AST 109 H ALT 65 H Alkaline Phosphatase 61 Ammonia < 9 L Total Creatine Kinase 1298 H D Troponin I < 0.012 Total Protein 6.9 Albumin 3.9 Globulin 3.0 Albumin/Globulin Ratio 1.3 Procalcitonin 0.087 TSH 1.12 Prolactin 10.5 Salicylates < 1.0 Acetaminophen < 10 Ethyl Alcohol < 10 PFSH Medical History GERD (gastroesophageal reflux disease) Prostate cancer (Unknown) History of sinusitis Rotator cuff tear, left Left wrist pain Left shoulder pain History of ETOH abuse Surgical History Hx of right inguinal hernia repair Social History household members: none Tobacco & Substance Use Smoking Status: Current some day smoker alcohol intake: current substance use type: does not use Assessment & Plan Assessment & Plan narrative: Is a 57-year-old male with past medical history of alcohol use with multiple recent admissions to the hospital, 1 of which he left Against Medical Advice, and the 2nd of which he was discharged by me yesterday. He appears improved actually compared to yesterday's examination. While lactate is elevated, CK is improving and it is not entirely clear if there was a seizure and this resolved on repeat. He is not tremulous and does not appear to be in withdrawal though this was after ativan which it is not clear if he takes at home chronically. He is currently tolerating a diet, and though reports chronic headache it is now unchanged. I recommend the patient be discharged from the ER at this time. 1. Possible seizure 2. Alcohol intoxication or withdrawal. 3. Gastritis Code: Full I have utilized all available immediate resources to obtain, update, or review the patient's current medications. Dispo: Discharge home. Additional history was obtained via discussions with staff as noted above in HPI, along with discussion with ER provider. These discussions contributed to the creation of the above assessment and plan. I have reviewed patient's presenting documentation, labs, and imaging personally. Time-Based Coding :: [TOTAL MINUTES] spent with patient and on the chart (including review of chart, obtaining history, exam, reviewing outside data, placing orders, documenting exam and treatment plan, and counseling patient) on [DATE].
--- NOTE | 2023-10-27 20:57 | PC.NURSE ---
ambulatory to bathroom with walker
[2023-10-27 21:03] VITALS: BP 131/72; PULSE 99; RESP 18; O2SAT 100
[2023-10-28 10:25] LABS: Osmolality, Serum 279 mOsmol/kg (275-295)
== END 2023-10-27 21:05 | disposition home or self-care (01) ==
PROVIDERS: Emergency Provider Emergency Medicine
DX: E87.6 Hypokalemia (principal); R41.0 Disorientation, unspecified; K21.9 Gastro-esophageal reflux disease without esophagitis; Z85.038 Personal history of other malignant neoplasm of large intestine; F41.9 Anxiety disorder, unspecified
CPT/HCPCS: 36415; 70450; 71045; 80053; 80320; 80329; 82140; 82550; 82962; 83605; 83930; 84145; 84146; 84443; 84484; 85025; 85610; 85730; 87040; 93005; 96365; 96366; 96375; 99284; G0480; J2060

== ENCOUNTER 2024-01-13 21:34 | Inpatient (IN) | payer MEDICARE, MEDICAID, SELFPAY ==
[2023-10-23 23:49] VITALS: BMI 23.6
[2024-01-13] VITALS (7 sets, daily range): BP systolic 132–137; BP diastolic 73–101; PULSE 94–107; RESP 20; TEMP 36.7; O2SAT 94–97; BMI 24.4
--- NOTE | 2024-01-13 21:50 | ED.ABDPAIN ---
HPI - Abdominal Pain <Chelsea Hutchison MD - Last Filed: 01/14/24 07:09> General Chief Complaint: Abdominal Pain Stated Complaint: abd pain Time Seen by Provider: 01/13/24 21:35 History of Present Illness HPI narrative: 58-year-old male with history of alcohol use disorder, GERD, anxiety, depression presents by EMS from home for suicidal ideation and severe generalized abdominal pain with nausea and vomiting. Patient was reportedly supposed to have surgery last Thursday for a hernia, but missed his OR date. Patient called his doctor's office multiple times stating that he was ?tired of the pain? and wanted to jump off the [employer] [place]. The doctor's office called 911 to assess the patient. Patient arrives extremely intoxicated with tangential speech. He apparently told nursing staff during triage that he wanted to kill himself by jumping off the channel. On my evaluation patient points to his head and then points to his stomach, hiccups continuously, and minimally verbalizes any complaints. Related Data Home Medications Medication Instructions Recorded Confirmed mirtazapine 15 mg tablet 15 mg PO DAILY 03/25/18 10/19/23 sumatriptan succinate 50 mg tablet See Rx Instructions PO .COMPLEX 03/25/18 10/19/23 PRN Migraine Headache alprazolam 1 tab PO BID 10/19/23 10/19/23 baclofen 10 mg tablet 10 mg PO 3XD 10/19/23 10/19/23 cetirizine 10 mg tablet 10 mg PO DAILY 10/19/23 10/19/23 duloxetine 30 mg capsule,delayed 30 mg PO BID 10/19/23 10/19/23 release fluticasone propionate 50 2 spray intranasal DAILY 10/19/23 10/19/23 mcg/actuation nasal spray,suspension pantoprazole 40 mg tablet,delayed 40 mg PO DAILY 10/19/23 10/19/23 release quetiapine 50 mg tablet 50 mg PO BEDTIME 10/19/23 10/19/23 trazodone 100 mg tablet 100 mg PO BEDTIME 10/19/23 10/19/23 Previous Rx's Medication Instructions Recorded lorazepam 1 mg tablet (Ativan) 1 mg PO SEEINSTR #11 tabs 02/12/18 doxepin 10 mg capsule 10 mg PO DAILY #30 caps 04/15/18 ondansetron 4 mg disintegrating 4 mg PO Q8H PRN nausea and 09/17/22 tablet vomiting #10 tabs amoxicillin 875 mg-potassium 1 tab PO BID #20 tabs 10/27/23 clavulanate 125 mg tablet Allergies Allergy/AdvReac Type Severity Reaction Status Date / Time codeine AdvReac Severe Gastrointestinal Verified 10/27/23 15:26 Upset Patient History <Chelsea Hutchison MD - Last Filed: 01/14/24 07:09> Medical History GERD (gastroesophageal reflux disease) Prostate cancer (Unknown) History of sinusitis Rotator cuff tear, left Left wrist pain Left shoulder pain History of ETOH abuse Surgical History Hx of right inguinal hernia repair Social History household members: none Smoking Status: Current some day smoker alcohol intake: current substance use type: does not use Smoking Status: Current some day smoker tobacco type: cigarettes alcohol intake frequency: 0-2 drinks per day Alcohol type: hard liquor Exam <Chelsea Hutchison MD - Last Filed: 01/14/24 07:09> Initial Vital Signs Initial Vital Signs: Vital Signs Temperature 98.0 F 01/13/24 21:40 Pulse Rate 101 H 01/13/24 21:40 Respiratory Rate 20 01/13/24 21:40 Blood Pressure 134/79 01/13/24 21:40 Pulse Oximetry 96 01/13/24 21:40 Oxygen Delivery Method Room Air 01/13/24 21:40 Const: Awake, appears intoxicated, chronically unwell Cardiac: regular rate, regular rhythm RESP: unlabored, clear bilaterally, no wheezing GI: Soft, no distention, no obvious hernia, patient screams when any part of his abdomen is touched Skin: Warm, Dry, intact, no rashes Neuro: AO x2, CN II-XII grossly intact, moves all extremities <Bere Davis MD - Last Filed: 01/14/24 13:30> Initial Vital Signs Initial Vital Signs: Vital Signs Temperature 98.0 F 01/13/24 21:40 Pulse Rate 101 H 01/13/24 21:40 Respiratory Rate 20 01/13/24 21:40 Blood Pressure 134/79 01/13/24 21:40 Pulse Oximetry 96 01/13/24 21:40 Oxygen Delivery Method Room Air 01/13/24 21:40 Course <Chelsea Hutchison MD - Last Filed: 01/14/24 07:09> Orders Ordered: ED Orders 01/14/24 07:30 Consult to [employer] - [employer]el[employer]ician Stat 01/14/24 11:00 ETOH [Ethanol (ETOH)] Stat Discontinued Medications Diazepam (Diazepam 5 Mg Tablet) 10 mg PO NOW ONE Stop: 01/14/24 07:56 Last Admin: 01/14/24 08:11 Dose: 10 mg Documented By: SPF Folic Acid (Folic Acid 1 Mg Tablet) 1 mg PO NOW ONE Stop: 01/13/24 21:50 Last Admin: 01/13/24 22:26 Dose: 1 mg Documented By: SB Hydromorphone HCl (Hydromorphone 1 Mg Inj) 1 mg IV NOW ONE Stop: 01/13/24 22:20 Last Admin: 01/13/24 22:23 Dose: 1 mg Documented By: SB Thiamine HCl 200 mg/ Sodium (Chloride) 102 mls @ 408 mls/hr IV NOW ONE Stop: 01/13/24 21:50 Last Infusion: 01/13/24 23:02 Dose: Infused Documented By: Admin: 01/13/24 22:16 Dose: 408 mls/hr Documented By: SB Sodium Chloride (Normal Saline 0.9%) 1,000 mls @ 1,000 mls/hr IV BOLUS ONE Stop: 01/13/24 22:48 Last Infusion: 01/14/24 00:09 Dose: Infused Documented By: Admin: 01/13/24 22:16 Dose: 1,000 mls/hr Documented By: SB Sodium Chloride (Normal Saline 0.9%) 1,000 mls @ 1,000 mls/hr IV BOLUS ONE Stop: 01/14/24 11:49 Last Infusion: 01/14/24 12:19 Dose: Infused Documented By: Admin: 01/14/24 11:22 Dose: 1,000 mls/hr Documented By: RLS Thiamine HCl 100 mg/ Sodium (Chloride) 101 mls @ 404 mls/hr IV NOW ONE Stop: 01/14/24 10:51 Last Infusion: 01/14/24 11:52 Dose: Infused Documented By: Admin: 01/14/24 11:26 Dose: 404 mls/hr Documented By: ISABEL Ondansetron HCl (Ondansetron 4 Mg/2 Ml Inj) 4 mg IV NOW ONE Stop: 01/13/24 21:50 Last Admin: 01/13/24 22:16 Dose: 4 mg Documented By: SB Phenobarbital (Phenobarbital 65 Mg/Ml Vial) 260 mg IV NOW ONE Stop: 01/14/24 10:51 Last Admin: 01/14/24 11:21 Dose: 260 mg Documented By: ISABEL Vital Signs Vital signs: Vital Signs - 8 hr 01/14/24 06:10 01/14/24 07:25 01/14/24 10:56 Temperature 98.3 F Pulse Rate 103 H Respiratory Rate 18 16 Blood Pressure 136/60 113/80 Pulse Oximetry 96 Oxygen Delivery Method Room Air 01/14/24 10:56 Temperature Pulse Rate 99 H Respiratory Rate Blood Pressure Pulse Oximetry 99 Oxygen Delivery Method <Bere Davis MD - Last Filed: 01/14/24 13:30> Orders Ordered: ED Orders 01/14/24 07:30 Consult to [facility] [place] - Jewelry Technician Stat 01/14/24 11:00 ETOH [Ethanol (ETOH)] Stat Discontinued Medications Diazepam (Diazepam 5 Mg Tablet) 10 mg PO NOW ONE Stop: 01/14/24 07:56 Last Admin: 01/14/24 08:11 Dose: 10 mg Documented By: ANDREIA Folic Acid (Folic Acid 1 Mg Tablet) 1 mg PO NOW ONE Stop: 01/13/24 21:50 Last Admin: 01/13/24 22:26 Dose: 1 mg Documented By: SB Hydromorphone HCl (Hydromorphone 1 Mg Inj) 1 mg IV NOW ONE Stop: 01/13/24 22:20 Last Admin: 01/13/24 22:23 Dose: 1 mg Documented By: SB Thiamine HCl 200 mg/ Sodium (Chloride) 102 mls @ 408 mls/hr IV NOW ONE Stop: 01/13/24 21:50 Last Infusion: 01/13/24 23:02 Dose: Infused Documented By: Admin: 01/13/24 22:16 Dose: 408 mls/hr Documented By: LES Sodium Chloride (Normal Saline 0.9%) 1,000 mls @ 1,000 mls/hr IV BOLUS ONE Stop: 01/13/24 22:48 Last Infusion: 01/14/24 00:09 Dose: Infused Documented By: Admin: 01/13/24 22:16 Dose: 1,000 mls/hr Documented By: LES Sodium Chloride (Normal Saline 0.9%) 1,000 mls @ 1,000 mls/hr IV BOLUS ONE Stop: 01/14/24 11:49 Last Infusion: 01/14/24 12:19 Dose: Infused Documented By: Admin: 01/14/24 11:22 Dose: 1,000 mls/hr Documented By: ISABEL Thiamine HCl 100 mg/ Sodium (Chloride) 101 mls @ 404 mls/hr IV NOW ONE Stop: 01/14/24 10:51 Last Infusion: 01/14/24 11:52 Dose: Infused Documented By: Admin: 01/14/24 11:26 Dose: 404 mls/hr Documented By: ISABEL Ondansetron HCl (Ondansetron 4 Mg/2 Ml Inj) 4 mg IV NOW ONE Stop: 01/13/24 21:50 Last Admin: 01/13/24 22:16 Dose: 4 mg Documented By: LES Phenobarbital (Phenobarbital 65 Mg/Ml Vial) 260 mg IV NOW ONE Stop: 01/14/24 10:51 Last Admin: 01/14/24 11:21 Dose: 260 mg Documented By: ISABEL Vital Signs Vital signs: Vital Signs - 8 hr 01/14/24 06:10 01/14/24 07:25 01/14/24 10:56 Temperature 98.3 F Pulse Rate 103 H Respiratory Rate 18 16 Blood Pressure 136/60 113/80 Pulse Oximetry 96 Oxygen Delivery Method Room Air 01/14/24 10:56 Temperature Pulse Rate 99 H Respiratory Rate Blood Pressure Pulse Oximetry 99 Oxygen Delivery Method MDM - Abdominal Pain <Chelsea Hutchison MD - Last Filed: 01/14/24 07:09> Lab Data 01/13/24 21:54 01/13/24 21:54 Labs: Lab Results 01/13/24 01/13/24 01/13/24 Range/Units 21:54 22:11 23:48 WBC 10.3 (4.5-11.0) X10^3/uL RBC 4.84 (4.5-5.9) X10^6/uL Hgb 14.4 (13.5-17.5) g/dL Hct 43.0 (41-53) % MCV 88.9 (80-100) fL MCH 29.8 (26-34) PG MCHC 33.5 (30-36) % RDW 14.7 (11.6-14.8) % Plt Count 360 (150-400) X10^3/uL Neut % (Auto) 40.0 L (50-75) % Lymph % (Auto) 51.7 H (25-40) % [place] % (Auto) 6.2 (3-14) % Eos % (Auto) 0.7 L (2-4) % Baso % (Auto) 1.4 (0-2) % Neut # (Auto) 4100 (9082-9201) /uL Lymph # (Auto) 5300 H (2923-7947) /uL [place] # (Auto) 600 (0-900) /uL Eos # (Auto) 100 (0-450) /uL Baso # (Auto) 100 (0-100) /uL PT 10.3 (9.4-12.5) SECONDS INR 0.9 (0.9-1.3) Sodium 142 (137-145) mmol/L Potassium 3.9 (3.4-5.1) mmol/L Chloride 105 (98-107) mmol/L Carbon Dioxide 22 (22-32) mmol/L BUN 11 (9-20) mg/dL Creatinine 0.65 L (0.66-1.25) mg/dL Estimated GFR > 60 (>60) mL/min BUN/Creatinine Ratio 16.9 (6-22) Glucose 82 (80-110) mg/dL Lactate 2.5 H (0.7-2.1) mmol/L Calcium 9.0 (8.4-10.2) mg/dL Total Bilirubin 0.6 (0.2-1.3) mg/dL AST 42 (17-59) IU/L ALT 20 (<50) IU/L Alkaline Phosphatase 90 (38-126) U/L Ammonia 11 (9-30) umol/L Total Protein 7.6 (6.3-8.2) g/dL Albumin 4.8 (3.5-5.0) g/dL Globulin 2.8 (1.7-4.1) g/dL Albumin/Globulin Ratio 1.7 (1.0-2.8) Lipase 84 (23-300) U/L Urine Color Yellow Urine Appearance Clear Urine pH 5.5 (4.5-8.0) Ur Specific Meally <=1.005 (1.000-1.035) Urine Protein Negative (Negative) Urine Glucose (UA) Negative (Negative) g/dL Urine Ketones Negative (NEGATIVE) Urine Occult Blood Negative (Negative) Urine Nitrate Negative (Negative) Urine Bilirubin Negative (NEGATIVE) Urine Urobilinogen 0.2 (0.2) E.U./dL Ur Leukocyte Esterase Negative (NEGATIVE) Urine RBC None seen (0-5/HPF) Urine WBC None seen (0-5/HPF) Ur Squamous Epith Cells 0-1 /hpf (0-5/HPF) Urine Bacteria None seen (None) Ur Culture Indicated? Cult not indicated Vol Urine Centrifuged 10ml (spun) Salicylates < 1.0 (<20) mg/dL U Opiates 300ng/mL cut Negative (Negative) Ur Oxycodone Screen Negative (Negative) Urine Methadone Screen Negative (Negative) Acetaminophen < 10 (10-30) ug/mL Ur Barbiturates Screen Negative (Negative) U Tricyclic Antidepress Negative (Negative) Ur Phencyclidine Scrn Negative (Negative) Ur Amphetamines Screen Negative (Negative) U Methamphetamines Scrn Negative (Negative) Ur MDMA Scrn (Ecstasy) Negative (Negative) U Benzodiazepines Scrn Positive H (Negative) Urine Cocaine Screen Negative (Negative) U Marijuana (THC) Screen Positive H (Negative) Urine Specific [place] Ethyl Alcohol 351 H ( - 10) mg/dL Ur Creatinine 01/13/24 01/14/24 01/14/24 Range/Units 23:48 00:19 11:00 WBC (4.5-11.0) X10^3/uL RBC (4.5-5.9) X10^6/uL Hgb (13.5-17.5) g/dL Hct (41-53) % MCV (80-100) fL MCH (26-34) PG MCHC (30-36) % RDW (11.6-14.8) % Plt Count (150-400) X10^3/uL Neut % (Auto) (50-75) % Lymph % (Auto) (25-40) % [place] % (Auto) (3-14) % Eos % (Auto) (2-4) % Baso % (Auto) (0-2) % Neut # (Auto) (8364-2051) /uL Lymph # (Auto) (3372-0462) /uL [place] # (Auto) (0-900) /uL Eos # (Auto) (0-450) /uL Baso # (Auto) (0-100) /uL PT (9.4-12.5) SECONDS INR (0.9-1.3) Sodium (137-145) mmol/L Potassium (3.4-5.1) mmol/L Chloride (98-107) mmol/L Carbon Dioxide (22-32) mmol/L BUN (9-20) mg/dL Creatinine (0.66-1.25) mg/dL Estimated GFR (>60) mL/min BUN/Creatinine Ratio (6-22) Glucose (80-110) mg/dL Lactate 2.5 H (0.7-2.1) mmol/L Calcium (8.4-10.2) mg/dL Total Bilirubin (0.2-1.3) mg/dL AST (17-59) IU/L ALT (<50) IU/L Alkaline Phosphatase (38-126) U/L Ammonia (9-30) umol/L Total Protein (6.3-8.2) g/dL Albumin (3.5-5.0) g/dL Globulin (1.7-4.1) g/dL Albumin/Globulin Ratio (1.0-2.8) Lipase (23-300) U/L Urine Color Urine Appearance Urine pH TNP (4.5-8.0) Ur Specific Me[place] (1.000-1.035) Urine Protein (Negative) Urine Glucose (UA) (Negative) g/dL Urine Ketones (NEGATIVE) Urine Occult Blood (Negative) Urine Nitrate (Negative) Urine Bilirubin (NEGATIVE) Urine Urobilinogen (0.2) E.U./dL Ur Leukocyte Esterase (NEGATIVE) Urine RBC (0-5/HPF) Urine WBC (0-5/HPF) Ur Squamous Epith Cells (0-5/HPF) Urine Bacteria (None) Ur Culture Indicated? Vol Urine Centrifuged Salicylates (<20) mg/dL U Opiates 300ng/mL cut (Negative) Ur Oxycodone Screen (Negative) Urine Methadone Screen (Negative) Acetaminophen (10-30) ug/mL Ur Barbiturates Screen (Negative) U Tricyclic Antidepress (Negative) Ur Phencyclidine Scrn (Negative) Ur Amphetamines Screen (Negative) U Methamphetamines Scrn (Negative) Ur MDMA Scrn (Ecstasy) (Negative) U Benzodiazepines Scrn (Negative) Urine Cocaine Screen (Negative) U Marijuana (THC) Screen (Negative) Urine Specific Meally TNP Ethyl Alcohol 60 H ( - 10) mg/dL Ur Creatinine TNP Imaging Data CT scan - abdomen/pelvis: Radiologist's Impression: PROCEDURE: CT ABDOMEN PELVIS W CON INDICATIONS: 'TWISTED BOWEL', EXTREME PAIN. REPORTED HERNIA TECHNIQUE: After the administration of intravenous contrast, axial sections acquired from the lung bases to the pubic symphysis. Coronal and sagittal reformats were performed. For radiation dose reduction, the following was used: automated exposure control, adjustment of mA and/or kV according to patient size. COMPARISON: [facility], CT, CT CHEST ABD PEL W CON, 10/23/2023, 19:50. [facility], CT, CT ABDOMEN PELVIS W CON, 09/16/2022, 22:12. FINDINGS: Image quality: Diagnostic. Lower Chest: Lung bases are clear. Heart size is normal. Small-moderate sized hiatal hernia filled with fluid in the distal esophagus. Stable appearance of chronic posterior left rib fracture deformities. ABDOMEN: Liver: No solid mass. Moderate hepatic steatosis. Gallbladder: No radiopaque gallstones or wall thickening. Biliary ducts: No biliary dilation. Pancreas: Homogeneous enhancement without focal lesions or pancreatic ductal dilatation. No peripancreatic inflammation or organized fluid collections. Spleen: Size is within normal limits. Adrenal Glands: No adrenal nodules. Kidneys and Ureters: No hydronephrosis. No solid mass. No complex renal cystic lesion which requires follow up. Stomach and Bowel: Stable postsurgical changes in the rectum. Postsurgical changes in the right lower quadrant. These are stable. Moderate fecal burden scattered throughout the colon. No abnormal colonic wall thickening. Numerous fluid-filled loops of nondilated and a few minimally distended small bowel seen in the mid and lower abdomen. No evidence for small bowel obstruction. Peritoneum: No abnormal intraperitoneal fluid. No free air. Ventral Wall: There is a fat-containing umbilical hernia without acute inflammation. Abdominal Nodes: No retroperitoneal or mesenteric adenopathy by size criteria. Vessels: Scattered atherosclerotic calcifications of the abdominal aorta and iliac vessels without aneurysmal dilatation. The inferior vena cava appears patent. PELVIS: Pelvic Organs: Unremarkable. Bladder: No bladder wall thickening, accounting for underdistention. Pelvic Nodes: No enlarged lymph nodes. Miscellaneous: No inguinal hernias are seen. Bones: No aggressive osseous abnormality. Visualized osseous structures appear intact without acute fracture or focal destructive lesion. No acute compression fractures of the imaged spine. IMPRESSION: Multiple loops of fluid-filled small bowel in the mid and lower abdomen are nonspecific but may represent enteritis either infectious or inflammatory in etiology. No findings to suggest small bowel obstruction. Otherwise, no acute abnormalities identified in the abdomen or pelvis. Stable postsurgical changes previous bowel resection in the region of the rectum and right lower quadrant. Small-moderate sized hiatal hernia with mildly thickened wall of the distal esophagus. This is fluid-filled and may represent gastroesophageal reflux esophagitis. Moderate hepatic steatosis. Other chronic/nonacute findings as above. Dictated by: Kaden Blevins M.D. on 01/13/2024 at 23:25 Approved by: Kaden Blevins M.D. on 01/13/2024 at 23:34 MDM Narrative Medical decision making narrative: Abdominal pain and SI. Reports hx of twisted bowels. Records requested from [facility] show that patient has umbilical hernia with concerns for incarceration. On exam patient has trace umbilical hernia without obvious evidence of incarceration of strangulation, however due to patient's reported severity of pain will order IV pain meds and CT scan. PCP records show patient also called their clinic earlier in the morning threatening to throw himself from the [employer] [place]. Laboratory work shows no leukocytosis, lactic acid 2.5, liver enzymes within normal limits. Ammonia level 11. Patient was given thiamine and folic acid. After receiving pain medications he has had no recurrence of abdominal symptoms. CT abdomen and pelvis shows no findings to explain the reported severity of patient's pain, however he was now comfortable, talking with nursing staff, in no distress. 0215 -patient upset, stating that we would not give him baclofen for his hiccups and trying to walk out of the ER. Unfortunately patient is still under the influence of alcohol and did threatened to kill himself multiple times both to us and to his primary care doctor's office line. Security was contacted and patient moved to room 13. Patient said that he never wanted to kill himself, he says that he was saying that he would walk off into [place] [place], not jump, so he doesn't actually want to kill himself. Patient monitored overnight, no further events witnessed. Care of patient is signed out to daytime physician at 7:00 a.m. <Bere Dvais MD - Last Filed: 01/14/24 13:30> Lab Data Labs: Lab Results 01/13/24 01/13/24 01/13/24 Range/Units 21:54 22:11 23:48 WBC 10.3 (4.5-11.0) X10^3/uL RBC 4.84 (4.5-5.9) X10^6/uL Hgb 14.4 (13.5-17.5) g/dL Hct 43.0 (41-53) % MCV 88.9 (80-100) fL MCH 29.8 (26-34) PG MCHC 33.5 (30-36) % RDW 14.7 (11.6-14.8) % Plt Count 360 (150-400) X10^3/uL Neut % (Auto) 40.0 L (50-75) % Lymph % (Auto) 51.7 H (25-40) % [place] % (Auto) 6.2 (3-14) % Eos % (Auto) 0.7 L (2-4) % Baso % (Auto) 1.4 (0-2) % Neut # (Auto) 4100 (0873-4663) /uL Lymph # (Auto) 5300 H (3956-4571) /uL [place] # (Auto) 600 (0-900) /uL Eos # (Auto) 100 (0-450) /uL Baso # (Auto) 100 (0-100) /uL PT 10.3 (9.4-12.5) SECONDS INR 0.9 (0.9-1.3) Sodium 142 (137-145) mmol/L Potassium 3.9 (3.4-5.1) mmol/L Chloride 105 (98-107) mmol/L Carbon Dioxide 22 (22-32) mmol/L BUN 11 (9-20) mg/dL Creatinine 0.65 L (0.66-1.25) mg/dL Estimated GFR > 60 (>60) mL/min BUN/Creatinine Ratio 16.9 (6-22) Glucose 82 (80-110) mg/dL Lactate 2.5 H (0.7-2.1) mmol/L Calcium 9.0 (8.4-10.2) mg/dL Total Bilirubin 0.6 (0.2-1.3) mg/dL AST 42 (17-59) IU/L ALT 20 (<50) IU/L Alkaline Phosphatase 90 (38-126) U/L Ammonia 11 (9-30) umol/L Total Protein 7.6 (6.3-8.2) g/dL Albumin 4.8 (3.5-5.0) g/dL Globulin 2.8 (1.7-4.1) g/dL Albumin/Globulin Ratio 1.7 (1.0-2.8) Lipase 84 (23-300) U/L Urine Color Yellow Urine Appearance Clear Urine pH 5.5 (4.5-8.0) Ur Specific Me[place] <=1.005 (1.000-1.035) Urine Protein Negative (Negative) Urine Glucose (UA) Negative (Negative) g/dL Urine Ketones Negative (NEGATIVE) Urine Occult Blood Negative (Negative) Urine Nitrate Negative (Negative) Urine Bilirubin Negative (NEGATIVE) Urine Urobilinogen 0.2 (0.2) E.U./dL Ur Leukocyte Esterase Negative (NEGATIVE) Urine RBC None seen (0-5/HPF) Urine WBC None seen (0-5/HPF) Ur Squamous Epith Cells 0-1 /hpf (0-5/HPF) Urine Bacteria None seen (None) Ur Culture Indicated? Cult not indicated Vol Urine Centrifuged 10ml (spun) Salicylates < 1.0 (<20) mg/dL U Opiates 300ng/mL cut Negative (Negative) Ur Oxycodone Screen Negative (Negative) Urine Methadone Screen Negative (Negative) Acetaminophen < 10 (10-30) ug/mL Ur Barbiturates Screen Negative (Negative) U Tricyclic Antidepress Negative (Negative) Ur Phencyclidine Scrn Negative (Negative) Ur Amphetamines Screen Negative (Negative) U Methamphetamines Scrn Negative (Negative) Ur MDMA Scrn (Ecstasy) Negative (Negative) U Benzodiazepines Scrn Positive H (Negative) Urine Cocaine Screen Negative (Negative) U Marijuana (THC) Screen Positive H (Negative) Urine Specific [place] Ethyl Alcohol 351 H ( - 10) mg/dL Ur Creatinine 01/13/24 01/14/24 01/14/24 Range/Units 23:48 00:19 11:00 WBC (4.5-11.0) X10^3/uL RBC (4.5-5.9) X10^6/uL Hgb (13.5-17.5) g/dL Hct (41-53) % MCV (80-100) fL MCH (26-34) PG MCHC (30-36) % RDW (11.6-14.8) % Plt Count (150-400) X10^3/uL Neut % (Auto) (50-75) % Lymph % (Auto) (25-40) % [place] % (Auto) (3-14) % Eos % (Auto) (2-4) % Baso % (Auto) (0-2) % Neut # (Auto) (3152-1115) /uL Lymph # (Auto) (8696-4768) /uL [place] # (Auto) (0-900) /uL Eos # (Auto) (0-450) /uL Baso # (Auto) (0-100) /uL PT (9.4-12.5) SECONDS INR (0.9-1.3) Sodium (137-145) mmol/L Potassium (3.4-5.1) mmol/L Chloride (98-107) mmol/L Carbon Dioxide (22-32) mmol/L BUN (9-20) mg/dL Creatinine (0.66-1.25) mg/dL Estimated GFR (>60) mL/min BUN/Creatinine Ratio (6-22) Glucose (80-110) mg/dL Lactate 2.5 H (0.7-2.1) mmol/L Calcium (8.4-10.2) mg/dL Total Bilirubin (0.2-1.3) mg/dL AST (17-59) IU/L ALT (<50) IU/L Alkaline Phosphatase (38-126) U/L Ammonia (9-30) umol/L Total Protein (6.3-8.2) g/dL Albumin (3.5-5.0) g/dL Globulin (1.7-4.1) g/dL Albumin/Globulin Ratio (1.0-2.8) Lipase (23-300) U/L Urine Color Urine Appearance Urine pH TNP (4.5-8.0) Ur Specific Me[place] (1.000-1.035) Urine Protein (Negative) Urine Glucose (UA) (Negative) g/dL Urine Ketones (NEGATIVE) Urine Occult Blood (Negative) Urine Nitrate (Negative) Urine Bilirubin (NEGATIVE) Urine Urobilinogen (0.2) E.U./dL Ur Leukocyte Esterase (NEGATIVE) Urine RBC (0-5/HPF) Urine WBC (0-5/HPF) Ur Squamous Epith Cells (0-5/HPF) Urine Bacteria (None) Ur Culture Indicated? Vol Urine Centrifuged Salicylates (<20) mg/dL U Opiates 300ng/mL cut (Negative) Ur Oxycodone Screen (Negative) Urine Methadone Screen (Negative) Acetaminophen (10-30) ug/mL Ur Barbiturates Screen (Negative) U Tricyclic Antidepress (Negative) Ur Phencyclidine Scrn (Negative) Ur Amphetamines Screen (Negative) U Methamphetamines Scrn (Negative) Ur MDMA Scrn (Ecstasy) (Negative) U Benzodiazepines Scrn (Negative) Urine Cocaine Screen (Negative) U Marijuana (THC) Screen (Negative) Urine Specific Meally TNP Ethyl Alcohol 60 H ( - 10) mg/dL Ur Creatinine TNP MDM Narrative Medical decision making narrative: Abdominal pain and SI. Reports hx of twisted bowels. Records requested from [facility] show that patient has umbilical hernia with concerns for incarceration. On exam patient has trace umbilical hernia without obvious evidence of incarceration of strangulation, however due to patient's reported severity of pain will order IV pain meds and CT scan. PCP records show patient also called their clinic earlier in the morning threatening to throw himself from the [place]. Laboratory work shows no leukocytosis, lactic acid 2.5, liver enzymes within normal limits. Ammonia level 11. Patient was given thiamine and folic acid. After receiving pain medications he has had no recurrence of abdominal symptoms. CT abdomen and pelvis shows no findings to explain the reported severity of patient's pain, however he was now comfortable, talking with nursing staff, in no distress. 0215 -patient upset, stating that we would not give him baclofen for his hiccups and trying to walk out of the ER. Unfortunately patient is still under the influence of alcohol and did threatened to kill himself multiple times both to us and to his primary care doctor's office line. Security was contacted and patient moved to room 13. Patient said that he never wanted to kill himself, he says that he was saying that he would walk off into [place], not jump, so he doesn't actually want to kill himself. Patient monitored overnight, no further events witnessed. Care of patient is signed out to daytime physician at 7:[address] Davis Chart reviewed, patient evaluated Patient awakes complaining of abdominal pain which has been a chronic problem for him. In reviewing notes from Located within [facility] his description of his abdominal pain or consistent with his baseline pain. He does have chronic hiccups and is hiccuping. He is still clinically is intoxicated with still quite a strong smell of alcohol. For his abdominal pain he states the baclofen has been helpful in the past. I offered diazepam not only as a muscle relaxant to help with the abdominal pain but also to help with any withdrawal symptoms as he continues to sober. Labs from yesterday do not suggest acute infection, anemia, pancreatitis, liver studies are actually unremarkable, lactic acid is at 2.5 and unchanged with no suggestion of infection. Think this represents relative dehydration and now that he is more awake he will be offered additional oral fluids. Urine does not suggest infection, tox screen is positive for benzodiazepines marijuana and alcohol level of 351 at 10:00 p.m. last night Medical record review from Located within [facility] indicates bipolar disorder, alcohol use disorder, developmental delay, outbursts of anger, prior rectal cancer as well as the chronic abdominal pain. Multiple primary care visits over the last few months. Endoscopy upper and lower on October 01. There are no recent surgical visits or appointments that I can see 11am patient is re-evaluated with increasing complaints of headache, nervousness abdominal pain. After 10 mg of diazepam given earlier and a CIWA score of 7 his CIWA score is now increased to 10 with alcohol level still at 60. I believe that the headache is more related to alcohol withdrawal. He continues to state that his suicidal ideation was entirely passive and he has no suicidal intent at this point. Will further address his alcohol withdrawal, recheck an alcohol level, administer phenobarbital and discuss inpatient care for help with his acute withdrawal symptoms 130pm due to acute alcohol withdrawal patient is not medically cleared for continued psychiatric evaluation. He is clearly stating he is no longer actively suicidal and does not need to be on suicide precautions at this time. Discharge Plan Departure Patient Disposition: Admitted As Inpatient Clinical Impression: Alcohol use disorder, Suicidal ideation Alcohol withdrawal Qualifiers: Complication of substance-induced condition: uncomplicated Qualified Code(s): F10.930 - Alcohol use, unspecified with withdrawal, uncomplicated Admit Date/Time: 01/14/24 12:32 Admit Provider: Sumanth Fountain
[2024-01-13 22:10] LABS: Add Manual Diff / Slide Review NO; Basophils Absolute Auto 100 /uL (0-100); Basophils Percent Auto 1.4 % (0-2); Eosinophils Absolute Auto 100 /uL (0-450); Eosinophils Percent Auto 0.7 % (2-4); Hemoglobin 14.4 g/dL (13.5-17.5); Lymphocytes Absolute Auto 5300 /uL (1100-4500); Lymphocytes Percent Auto 51.7 % (25-40); Mean Corpuscular HGB Conc 33.5 % (30-36); Mean Corpuscular Hemoglobin 29.8 PG (26-34); Mean Corpuscular Volume 88.9 fL (80-100); Monocytes Absolute Auto 600 /uL (0-900); Monocytes Percent Auto 6.2 % (3-14); Neutrophils Absolute Auto 4100 /uL (1500-7000); Platelet Count 360 X10^3/uL (150-400); Red Blood Cell Count 4.84 X10^6/uL (4.5-5.9); Red Cell Distribution Width 14.7 % (11.6-14.8); White Blood Cell Count 10.3 X10^3/uL (4.5-11.0)
[2024-01-13] MEDS: SODIUM CHLORIDE 0.9% 1,000 ML 1000 ML IV (22:16)
[2024-01-13] MEDS: THIAMINE 200 MG in SODIUM CHLORIDE 0.9% 100 ML 408 MG IV (22:16)
[2024-01-13] MEDS: ONDANSETRON 4 MG/2 ML INJ IV (22:16)
[2024-01-13 22:18] LABS: INR 0.9 (0.9-1.3); Prothrombin Time 10.3 SECONDS (9.4-12.5)
--- NOTE | 2024-01-13 22:22 | DI.CT.S_ITS ---
PROCEDURE: CT ABDOMEN PELVIS W CON INDICATIONS: 'TWISTED BOWEL', EXTREME PAIN. REPORTED HERNIA TECHNIQUE: After the administration of intravenous contrast, axial sections acquired from the lung bases to the pubic symphysis. Coronal and sagittal reformats were performed. For radiation dose reduction, the following was used: automated exposure control, adjustment of mA and/or kV according to patient size. COMPARISON: [facility], CT, CT CHEST ABD PEL W CON, 10/23/2023, 19:50. [facility], CT, CT ABDOMEN PELVIS W CON, 09/16/2022, 22:12. FINDINGS: Image quality: Diagnostic. Lower Chest: Lung bases are clear. Heart size is normal. Small-moderate sized hiatal hernia filled with fluid in the distal esophagus. Stable appearance of chronic posterior left rib fracture deformities. ABDOMEN: Liver: No solid mass. Moderate hepatic steatosis. Gallbladder: No radiopaque gallstones or wall thickening. Biliary ducts: No biliary dilation. Pancreas: Homogeneous enhancement without focal lesions or pancreatic ductal dilatation. No peripancreatic inflammation or organized fluid collections. Spleen: Size is within normal limits. Adrenal Glands: No adrenal nodules. Kidneys and Ureters: No hydronephrosis. No solid mass. No complex renal cystic lesion which requires follow up. Stomach and Bowel: Stable postsurgical changes in the rectum. Postsurgical changes in the right lower quadrant. These are stable. Moderate fecal burden scattered throughout the colon. No abnormal colonic wall thickening. Numerous fluid-filled loops of nondilated and a few minimally distended small bowel seen in the mid and lower abdomen. No evidence for small bowel obstruction. Peritoneum: No abnormal intraperitoneal fluid. No free air. Ventral Wall: There is a fat-containing umbilical hernia without acute inflammation. Abdominal Nodes: No retroperitoneal or mesenteric adenopathy by size criteria. Vessels: Scattered atherosclerotic calcifications of the abdominal aorta and iliac vessels without aneurysmal dilatation. The inferior vena cava appears patent. PELVIS: Pelvic Organs: Unremarkable. Bladder: No bladder wall thickening, accounting for underdistention. Pelvic Nodes: No enlarged lymph nodes. Miscellaneous: No inguinal hernias are seen. Bones: No aggressive osseous abnormality. Visualized osseous structures appear intact without acute fracture or focal destructive lesion. No acute compression fractures of the imaged spine. IMPRESSION: Multiple loops of fluid-filled small bowel in the mid and lower abdomen are nonspecific but may represent enteritis either infectious or inflammatory in etiology. No findings to suggest small bowel obstruction. Otherwise, no acute abnormalities identified in the abdomen or pelvis. Stable postsurgical changes previous bowel resection in the region of the rectum and right lower quadrant. Small-moderate sized hiatal hernia with mildly thickened wall of the distal esophagus. This is fluid-filled and may represent gastroesophageal reflux esophagitis. Moderate hepatic steatosis. Other chronic/nonacute findings as above. Dictated by: Kaden Blevins M.D. on 01/13/2024 at 23:25 Approved by: Kaden Blevins M.D. on 01/13/2024 at 23:34
[2024-01-13 22:23] LABS: Alanine Aminotransferase 20 IU/L (<50); Albumin 4.8 g/dL (3.5-5.0); Albumin Globulin Ratio 1.7 (1.0-2.8); Alkaline Phosphatase 90 U/L (38-126); Aspartate Aminotransferase 42 IU/L (17-59); BUN Creatinine Ratio 16.9 (6-22); Bilirubin Total 0.6 mg/dL (0.2-1.3); Blood Urea Nitrogen 11 mg/dL (9-20); Carbon Dioxide 22 mmol/L (22-32); Chloride 105 mmol/L (98-107); Estimated Glomerular Filt Rate > 60 mL/min (>60); Globulin 2.8 g/dL (1.7-4.1); Glucose 82 mg/dL (80-110); Lactate (Lactic Acid) 2.5 mmol/L (0.7-2.1); Lipase 84 U/L (23-300); Potassium 3.9 mmol/L (3.4-5.1); Sodium 142 mmol/L (137-145); Total Protein 7.6 g/dL (6.3-8.2)
[2024-01-13] MEDS: HYDROMORPHONE 1 MG INJ IV (22:23)
[2024-01-13] MEDS: FOLIC ACID 1 MG TABLET PO (22:26)
[2024-01-13 22:30] LABS: Acetaminophen < 10 ug/mL (10-30); Salicylate < 1.0 mg/dL (<20)
[2024-01-13 22:30] LABS: Ammonia (NH3) 11 umol/L (9-30)
[2024-01-13 22:32] LABS: HEMOLYSIS 37 (0-50)
[2024-01-13 22:34] LABS: Ethanol (ETOH) 351 mg/dL
--- NOTE | 2024-01-13 23:10 | PC.NURSE ---
patient was tearful upon arrival to the ED. He appeared to be in fearful distress. When asked if he was afraid he stated he was. He stated that he was afraid of having another surgery on his abdomen since he has already had many. He was consolable and able to express that he was having pain from previous accidents and also having abd pain and hiccups. He was not wanting to hurt himself while in the ED today and stated that he was tired of being in pain. He also wanted to leave but was encouraged to stay and get treatment to alleviate his pain. He is agreeable to stay and get treatment but needs to be redirected.
--- NOTE | 2024-01-13 23:29 | PC.NURSE ---
This RN walks beside patient as he ambulates to the bathroom. He is steady on his feet with walker. Has hiccups and talks freely about childhood. Pt is unable to void at this time. Pt places himself back in the bed. Door is open.
[2024-01-13 23:41] LABS: Reflexed Lactate in 2 Hours Y
[2024-01-13 23:57] LABS: Appearance Urine UA CLEAR; Bilirubin Urine UA NEGATIVE (NEGATIVE); Color Urine UA YELLOW; Glucose Urine UA NEGATIVE (Negative); Ketones Urine UA NEGATIVE (NEGATIVE); Leukocyte Esterase Urine UA NEGATIVE (NEGATIVE); Nitrite Urine UA NEGATIVE (Negative); Occult Blood Urine UA NEGATIVE (Negative); Protein Urine UA NEGATIVE (Negative); Specific Gravity Urine UA <=1.005 (1.000-1.035); Urobilinogen Urine UA 0.2 E.U./dL (0.2); pH Urine UA 5.5 (4.5-8.0)
[2024-01-14] VITALS (31 sets, daily range): BP systolic 100–136; BP diastolic 60–80; PULSE 60–103; RESP 14–30; TEMP 35.9–36.8; O2SAT 84–99; BMI 23.0
[2024-01-14 00:04] LABS: Urine Amphetamines Negative (Negative); Urine Barbiturates Negative (Negative); Urine Benzodiazepines Positive (Negative); Urine Cocaine Negative (Negative); Urine MDMA Negative (Negative); Urine Methadone Negative (Negative); Urine Methamphetamines Negative (Negative); Urine Opiates Negative (Negative); Urine Oxycodone Negative (Negative); Urine Phencyclidine Negative (Negative); Urine THC Positive (Negative); Urine Tricyclic Antidepressant Negative (Negative)
[2024-01-14 00:13] LABS: Bacteria Urine None Seen; Culture Indicated Urine Cult Not Indicated; RBC Urine None Seen (0-5/HPF); Squamous Epithelial Cell Urine 0-1 /HPF (0-5/HPF); Urine Volume 10mL (spun); WBC Urine None Seen (0-5/HPF)
[2024-01-14 00:36] LABS: Lactate 2HR (Lactic Acid Rflx) 2.5 mmol/L (0.7-2.1)
--- NOTE | 2024-01-14 02:38 | PC.NURSE ---
Addendum entered by Josie Clifton CNA 01/14/24 06:05: DANIELLE note: Patient has been talking about the history of salmon, [place], the history of money and agriculture in relation. DANIELLE is trying to be supportive, but has suggested that perhaps he should get some rest. Patient has eyes closed as he is talking to staff. Addendum entered by Josie Clifton CNA 01/14/24 05:33: DANIELLE note: Patient said I don't want to talk to you. I asked matteo? Patient pointed to his templed and said I don't want to talk to them. Don't mind me. Addendum entered by Josie Clifton CNA 01/14/24 05:29: DANIELLE note: Patient is listing salmon facts and all the different kinds of salmon in not just the [facility] but from around the world. Addendum entered by Josie Clifton CNA 01/14/24 03:18: Patient is wandering around room. Got up to go to the bathroom, and then was frustrated that his walker wouldn't go through the door like he wanted and threw his walker. You don't have paper towels? Patient is sitting on his walker, talking about music. Addendum entered by Josie Clifton CNA 01/14/24 03:06: DANIELLE note: Anytime patient hears me typing patient yells out DANIELLE charting! Just doing all her little documentation. Original Note: DANIELLE note: Patient asked me for baclafin and tylenol. I told him I would ask the nurse for it. As I was telling the RN, patient came out of his room and wanted to leave. Rosa RN, security infrastructure engineer, and I attempted to get patient back into his room. Patient wanted to leave, explained how that wasn't feasible. Patient was given the choice to either go back into room 10 or to room 13. Patient refused to go to either. Patient was told that if he left the police would be called. Patient told us he wasn't suicidal and he would just go to the end of [email or web address] and walk off the street into [facility]. Staff had to block exit for patient not to leave. Police were called. Patient is in room 13 standing at door telling me he won't leave, but questioning BRUSH OR BROOM CUTTER what are you charting? What are you doing? Told patient I am just charting. Patient was questioning actions. Patient is now back in room standing next to his walker.
--- NOTE | 2024-01-14 02:54 | PC.NURSE ---
Had to redirect pt back to his room and requested police assistance. However, pt did go to room 13 with some extra redirecting.
--- NOTE | 2024-01-14 02:57 | PC.NURSE ---
Pt has chronic issues with stomach pain and generalized pain.
--- NOTE | 2024-01-14 07:25 | PC.NURSE ---
Pt laying in bed on his left side resting. Chest rise and fall observed, no distress observed.
[2024-01-14] MEDS: diazePAM 5 MG TABLET 10 MG PO (08:11)
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
[2024-01-14] MEDS: PHENobarbital 65 MG/ML VIAL 260 MG IV (11:21)
[2024-01-14] MEDS: SODIUM CHLORIDE 0.9% 1,000 ML 1000 ML IV (11:22)
[2024-01-14] MEDS: THIAMINE 100 MG in SODIUM CHLORIDE 0.9% 100 ML 404 MG IV (11:26)
[2024-01-14 11:30] LABS: Ethanol (ETOH) 60 mg/dL
--- NOTE | 2024-01-14 13:32 | PM.HP.1 ---
History of Present Illness History of Present Illness Date Patient Seen: 01/14/24 Chief complaint: abd pain Narrative: The patient is a 58-year-old male with a history of alcohol use disorder, GERD, anxiety, and depression who presented with suicidal ideation, abdominal pain, nausea, no vomiting. The patient was supposed to have a hernia repair of the preceding week, but missed his OR date. The patient made comments that sounded suicidal upon his arrival. He was intoxicated and observed overnight. He had resolution of suicidal ideation and was felt not to be suicidal by the emergency physician at the time of a request to admit at approximately noon on January 13. The patient had gone into withdrawal over the course of the night and was scoring CIWA scores of 10. He was given 1 dose of phenobarbital. He drinks a gallon of vodka every 2-3 days. [facility] Medical History GERD (gastroesophageal reflux disease) Prostate cancer (Unknown) History of sinusitis Rotator cuff tear, left Left wrist pain Left shoulder pain History of ETOH abuse Surgical History Hx of right inguinal hernia repair Social History household members: none Smoking Status: Current some day smoker alcohol intake: current substance use type: does not use Meds Home Medications and Allergies Home Medications Medication Instructions Recorded Confirmed Type lorazepam 1 mg tablet (Ativan) 1 mg PO SEEINSTR #11 tabs 02/12/18 10/19/23 Rx mirtazapine 15 mg tablet 15 mg PO DAILY 03/25/18 10/19/23 History sumatriptan succinate 50 mg tablet See Rx Instructions PO .COMPLEX 03/25/18 10/19/23 History PRN Migraine Headache doxepin 10 mg capsule 10 mg PO DAILY #30 caps 04/15/18 10/19/23 Rx ondansetron 4 mg disintegrating 4 mg PO Q8H PRN nausea and 09/17/22 10/19/23 Rx tablet vomiting #10 tabs alprazolam 1 tab PO BID 10/19/23 10/19/23 History baclofen 10 mg tablet 10 mg PO 3XD 10/19/23 10/19/23 History cetirizine 10 mg tablet 10 mg PO DAILY 10/19/23 10/19/23 History duloxetine 30 mg capsule,delayed 30 mg PO BID 10/19/23 10/19/23 History release fluticasone propionate 50 2 spray intranasal DAILY 10/19/23 10/19/23 History mcg/actuation nasal spray,suspension pantoprazole 40 mg tablet,delayed 40 mg PO DAILY 10/19/23 10/19/23 History release quetiapine 50 mg tablet 50 mg PO BEDTIME 10/19/23 10/19/23 History trazodone 100 mg tablet 100 mg PO BEDTIME 10/19/23 10/19/23 History amoxicillin 875 mg-potassium 1 tab PO BID #20 tabs 10/27/23 Rx clavulanate 125 mg tablet Allergies Allergy/AdvReac Type Severity Reaction Status Date / Time codeine AdvReac Severe Gastrointestinal Verified 10/27/23 15:26 Upset Review of Systems Review of Systems Narrative: All else reviewed and otherwise unremarkable except as noted in the history and physical. Exam Vital Signs (past 8 hours): - 01/14/24 06:10 01/14/24 07:25 01/14/24 10:56 Temperature 98.3 F Pulse Rate 103 H Respiratory Rate 18 16 Blood Pressure 136/60 113/80 Pulse Oximetry 96 Oxygen Delivery Method Room Air 01/14/24 10:56 Temperature Pulse Rate 99 H Respiratory Rate Blood Pressure Pulse Oximetry 99 Oxygen Delivery Method Oxygen Delivery Method Room Air Narrative Exam Narrative: NAD, alert and oriented, fluent speech, calm. AOB Normocephalic skull, EOMI, anicteric sclera, symmetric pupils. Oropharynx unremarkable, no droop. Neck supple, midline trachea, no adenopathy. Lungs clear, normal rate and effort. Heart regular, no murmur gallop or rub. Abdomen is soft, non distended and non tender. Extremities are free of edema. Skin is free of rash or lesions. Joints are not swollen or deformed. Judgment appears to be normal. Objective Imaging CT scan - abdomen: Radiologist's impression: Multiple loops of fluid-filled small bowel in the mid and lower abdomen are nonspecific but may represent enteritis either infectious or inflammatory in etiology. No findings to suggest small bowel obstruction. Otherwise, no acute abnormalities identified in the abdomen or pelvis. Stable postsurgical changes previous bowel resection in the region of the rectum and right lower quadrant. Small-moderate sized hiatal hernia with mildly thickened wall of the distal esophagus. This is fluid-filled and may represent gastroesophageal reflux esophagitis. Moderate hepatic steatosis. Other chronic/nonacute findings as above. Labs 01/13/24 21:54 01/13/24 21:54 Labs: Laboratory Results - last 24 hr 01/13/24 01/13/24 01/13/24 21:54 22:11 23:48 WBC 10.3 RBC 4.84 Hgb 14.4 Hct 43.0 MCV 88.9 MCH 29.8 MCHC 33.5 RDW 14.7 Plt Count 360 Neut % (Auto) 40.0 L Lymph % (Auto) 51.7 H Butler % (Auto) 6.2 Eos % (Auto) 0.7 L Baso % (Auto) 1.4 Neut # (Auto) 4100 Lymph # (Auto) 5300 H Butler # (Auto) 600 Eos # (Auto) 100 Baso # (Auto) 100 PT 10.3 INR 0.9 Sodium 142 Potassium 3.9 Chloride 105 Carbon Dioxide 22 BUN 11 Creatinine 0.65 L Estimated GFR > 60 BUN/Creatinine Ratio 16.9 Glucose 82 Lactate 2.5 H Calcium 9.0 Total Bilirubin 0.6 AST 42 ALT 20 Alkaline Phosphatase 90 Ammonia 11 Total Protein 7.6 Albumin 4.8 Globulin 2.8 Albumin/Globulin Ratio 1.7 Lipase 84 Urine Color Yellow Urine Appearance Clear Urine pH 5.5 Ur Specific [place] <=1.005 Urine Protein Negative Urine Glucose (UA) Negative Urine Ketones Negative Urine Occult Blood Negative Urine Nitrate Negative Urine Bilirubin Negative Urine Urobilinogen 0.2 Ur Leukocyte Esterase Negative Urine RBC None seen Urine WBC None seen Ur Squamous Epith Cells 0-1 /hpf Urine Bacteria None seen Ur Culture Indicated? Cult not indicated Vol Urine Centrifuged 10ml (spun) Salicylates < 1.0 U Opiates 300ng/mL cut Negative Ur Oxycodone Screen Negative Urine Methadone Screen Negative Acetaminophen < 10 Ur Barbiturates Screen Negative U Tricyclic Antidepress Negative Ur Phencyclidine Scrn Negative Ur Amphetamines Screen Negative U Methamphetamines Scrn Negative Ur MDMA Scrn (Ecstasy) Negative U Benzodiazepines Scrn Positive H Urine Cocaine Screen Negative U Marijuana (THC) Screen Positive H Urine Specific [place] Ethyl Alcohol 351 H Ur Creatinine 01/13/24 01/14/24 01/14/24 23:48 00:19 11:00 WBC RBC Hgb Hct MCV MCH MCHC RDW Plt Count Neut % (Auto) Lymph % (Auto) Butler % (Auto) Eos % (Auto) Baso % (Auto) Neut # (Auto) Lymph # (Auto) Butler # (Auto) Eos # (Auto) Baso # (Auto) PT INR Sodium Potassium Chloride Carbon Dioxide BUN Creatinine Estimated GFR BUN/Creatinine Ratio Glucose Lactate 2.5 H Calcium Total Bilirubin AST ALT Alkaline Phosphatase Ammonia Total Protein Albumin Globulin Albumin/Globulin Ratio Lipase Urine Color Urine Appearance Urine pH TNP Ur Specific [place] Urine Protein Urine Glucose (UA) Urine Ketones Urine Occult Blood Urine Nitrate Urine Bilirubin Urine Urobilinogen Ur Leukocyte Esterase Urine RBC Urine WBC Ur Squamous Epith Cells Urine Bacteria Ur Culture Indicated? Vol Urine Centrifuged Salicylates U Opiates 300ng/mL cut Ur Oxycodone Screen Urine Methadone Screen Acetaminophen Ur Barbiturates Screen U Tricyclic Antidepress Ur Phencyclidine Scrn Ur Amphetamines Screen U Methamphetamines Scrn Ur MDMA Scrn (Ecstasy) U Benzodiazepines Scrn Urine Cocaine Screen U Marijuana (THC) Screen Urine Specific [place] TNP Ethyl Alcohol 60 H Ur Creatinine TNP Assessment & Plan Assessment & Plan narrative: 1. Generalized abdominal pain, present on admission and active. 2. Initial alcohol intoxication, present on admission and resolved. 3. Acute alcohol withdrawal, new and active. 4. Possible suicidal ideation, present on admission and now being denied. 5. Anxiety / Depression / Insomnia. Stable. 6. Severe acohol use disorder, present on admission and stable. PLAN: -WA protocol -monitor abdominal pain -IV fluids -Librium 10 Q6Hr PRN agitation. -Pheno bard 64 IV Q6 H prn agitation. Anticipate a 2 midnight hospital stay for alcohol withdrawal. Time-Based Coding :: 35 min spent with patient and on the chart (including review of chart, obtaining history, exam, reviewing outside data, placing orders, documenting exam and treatment plan, and counseling patient) on 01/13. Quality MIPS - Admit I confirm the patient?s Advance Care Plan is present, Code status is documented, Surrogate decision maker is in patient?s record [If Yes, STOP here]: Yes MIPS - Meds 'Current medications' to include all prescriptions, [id number] products, herbals, cannabis/cannabidiol products, and vitamin/mineral/dietary (nutritional) supplements. I have utilized all available resources to obtain, update, or review the patient?s current medications. [If Yes, STOP here]: Yes
--- NOTE | 2024-01-14 14:06 | CM.IDA ---
Initial DCP Assessment Patient is 58 y/o male who presents to ED last night via EMS after patient was contacted by PCP office and patient endorsed his stomach and head pain. Patient made SI statements when under the influence of alcohol and PCP office contacted 911 and patient was brought to the ED. Patient has upcoming appt on 01/18/24 with general surgery consult with Dr. Fraire regarding concern for hernia. Patient's PCP is ANGELIC Mcdonald with [facility], patient has [facility] and Medicaid insurance. Patient sees Oncologist Dr. Heredia Patient has hx of Bipolar Affective Disorder, Anxiety, Insomnia, generalized Abdominal pain, ETOH use disorder, marijuana use, cancer, TBI, and hx of abdominal surgeries. CORNETIST enters room to meet with patient, patient presents as A/Ox4. Patient states he is ashamed of myself. Patient presents as tearful in regards to his ETOH use. Patient states he has been drinking about 1/2 gallon of vodka a day. Patient endorses he attempted sobriety and has hx of 6 months to a year of sobriety. Patient states that his friend of cancer the other day and endorses that has been triggering. Patient endorses hx of [facility] treatment and states he has been to rehab three times about 6 years ago. Patient states he went to [facility]. Patient endorses hx of alcoholism in his family and states that two of his siblings have . Patient endorses hx of withdrawal seizures, presents with shakiness, anxiety, hot and cold sweats and pain. Patient's current CIWA is 8. Upon presentation to the ED patient's BAL was 351, most recently down to BAL of 60. Patient endorses he resides at the [facility] through the housing authority in [place]. Patient endorses independence with most ADLs, patient states he has been using a seated FWW for ambulation to prevent falls, patient states that he utilizes medicaid taxi for transportation. Patient states that his mother and sister reside in [place]. Patient endorses several supports from friends. Patient endorses in recent months he has been in a depressive episode and has been avoiding seeing his friends. Patient denies current SI or intent to act on plan. Patient endorses he made a statement last night that he has thoughts of walking into the [employer]. Patient states that when he is in pain and depressed he self medicates with alcohol and has SI. Patient endorses he is open to seeing a MH provider, patient is on current MH rx prescribed by PCP. Patient has DEVON cafe or restaurant manager with [facility] - Rosa Rees (Ph. # [phone]). Patient gives consent for CORNETIST to contact Rosa. CORNETIST informs May of patient's presentation to ED and admission to . May states that patient has a caregiver through [facility], it is reported that patient has 39 caregiver hours a month, patient is generally independent. May confirms patient's stable housing and states that patient's sister Gracia is DPOA but she has distanced herself from patient due to his ETOH use. When asked about [facility] inpatient treatment upon medical clearance, patient is hesitant at this time and unsure if it is helpful. Patient presents as open to outpatient [facility]/MH resources. Patient had recent hospitalizations at in October 2023, one resulting in patient leaving AMA. Patient has hx of [facility] referral. Patient agrees to stay at until medical clearance. Patient has been admitted by hospitalist for acute alcohol withdrawal. Plan: Patient to be evaluated and treated by hospitalist, PAULINEP to f/u with patient's [facility] cafe or restaurant manager, RASHAD to determine POC upon medical clearance outpatient vs. inpatient [facility]/MH treatment. MARY Clinton Discharge Planning/Care Management CM Discharge Assessment Start: 01/14/24 13:50 Freq: Status: Active Protocol: Document 01/14/24 13:59 LN (Rec: 01/14/24 14:05 LN [id number]) Discharge Planning Assessment Assigned Dance Artist MARY Barr DPOA/Assigned Designee Name Sister/ Gracia Payne Contact Information (ph.# [phone] Advance Directives? No Advance Directives on File No History Provided By Patient,Medical Record Has Patient been admitted in last 30 No days? Prior Living Arrangements Apartment/Condo Household Members none Type of transporation used prior to Medicaid Transport admit Independent with ADL's Yes Is patient alert and oriented? Yes Needs Assistance With Managing Medications,Home Chores / Shopping Caregiver for Another No DME Already Rented / Owned FWW / Walker Comment Patient unsure about [facility] rehab at this time but open to MH/ [facility] resources upon discharge Comment ETOH at baseline, has TBI, has DEVON CG Discharge Plan Home Transportation Arrangement Likely Medicaid taxi if sister cannot transport Additional Comment Pending pt progress and medical POC
--- NOTE | 2024-01-14 15:53 | PC.NURSE ---
left hand IV was pulled out some time through the night
[2024-01-14 17:32] LABS: MRSA (Nasal) PCR NOT DETECTED (Not Detect)
[2024-01-14] MEDS: chlordiazePOXIDE 10 MG CAPSULE PO ×2 (17:45→20:38)
[2024-01-14] MEDS: PHENobarbital 65 MG/ML VIAL IV (17:45)
[2024-01-14] MEDS: cloNIDine 0.1 MG TABLET PO ×2 (18:08→23:01)
[2024-01-14] MEDS: BACLOFEN 10 MG TABLET PO ×2 (18:10→20:38)
--- NOTE | 2024-01-14 18:59 | PC.ADMIT ---
[address] Admission Note: Pt arrived via gurney, able to ambulate with assistance to bed, connected to monitoring equipment, VSS, pt declines skin assessment at this time. All other assessments completed, pt c/o hiccups, denies SI at this time. CIWA scores between 7-8. Able to make needs known, no further needs at this time. Dr Fountain at bedside, care ongoing The patient,Sean Li,58 y/o, was given written information regarding hospital policies, unit procedures and contact persons. Patient's smoking status: Current some day smoker. Vital Signs - 8 hr 01/14/24 11:00 01/14/24 11:00 01/14/24 11:30 Pulse Rate 96 H Respiratory Rate 24 Blood Pressure 121/69 117/72 Pulse Oximetry 98 01/14/24 11:30 01/14/24 12:00 01/14/24 12:00 Pulse Rate 99 H 93 H Respiratory Rate 19 18 Blood Pressure 116/65 Pulse Oximetry 97 92 01/14/24 14:05 01/14/24 14:05 01/14/24 14:30 Pulse Rate 99 H 90 Respiratory Rate 18 Blood Pressure 121/66 Pulse Oximetry 97 94 01/14/24 15:00 01/14/24 15:30 01/14/24 15:49 Pulse Rate 98 H 81 Respiratory Rate 20 17 Blood Pressure 132/72 Pulse Oximetry 01/14/24 16:00 01/14/24 16:30 01/14/24 17:00 Pulse Rate 87 83 Respiratory Rate 30 H 28 H Blood Pressure 100/63 Pulse Oximetry 96 97 01/14/24 17:00 01/14/24 17:30 01/14/24 18:08 Pulse Rate 88 96 H Respiratory Rate 29 H Blood Pressure 121/62 120/61 Pulse Oximetry
[2024-01-14] MEDS: HEPARIN 5,000 UNIT/ML VIAL 5000 UNIT SUBCUT (20:38)
[2024-01-14] MEDS: ONDANSETRON 4 MG/2 ML INJ IV (20:38)
[2024-01-14] MEDS: MAGNESIUM HYDROXIDE 30 ML UDC PO (20:40)
[2024-01-15] VITALS (56 sets, daily range): BP systolic 88–131; BP diastolic 51–78; PULSE 48–73; RESP 10–30; TEMP 35.9–36.5; O2SAT 94–100
[2024-01-15] MEDS: LORazepam 2 MG/ML INJ IV ×3 (01:48→16:26)
[2024-01-15 05:02] LABS: Lactate (Lactic Acid) 0.8 mmol/L (0.7-2.1)
[2024-01-15 05:03] LABS: Alanine Aminotransferase 17 IU/L (<50); Albumin 3.9 g/dL (3.5-5.0); Albumin Globulin Ratio 1.7 (1.0-2.8); Alkaline Phosphatase 56 U/L (38-126); Aspartate Aminotransferase 31 IU/L (17-59); BUN Creatinine Ratio 19.3 (6-22); Bilirubin Total 1.7 mg/dL (0.2-1.3); Blood Urea Nitrogen 11 mg/dL (9-20); Calcium 9.1 mg/dL (8.4-10.2); Carbon Dioxide 30 mmol/L (22-32); Chloride 100 mmol/L (98-107); Estimated Glomerular Filt Rate > 60 mL/min (>60); Globulin 2.3 g/dL (1.7-4.1); Glucose 90 mg/dL (80-110); HEMOLYSIS 20 (0-50); Potassium 3.6 mmol/L (3.4-5.1); Sodium 133 mmol/L (137-145); Total Protein 6.2 g/dL (6.3-8.2)
--- NOTE | 2024-01-15 07:56 | PM.PN.1 ---
Subjective Subjective Interval history: Summary: The patient is a 58-year-old male with a history of alcohol use disorder, GERD, anxiety, and depression who presented with suicidal ideation, abdominal pain, nausea, no vomiting. The patient was supposed to have a hernia repair of the preceding week, but missed his OR date. The patient made comments that sounded suicidal upon his arrival. He was intoxicated and observed overnight. He had resolution of suicidal ideation and was felt not to be suicidal by the emergency physician at the time of a request to admit at approximately noon on January 13. The patient had gone into withdrawal over the course of the night and was scoring CIWA scores of 10. He was given 1 dose of phenobarbital. He drinks a gallon of vodka every 2-3 days. S: He was doing okay this morning, little shaky, no hallucinations. No nausea, or diarrhea. Exam Vital Signs (past 8 hours): - 01/15/24 00:00 01/15/24 00:00 01/15/24 00:30 Pulse Rate 59 L 58 L Respiratory Rate 14 13 Blood Pressure 107/66 Pulse Oximetry 96 96 Oxygen Flow Rate 01/15/24 01:00 01/15/24 01:00 01/15/24 01:30 Pulse Rate 57 L 65 Respiratory Rate 14 17 Blood Pressure 116/67 Pulse Oximetry 97 98 Oxygen Flow Rate 01/15/24 02:00 01/15/24 02:00 01/15/24 02:10 Pulse Rate 59 L 55 L Respiratory Rate 18 14 Blood Pressure 102/64 102/64 Pulse Oximetry 97 Oxygen Flow Rate 01/15/24 02:30 01/15/24 02:30 01/15/24 03:00 Pulse Rate 55 L 54 L Respiratory Rate 14 14 Blood Pressure 118/65 Pulse Oximetry 96 95 Oxygen Flow Rate 0 01/15/24 03:00 01/15/24 03:30 01/15/24 03:30 Pulse Rate 53 L Respiratory Rate 13 Blood Pressure 108/67 116/65 Pulse Oximetry 95 Oxygen Flow Rate 01/15/24 04:00 01/15/24 04:00 01/15/24 04:30 Pulse Rate 58 L Respiratory Rate 14 Blood Pressure 113/66 112/65 Pulse Oximetry 96 Oxygen Flow Rate 01/15/24 04:30 01/15/24 05:00 01/15/24 05:00 Pulse Rate 49 L 53 L Respiratory Rate 14 14 Blood Pressure 104/64 Pulse Oximetry 97 96 Oxygen Flow Rate 01/15/24 05:30 01/15/24 05:30 01/15/24 06:00 Pulse Rate 53 L 59 L Respiratory Rate 14 13 Blood Pressure 110/64 Pulse Oximetry 96 96 Oxygen Flow Rate 01/15/24 06:00 Pulse Rate Respiratory Rate Blood Pressure 112/64 Pulse Oximetry Oxygen Flow Rate Oxygen Delivery Method Room Air Oxygen Flow Rate 0 Narrative Exam Narrative: NAD, alert and oriented. Fluent speech. No shaking. Lungs are clear, normal rate and effort. Heart is regular, no murmur gallop or rub. Abdomen is soft, non distended. Extremities are free of edema. Objective Labs 01/13/24 21:54 01/15/24 04:10 Labs: Laboratory Results - last 24 hr 01/14/24 01/14/24 01/15/24 11:00 15:49 04:10 Sodium 133 L Potassium 3.6 Chloride 100 Carbon Dioxide 30 BUN 11 Creatinine 0.57 L Estimated GFR > 60 BUN/Creatinine Ratio 19.3 Glucose 90 Lactate 0.8 Calcium 9.1 Total Bilirubin 1.7 H AST 31 ALT 17 Alkaline Phosphatase 56 Total Protein 6.2 L Albumin 3.9 Globulin 2.3 Albumin/Globulin Ratio 1.7 Nasal Screen MRSA (PCR) Not detected Ethyl Alcohol 60 H [facility] Medical History GERD (gastroesophageal reflux disease) Prostate cancer (Unknown) History of sinusitis Rotator cuff tear, left Left wrist pain Left shoulder pain History of ETOH abuse Surgical History Hx of right inguinal hernia repair Social History household members: none Smoking Status: Current some day smoker alcohol intake: current substance use type: does not use Assessment & Plan Assessment & Plan narrative: 1. Generalized abdominal pain, present on admission and active. No incarceration of umbilical hernia. 2. Initial alcohol intoxication, present on admission and resolved. 3. Acute alcohol withdrawal, new and active. 4. Possible suicidal ideation, present on admission and now being denied. 5. Anxiety / Depression / Insomnia. Stable. 6. Severe acohol use disorder, present on admission and stable. PLAN: -CIWA protocol, continue. -monitor abdominal pain, stable. -IV fluids -Librium 10 Q6Hr PRN agitation. Anticipate a 2 midnight hospital stay for alcohol withdrawal. MOSES: 01/15-01/16. Time-Based Coding :: [TOTAL MINUTES] spent with patient and on the chart (including review of chart, obtaining history, exam, reviewing outside data, placing orders, documenting exam and treatment plan, and counseling patient) on [DATE].
[2024-01-15] MEDS: chlordiazePOXIDE 10 MG CAPSULE PO ×2 (09:06→14:10)
[2024-01-15] MEDS: FOLIC ACID 1 MG TABLET PO (09:06)
[2024-01-15] MEDS: MULTIVITAMIN 1 TABLET 1 TAB PO (09:06)
[2024-01-15] MEDS: THIAMINE 100 MG TABLET PO (09:06)
[2024-01-15] MEDS: HEPARIN 5,000 UNIT/ML VIAL 5000 UNIT SUBCUT ×2 (09:06→20:44)
[2024-01-15] MEDS: cloNIDine 0.1 MG TABLET PO (10:50)
--- NOTE | 2024-01-15 12:24 | DIET.CONS ---
Dietary Consultation Note Admission Date: 01/14/2024 12:32 Assessment: 58 y M admitted for generalized abd pain and alcohol withdrawal. RD consulted for alcohol withdrawal. Low MNA score. PMH of colon cancer. Met with pt this morning who reports low PO intakes while drinking. Unable to determine how much he has been eating recently. Reports only tolerating softer foods, tolerates yogurt well, struggles with meats. Pt reports 4 lb weight gain recently. Pt became tearful and requested RN. NFPE not completed. Ht: 182.88 cm Wt: 77 kg BMI: 23.0 UBW: 70-80 kg per pt, 74.843 kg on 10/27/23 Last BM: 01/10/24 (01/14/24 12:49) MNA: 9 Zachary Score: 21 Diet: 01/14/24 Dinner General (Regular) Diet Diet Modifications: Nutrition Percent Meal Consumed 25% 01/14/24 18:10 Labs: RBC 4.84 X10^6/uL (4.5-5.9) 01/13/24 21:54 Hgb 14.4 g/dL (13.5-17.5) 01/13/24 21:54 Hct 43.0 % (41-53) 01/13/24 21:54 Creatinine 0.57 mg/dL (0.66-1.25) L 01/15/24 04:10 Lactate 0.8 mmol/L (0.7-2.1) 01/15/24 04:10 Nutrition Diagnosis: Inadequate oral intake r/t excessive alcohol intake resulting in inadequate protein intake and nutrient dense foods aeb reported pt drinks a gallon vodka every 2-3 days Interventions: -Ghanaian yogurt or ONS at meals to support EER EER: [id number] kcals (25-30 kcals/kg) 60-70 g protein (.8-1g/kg per age) Monitoring/Evaluations: po intakes Electronically Signed by: Mary Gabriel 01/15/24 12:24 Clinical Dietitian [address] [address]
[2024-01-15] MEDS: BACLOFEN 10 MG TABLET PO ×2 (14:10→20:44)
--- NOTE | 2024-01-15 15:57 | CM.DPNOTE ---
DCP note SPECIAL PROJECTS COORDINATOR reviewed EMR Per chart review, pt CIWAs of up to 8 overnight. high as 11, current 3 throughout day Thursday. per provider in morning rounds, dc Sat vs Sun. SUSAN Parmar kindly agreed to assist this SPECIAL PROJECTS COORDINATOR with pt due to triaging needs. Per Agata report, pt interested in OP resource/tx. no current SI concerns at this time. Per Agata, has support at home with friends/family. Will need referral to OP counseling at [facility]. P: MOSES Sat vs Sun pending progress withdrawaling. SPECIAL PROJECTS COORDINATOR will continue to follow closely for OP MH referral/additional ALEXX/MH resources. SUSAN Chavez
[2024-01-15] MEDS: chlordiazePOXIDE 25 MG CAPSULE PO (20:44)
[2024-01-16] VITALS (25 sets, daily range): BP systolic 86–105; BP diastolic 51–62; PULSE 53–98; RESP 10–33; O2SAT 94–98
[2024-01-16] MEDS: LORazepam 2 MG/ML INJ IV (00:05)
[2024-01-16] MEDS: cloNIDine 0.1 MG TABLET PO (00:37)
[2024-01-16 05:13] LABS: Alanine Aminotransferase 16 IU/L (<50); Albumin 3.6 g/dL (3.5-5.0); Albumin Globulin Ratio 1.6 (1.0-2.8); Alkaline Phosphatase 71 U/L (38-126); Aspartate Aminotransferase 27 IU/L (17-59); BUN Creatinine Ratio 20.3 (6-22); Bilirubin Total 0.7 mg/dL (0.2-1.3); Blood Urea Nitrogen 13 mg/dL (9-20); Calcium 9.2 mg/dL (8.4-10.2); Carbon Dioxide 28 mmol/L (22-32); Chloride 101 mmol/L (98-107); Estimated Glomerular Filt Rate > 60 mL/min (>60); Globulin 2.3 g/dL (1.7-4.1); Glucose 99 mg/dL (80-110); HEMOLYSIS < 15 (0-50); Potassium 3.6 mmol/L (3.4-5.1); Sodium 132 mmol/L (137-145); Total Protein 5.9 g/dL (6.3-8.2)
[2024-01-16] MEDS: MULTIVITAMIN 1 TABLET 1 TAB PO (08:14)
[2024-01-16] MEDS: HEPARIN 5,000 UNIT/ML VIAL 5000 UNIT SUBCUT (08:14)
[2024-01-16] MEDS: FOLIC ACID 1 MG TABLET PO (08:14)
[2024-01-16] MEDS: THIAMINE 100 MG TABLET PO (08:14)
[2024-01-16] MEDS: chlordiazePOXIDE 25 MG CAPSULE PO (08:14)
--- NOTE | 2024-01-16 11:19 | CM.DPNOTE ---
DCP Note PART TIME reviewed EMR. Per provider in morning rounds, pt cleared to dc today. Per previous PART TIME Agata conversation with pt, agreeable to OP f/u with behavior health at . Pt left prior to meeting with this PART TIME early this morning. PART TIME lvm with DEVON vocational case manager with [facility] - Rosa Rees (Ph. # [phone]) re: assisting pt with arranging OP MH f/u. PART TIME lvm with OP scheduling line about anticipating a PCP referral for OP MH f/u scheduling. PART TIME spoke with nutritional assistant provider for pt's PCP (Karin Saavedra) at [facility]. Relayed message for PCP referral needed for OP MH f/u and will need PCP f/u from admission to the hospital. call specialist provider kindly agreed to pass along message to pt's PCP. P: pt left early this morning. anticipate OP PCP and MH f/u pending PCP approval/referral. Pt to continued being followed by DEVON team. CM team will continue to follow as needed SUSAN Chavez
--- NOTE | 2024-01-16 16:58 | PM.DS.1 ---
History of Present Illness History of Present Illness Date Patient Seen: 01/16/24 Time Patient Seen: 08:20 Date of Onset of Symptoms: 01/14/24 Chief complaint: abd pain Narrative: Narrative: The patient is a 58-year-old male with a history of alcohol use disorder, GERD, anxiety, and depression who presented with suicidal ideation, abdominal pain, nausea, no vomiting. The patient was supposed to have a hernia repair of the preceding week, but missed his OR date. The patient made comments that sounded suicidal upon his arrival. He was intoxicated and observed overnight. He had resolution of suicidal ideation and was felt not to be suicidal by the emergency physician at the time of a request to admit at approximately noon on January 13. The patient had gone into withdrawal over the course of the night and was scoring CIWA scores of 10. He was given 1 dose of phenobarbital. He drinks a gallon of vodka every 2-3 days. Discharge Providers Provider Date of admission: 01/14/24 12:32 Discharge Date: 01/16/24 Primary care physician: Karin Saavedra, HUSAM, HOME CHILD CARE PROVIDER Consults: 01/13/24 22:05 Consult to [facility] - Rehabilitation Psychologist Stat Comment: Rehabilitation Psychologist Consult needed for:: Has no money Not safe at home Suicidal/homicidal ideat. 01/14/24 07:30 Consult to [facility] - Rehabilitation Psychologist Stat Comment: Rehabilitation Psychologist Consult needed for:: Suicidal/homicidal ideat. Substance abuse 01/14/24 16:03 Consult to Dietitian, Adult Routine Comment: Reason For Exam: ETOH withdrawl Consult to [facility] - Rehabilitation Psychologist Routine Comment: Rehabilitation Psychologist Consult needed for:: Substance abuse Discharge provider: Rod Vides MD Summary Hospital Course Discharge Diagnosis: 1. Generalized abdominal pain, ruled out for incarceration of umbilical hernia. 2. Initial alcohol intoxication, present on admission and resolved. 3. Acute alcohol withdrawal. 4. Possible suicidal ideation, present on admission and subsequently denied. 5. Anxiety / Depression / Insomnia. 6. Severe alcohol use disorder. Hospital Course: The patient was admitted and placed on the CIWA protocol, with serial evaluations for abdominal pain, IV hydration, and Librium for alcohol withdrawal symptoms. Admission CT scan showed no evident bowel obstruction or hernia incarceration. He improved significantly over 1st 24-48 hours and IV fluids were stopped. He was continued on Librium at the time of discharge per his request, and interested in discharge home with outpatient follow-up. No other issues arose. Status at Discharge Cognitive/behavioral status at discharge: oriented Functional status at discharge: independent ambulation Overall status at discharge: patient is back to baseline Time Spent with Patient Time spent: Less than 30 minutes Exam Vital Signs (past 8 hours): - 01/16/24 09:00 01/16/24 09:30 Pulse Rate 58 L 58 L Respiratory Rate 15 13 Oxygen Delivery Method Room Air Oxygen Flow Rate 0 Narrative Exam Narrative: NAD, alert and oriented. Fluent speech. No shaking. Lungs are clear, normal rate and effort. Heart is regular, no murmur gallop or rub. Abdomen is soft, non distended. Extremities are free of edema. Objective Imaging Abdomen/pelvic CT 01/13/2024: : Radiologist's impression: Multiple loops of fluid-filled small bowel in the mid and lower abdomen are nonspecific but may represent enteritis either infectious or inflammatory in etiology. No findings to suggest small bowel obstruction. Otherwise, no acute abnormalities identified in the abdomen or pelvis. Stable postsurgical changes previous bowel resection in the region of the rectum and right lower quadrant. Small-moderate sized hiatal hernia with mildly thickened wall of the distal esophagus. This is fluid-filled and may represent gastroesophageal reflux esophagitis. Moderate hepatic steatosis. Other chronic/nonacute findings as above. Labs 01/13/24 21:54 01/16/24 04:00 Labs: Laboratory Results - last 24 hr 01/16/24 04:00 Sodium 132 L Potassium 3.6 Chloride 101 Carbon Dioxide 28 BUN 13 Creatinine 0.64 L Estimated GFR > 60 BUN/Creatinine Ratio 20.3 Glucose 99 Calcium 9.2 Total Bilirubin 0.7 AST 27 ALT 16 Alkaline Phosphatase 71 Total Protein 5.9 L Albumin 3.6 Globulin 2.3 Albumin/Globulin Ratio 1.6 [facility] Medical History GERD (gastroesophageal reflux disease) Prostate cancer (Unknown) History of sinusitis Rotator cuff tear, left Left wrist pain Left shoulder pain History of ETOH abuse Surgical History Hx of right inguinal hernia repair Social History household members: none Smoking Status: Current some day smoker alcohol intake: current substance use type: does not use Discharge Plan Discharge Plan Patient Disposition: Home Provider Discharge Comment: Followup with Lottie Amaral 1 week Discharge orders & Medications Prescriptions: New chlordiazepoxide HCl 25 mg Capsule 25 mg PO TID Qty: 10 0RF Continued sumatriptan succinate 50 mg tablet See Rx Instructions PO .COMPLEX PRN (Reason: Migraine Headache) Patient Comments: Take 1 as needed 1 time as needed, may repeat in 1 hour for additional dose in 24 hours PO PRN; Rx Instructions: Take 1 as needed 1 time as needed, may repeat in 1 hour for additional dose in 24 hours PO PRN; mirtazapine 15 mg tablet 15 mg PO DAILY doxepin 10 mg capsule 10 mg PO DAILY Qty: 30 3RF ondansetron 4 mg tablet,disintegrating 4 mg PO Q8H PRN (Reason: nausea and vomiting) Qty: 10 0RF amoxicillin-pot clavulanate 875-125 mg tablet 1 tab PO BID Qty: 20 0RF cetirizine 10 mg tablet 10 mg PO DAILY trazodone 100 mg tablet 100 mg PO BEDTIME baclofen 10 mg tablet 10 mg PO 3XD pantoprazole 40 mg tablet,delayed release (DR/EC) 40 mg PO DAILY fluticasone propionate 50 mcg/actuation spray,suspension 2 spray intranasal DAILY duloxetine 30 mg capsule,delayed release(DR/EC) 30 mg PO BID quetiapine 50 mg tablet 50 mg PO BEDTIME Discontinued lorazepam [Ativan] 1 mg tablet 1 mg PO SEEINSTR Qty: 11 0RF Rx Instructions: Take 1 tablet every 6 hours x 24 hours, then 1 tablet every 8 hours x 24 hours, then 1 tablet every 12 hours x 24 hours, then 1 tablet Q HS x 2 days. alprazolam 0.5 mg tablet 1 tab PO BID Follow up/Referrals: Miscellaneous,Doctor, [Non-Staff] - Karin Saavedra, DNP, HOME CHILD CARE PROVIDER [Primary Care Provider] - Visit Report/Discharge Packet Stand Alone Forms: Patient Portal/API, Stroke Signs & Symptoms Discharge Data Primary Care Provider: Karin Saavedra Quality MIPS - Admit I confirm the patient?s Advance Care Plan is present, Code status is documented, Surrogate decision maker is in patient?s record [If Yes, STOP here]: Yes MIPS - Meds 'Current medications' to include all prescriptions, [id number] products, herbals, cannabis/cannabidiol products, and vitamin/mineral/dietary (nutritional) supplements. I have utilized all available resources to obtain, update, or review the patient?s current medications. [If Yes, STOP here]: Yes MIPS - DC The patient has a history of heart transplant or Left Ventricular Assist Device (LVAD). If yes, STOP here.: No The patient has current or prior documentation of left ventricular ejection fraction (LVEF) less than or equal to 40%, or moderate or severely depressed left ventricular systolic function.: No A. The patient was prescribed or already taking an Angiotensin-Converting Enzyme (GRANT) Inhibitor, or Angiotensin Receptor Nader (ARB).: No B. The patient was prescribed or already taking a beta-nader. [If Yes to Both A & B, STOP here]: No Patient not prescribed/taking GRANT or ARB, no reason given.: No Patient not prescribed/taking beta-nader, no reason given.: No PROFEE Charge Codes Discharge inpatient/observation: [id number]
== END 2024-01-16 10:35 | disposition home or self-care (01) | DRG 897 ==
LOC: ED 01-14 07:29 → AC 01-14 12:33 → ICU 01-14 15:40
PROVIDERS: Emergency Medicine; Internal Medicine; Admitting Provider Hospitalist; Emergency Provider Emergency Medicine; PCP Nurse Practitioner Family; Referring Provider Emergency Medicine; Visit Provider Hospitalist
DX: F10.939 Alcohol use, unspecified with withdrawal, unspecified (principal); R45.851 Suicidal ideations; K42.9 Umbilical hernia without obstruction or gangrene; F17.200 Nicotine dependence, unspecified, uncomplicated; R10.84 Generalized abdominal pain; F41.9 Anxiety disorder, unspecified; F32.A Depression, unspecified; G47.00 Insomnia, unspecified; F10.929 Alcohol use, unspecified with intoxication, unspecified; K21.9 Gastro-esophageal reflux disease without esophagitis; Y90.8 Blood alcohol level of 240 mg/100 ml or more
CPT/HCPCS: 36415; 74177; 80053; 80305; 80320; 80329; 81001; 82140; 83605; 83690; 85025; 85610; 87797; 96361; 96365; 96375; 96376; 99285; G0480; J1171; J1644; J2060; J2405; J2560; Q9967

== ENCOUNTER 2024-05-16 01:21 | Emergency (ER) | payer MEDICARE, MEDICAID, SELFPAY ==
[2024-01-14 12:49] VITALS: BMI 23.0
[2024-05-16 01:30] VITALS: BP 126/68; PULSE 76; RESP 18; TEMP 37.2; O2SAT 98; BMI 25.2
--- NOTE | 2024-05-16 01:36 | ED_ITS ---
HPI - Wound/Laceration General Chief Complaint: Wound/Laceration Stated Complaint: Left thumb laceration Time Seen by Provider: 05/16/24 01:28 Source: patient Mode of arrival: Ambulatory History of Present Illness HPI narrative: 58-year-old gentleman history of anxiety, depression, alcohol use and abuse, was cutting mushrooms with a knife when he accidentally cut his left thumb he did apply some pressure dressing to it himself prior to arrival but it continues to bleed at this time. His last tetanus was in 2023. Other than what is stated 14 point review of system is negative Related Data Home Medications Medication Instructions Recorded Confirmed baclofen 10 mg tablet 10 mg PO 3XD 10/19/23 03/16/24 cetirizine 10 mg tablet 10 mg PO DAILY 10/19/23 03/16/24 fluticasone propionate 50 2 spray intranasal DAILY 10/19/23 03/16/24 mcg/actuation nasal spray,suspension pantoprazole 40 mg tablet,delayed 40 mg PO DAILY 10/19/23 03/16/24 release quetiapine 50 mg tablet 50 mg PO BEDTIME 10/19/23 03/16/24 trazodone 100 mg tablet 100 mg PO BEDTIME 10/19/23 03/16/24 amoxicillin 875 mg-potassium 1 tab PO BID 03/16/24 clavulanate 125 mg tablet Previous Rx's Medication Instructions Recorded sulfamethoxazole 800 1 tab PO BID #14 tabs 05/16/24 mg-trimethoprim 160 mg tablet (Bactrim DS) Allergies Allergy/AdvReac Type Severity Reaction Status Date / Time codeine AdvReac Severe Gastrointestinal Verified 03/16/24 16:02 Upset Review of Systems Review of Systems ROS Unobtainable: All systems reviewed & are unremarkable except as noted in HPI and below Patient History Medical History (Updated 05/16/24 @ 01:46 by Jesus Heredia DO) Umbilical hernia without obstruction and without gangrene GERD (gastroesophageal reflux disease) Prostate cancer (Unknown) History of sinusitis Rotator cuff tear, left Left wrist pain Left shoulder pain History of ETOH abuse Surgical History Hx of right inguinal hernia repair Social History marital status: unmarried,single household members: none lives independently: Yes occupational status: unemployed alcohol intake: former substance use type: does not use tobacco type: cigarettes alcohol intake frequency: 0-2 drinks per day Alcohol type: hard liquor Exam Narrative Exam Narrative: GENERAL: [58] year old patient appears stated age. Well-developed patient, in mild distress. HEAD: Atraumatic. Normocephalic. EYES: Pupils equal round and reactive. Extraocular motions intact. No scleral icterus. No injection or drainage. EXTREMITIES: No edema or joint tenderness. BACK: Nontender without deformity or crepitance. No flank tenderness. NEURO: AOx3. SKIN: No rash or erythema of visible areas. L thumb medial side of DIP joint oval shape deep laceration skin 0.25x0.25cm, motor and sensory intact +2 rad pulse cap refill <2secs. FROM of all digits and thumb of L hand Initial Vital Signs Initial Vital Signs: Vital Signs Temperature 98.9 F 05/16/24 01:30 Pulse Rate 76 05/16/24 01:30 Respiratory Rate 18 05/16/24 01:30 Blood Pressure 126/68 05/16/24 01:30 Pulse Oximetry 98 05/16/24 01:30 Oxygen Delivery Method Room Air 05/16/24 01:30 Course Vital Signs Vital signs: Vital Signs - 8 hr 05/16/24 01:30 Temperature 98.9 F Pulse Rate 76 Respiratory Rate 18 Blood Pressure 126/68 Pulse Oximetry 98 Oxygen Delivery Method Room Air MDM - Wound/Laceration MDM Narrative Medical decision making narrative: Surgicel was applied to affected area to stop bleeding with pressure gauze and wrapping. Skin was lacerated with no reattachment points for suturing. No foreign body identified. Patient has full range of motion of the left hand and all joints of the left finger and thumb. His last tetanus was in 2023. Differential diagnosis includes laceration, foreign body, cellulitis, and tetanus. Follow up PCP in [address] pt on bactrim rx in light of deep laceration given 1st dose here in ER. Discharge Plan Departure Patient Disposition: Home Clinical Impression: Laceration of left thumb Qualifiers: Encounter type: initial encounter Damage to nail status: without damage Foreign body presence: without foreign body Qualified Code(s): S61.012A - Laceration without foreign body of left thumb without damage to nail, initial encounter Instructions: DI for Minor Laceration Activity Restrictions/Additional Instructions: Return with new or worsening symptoms. Take your medicines as directe. Follow up with PCP in 1 week. Prescriptions: New sulfamethoxazole-trimethoprim [Bactrim DS] 800-160 mg tablet 1 tab PO BID Qty: 14 0RF No Action amoxicillin-pot clavulanate 875-125 mg tablet 1 tab PO BID cetirizine 10 mg tablet 10 mg PO DAILY trazodone 100 mg tablet 100 mg PO BEDTIME baclofen 10 mg tablet 10 mg PO 3XD pantoprazole 40 mg tablet,delayed release (DR/EC) 40 mg PO DAILY fluticasone propionate 50 mcg/actuation spray,suspension 2 spray intranasal DAILY quetiapine 50 mg tablet 50 mg PO BEDTIME Referrals: Karin Saavedra, HUSAM, CUSTOMER SERVICE SALES ASSOCIATE [Primary Care Provider] - Stand Alone Forms: Patient Portal/API/Survey
[2024-05-16] MEDS: TRIMETH/SULFA 160/800 (DS) TABLET 1 TAB PO (01:51)
[2024-05-16 01:54] VITALS: BP 122/63; PULSE 76; RESP 18; O2SAT 97
== END 2024-05-16 01:53 | disposition home or self-care (01) ==
PROVIDERS: Emergency Provider Family Medicine; PCP Nurse Practitioner Family
DX: S61.012A Laceration without foreign body of left thumb without damage to nail, initial encounter (principal); W26.0XXA Contact with knife, initial encounter
CPT/HCPCS: 99283

== ENCOUNTER 2024-06-13 00:31 | Emergency (ER) | payer MEDICARE, MEDICAID, SELFPAY ==
[2024-01-14 12:49] VITALS: BMI 23.0
[2024-06-13] VITALS (8 sets, daily range): BP systolic 97–107; BP diastolic 54–60; PULSE 62–87; RESP 10–29; TEMP 36.7; O2SAT 92–98; BMI 25.7
--- NOTE | 2024-06-13 00:45 | DI.CT.S_ITS ---
PROCEDURE: CT STROKE INDICATIONS: L hand weakness TECHNIQUE: Noncontrast 4.5 mm thick angled axial sections acquired from the foramen magnum to the vertex, with coronal reformats. For radiation dose reduction, the following was used: automated exposure control, adjustment of mA and/or kV according to patient size. COMPARISON: [facility], CT, CT HEAD/BRAIN WO CON, 10/27/2023, 15:37. FINDINGS: Image quality: Diagnostic. CSF spaces: Basal cisterns are patent. No extra-axial fluid collections. The ventricles are symmetric in size and shape. Brain: No intracranial bleeds or mass effect. There is cerebral volume loss, with resultant ventricular and sulcal prominence. There are periventricular and deep white matter chronic small vessel ischemic changes. There is intracranial internal carotid artery atherosclerosis. Skull and face: Calvarium and visualized facial bones appear intact, without suspicious lesions. Sinuses: Visualized sinuses and mastoids are clear. IMPRESSION: No acute intracranial pathology. Findings were discussed with the referring provider, Dr. Heredia, by telephone on 06/13/2024 at 1:08 AM. This study fulfills neurological imaging criteria for inclusion or exclusion of acute stroke therapies based on available published neurological guidelines. Approved by: Brandon Turcios M.D. on 06/13/2024 at 1:08
--- NOTE | 2024-06-13 00:46 | DI.CT.S_ITS ---
PROCEDURE: CT ANGIO HEAD AND NECK INDICATIONS: code stroke, L hand weakness TECHNIQUE: After the administration of intravenous contrast, 1 mm thick sections acquired from the aortic arch through the [place] of [place]. 3-dimensional hxvvnag-kwrwhpzhx-opjlapcmde (MIP) and/or volume rendering reformats were acquired of the central intracranial vasculature and neck separately. For radiation dose reduction, the following was used: automated exposure control, adjustment of mA and/or kV according to patient size. COMPARISON: [facility], CT, CT STROKE, 06/13/2024, 0:58. FINDINGS: Image quality: Diagnostic. BRAIN: Please see the separately dictated report from the noncontrast CT of the head performed at the same time. No abnormal intracranial arterial-phase enhancement. HEAD CT ANGIOGRAPHY: Anterior circulation: Intracranial internal carotid arteries are normal in size and flow. The flow within the paired anterior cerebral arteries is normal and symmetric. The flow within the middle cerebral arteries is normal and symmetric. The anterior communicating artery is seen. No aneurysms are seen. Posterior circulation: Visualized portions of the vertebral arteries demonstrate normal caliber, and join to form a normal appearing basilar artery. Flow within the posterior cerebral arteries is normal and symmetric. No aneurysms are seen. NECK CT ANGIOGRAPHY: Carotid system: The great vessels demonstrate a conventional anatomy as they arise from the aortic arch. The origins of the common carotid arteries appear patent. The common carotid arteries demonstrate normal caliber and courses. The bifurcation regions are both widely patent. The internal carotid arteries demonstrate normal calibers and courses. Posterior circulation: The origins of the vertebral arteries both appear widely patent. The more superior extracranial portions of both vertebral arteries also demonstrate normal courses and calibers. They join to form a normal appearing basilar artery. Soft tissues: Visualized neck soft tissues demonstrate no suspicious abnormalities. Bones: No suspicious bony lesions. Mild to moderate degenerative changes are seen in the included spine. IMPRESSION: No significant intracranial arterial abnormality is seen. No significant abnormality is seen within the arteries of the neck. Any quantitative measurements of stenosis were performed using NASCET criteria. Approved by: Brandon Turcios M.D. on 06/13/2024 at 1:26
[2024-06-13 00:52] LABS: Add Manual Diff / Slide Review NO; Basophils Absolute Auto 100 /uL (0-100); Eosinophils Absolute Auto 200 /uL (0-450); Eosinophils Percent Auto 1.8 % (2-4); Hemoglobin 12.4 g/dL (13.5-17.5); Lymphocytes Absolute Auto 2800 /uL (1100-4500); Lymphocytes Percent Auto 28.7 % (25-40); Mean Corpuscular HGB Conc 33.6 % (30-36); Mean Corpuscular Hemoglobin 29.4 PG (26-34); Mean Corpuscular Volume 87.4 fL (80-100); Monocytes Absolute Auto 700 /uL (0-900); Monocytes Percent Auto 6.7 % (3-14); Neutrophils Absolute Auto 6000 /uL (1500-7000); Neutrophils Percent Auto 61.8 % (50-75); Platelet Count 298 X10^3/uL (150-400); Red Blood Cell Count 4.23 X10^6/uL (4.5-5.9); Red Cell Distribution Width 15.5 % (11.6-14.8); White Blood Cell Count 9.8 X10^3/uL (4.5-11.0)
--- NOTE | 2024-06-13 00:55 | ED.AMS ---
HPI - Altered Mental Status General Chief Complaint: Neuro Symptoms/Deficit Stated Complaint: LOC, Head Injury Time Seen by Provider: 06/13/24 00:46 Source: patient Mode of arrival: Ambulatory History of Present Illness HPI narrative: 58-year-old male history of alcohol use, seizure, GERD, anxiety, depression, colon cancer status post resection, TBI, presents with apparent unwitnessed seizure at 10pm for which he states now his left upper extremity is weak specifically his hand he is unable hold a toothbrush, he can't put the wallet with his left hand. He walked about 15 blocks before coming here to the ER. He quit drinking last October and has been sober since. He is speaking slowly at this time. Other than what is stated 14 pt ROS is negative. Related Data Home Medications Medication Instructions Recorded Confirmed baclofen 10 mg tablet 10 mg PO 3XD 10/19/23 03/16/24 cetirizine 10 mg tablet 10 mg PO DAILY 10/19/23 03/16/24 fluticasone propionate 50 2 spray intranasal DAILY 10/19/23 03/16/24 mcg/actuation nasal spray,suspension pantoprazole 40 mg tablet,delayed 40 mg PO DAILY 10/19/23 03/16/24 release quetiapine 50 mg tablet 50 mg PO BEDTIME 10/19/23 03/16/24 trazodone 100 mg tablet 100 mg PO BEDTIME 10/19/23 03/16/24 amoxicillin 875 mg-potassium 1 tab PO BID 03/16/24 clavulanate 125 mg tablet Previous Rx's Medication Instructions Recorded sulfamethoxazole 800 1 tab PO BID #14 tabs 05/16/24 mg-trimethoprim 160 mg tablet (Bactrim DS) Allergies Allergy/AdvReac Type Severity Reaction Status Date / Time codeine AdvReac Severe Gastrointestinal Verified 03/16/24 16:02 Upset Review of Systems Review of Systems ROS Unobtainable: All systems reviewed & are unremarkable except as noted in HPI and below Patient History Medical History (Updated 06/13/24 @ 03:45 by Jesus Heredia DO) Umbilical hernia without obstruction and without gangrene GERD (gastroesophageal reflux disease) Prostate cancer (Unknown) History of sinusitis Rotator cuff tear, left Left wrist pain Left shoulder pain History of ETOH abuse Surgical History Hx of right inguinal hernia repair Social History marital status: unmarried,single household members: none lives independently: Yes occupational status: unemployed Smoking Status: Current every day smoker alcohol intake: former substance use type: does not use Smoking Status: Current every day smoker tobacco type: cigarettes alcohol intake frequency: 0-2 drinks per day Alcohol type: hard liquor Exam Narrative Exam Narrative: GENERAL: [58] year old patient appears stated age. Well-developed patient, in mild distress. HEAD: Atraumatic. Normocephalic. EYES: Pupils equal round and reactive. Extraocular motions intact. No scleral icterus. No injection or drainage. ENT: Nose without bleeding, purulent drainage. Throat without erythema, tonsillar hypertrophy or exudate. Airway patent. NECK: Trachea midline. Non tender CARDIOVASCULAR: Regular rate and rhythm without murmurs, gallops, or rubs. RESPIRATORY: Clear to auscultation. Breath sounds equal bilaterally. No wheezes, rales, or rhonchi. GASTROINTESTINAL: Abdomen soft, non-tender, nondistended. EXTREMITIES: No edema or joint tenderness. BACK: Nontender without deformity or crepitance. No flank tenderness. NEURO: AOx3. GCS 15 nonfocal neuro exam Neg pronator drift, Finger to nose and opposite heel to stiles intact. SKIN: No rash or erythema of visible areas Initial Vital Signs Initial Vital Signs: Vital Signs Temperature 98.0 F 06/13/24 00:48 Pulse Rate 87 06/13/24 00:48 Respiratory Rate 17 06/13/24 00:48 Blood Pressure 104/60 06/13/24 00:48 Pulse Oximetry 98 06/13/24 00:48 Oxygen Delivery Method Room Air 06/13/24 00:48 Course Orders Ordered: ED Orders 06/13/24 00:45 CT Stroke Stat CMP [Comprehensive Metabolic Panel] Stat Complete Blood Count AUTO DIFF Stat PTT Partial Thromboplastin Abdullahi Stat Prothrombin Time INR Stat 06/13/24 00:46 CT angio head and neck Stat Vital Signs Vital signs: Vital Signs - 8 hr 06/13/24 00:48 Temperature 98.0 F Pulse Rate 87 Respiratory Rate 17 Blood Pressure 104/60 Pulse Oximetry 98 Oxygen Delivery Method Room Air MDM - Altered Mental Status Lab Data 06/13/24 00:45 06/13/24 00:45 Labs: Lab Results 06/13/24 Range/Units 00:45 WBC 9.8 (4.5-11.0) X10^3/uL RBC 4.23 L (4.5-5.9) X10^6/uL Hgb 12.4 L (13.5-17.5) g/dL Hct 37.0 L (41-53) % MCV 87.4 (80-100) fL MCH 29.4 (26-34) PG MCHC 33.6 (30-36) % RDW 15.5 H (11.6-14.8) % Plt Count 298 (150-400) X10^3/uL Neut % (Auto) 61.8 (50-75) % Lymph % (Auto) 28.7 (25-40) % [place] % (Auto) 6.7 (3-14) % Eos % (Auto) 1.8 L (2-4) % Baso % (Auto) 1.0 (0-2) % Neut # (Auto) 6000 (5720-5269) /uL Lymph # (Auto) 2800 (3503-6326) /uL [place] # (Auto) 700 (0-900) /uL Eos # (Auto) 200 (0-450) /uL Baso # (Auto) 100 (0-100) /uL Imaging Data CT scan - head: Radiologist's Impression: [place] [address] CT Scan Report Signed Patient: Sean Li MR#: [id number] : 1965 Acct:[id number] Age/Sex: 58 / M Date of Service: 06/13/24 Loc: ED Accession Number: [id number] Procedure: CT Stroke Ordering Provider: Jesus Heredia D.O. PROCEDURE: CT STROKE INDICATIONS: L hand weakness TECHNIQUE: Noncontrast 4.5 mm thick angled axial sections acquired from the foramen magnum to the vertex, with coronal reformats. For radiation dose reduction, the following was used: automated exposure control, adjustment of mA and/or kV according to patient size. COMPARISON: [facility], CT, CT HEAD/BRAIN WO CON, 10/27/2023, 15:37. FINDINGS: Image quality: Diagnostic. CSF spaces: Basal cisterns are patent. No extra-axial fluid collections. The ventricles are symmetric in size and shape. Brain: No intracranial bleeds or mass effect. There is cerebral volume loss, with resultant ventricular and sulcal prominence. There are periventricular and deep white matter chronic small vessel ischemic changes. There is intracranial internal carotid artery atherosclerosis. Skull and face: Calvarium and visualized facial bones appear intact, without suspicious lesions. Sinuses: Visualized sinuses and mastoids are clear. IMPRESSION: No acute intracranial pathology. Findings were discussed with the referring provider, Dr. Heredia, by telephone on 06/13/2024 at 1:08 AM. This study fulfills neurological imaging criteria for inclusion or exclusion of acute stroke therapies based on [place] [address] CT Scan Report Signed Patient: Sean Li MR#: [id number] : 1965 Acct:[id number] Age/Sex: 58 / M Date of Service: 06/13/24 Loc: ED Accession Number: [id number] Procedure: CT angio head and neck Ordering Provider: Jesus Heredia D.O. PROCEDURE: CT ANGIO HEAD AND NECK INDICATIONS: code stroke, L hand weakness TECHNIQUE: After the administration of intravenous contrast, 1 mm thick sections acquired from the aortic arch through the [place] of [place]. 3-dimensional nuswftd-wytbdjekl-adqfcbdjrs (MIP) and/or volume rendering reformats were acquired of the central intracranial vasculature and neck separately. For radiation dose reduction, the following was used: automated exposure control, adjustment of mA and/or kV according to patient size. COMPARISON: [facility], CT, CT STROKE, 06/13/2024, 0:58. FINDINGS: Image quality: Diagnostic. BRAIN: Please see the separately dictated report from the noncontrast CT of the head performed at the same time. No abnormal intracranial arterial-phase enhancement. HEAD CT ANGIOGRAPHY: Anterior circulation: Intracranial internal carotid arteries are normal in size and flow. The flow within the paired anterior cerebral arteries is normal and symmetric. The flow within the middle cerebral arteries is normal and symmetric. The anterior communicating artery is seen. No aneurysms are seen. Posterior circulation: Visualized portions of the vertebral arteries demonstrate normal caliber, and join to form a normal appearing basilar artery. Flow within the posterior cerebral arteries is normal and symmetric. No aneurysms are seen. NECK CT ANGIOGRAPHY: Carotid system: The great vessels demonstrate a conventional anatomy as they arise from the aortic arch. The origins of the common carotid arteries appear patent. The common carotid arteries demonstrate normal caliber and courses. The bifurcation regions are both widely patent. The internal carotid arteries demonstrate normal calibers and courses. Posterior circulation: The origins of the vertebral arteries both appear widely patent. The more superior extracranial portions of both vertebral arteries also demonstrate normal courses and calibers. They join to form a normal appearing basilar artery. Soft tissues: Visualized neck soft tissues demonstrate no suspicious abnormalities. Bones: No suspicious bony lesions. Mild to moderate degenerative changes are seen in the included spine. IMPRESSION: No significant intracranial arterial abnormality is seen. No significant abnormality is seen within the arteries of the neck. Any quantitative measurements of stenosis were performed using NASCET criteria. ECG Data Interpretation: NSR HR69 QRS [address]-twave change Unchanged from 10/27/23 MDM Narrative Medical decision making narrative: All lab work, vital signs, nurse triage note, medication list, and all previous ER visits and imaging studies all reviewed. Patient is now GCS 15 nonfocal neuro exam postictal now more awake back to his chronic baseline given history of TBI given Keppra 1000 mg IV, NS 1L bolus and Tylenol. Differential dx CVA, TIA, seizure, PE, nstemi, stemi, hypogylcemia, orthostatic hypotension. Follow up with PCP this week for follow up care. Discharge Plan Departure Patient Disposition: Home Clinical Impression: Transient alteration of awareness Instructions: DI for Syncope in Adults (Fainting) Activity Restrictions/Additional Instructions: Return with new or worsening symptoms. Follow up with PCP this week for follow up care. Prescriptions: No Action amoxicillin-pot clavulanate 875-125 mg tablet 1 tab PO BID cetirizine 10 mg tablet 10 mg PO DAILY trazodone 100 mg tablet 100 mg PO BEDTIME baclofen 10 mg tablet 10 mg PO 3XD pantoprazole 40 mg tablet,delayed release (DR/EC) 40 mg PO DAILY fluticasone propionate 50 mcg/actuation spray,suspension 2 spray intranasal DAILY quetiapine 50 mg tablet 50 mg PO BEDTIME sulfamethoxazole-trimethoprim [Bactrim DS] 800-160 mg tablet 1 tab PO BID Qty: 14 0RF Referrals: Karin Saavedra, HUSAM, PROJECT DEVELOPMENT COORDINATOR [Primary Care Provider] - Stand Alone Forms: Patient Portal/API/Survey
[2024-06-13 01:01] LABS: INR 0.9 (0.9-1.3); Prothrombin Time 10.3 SECONDS (9.4-12.5)
[2024-06-13 01:04] LABS: PTT Partial Thromboplastin Tim 37 SECONDS (25.1-36.5)
[2024-06-13 01:06] LABS: Alanine Aminotransferase 24 IU/L (<50); Albumin 4.5 g/dL (3.5-5.0); Alkaline Phosphatase 89 U/L (38-126); Aspartate Aminotransferase 31 IU/L (17-59); BUN Creatinine Ratio 15.8 (6-22); Bilirubin Total 0.5 mg/dL (0.2-1.3); Blood Urea Nitrogen 16 mg/dL (9-20); Calcium 9.3 mg/dL (8.4-10.2); Carbon Dioxide 26 mmol/L (22-32); Chloride 105 mmol/L (98-107); Estimated Glomerular Filt Rate > 60 mL/min (>60); Globulin 2.3 g/dL (1.7-4.1); Glucose 91 mg/dL (70-99); HEMOLYSIS < 15 (0-50); Potassium 4.8 mmol/L (3.4-5.1); Sodium 137 mmol/L (137-145); Total Protein 6.8 g/dL (6.3-8.2)
--- NOTE | 2024-06-13 01:12 | PC.NURSE ---
Escorted pt to CT, Stayed during entire Procedure. Returned to room without issues.
--- NOTE | 2024-06-13 01:22 | EKG_ITS ---
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
--- NOTE | 2024-06-13 01:29 | PC.NURSE ---
Pt has issues with lifting and keeping legs in air due to stomach issues and chronic hernia pain.
[2024-06-13] MEDS: ACETAMINOPHEN 325 MG TABLET 975 MG PO (01:50)
[2024-06-13] MEDS: SODIUM CHLORIDE 0.9% 1,000 ML 1000 ML IV (01:52)
[2024-06-13] MEDS: levETIRAcetam 1,000 MG in SODIUM CHLORIDE 0.9% 100 ML 440 MG IV (02:01)
== END 2024-06-13 04:04 | disposition home or self-care (01) ==
PROVIDERS: Emergency Provider Family Medicine; PCP Nurse Practitioner Family
DX: R40.4 Transient alteration of awareness (principal); S09.90XA Unspecified injury of head, initial encounter; R56.9 Unspecified convulsions
CPT/HCPCS: 36415; 70450; 70496; 70498; 80053; 85025; 85610; 85730; 93005; 93010; 96361; 96365; 99284; J1953; Q9967

== ENCOUNTER → 2024-06-14 10:03 | Outpatient (CLI) | payer MEDICARE, MEDICAID, SELFPAY ==
[2024-01-14 12:49] VITALS: BMI 23.0
--- NOTE | 2024-06-14 | DI.CT.S_ITS ---
PROCEDURE: CT IVP A/P W/WO INDICATIONS: gross hematuria TECHNIQUE: Optional 5 mm thick noncontrast images acquired from the diaphragm to the symphysis pubis. After the administration of intravenous contrast, 5 mm thick images acquired from the diaphragm to the symphysis pubis after a 10-minute delay. 2 mm thick coronal and sagittal reformats were then performed of the kidneys and ureters. For radiation dose reduction, the following was used: automated exposure control, adjustment of mA and/or kV according to patient size. COMPARISON: [facility], CT, CT ABDOMEN PELVIS WITH CONTRAST, 03/02/2024, 14:57. FINDINGS: Image quality: Diagnostic Lower chest: Basal atelectasis. Normal heart size. Liver: Similar small liver lesions are present, for example segment 8 measuring 1.2 centimeters. Gallbladder and biliary system: Unremarkable, nondilated Pancreas: No ductal dilation Spleen: Nonenlarged Adrenals: No discrete nodules Kidneys: No solid renal mass. No calcified stone. No suspicious ureter filling defect. Vessels and lymph nodes: Main portal vein is patent. No abdominal aortic aneurysm. No pathologic lymph nodes by size criteria. Bowel and peritoneum: No small bowel obstruction. Moderate to large fecal loading is present. Rectal suture lines. No pathologic ascites. Distal small bowel suture lines also present. Body wall: Small fat containing inguinal and umbilical hernias. Pelvis: Thick-walled urinary bladder with small trabeculations and diverticula. Dystrophic prostate calcifications with heterogeneous enhancement. Bones: No aggressive appearing osseous abnormality. Chronic appearing L5 pars defects. Left nonacute appearing rib deformities. IMPRESSION: No obstructing calcified stone. No hydronephrosis. No solid renal mass. No suspicious ureter filling defects. Bladder wall thickening with trabeculations and small diverticula, usually from chronic obstruction, consider cystoscopy to further evaluate in the setting of hematuria. Heterogeneous prostate enhancement, consider PSA and possible MRI correlation. Rectal suture lines. Stable small liver lesions compared to prior imaging. Other findings above. Dictated by: Juan Keen M.D. on 06/14/2024 at 12:51 Approved by: Juan Keen M.D. on 06/14/2024 at 12:57
== END ==
LOC: CT 10:04
PROVIDERS: PCP Nurse Practitioner Family; Referring Provider Physician Assistant; Visit Provider Physician Assistant
DX: N32.89 Other specified disorders of bladder (principal); R31.0 Gross hematuria; N32.3 Diverticulum of bladder; K76.9 Liver disease, unspecified
CPT/HCPCS: 74178; Q9967

== ENCOUNTER 2024-06-28 05:58 | Emergency (ER) | payer MEDICARE, MEDICAID, SELFPAY ==
[2024-01-14 12:49] VITALS: BMI 23.0
[2024-06-28 06:09] VITALS: BP 111/67; PULSE 70; RESP 16; TEMP 36.6; O2SAT 96; BMI 25.6
== END 2024-06-28 06:53 | disposition left against medical advice (07) ==
PROVIDERS: Emergency Provider Emergency Medicine; PCP Nurse Practitioner Family
DX: R53.1 Weakness (principal)
CPT/HCPCS: 99281

== ENCOUNTER 2024-09-15 18:13 | Emergency (ER) | payer MEDICARE, MEDICAID, SELFPAY ==
[2024-01-14 12:49] VITALS: BMI 23.0
[2024-09-15] VITALS (12 sets, daily range): BP systolic 112–133; BP diastolic 61–89; PULSE 80–98; RESP 16; TEMP 36.4; O2SAT 91–96; BMI 26.4
--- NOTE | 2024-09-15 18:50 | ED.ABDPAIN ---
HPI - Abdominal Pain General Chief Complaint: Abdominal Pain Stated Complaint: No Bowel Movement x3days sent by PCP Time Seen by Provider: 09/15/24 18:36 Source: patient Mode of arrival: Ambulatory History of Present Illness HPI narrative: 58-year-old male patient with a history of TBI, CVA with expressive dysphagia, past ETOH use disorder, colon cancer, atrial fibrillation, anxiety/depression and also chronic abdominal problems including bloating, constipation and pain, who underwent an umbilical hernia repair 1 week ago at [facility] and complains of worsening abdominal discomfort, bloating and constipation over the last 2 or 3 days. His last bowel movement was 3 days ago. He has a bottle of lactulose and has been increasing his dosage. Related Data Home Medications ?Medication ?Instructions ?Recorded ?Confirmed baclofen 10 mg tablet 10 mg PO 3XD 10/19/23 03/16/24 cetirizine 10 mg tablet 10 mg PO DAILY 10/19/23 03/16/24 fluticasone propionate 50 2 spray intranasal DAILY 10/19/23 03/16/24 mcg/actuation nasal spray,suspension pantoprazole 40 mg tablet,delayed 40 mg PO DAILY 10/19/23 03/16/24 release quetiapine 50 mg tablet 50 mg PO BEDTIME 10/19/23 03/16/24 trazodone 100 mg tablet 100 mg PO BEDTIME 10/19/23 03/16/24 amoxicillin 875 mg-potassium 1 tab PO BID 03/16/24 clavulanate 125 mg tablet Previous Rx's ?Medication ?Instructions ?Recorded sulfamethoxazole 800 1 tab PO BID #14 tabs 05/16/24 mg-trimethoprim 160 mg tablet (Bactrim DS) Allergies Allergy/AdvReac Type Severity Reaction Status Date / Time No Known Drug Allergies Allergy Verified 09/15/24 18:36 Review of Systems Review of Systems ROS Unobtainable: All systems reviewed & are unremarkable except as noted in HPI and below Gastrointestinal Gastrointestinal: Reports as per HPI Patient History Medical History (Updated 09/16/24 @ 00:41 by Janes Shea MD) Umbilical hernia without obstruction and without gangrene GERD (gastroesophageal reflux disease) Prostate cancer (Unknown) History of sinusitis Rotator cuff tear, left Left wrist pain Left shoulder pain History of ETOH abuse Surgical History Hx of right inguinal hernia repair Social History marital status: unmarried,single household members: none lives independently: Yes occupational status: unemployed alcohol intake: former substance use type: does not use Smoking Status: Current every day smoker tobacco type: cigarettes alcohol intake frequency: 0-2 drinks per day Alcohol type: hard liquor Exam Narrative Exam Narrative: General: Alert and conversant. Mild distress. Anxious. Appears well nourished and well hydrated Craniofacial: No evidence of trauma. Nontender and no swelling. Eyes: PERRLA EOMI conjunctiva clear Lungs: Clear to auscultation with good air movement. No wheezing, rales or rhonchi. No respiratory distress Cardiac: Regular rate and rhythm with no appreciable murmur or gallop Abdomen: Soft, mild to moderate diffuse tenderness with mild distention. With no masses. Normal bowel sounds. No rebound or guarding Musculoskeletal: Exam of the extremities, axial spine and ribcage reveals no deformity, bony tenderness or swelling. Range of motion intact Neuro: Partial expressive aphasia. Chronic. Alert and oriented. Cranial nerves, motor, sensory and cerebellar all grossly intact. No focal deficit Skin: Warm and normal color. No rashes Psychological: Normal affect and interaction. No evidence of delusion or psychosis. Normal mood. Initial Vital Signs Initial Vital Signs: Vital Signs Temperature 97.5 F L 09/15/24 18:30 Pulse Rate 89 09/15/24 18:30 Respiratory Rate 16 09/15/24 18:30 Blood Pressure 133/77 09/15/24 18:30 Pulse Oximetry 95 09/15/24 18:30 Oxygen Delivery Method Room Air 09/15/24 18:30 Course Course Course Narrative: 22:35 Patient is sleeping calmly in the bed in no distress. Enema administered but no bowel movement. Abdominal film unremarkable for excess gas or obstruction. Lab work also reassuring. 23:10 Patient was discharged but got up to use the restroom and lost his balance and fell down with a scrape/abrasion to the top of the scalp. No loss of consciousness. Complains of headache and neck pain. C-collar placed. Physical exam reveals an abrasion with no bleeding to the top of the scalp. Otherwise no deformity. Bilateral and midline cervical tenderness. No deformity. C-collar in plac. We will obtain CT head and neck given his fall and head and neck trauma. Orders Ordered: ED Orders 09/15/24 19:55 Ammonia (NH3) Stat Complete Blood Count AUTO DIFF Stat Comprehensive Metabolic Panel Stat Lipase Stat 09/15/24 20:28 XR abdomen min 2V Stat 09/15/24 23:21 CT cervical spine wo con Stat CT head/brain wo con Stat Sodium Chloride (Normal Saline 0.9%) 1,000 mls @ 150 mls/hr IV CONT CHEIKH Last Infusion: 09/15/24 21:59 Dose: Infused Discontinued Medications Al Hydrox/Mg Hydrox/Simethicone (Mag Hydrox/Alum/Simeth 30 Ml Udc) 30 ml PO NOW ONE Stop: 09/15/24 20:32 Last Admin: 09/15/24 21:21 Dose: 30 ml Magnesium Citrate (Magnesium Citrate 300 Ml Solution) 300 ml PO NOW ONE Stop: 09/15/24 22:41 Last Admin: 09/15/24 22:49 Dose: 300 ml Sodium Biphosphate/Sodium Phosphate (Fleets Enema) 1 each LA NOW ONE Stop: 09/15/24 20:33 Last Admin: 09/15/24 21:24 Dose: 1 each Vital Signs Vital signs: Vital Signs - 8 hr 09/15/24 18:30 09/15/24 18:30 09/15/24 18:30 Temperature 97.5 F L Pulse Rate 89 92 H Respiratory Rate 16 Blood Pressure 133/77 133/77 Pulse Oximetry 95 94 Oxygen Delivery Method Room Air 09/15/24 19:00 09/15/24 19:00 09/15/24 19:30 Temperature Pulse Rate 82 80 Respiratory Rate Blood Pressure 117/65 Pulse Oximetry 94 94 Oxygen Delivery Method 09/15/24 19:38 09/15/24 19:38 09/15/24 20:00 Temperature Pulse Rate 80 Respiratory Rate Blood Pressure 118/67 121/66 Pulse Oximetry 95 Oxygen Delivery Method 09/15/24 20:00 09/15/24 20:30 09/15/24 20:30 Temperature Pulse Rate 83 85 Respiratory Rate Blood Pressure 127/85 Pulse Oximetry 96 96 Oxygen Delivery Method 09/15/24 20:54 09/15/24 20:54 09/15/24 21:00 Temperature Pulse Rate 91 H Respiratory Rate Blood Pressure 132/67 120/61 Pulse Oximetry 96 Oxygen Delivery Method 09/15/24 21:00 09/15/24 21:30 09/15/24 21:31 Temperature Pulse Rate 83 96 H 98 H Respiratory Rate Blood Pressure Pulse Oximetry 94 94 91 Oxygen Delivery Method 09/15/24 21:31 09/15/24 22:00 09/15/24 22:00 Temperature Pulse Rate 81 Respiratory Rate Blood Pressure 123/89 112/66 Pulse Oximetry 94 Oxygen Delivery Method 09/15/24 22:54 Temperature Pulse Rate Respiratory Rate 16 Blood Pressure Pulse Oximetry Oxygen Delivery Method MDM - Abdominal Pain Lab Data 09/15/24 19:55 09/15/24 19:55 Labs: Lab Results 09/15/24 Range/Units 19:55 WBC 8.9 (4.5-11.0) X10^3/uL RBC 4.25 L (4.5-5.9) X10^6/uL Hgb 12.8 L (13.5-17.5) g/dL Hct 37.0 L (41-53) % MCV 87.1 (80-100) fL MCH 30.1 (26-34) PG MCHC 34.5 (30-36) % RDW 14.6 (11.6-14.8) % Plt Count 279 (150-400) X10^3/uL Neut % (Auto) 59.7 (50-75) % Lymph % (Auto) 26.1 (25-40) % [place] % (Auto) 10.4 (3-14) % Eos % (Auto) 2.9 (2-4) % Baso % (Auto) 0.9 (0-2) % Neut # (Auto) 5300 (9620-2997) /uL Lymph # (Auto) 2300 (0284-0576) /uL [place] # (Auto) 900 (0-900) /uL Eos # (Auto) 300 (0-450) /uL Baso # (Auto) 100 (0-100) /uL Sodium 137 (137-145) mmol/L Potassium 3.7 (3.4-5.1) mmol/L Chloride 104 (98-107) mmol/L Carbon Dioxide 23 (22-32) mmol/L BUN 11 (9-20) mg/dL Creatinine 0.78 (0.66-1.25) mg/dL Estimated GFR > 60 (>60) mL/min BUN/Creatinine Ratio 14.1 (6-22) Glucose 111 H (70-99) mg/dL Calcium 8.7 (8.4-10.2) mg/dL Total Bilirubin 0.8 (0.2-1.3) mg/dL AST 41 (17-59) IU/L ALT 26 (<50) IU/L Alkaline Phosphatase 94 (38-126) U/L Ammonia 33 H (9-30) umol/L Total Protein 6.9 (6.3-8.2) g/dL Albumin 4.4 (3.5-5.0) g/dL Globulin 2.5 (1.7-4.1) g/dL Albumin/Globulin Ratio 1.8 (1.0-2.8) Lipase 41 (23-300) U/L Imaging Data Abdominal x-ray: Attestation: I personally reviewed and interpreted this imaging study as follows: My Impression: Somewhat increased stool in the distal bowel but no abnormal gas pattern or obstruction evident. No free air or perforation. CT scan - head: Radiologist's Impression: IMPRESSION: No acute intracranial pathology. CT - cervical spine: Radiologist's Impression: IMPRESSION: No displaced fracture or traumatic subluxation. MDM Narrative Medical decision making narrative: Patient is sleeping in bed in no distress. Lab work in plain films reassuring. Patient has possible constipation and exacerbation of chronic abdominal pain but results are reassuring and he does not need further imaging or workup in the ER. Plan will be instructions on constipation including use of MiraLax, milk of magnesia and/or mineral oil. Also follow up with primary care. Prior to discharge the patient had a fall and sustained a scalp abrasion and a neck strain. CT scan of the head and neck are unremarkable. Patient given instructions on managing these problems as well as his constipation. Return to the ER as needed. Discharge Plan Departure Clinical Impression: Abdominal pain, chronic, generalized, Constipation, Abrasion of scalp, Cervical muscle strain Instructions: DI for Abdominal Pain-Adult, DI for Constipation, DI for Cervical Muscle Strain, DI for Abrasion Activity Restrictions/Additional Instructions: Plan: Hydration and rest. Mag citrate. May also try MiraLax, mineral oil or milk of magnesia. Take plenty of fluids and plenty of roughage in fiber in your diet. Follow up with your doctor if not improving. Return to the ER if worse. Cold or warm packs for cervical strain. [id number] pain medicine. Follow up with your doctor Prescriptions: No Action amoxicillin-pot clavulanate 875-125 mg tablet 1 tab PO BID cetirizine 10 mg tablet 10 mg PO DAILY trazodone 100 mg tablet 100 mg PO BEDTIME baclofen 10 mg tablet 10 mg PO 3XD pantoprazole 40 mg tablet,delayed release (DR/EC) 40 mg PO DAILY fluticasone propionate 50 mcg/actuation spray,suspension 2 spray intranasal DAILY quetiapine 50 mg tablet 50 mg PO BEDTIME sulfamethoxazole-trimethoprim [Bactrim DS] 800-160 mg tablet 1 tab PO BID Qty: 14 0RF Referrals: Karin Saavedra, HUSAM, TIGER MACHINE OPERATOR [Primary Care Provider, Medical] Stand Alone Forms: Patient Portal/API
[2024-09-15] MEDS: SODIUM CHLORIDE 0.9% 1,000 ML 150 ML IV (19:53)
[2024-09-15 20:02] LABS: Add Manual Diff / Slide Review NO; Hematocrit 37.0 % (41-53); Hemoglobin 12.8 g/dL (13.5-17.5); Lymphocytes Absolute Auto 2300 /uL (1100-4500); Mean Corpuscular HGB Conc 34.5 % (30-36); Mean Corpuscular Hemoglobin 30.1 PG (26-34); Mean Corpuscular Volume 87.1 fL (80-100); Platelet Count 279 X10^3/uL (150-400)
[2024-09-15 20:24] LABS: Ammonia (NH3) 33 umol/L (9-30)
[2024-09-15 20:26] LABS: Alanine Aminotransferase 26 IU/L (<50); Albumin 4.4 g/dL (3.5-5.0); Albumin Globulin Ratio 1.8 (1.0-2.8); Alkaline Phosphatase 94 U/L (38-126); Blood Urea Nitrogen 11 mg/dL (9-20); Calcium 8.7 mg/dL (8.4-10.2); Carbon Dioxide 23 mmol/L (22-32); Chloride 104 mmol/L (98-107); Estimated Glomerular Filt Rate > 60 mL/min (>60); Globulin 2.5 g/dL (1.7-4.1); Glucose 111 mg/dL (70-99); Lipase 41 U/L (23-300); Potassium 3.7 mmol/L (3.4-5.1); Sodium 137 mmol/L (137-145); Total Protein 6.9 g/dL (6.3-8.2)
[2024-09-15 20:28] LABS: HEMOLYSIS 57 (0-50)
--- NOTE | 2024-09-15 20:28 | DI.RAD.S_ITS ---
PROCEDURE: XR ABDOMEN MIN 2V INDICATIONS: Pain and bloating TECHNIQUE: 2 views of the abdomen were acquired. COMPARISON: [facility], , XR ABDOMEN 1V, 10/24/2023, 6:58. FINDINGS: Surgical changes and devices: None. Bowel: No pneumoperitoneum. The bowel gas pattern is normal. Soft tissues: No masses; visualized solid organ contours appear normal in size. No suspicious abdominal calcifications. Bones: No suspicious bony abnormalities. IMPRESSION: Non-obstructive bowel gas pattern. Dictated by: Lucio Crandall M.D. on 09/15/2024 at 22:26 Approved by: Lucio Crandall M.D. on 09/15/2024 at 22:28
[2024-09-15] MEDS: MAG HYDROX/ALUM/SIMETH 30 ML UDC PO (21:21)
[2024-09-15] MEDS: FLEETS ENEMA 1 EACH PR (21:24)
[2024-09-15] MEDS: MAGNESIUM CITRATE 300 ML SOLUTION PO (22:49)
--- NOTE | 2024-09-15 23:17 | PC.NURSE ---
Pt was discharged and asked to go to bathroom one more time prior to leaving. Pt ambulated to restroom with steady even gait. While pt was in restroom, heard noised, found pt conscious and A&Ox4 on floor of bathroom with head near wall. Pt states that he fell and hit head on metal part of baseboard in restroom. Pressure applied to head. sprinkler helper Hazel and Libia RN also in restroom with this RN. Abrasion noted to top of pt's head. Dr. Shea informed and came to assess pt in rm 8. C-collar applied.
--- NOTE | 2024-09-15 23:21 | DI.CT.S_ITS ---
PROCEDURE: CT CERVICAL SPINE WO CON INDICATIONS: Fall with head trauma and neck pain TECHNIQUE: Noncontrast 3 mm thick sections acquired from the skull base to the T4 level. Sagittal and coronal reformats were then constructed. For radiation dose reduction, the following was used: automated exposure control, adjustment of mA and/or kV according to patient size. COMPARISON: [facility], CT, CT CERVICAL SPINE WO [facility], 10/23/2023, 19:50. FINDINGS: Image quality: Streak artifact from necklace. Mild motion artifact Bones: No fractures or dislocations. Degenerative changes of the spine. Visualized superior ribs are intact. Soft tissues: Prevertebral soft tissues are normal in thickness. No paravertebral hematomas. No apical pneumothoraces. IMPRESSION: No displaced fracture or traumatic subluxation. Dictated by: Lucio Crandall M.D. on 09/16/2024 at 0:18 Approved by: Lucio Crandall M.D. on 09/16/2024 at 0:20
--- NOTE | 2024-09-15 23:21 | DI.CT.S_ITS ---
PROCEDURE: CT HEAD/BRAIN WO CON INDICATIONS: Moderate head trauma with neck pain and head pain TECHNIQUE: Noncontrast 4.5 mm thick angled axial sections acquired from the foramen magnum to the vertex, with coronal and sagittal reformats. For radiation dose reduction, the following was used: automated exposure control, adjustment of mA and/or kV according to patient size. COMPARISON: [facility], CT, CT HEAD/BRAIN WO CON, 10/27/2023, 15:37. FINDINGS: Image quality: Diagnostic. CSF spaces: Basal cisterns are patent. No extra-axial fluid collections. Ventricles are normal in size and shape. Brain: No midline shift. No intracranial mass effect or hemorrhage. [place]- white matter interface is normal. Skull and face: Calvarium and visualized facial bones are intact, without suspicious lesions. Sinuses: Visualized sinuses and mastoids are clear. IMPRESSION: No acute intracranial pathology. Dictated by: Lucio Crandall M.D. on 09/16/2024 at 0:06 Approved by: Lucio Crandall M.D. on 09/16/2024 at 0:07
[2024-09-16 01:29] VITALS: BP 111/67; PULSE 77; RESP 16; O2SAT 97
== END 2024-09-16 01:05 | disposition home or self-care (01) ==
PROVIDERS: Emergency Provider Emergency Medicine; PCP Nurse Practitioner Family
DX: R10.84 Generalized abdominal pain (principal); S00.01XA Abrasion of scalp, initial encounter; S16.1XXA Strain of muscle, fascia and tendon at neck level, initial encounter; K59.00 Constipation, unspecified; I69.391 Dysphagia following cerebral infarction; Z85.038 Personal history of other malignant neoplasm of large intestine
CPT/HCPCS: 36415; 70450; 72125; 74019; 80053; 82140; 83690; 85025; 96360; 96361; 99284

== ENCOUNTER 2024-09-16 17:51 | Emergency (ER) | payer MEDICARE, MEDICAID, SELFPAY ==
[2024-01-14 12:49] VITALS: BMI 23.0
[2024-09-16] VITALS (13 sets, daily range): BP systolic 106–131; BP diastolic 63–76; PULSE 47–67; RESP 12–19; O2SAT 93–99; BMI 25.0
--- NOTE | 2024-09-16 18:23 | DI.RAD.S_ITS ---
PROCEDURE: XR CHEST 1V INDICATIONS: altered mental status TECHNIQUE: One view of the chest was acquired. COMPARISON: [facility], CR, XR CHEST 1V, 10/27/2023, 15:44. [facility], CR, XR CHEST 1V, 10/24/2023, 12:53. FINDINGS AND IMPRESSION: No dense airspace disease or pleural effusions on this single view study. Low lung volumes. Normal heart size. Degenerative osseous changes. Dictated by: Juan Keen M.D. on 09/16/2024 at 19:06 Approved by: Juan Keen M.D. on 09/16/2024 at 19:06
--- NOTE | 2024-09-16 18:23 | EKG_ITS ---
[address] [address] Test Date: 2024-09-16 Pat Name: Sean Li Department: [facility] Room: Gender: Male Chief Substation Operator: DEIRDRE : [id number] Requested By: Order Number: [id number] Reading MD: Sumanth Fountain Measurements Intervals [place] Rate: 59 P: 69 ND: 160 QRS: 36 QRSD: 106 T: 43 QT: 484 QTc: 479 Interpretive Statements Sinus bradycardia with fusion complexes Electronically Signed On 09-17-2024 10:27:01 PDT by Sumanth Fountain
[2024-09-16 18:31] LABS: Add Manual Diff / Slide Review NO; Hematocrit 35.0 % (41-53); Hemoglobin 11.6 g/dL (13.5-17.5); Lymphocytes Absolute Auto 2200 /uL (1100-4500); Mean Corpuscular HGB Conc 33.1 % (30-36); Mean Corpuscular Hemoglobin 29.1 PG (26-34); Mean Corpuscular Volume 87.7 fL (80-100); Platelet Count 248 X10^3/uL (150-400)
--- NOTE | 2024-09-16 18:38 | PC.NURSE ---
discussed case with md ann
--- NOTE | 2024-09-16 18:41 | PC.NURSE ---
Pt falling asleep while talking with nurse. Pt reports worsening head pain and abd pain.
[2024-09-16 18:42] LABS: Lactate (Lactic Acid) 1.9 mmol/L (0.7-2.1)
[2024-09-16 18:54] LABS: Troponin I < 0.012 ng/mL (0.01-0.034)
[2024-09-16 19:02] LABS: Alanine Aminotransferase 26 IU/L (<50); Albumin 3.8 g/dL (3.5-5.0); Albumin Globulin Ratio 1.6 (1.0-2.8); Alkaline Phosphatase 51 U/L (38-126); Blood Urea Nitrogen 10 mg/dL (9-20); Calcium 8.3 mg/dL (8.4-10.2); Carbon Dioxide 24 mmol/L (22-32); Chloride 105 mmol/L (98-107); Creatine Kinase 197 U/L (55-170); Estimated Glomerular Filt Rate > 60 mL/min (>60); Ethanol (ETOH) < 10 mg/dL (<10); Globulin 2.4 g/dL (1.7-4.1); Glucose 86 mg/dL (70-99); Sodium 136 mmol/L (137-145); Total Protein 6.2 g/dL (6.3-8.2)
[2024-09-16 19:03] LABS: HEMOLYSIS 137 (0-50); Potassium 3.6 mmol/L (3.4-5.1)
[2024-09-16 19:51] LABS: Procalcitonin 0.033 ng/mL (<0.5)
[2024-09-16 20:25] LABS: UR Morphine/Opiate cutoff 300 Negative (Negative); Ur Specific Gravity Normal (Normal); Urine MDMA Negative (Negative); Urine Methamphetamines Negative (Negative); Urine Tetrahydrocannabinol Positive (Negative); Urine Tricyclic Antidepressant Negative (Negative)
[2024-09-16 20:31] LABS: Appearance Urine UA CLEAR; Bilirubin Urine UA NEGATIVE (NEGATIVE); Color Urine UA YELLOW; Glucose Urine UA NEGATIVE (Negative); Ketones Urine UA NEGATIVE (NEGATIVE); Leukocyte Esterase Urine UA NEGATIVE (NEGATIVE); Nitrite Urine UA NEGATIVE (Negative); Occult Blood Urine UA NEGATIVE (Negative); Protein Urine UA NEGATIVE (Negative); Specific Gravity Urine UA <=1.005 (1.000-1.035); Urobilinogen Urine UA 0.2 E.U./dL (0.2); pH Urine UA 6.5 (4.5-8.0)
[2024-09-16 20:44] LABS: Culture Indicated Urine Cult Not Indicated
--- NOTE | 2024-09-16 21:52 | PC.NURSE ---
Blood cultures attempted by 2 lab techs without success. US trained IV will attempt next.
--- NOTE | 2024-09-16 22:27 | ED.AMS ---
HPI - Altered Mental Status General Chief Complaint: Altered Mental Status Stated Complaint: Head Pain Time Seen by Provider: 09/16/24 22:25 Source: patient and EMS Mode of arrival: EMS History of Present Illness HPI narrative: 58-year-old male patient with a history of TBI, CVA with expressive dysphagia, past ETOH use disorder, colon cancer, atrial fibrillation, anxiety/depression and also chronic abdominal problems including bloating, constipation and pain, who underwent an umbilical hernia repair 1 week ago at [facility] who was seen here last night for abdominal discomfort and bloating with constipation and had a negative workup. He has lactulose was increased to use that. He also had a fall here in the bathroom prior to discharge which required head and neck scanning which were negative. He was sent home with an additional diagnosis of scalp abrasion and neck strain. He now returns complaining of headache and persistent abdominal discomfort. Related Data Home Medications ?Medication ?Instructions ?Recorded ?Confirmed baclofen 10 mg tablet 10 mg PO 3XD 10/19/23 03/16/24 cetirizine 10 mg tablet 10 mg PO DAILY 10/19/23 03/16/24 fluticasone propionate 50 2 spray intranasal DAILY 10/19/23 03/16/24 mcg/actuation nasal spray,suspension pantoprazole 40 mg tablet,delayed 40 mg PO DAILY 10/19/23 03/16/24 release quetiapine 50 mg tablet 50 mg PO BEDTIME 10/19/23 03/16/24 trazodone 100 mg tablet 100 mg PO BEDTIME 10/19/23 03/16/24 amoxicillin 875 mg-potassium 1 tab PO BID 03/16/24 clavulanate 125 mg tablet Previous Rx's ?Medication ?Instructions ?Recorded sulfamethoxazole 800 1 tab PO BID #14 tabs 05/16/24 mg-trimethoprim 160 mg tablet (Bactrim DS) Allergies Allergy/AdvReac Type Severity Reaction Status Date / Time No Known Drug Allergies Allergy Verified 09/16/24 18:19 Review of Systems Review of Systems ROS Unobtainable: All systems reviewed & are unremarkable except as noted in HPI and below Gastrointestinal Gastrointestinal: Reports as per HPI Neurologic Neurologic: Reports as per HPI Patient History Medical History (Updated 09/16/24 @ 22:37 by Janes Shea MD) Umbilical hernia without obstruction and without gangrene GERD (gastroesophageal reflux disease) Prostate cancer (Unknown) History of sinusitis Rotator cuff tear, left Left wrist pain Left shoulder pain History of ETOH abuse Surgical History Hx of right inguinal hernia repair Social History marital status: unmarried,single household members: none lives independently: Yes occupational status: unemployed alcohol intake: former substance use type: does not use tobacco type: cigarettes alcohol intake frequency: 0-2 drinks per day Alcohol type: hard liquor Exam Narrative Exam Narrative: General: Alert and conversant. No distress. Appears well nourished and well hydrated Craniofacial: No evidence of trauma. Nontender and no swelling. Eyes: PERRLA EOMI conjunctiva clear Lungs: Clear to auscultation with good air movement. No wheezing, rales or rhonchi. No respiratory distress Cardiac: Regular rate and rhythm with no appreciable murmur or gallop Abdomen: Soft, nontender with no distention or masses. Normal bowel sounds. No rebound or guarding Neuro: Alert and oriented. Cranial nerves, motor, sensory and cerebellar all grossly intact. No focal deficit Skin: Warm and normal color. No rashes Initial Vital Signs Initial Vital Signs: Vital Signs Pulse Rate 64 09/16/24 18:05 Blood Pressure 109/66 09/16/24 18:05 Pulse Oximetry 93 09/16/24 18:05 Course Orders Ordered: ED Orders 09/16/24 18:14 Complete Blood Count AUTO DIFF Stat Comprehensive Metabolic Panel Stat Ethanol (ETOH) Stat Lactate (Lactic Acid) Stat Procalcitonin Stat Troponin & CK Cardiac Panel Stat 09/16/24 18:23 XR chest 1V Stat EKG-12 Lead Stat 09/16/24 20:09 Urinalysis and Microscopic Stat Urine Drug Screen, Rapid Stat 09/16/24 22:30 Blood Culture Stat Vital Signs Vital signs: Vital Signs - 8 hr 09/16/24 18:30 09/16/24 18:30 09/16/24 19:00 Pulse Rate 63 59 L Respiratory Rate 13 Blood Pressure 109/64 Pulse Oximetry 94 95 09/16/24 19:00 09/16/24 19:30 09/16/24 19:30 Pulse Rate 57 L Respiratory Rate 13 Blood Pressure 113/66 110/67 Pulse Oximetry 97 09/16/24 20:00 09/16/24 20:01 09/16/24 20:01 Pulse Rate 59 L 60 Respiratory Rate 16 18 Blood Pressure 129/76 Pulse Oximetry 99 97 09/16/24 20:30 09/16/24 20:30 09/16/24 21:00 Pulse Rate 47 L 51 L Respiratory Rate 15 12 Blood Pressure 131/67 Pulse Oximetry 97 09/16/24 21:00 09/16/24 21:30 09/16/24 21:30 Pulse Rate 52 L Respiratory Rate 13 Blood Pressure 129/69 125/69 Pulse Oximetry 98 09/16/24 22:00 09/16/24 22:00 Pulse Rate 67 Respiratory Rate 13 Blood Pressure 118/66 Pulse Oximetry 94 MDM - Altered Mental Status Lab Data 09/16/24 18:14 09/16/24 18:14 Labs: Lab Results 09/16/24 09/16/24 09/16/24 Range/Units 18:14 20:09 20:09 WBC 11.3 H (4.5-11.0) X10^3/uL RBC 3.99 L (4.5-5.9) X10^6/uL Hgb 11.6 L (13.5-17.5) g/dL Hct 35.0 L (41-53) % MCV 87.7 (80-100) fL MCH 29.1 (26-34) PG MCHC 33.1 (30-36) % RDW 14.4 (11.6-14.8) % Plt Count 248 (150-400) X10^3/uL Neut % (Auto) 69.1 (50-75) % Lymph % (Auto) 19.0 L (25-40) % [place] % (Auto) 9.8 (3-14) % Eos % (Auto) 1.2 L (2-4) % Baso % (Auto) 0.9 (0-2) % Neut # (Auto) 7800 H (7976-6493) /uL Lymph # (Auto) 2200 (8975-5767) /uL [place] # (Auto) 1100 H (0-900) /uL Eos # (Auto) 100 (0-450) /uL Baso # (Auto) 100 (0-100) /uL Sodium 136 L (137-145) mmol/L Potassium 3.6 (3.4-5.1) mmol/L Chloride 105 (98-107) mmol/L Carbon Dioxide 24 (22-32) mmol/L BUN 10 (9-20) mg/dL Creatinine 0.60 L (0.66-1.25) mg/dL Estimated GFR > 60 (>60) mL/min BUN/Creatinine Ratio 16.7 (6-22) Glucose 86 (70-99) mg/dL Lactate 1.9 (0.7-2.1) mmol/L Calcium 8.3 L (8.4-10.2) mg/dL Total Bilirubin 0.9 (0.2-1.3) mg/dL AST 65 H (17-59) IU/L ALT 26 (<50) IU/L Alkaline Phosphatase 51 (38-126) U/L Total Creatine Kinase 197 H (55-170) U/L Troponin I < 0.012 (0.01-0.034) ng/mL Total Protein 6.2 L (6.3-8.2) g/dL Albumin 3.8 (3.5-5.0) g/dL Globulin 2.4 (1.7-4.1) g/dL Albumin/Globulin Ratio 1.6 (1.0-2.8) Procalcitonin 0.033 (<0.5) ng/mL Urine Color Yellow Urine Appearance Clear Urine pH 6.5 Normal (4.5-8.0) Ur Specific [place] <=1.005 (1.000-1.035) Urine Protein Negative (Negative) Urine Glucose (UA) Negative (Negative) g/dL Urine Ketones Negative (NEGATIVE) Urine Occult Blood Negative (Negative) Urine Nitrate Negative (Negative) Urine Bilirubin Negative (NEGATIVE) Urine Urobilinogen 0.2 (0.2) E.U./dL Ur Leukocyte Esterase Negative (NEGATIVE) Urine RBC None seen (0-5/HPF) Urine WBC None seen (0-5/HPF) Ur Squamous Epith Cells None seen (0-5/HPF) Urine Bacteria None seen (None) Ur Culture Indicated? Cult not indicated Vol Urine Centrifuged 10ml (spun) U Opiates 300ng/mL cut Negative (Negative) Ur Oxycodone Screen Positive H (Negative) Urine Methadone Screen Negative (Negative) Ur Barbiturates Screen Negative (Negative) U Tricyclic Antidepress Negative (Negative) Ur Phencyclidine Scrn Negative (Negative) Ur Amphetamines Screen Negative (Negative) U Methamphetamines Scrn Negative (Negative) Ur MDMA Scrn (Ecstasy) Negative (Negative) U Benzodiazepines Scrn Positive H (Negative) Urine Cocaine Screen Negative (Negative) U Marijuana (THC) Screen Positive H (Negative) Urine Specific [place] Normal (Normal) Ethyl Alcohol < 10 (<10) mg/dL Ur Creatinine Normal (Normal) ECG Data Attestation: I personally reviewed and interpreted this ECG as follows: (Sinus bradycardia at a rate of 59. No ischemic changes. Normal intervals otherwise ) MDM Narrative Medical decision making narrative: By my assessment the patient is at his baseline. He does have chronic mental status changes due to his CBI and previous stroke. He has slow with his verbal expression/IE partial expressive aphasia. He has been sleeping and in no significant distress. He is asking for pain medicine. He has not tried any [id number] medicine. He says he ?can not take it? because of previous surgeries and that it will thin his blood. Patient has chronic abdominal pain which has not changed in his lab work is unremarkable. He does not need imaging in the ER. He also has a mild headache and may have a mild concussion but he has no other symptoms of concussion from his mild head injury yesterday and had a CT scan yesterday. He needs no further imaging in regard to his minor head injury. Plan is discharge home with hydration, rest and supportive care with [id number] medicine as needed for pain. Otherwise follow up with his doctor to manage chronic abdominal symptoms. Discharge Plan Departure Patient Disposition: Home Clinical Impression: Chronic abdominal pain, Headache Instructions: DI for Chronic Pain -- Adult, DI for Headache Activity Restrictions/Additional Instructions: Plan: Hydration, rest and supportive care with [id number] medicine for headache such as acetaminophen or ibuprofen. Cold packs. Follow up with your doctor within the next week to discuss symptoms. Prescriptions: No Action amoxicillin-pot clavulanate 875-125 mg tablet 1 tab PO BID cetirizine 10 mg tablet 10 mg PO DAILY trazodone 100 mg tablet 100 mg PO BEDTIME baclofen 10 mg tablet 10 mg PO 3XD pantoprazole 40 mg tablet,delayed release (DR/EC) 40 mg PO DAILY fluticasone propionate 50 mcg/actuation spray,suspension 2 spray intranasal DAILY quetiapine 50 mg tablet 50 mg PO BEDTIME sulfamethoxazole-trimethoprim [Bactrim DS] 800-160 mg tablet 1 tab PO BID Qty: 14 0RF Referrals: Karin Saavedra DNP, [employer] [Primary Care Provider, Medical] Stand Alone Forms: Patient Portal/API
== END 2024-09-16 22:55 | disposition home or self-care (01) ==
PROVIDERS: Emergency Provider Emergency Medicine; PCP Nurse Practitioner Family
DX: G89.29 Other chronic pain (principal); R51.9 Headache, unspecified; I69.391 Dysphagia following cerebral infarction
CPT/HCPCS: 36415; 71045; 80053; 80305; 80320; 81001; 82550; 83605; 84145; 84484; 85025; 87040; 93005; 99283; 99284